=== PATIENT | female | born 1985 | race Caucasian/White ===

== ENCOUNTER → 2017-05-23 | Outpatient (CLI) | payer OTHER ==
[~2017-05-23] MED LIST: BCPILLS PO; IBUP-1050 PO; NXM/40 PO
== END | disposition home or self-care (01) ==
LOC: C.LABSPEC 15:41
PROVIDERS: ATTEND Physician Assistant
DX: L29.8 Other pruritus (principal); N94.9 Unspecified condition associated with female genital organs and menstrual cycle

== ENCOUNTER → 2017-05-23 | Outpatient (CLI) | payer OTHER | END | disposition home or self-care (01) | LOC: C.PAPS 15:35 | PROVIDERS: ATTEND Physician Assistant | DX: Z01.419 Encounter for gynecological examination (general) (routine) without abnormal findings (principal) ==

== ENCOUNTER 2023-11-10 13:06 | Observation (INO) ==
--- OUTSIDE RECORDS SUMMARY | 2023-11-10 13:10 | External Medical Summary | Summary of Care ---
Author Name Unknown Organization [facility] Address [address] [place] [address] Phone [phone] Care Team Providers Care Invertebrate Paleontologist Name Role Phone Ender Ponce MD Primary Care Provider [phone] Reason for Visit * Reason Comments Appointment Encounter Details Date Type Department Care Team (Late st Contact Info) Description 10/22/2023 6:10 PM EDT Pharmacy Pharmacy, [facility] [address] [place] [address] [facility] [address] [place] [address] Type 2 diabetes mellitus with hemoglobin A1c goal of less than 7.0% (FORMERLY [facility])* Allergies Active Allergy Reactions Criticality Noted Date Comments Environmental 11/05/2006 Sulfa Antibiotics Rash 07/02/2015 documented as of this encounter (statuses as of 10/22/2023) Medications Medication Sig Dispensed Refills Start Date End Date Status allGreenup System w/Device KitIndications:Type 2 diabetes mellitus with hemoglobin A1c goal of less than 7.0% ([facility]) Use as directed. Test blood sugar twice daily. Am and pm DX:E11.9 1 Kit 02/09/2021 Active Meloxicam 15 MG Oral TabletIndications:P eriodontitis Take by mouth 1 Tablet in the morning. for pain.. 30 Tablet 5 11/23/2021 Active Albuterol Sulfate HFA 108 (90 Base) MCG/ACT Inhalation Aerosol SolutionIndications :Mild persistent asthma without complication Inhale 2 Puffs by mouth in the morning and 2 Puffs at noon and 2 Puffs in the evening and 2 Puffs before bedtime. 18 g 3 12/04/2022 Active Fluticasone Propionate HFA 110 MCG/ACT Inhalation Aerosol (Flovent HFA)Indications:Mil d persistent asthma without complication Inhale 2 Puffs by mouth in the morning and 2 Puffs before bedtime. 12 g 3 12/04/2022 Active Multi-Vitamins Oral Tablet Take 1 Tablet by mouth in the morning. 12/20/2022 Active Mavyret 100-40 MG Oral Tablet (glecaprevir-pibren tasvir 100-40 mg per tab)Indications:Chr onic hepatitis C without hepatic coma (HCC) Take one packet (all 3 tabs) once daily with food. 84 Tablet 1 12/20/2022 Active Additional Information Patient not taking.Reported on 01/22/2023 buPROPion HCl ER (XL) 150 MG Oral Tablet Extended Release 24 Hour (Wellbutrin XL) Take 1 Tablet by mouth in the morning. 90 Tablet 3 02/21/2023 Active PARoxetine HCl 40 MG Oral Tablet (pAXil)Indications: Bipolar affective disorder in remission (HCC) Take 1.5 Tablets by mouth in the morning. 135 Tablet 1 03/15/2023 Active Ozempic (1 MG/DOSE) 4 MG/3ML Subcutaneous Solution Pen-injector (Semaglutide (1 MG/DOSE)) Inject 1 mg under the skin once a week. 3 mL 11 06/28/2023 Active metFORMIN HCl ER 500 MG Oral Tablet Extended Release 24 Hour (Glucophage XR) Take 4 Tablets by mouth in the morning. 360 Tablet 1 08/12/2023 Active Doxepin HCl 50 MG Oral Capsule (SINEquan)Indicatio ns:Primary insomnia Take 1 Capsule by mouth at bedtime. 90 Capsule 1 08/12/2023 Active OneTouch Delica Plus [id number] s:Type 2 diabetes mellitus with hemoglobin A1c goal of less than 7.0% ([facility]ERLY [facility]) USE 1 TO CHECK GLUCOSE TWICE DAILY IN THE MORNING AND IN THE EVENING 200 Each 09/25/2023 Active OneTouch Verio In Vitro Strip (Glucose Blood)Indications:T ype 2 diabetes mellitus with hemoglobin A1c goal of less than 7.0% ([facility]) USE TO TEST BLOOD SUGAR TWICE DAILY (AM&PM) 200 Strip 09/25/2023 Active Nicotine 21 MG/24HR Transdermal Patch 24 Hour (Nicoderm CQ) Place 1 Patch over 24 hours topically on the skin in the morning. On upper body/upper arm, change once a day for 6 weeks.. 42 Patch 09/25/2023 Active metroNIDAZOLE 500 MG Oral Tablet (Flagyl) Take 1 Tablet by mouth in the morning and 1 Tablet before bedtime. X 7 days until gone.. 14 Tablet 10/16/2023 Active Hospital, Clinic, or Other Facility Administered Medication Ordered Dose Route Frequency Start Date End Date Status medroxyPROGESTERone (contracep) (Depo-Provera) inj 150 mgIndications:Initiation of Depo Provera 150 mg IM [id number] 09/12/2023 Active documented as of this encounter (statuses as of 10/22/2023) Active Problems Problem Noted Date Diagnosed Date Food insecurity 02/04/2023 Overview: Per [facility] Protocol Medical marijuana use 10/22/2022 Overweight (BMI 25.0-29.9) 06/12/2022 Poor dentition 11/23/2021 Neurodermatitis 10/17/2018 Fatty liver 09/03/2018 Type 2 diabetes mellitus wit h hemoglobin A1c goal of less than 7.0% 07/11/2017 Asthma, mild persistent 11/30/2016 GIOVANY (generalized anxiety disorder) 11/30/2016 History of drug abuse 05/04/2016 Hepatitis C virus infection cured after antiviral drug therapy 05/04/2016 Overview: HCV treated; SVR confirmed 09/12/2023 Bipolar affective disorder in remission 05/04/19 17 Tobacco use disorder 05/04/2016 documented as of this encounter (statuses as of 10/22/2023) Resolved Problems Problem Noted Date Diagnosed Date Resolved Date Obesity, Class I, BMI 30.0-3 4.9 (see actual BMI) 11/23/2021 06/12/2022 Thrombocytopenia 09/03/2018 05/05/2021 Impaired fasting glucose 11/30/2016 Chronic hepatitis C without hepatic coma 11/30/2016 09/13/2023 Overview: HCV treated; SVR confirmed 09/12/2023 Family history of colon cancer 05/04/2016 11/30/2016 drug used in that is possibly teratogenic 04/11/2010 05/04/2016 Supervision of other high-risk 04/11/2010 05/04/2016 Overview: ICD-10 update of inactive term Genetic counseling 04/11/2010 7 ADVANCE DIRECTIVE INFORMATION 03/09/2010 05/04/2016 Overview: No, Advance Directive brochure offered , patient declined. documented as of this encounter (statuses as of 10/22/2023) Immunizations Name Administration Dates Next Due HEP A - Hepatitis A (Adult > 18 yrs) 06/11/2016 TDAP (age 10 and older)(Boostrix) 11/30/2014 documented as of this encounter Social History Tobacco Use Types Packs/Day Years Used Date Smoking Tobacco: Every Day Cigarettes 0.3 5 Started: 04/30/2011; Last attempted to quit: 04/30/2016 Smokeless Tobacco: Never Comments:05/09/16 Day 9 of [place] patch Alcohol Use Standard Drinks/Week Comments Yes 0 (1 standard drink = 0.6 oz pur e alcohol) occasionally PHQ-2 Answer Date Recorded PHQ-2 Score -1 02/09/2020 Hunger Vital Sign Answer Date Recorded Within the past 12 months, y ou worried that your food would run out before you got the money to buy more. Often true Within the past 12 months, t he food you bought just didn't last and you didn't have money to get more. Sometimes true 06/2023 Childcare Answer Date Recorded Do you feel overwhelmed with taking care of a child, family member or friend? Yes 08/30/2023 Does your family need help f inding childcare? (Household - for ages 0-17 years) Not on file 08/30/2023 Clothing Answer Date Recorded Have you been unable to get clothing when it was really needed? Yes 08/30/2023 Is your family able to get c lothes or diapers when needed? (Household - for ages 0-17 years) Not on file 08/30/2023 Personal Safety Answer Date Recorded Do you feel unsafe or have concerns for your saf ety? No 08/30/2023 Do you have concerns for you r family's safety? (Household - for ages 0-17 years) Not on file 08/30/2023 Utilities Answer Date Recorded Do you have trouble paying y our heating, water, or electric bill? No 08/30/2023 Is your family able to pay t he heat, water, or electric bill? (Household - for ages 0-17 years) Not on file 08/30/2023 Does your family have access to good internet? (Household - for ages 0-17 years) Not on file 08/30/2023 Employment Status Answer Date Recorded Are you unemployed or without regular income? Ye s 08/30/2023 Does the household have a re gular source of income? (Household - for ages 0-17 years) Not on file 08/30/2023 Social Connections Answer Date Recorded How often do you feel lonely or isolated from th ose around you? Often 08/30/2023 Financial Resource Strain Answer Date R ecorded Do you have any trouble payi ng for your medications, or do you think you might in the future? Yes 08/30/2023 Does your family have troubl e paying for medicine? (Household - for ages 0-17 years) Not on file 08/30/2023 Transportation Needs Answer Date Record ed READ ONLY Do you have troubl e getting a ride to medical visits or work? Often True 08/30/2023 Does your family have a hard time getting a ride to doctors visits? (Household - for ages 0-17 years) Not on file 08/30/2023 Has lack of transportation k ept you from medical appointments, meetings, work, or from getting things needed for daily living? Check all that apply. (Adult - for ages 18 years and over) Not on file 08/30/2023 Do you (or your family) have trouble finding or paying for a ride (transportation)? (Household - for ages 0-17 years) Not on file 08/30/2023 Housing Stability Answer Date Recorded Do you currently live in a s helter or have no steady place to sleep at night? Yes 08/30/2023 READ ONLY Do you think you a re at risk of becoming homeless? No 08/30/2023 Does your family worry about paying for your home or becoming homeless? (Household - for ages 0-17 years) Not on file 0 08/30/2023 Are you homeless or worried that you might be in the future? (Adult - for ages 18 years and over) Not on file Are you (or your family) emily eless or worried that you might be in the future? (Household - for ages 0-17 years) Not on file Food Insecurity Answer Date Recorded Do you need food for this week? No 08/30/2023 Are you able to get enough f ood for your family? (Household - for ages 0-17 years) Not on file 08/30/2023 Does your family need food t his week? (Household - for ages 0-17 years) Not on file 08/30/2023 Do you always have enough fo od for your family? 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 [facility] message sent --no Clinic will follow up again in 4 week(s). [Attempt # 2] Thank you, Megan Cee Water Jet Operator [facility] 10/22/2023,9:55 AM documented in this encounter Plan of Treatment Upcoming Encounters Date Type Department Care Team (Late st Contact Info) Description 11/19/2023 6:10 PM EDT Pharmacy Pharmacy, [facility] [address] [facility] [place] [address] [facility] 132 [facility] [place] [address] 12/05/2023 10:30 AM EDT Nurse Only Gynecology/Obstetrics [facility] 132 [facility] [place] [address] Gw, Nurse Obgyn Injection 132 [facility] [place] [address] 12/20/2023 10:40 AM EDT Office Visit Family Practice [facility] [address] [facility] [place] [address] Ender Ponce MD [address] [facility] [place] [address] 01/17/2024 10:30 AM EDT Office Visit Gynecology/Obstetrics, [place] [address] [facility] [place] [address] Jessica Cee MD [address] [place] [address] 02/25/2024 8:20 AM EDT Office Visit Hepatology, [facility] [address] [facility] [place] [address] Mehnaz Delgado DO 132 [facility] [place] [address] 03/11/2024 7:00 AM [facility] Pharmacy Hepatology, [place] [address] [place] [address] [place], Pharmacist Hepatology [address] [place] [address] Health Maintenance Due Date Last Done Comments DISCUSS TOBACCO CESSATION (REFER TO SMARTSET #[id number]) 1986 Pneumococcal Vaccine: Pediatrics (0 to 5 Years) and At-Risk Patients (6 to 64 Years) (1 of 2 - PCV) 1992 Diabetic Eye Exam 2004 HPV/Co-Test 2016 *SPIROMETRY ONCE FOR ASTHMA-ADULT 12/02/2016 Diabetic Foot Exam 02/08/2021 02/09/2020, 12/05/2017 COVID-19 Vaccine ( season) 2022 Cervical Cancer Screening 01/27/2024 Pap Smear 01/27/2024 01/26/2021 HbA1c 02/13/2024 08/14/2023, 03/0 04/2023, 10/27/2022, Additional history exists Albumin/Creatinine Ratio 08/13/2024 08/14/2023, 2 08/2022 B-12 08/13/2024 08/14/2023, 2 08/2022, 02/09/2020, Additional history exists GFR 08/13/2024 08/14/2023, 0704/2022, 08/21/2022, Additional history exists DTaP,Tdap,and Td Vaccines (2 - Td or Tdap) 11/30/2024 11/30/2014 Influenza Vaccine (FLU shot) Completed 01/22/2023 GARDASIL-HPV IMMUNIZATION SERIES Aged Out No longer eligible based on patient's age to complete this topic MENINGOCOCCAL (MENACTRA/MENVEO) Aged Out No longer eligible based on patient's age to complete this topic documented as of this encounter Medical Devices Not on filedocumented as of this encounter Visit Diagnoses Diagnosis Type 2 diabetes mellitus with hemoglobin A1c goal of less than 7.0% (HCC)- Primary documented in this encounter Care Teams Invertebrate Paleontologist Relationship Specialty Start Date End Date Ender Ponce MD [address] [facility] [place] [address] PCP - General Family Medicine 05/21/16 documented as of this encounter
--- OUTSIDE RECORDS SUMMARY | 2023-11-10 13:11 | External Medical Summary | Summary of Care ---
Author Name Unknown Organization [facility] Address [address] [place] [address] Phone [phone] Care Team Providers Care Religious Healer Name Role Phone Ender Ponec MD Primary Care Provider [phone] Reason for Visit * Reason Comments Dosage Adjustment Via Phone (anticoag Cl inic) Status Check Encounter Details Date Type Department Care Team (Late st Contact Info) Description 09/13/2023 7:10 AM EDT Pharmacy Hepatology, [place] [address] [place] [address] [place], Pharmacist Hepatology [address] [place] [address] Hepatitis C virus infection cured after antiviral drug therapy* Allergies Active Allergy Reactions Criticality Noted Date Comments Environmental 11/05/2006 Sulfa Antibiotics Rash 07/02/2015 documented as of this encounter (statuses as of 09/13/2023) Medications Medication Sig Dispensed Refills Start Date End Date Status [employer] Flex System w/Device KitIndications:Type 2 diabetes mellitus with hemoglobin A1c goal of less than 7.0% (HCC) Use as directed. Test blood sugar twice daily. Am and pm DX:E11.9 1 Kit 0 02/09/2021 Active Meloxicam 15 MG Oral TabletIndications:P eriodontitis Take by mouth 1 Tablet in the morning. for pain.. 30 Tablet 5 11/23/2021 Active OneTouch Delica Plus [id number] s:Type 2 diabetes mellitus with hemoglobin A1c goal of less than 7.0% (HCC) USE 1 TO CHECK GLUCOSE TWICE DAILY IN THE MORNING AND IN THE EVENING 200 Each 1 08/22/2022 Active OneTouch Verio In Vitro Strip (Glucose Blood)Indications:T ype 2 diabetes mellitus with hemoglobin A1c goal of less than 7.0% (HCC) USE TO TEST BLOOD SUGAR TWICE DAILY (AM&PM) 200 Strip 1 08/22/2022 Active Albuterol Sulfate HFA 108 (90 Base) [...] 1 Tablet by mouth in the morning. 0 12/20/2022 Active Mavyret 100-40 MG Oral Tablet [...] the morning. 90 Tablet 3 02/21/2023 Active Nicotine 21 MG/24HR Transdermal Patch 24 Hour (Nicoderm CQ) Place 1 Patch over 24 hours topically on the skin in the morning. On upper body/upper arm, change once a day for 6 weeks.. 42 Patch 0 02/21/2023 Active PARoxetine HCl 40 MG Oral [...] at bedtime. 90 Capsule 1 08/12/2023 Active Hospital, Clinic, or Other Facility Administered Medication Ordered Dose Route Frequency Start Date End Date Status medroxyPROGESTERone (contracep) (Depo-Provera) inj 150 mgIndications:Initiation of Depo Provera 150 mg IM [id number] 09/12/2023 Active documented as of this encounter (statuses as of 09/13/2023) Active Problems Problem Noted Date Diagnosed Date Food insecurity 02/04/2023 Overview: Per [facility] Protocol Medical marijuana use 10/22/2022 Overweight [...] as of this encounter (statuses as of 09/13/2023) Resolved Problems Problem Noted Date Diagnosed Date [...] as of this encounter (statuses as of 09/13/2023) Immunizations Name Administration Dates Next Due HEP [...] money to get more. Sometimes true 06/2023 Sex and Gender Information Value Date Recorded Sex Assigned at Female 01/22/2023 12:40 PM EDT Gender Identity Female 01/22/2023 12:40 PM EDT Sexual Orientation Straight 01/22/2023 12 :40 PM EDT Job Start Date Occupation Industry Not on file Not on file Not on file documented as of this encounter Progress Notes * Nelli oRa, [facility] - 09/13/2023 3:49 PM EDT MTM Hepatitis C Treatment Follow-Up Patient Name: Dyana Flores SVR follow up History of Current Illness: Dyana Flores is a 38 year old female with chronic Hepatitis C, genotype 1a, F3, last seen in the Hepatology clinic on 11/30/2022. Patient has completed Hepatitis C treatment. This is a follow-up phone call to the patient to review labs 12 weeks after 8 weeks of treatment ([id number]). Treatment Overview: Physician initiating treatment: Javier Carr MD/Mehnaz Delgado, DO Treatment Plan: Mavyret for 8 weeks. Started Treatment: 2022 Completed Therapy: 2023 Were you able to contact the patient? Yes Review of Recent Lab Results: Latest Reference Range & Units 06/12/22 09:26 *Pretreatment 05/28/23 10:29 *EOT Labs 09/12/23 12:20 *SVR Labs Protein 6.0 - 8.3 g/dL 7.7 7.6 7.8 HEPATITIS C RNA QUANTITATIVE 44,400,000 Negative Negative Albumin 3.8 - 5.0 g/dL 4.4 4.4 4.5 AST 10 - 35 U/L 44 (H) 32 48 (H) ALT 10 - 35 U/L 58 (H) 20 48 (H) Alkaline Phosphatase 35 - 130 U/L 135 (H) 103 86 Bilirubin, Total <=1.2 mg/dL 0.3 0.4 0.4 Bilirubin, Direct 0.0 - 0.3 mg/dL <0.2 <0.2 MTM Plan: SVR achieved. Congratulated Ms. Flores on her Hepatitis C cure! We discussed the risk factors for reinfection andshe understands there is no immunity to the virus. She also expressed understanding that her antibody will always be positive, and a repeat viral load is necessary if there is ever a question of reinfection. She stated that her significant other is currently HCV positive, but he doesn't have health insurance and can't afford coverage. We discussed the importance of avoiding blood to blood exposure and the need to request additional screening with a viral load if there's concern for exposure in the future. She expressed understanding and all of her questions were answered to her satisfaction. Will follow up with patient again in 6 months with a reminder call that repeat viral load is due. 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 She agreed to the first available mobility developer appointment on 02/25/2024 @8:[address] Delgado. Nelli Roa, PharmD, [facility] Clinical Pharmacist, Hepatology 09/13/2023 3:54 PM documented in this encounter Plan of Treatment Upcoming Encounters Date Type Department Care Team (Late st Contact Info) Description 10/04/2023 8:00 AM EDT Office Visit Pharmacy, [facility] [address] [facility] [place] [address] [facility] [address] [place] [address] 02/25/2024 8:20 AM EDT Office Visit Hepatology, [facility] [address] [place] [address] Mehnaz Delgado DO [address] [place] [address] 03/11/2024 7:00 AM EST Pharmacy Hepatology, [facility] [address] [place] [address] [facility], Pharmacist Hepatology [address] [place] [address] Health Maintenance Due Date Last Done Comments DISCUSS TOBACCO CESSATION (REFER TO SMARTSET #[id number]) 1986 Pneumococcal Vaccine: Pediatrics (0 to 5 [...] Additional history exists Albumin/Creatinine Ratio 08/13/2024 08/14/2023, 04/2 08/2022 B-12 08/13/2024 08/14/2023, 07/29, 02/09/2020, Additional history exists GFR 08/13/2024 08/14/2023, 07/0 04/2022, 08/21/2022, Additional history exists DTaP,Tdap,and Td Vaccines [...] as of this encounter Visit Diagnoses Diagnosis Hepatitis C virus infection cured after antiviral drug therapy- Primary documented in this encounter Care Teams Religious Healer Relationship Specialty Start Date End Date Ender Ponce MD [address] [place] [address] PCP - General Family Medicine 05/21/16 documented as of this encounter
--- OUTSIDE RECORDS SUMMARY | 2023-11-10 13:11 | External Medical Summary ---
Author Name Unknown Address Unknown Organization [id number]:[facility]ORATORY [facility] [place] - [address] [facility] [address] Laboratory Report Ordering Provider Test Date Status SWAPNA REDD 10/15/2023 10:34:03 Final Observation Date Value Abnormality Reference (Units ) Status Bacterial vaginosis [Interpretation] in Vaginal fluid Qualitative 10/15/2023 10:34:03 Positive Abnormal Negative Final Positive for Bacterial Vagin osis. Correlate results with other clinical findings. Lynnette sp DNA [Presence] in Vaginal fluid by Probe 10/15/2023 10:34:03 Positive Abnormal Negative Final Lynnette species group RNA de tected. Correlate results with other clinical findings. Lynnette glabrata RNA [Presen ce] in Vaginal fluid by ANKITA with probe detection 10/15/2023 10:34:03 Negative Negative Final No Lynnette glabrata RNA dete cted. Correlate results with other clinical findings. Trichomonas vaginalis DNA [P resence] in Vaginal fluid by Probe 10/15/2023 10:34:03 Negative Negative Final No Trichomonas vaginalis RNA detected. Performing Location LABORATORY [facility] - [address] [place] [address]
--- OUTSIDE RECORDS SUMMARY | 2023-11-10 13:11 | External Medical Summary | Summary of Care ---
Author Name Unknown Organization [facility] Address [address] [place] [address] Phone [phone] Care Team Providers Care Talent Acquisition Operations Manager Name Role Phone Ender Ponce MD Primary Care Provider [phone] Encounter Details Date Type Department Care Team (Late st Contact Info) Description 09/13/2023 Telephone Gynecology/Obstetrics [facility] [address] [place] [address] Brielle Petty, [facility] [address] [place] [address] Allergies Active Allergy Reactions Criticality Noted Date Comments Environmental 11/05/2006 Sulfa Antibiotics Rash 07/02/2015 documented as of this encounter (statuses as of 10/01/2023) Medications Medication Sig Dispensed Refills Start Date End Date Status Videostir System w/Device KitIndications:Typ e 2 diabetes mellitus with hemoglobin A1c goal of less than 7.0% ([facility]) Use as directed. Test blood sugar twice daily. Am and pm DX:E11.9 1 Kit 02/09/2021 Active Meloxicam 15 MG Oral TabletIndications: Periodontitis Take by mouth 1 Tablet in the morning. for pain.. 30 Tablet 5 11/23/2021 Active Albuterol Sulfate HFA 108 (90 Base) MCG/ACT Inhalation Aerosol SolutionIndication s:Mild persistent asthma without complication Inhale 2 Puffs by mouth in the morning and 2 Puffs at noon and 2 Puffs in the evening and 2 Puffs before bedtime. 18 g 3 12/04/2022 Active Fluticasone Propionate HFA 110 MCG/ACT Inhalation Aerosol (Flovent HFA)Indications:Mi ld persistent asthma without complication Inhale 2 Puffs by mouth in the morning and 2 Puffs before bedtime. 12 g 3 12/04/2022 Active Multi-Vitamins Oral Tablet Take 1 Tablet by mouth in the morning. 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 84 Tablet 1 12/20/2022 Active Additional Information Patient not taking.Reported on 01/22/2023 buPROPion HCl ER (XL) 150 MG Oral Tablet Extended Release 24 Hour (Wellbutrin XL) Take 1 Tablet by mouth in the morning. 90 Tablet 3 02/21/2023 Active PARoxetine HCl 40 MG Oral Tablet (pAXil)Indications :Bipolar affective disorder in remission (HCC) Take 1.5 [...] Active Doxepin HCl 50 MG Oral Capsule (SINEquan)Indicati ons:Primary insomnia Take 1 Capsule by mouth at bedtime. 90 Capsule 1 08/12/2023 Active OneTouch Delica Plus [id number] ns:Type 2 diabetes mellitus with hemoglobin A1c goal of less than 7.0% ([facility]) USE 1 TO CHECK GLUCOSE TWICE DAILY IN THE MORNING AND IN THE EVENING 200 Each 1 08/22/2022 4 Discontinue d(Refill) OneTouch Verio In Vitro Strip (Glucose Blood)Indications: Type 2 diabetes mellitus with hemoglobin A1c goal of less than 7.0% ([facility]) USE TO TEST BLOOD SUGAR TWICE DAILY (AM&PM) 200 Strip 1 08/22/2022 4 Discontinue d(Refill) Nicotine 21 MG/24HR Transdermal Patch 24 Hour (Nicoderm CQ) Place 1 Patch over 24 hours topically on the skin in the morning. On upper body/upper arm, change once a day for 6 weeks.. 42 Patch 02/21/2023 4 Discontinue d(Refill) Hospital, Clinic, or Other Facility Administered Medication Ordered Dose Route Frequency Start Date End Date Status medroxyPROGESTERone (contracep) (Depo-Provera) inj 150 mgIndications:Initiation of Depo Provera 150 mg IM [id number] 09/12/2023 Active documented as of this encounter (statuses as of 10/01/2023) Active Problems Problem Noted Date Diagnosed Date Food insecurity 02/04/2023 Overview: Per [facility] Protocol Medical marijuana use 10/22/2022 Overweight [...] as of this encounter (statuses as of 10/01/2023) Resolved Problems Problem Noted Date Diagnosed Date [...] as of this encounter (statuses as of 10/01/2023) Immunizations Name Administration Dates Next Due HEP [...] on file documented as of this encounter Miscellaneous Notes * Telephone Encounter - Nidhi Candelaria RN - 09/26/2023 7:24 AM EDT left message for patient to call office * Telephone Encounter - Brielle Petty CNM - 09/26/2023 6:39 AM EDT Patient is scheduled for 10/15/23. Does she want an IUD at that visit? Seeking clarification for theprimary purpose of the visit on 10/15/23. Thanks! Brielle Petty CNM * Telephone Encounter - Erin Eldridge OSA - 09/20/2023 4:10 PM EDT Patient is scheduled in your office in September. She was unsure of what she wanted to do when I spoke to her. Please check with her at her appt and see if she has decided what she wants to do and schedule her appropriately. If she would like to be seen back here at [facility] and you're unable to schedule, please route back to me. Thanks! * Telephone Encounter - Laisha Christensen RN - 09/13/2023 3:29 PM EDT Patient was given depo 09/12/2023 last. Please scheduled for return depo 11/27-12/11 or assist with scheduling IUD insertion. * Telephone Encounter - Brielle Petty CNM - 09/13/2023 3:24 PM EDT Could you assist patient with scheduling return visit for IUD insertion in approximately 3 months? Or schedule follow up depo provera injection? Thanks! Brielle Petty CNM documented in this encounter Plan of Treatment Upcoming Encounters Date Type Department Care Team (Late st Contact Info) Description 10/04/2023 8:00 AM EDT Office Visit Pharmacy, [address] [place] [address] [facility] [place] [address] 10/15/2023 10:00 AM EDT [facility] [place] [facility] [address] Brielle Petty, [facility] [address] [facility] [address] 02/25/2024 8:20 AM EDT [facility] Visit [facility] [place] [address] Mehnaz Delgado DO [address] [place] [address] 03/11/2024 7:00 AM [facility] Hepatology, [place] [address] [place] [address] [place], Pharmacist Hepatology [address] [place] [address] Health Maintenance Due Date Last Done Comments DISCUSS TOBACCO CESSATION (REFER TO SMARTSET #[id number]) 1986 Pneumococcal Vaccine: Pediatrics (0 to 5 [...] Additional history exists Albumin/Creatinine Ratio 08/13/2024 08/14/2023, 07/29 B-12 08/13/2024 08/14/2023, 07/29, 02/09/2020, Additional history [...] Not on filedocumented as of this encounter Care Teams Talent Acquisition Operations Manager Relationship Specialty Start Date End Date Ender Ponce MD [address] [place] [address] PCP - General Family Medicine 05/21/16 documented as of this encounter
--- OUTSIDE RECORDS SUMMARY | 2023-11-10 13:11 | External Medical Summary | Summary of Care ---
Author Name Unknown Organization [facility] Address [address] [place] [address] Phone [phone] Care Team Providers Care Sugar Trucker Name Role Phone Ender Ponce MD Primary Care Provider [phone] Encounter Details Date Type Department Care Team (Late st Contact Info) Description 09/13/2023 Telephone Gynecology/Obstetrics [facility] [address] [place] [address] Brielle Petty, [facility] [address] [place] [address] Allergies Active Allergy Reactions Criticality Noted Date Comments Environmental 11/05/2006 Sulfa Antibiotics Rash 07/02/2015 documented as of this encounter (statuses as of 10/01/2023) Medications Medication Sig Dispensed Refills Start Date End Date Status Moglue System w/Device KitIndications:Typ e 2 diabetes mellitus with hemoglobin A1c goal of less than 7.0% ([facility]) Use as directed. Test blood sugar twice [...] Capsule 1 08/12/2023 Active OneTouch Delica Plus [id number] ns:Type 2 diabetes mellitus with hemoglobin A1c goal of less than 7.0% ([facility]) USE 1 TO CHECK GLUCOSE TWICE DAILY IN THE MORNING AND IN THE EVENING 200 Each 1 08/22/2022 4 Discontinue d(Refill) OneTouch Verio In Vitro Strip (Glucose Blood)Indications: Type 2 diabetes mellitus with hemoglobin A1c goal of less than 7.0% ([facility]) USE TO TEST BLOOD SUGAR TWICE DAILY [...] mgIndications:Initiation of Depo Provera 150 mg IM [id number] 09/12/2023 Active documented as of this encounter (statuses as of 10/01/2023) Active Problems Problem Noted Date Diagnosed Date Food insecurity 02/04/2023 Overview: Per [facility] Protocol Medical marijuana use 10/22/2022 [...] like to be seen back here at [facility] and you're unable to schedule, please route [...] 10/04/2023 8:00 AM EDT Office Visit Pharmacy, [address] [place] [address] [facility] [place] [address] 10/15/2023 10:00 AM EDT Office Visit Gynecology/Obst[facility] [place] [facility] [address] Brielle Petty, [facility] [address] [facility] [address] 02/25/2024 8:20 AM EDT Office Visit [facility]atology, [facility] [place] [address] Mehnaz Delgado DO [address] [place] [address] 03/11/2024 7:00 AM [facility] Hepatology, [place] [address] [place] [address] [place], Pharmacist Hepatology [address] [place] [address] Health Maintenance Due Date Last Done Comments DISCUSS TOBACCO CESSATION (REFER TO SMARTSET #[id number]) 1985 Pneumococcal Vaccine: Pediatrics (0 to 5 [...] filedocumented as of this encounter Care Teams Sugar Trucker Relationship Specialty Start Date End Date Ender Ponce MD [address] [place] [address] PCP - General Family Medicine 05/21/16 documented as of this encounter
--- OUTSIDE RECORDS SUMMARY | 2023-11-10 13:11 | External Medical Summary | Summary of Care ---
Author Name Unknown Organization [facility] Address [address] [place] [address] Phone [phone] Care Team Providers Care Highway Administrative Engineer Name Role Phone Ender Ponce MD Primary Care Provider [phone] Reason for Visit * Reason Comments Plugger Worker Return Pelvic pain Encounter Details Date Type Department Care Team (Late st Contact Info) Description 10/15/2023 10:00 AM EDT Office Visit Gynecology/Obstetric Neri garcia [address] [place] [address] Brielle Petty CN [address] [place] [address] Routine screening for STI (sexually transmitted infection)*; Pelvic pain in female; Family history of endometriosis; Stress incontinence Allergies Active Allergy Reactions Criticality Noted Date Comments Environmental 11/05/2006 Sulfa Antibiotics Rash 07/02/2015 documented as of this encounter (statuses as of 10/15/2023) Medications Medication Sig Dispensed Refills Start Date End Date Status [email or web address] Flex System w/Device KitIndications:Type 2 diabetes mellitus with hemoglobin A1c goal of less than 7.0% ([facility]) Use as directed. Test blood sugar twice [...] Capsule 1 08/12/2023 Active OneTouch Delica Plus [id number] s:Type 2 diabetes mellitus with hemoglobin A1c goal of less than 7.0% ([facility]) USE 1 TO CHECK GLUCOSE TWICE DAILY IN THE MORNING AND IN THE EVENING 200 Each 09/25/2023 Active OneTouch Verio In Vitro Strip (Glucose Blood)Indications:T ype 2 diabetes mellitus with hemoglobin A1c goal of less than 7.0% ([facility]) USE TO TEST BLOOD SUGAR TWICE DAILY (AM&PM) 200 Strip 09/25/2023 Active Nicotine 21 MG/24HR Transdermal Patch 24 Hour (Nicoderm CQ) Place 1 Patch over 24 hours topically on the skin in the morning. On upper body/upper arm, change once a day for 6 weeks.. 42 Patch 09/25/2023 Active Fluconazole 150 MG Oral Tablet (Diflucan) Take 1 Tablet by mouth once for 1 dose. 1 Tablet 10/15/2023 10/15/2023 Active Hospital, Clinic, or Other Facility Administered Medication Ordered Dose Route Frequency Start Date End Date Status medroxyPROGESTERone (contracep) (Depo-Provera) inj 150 mgIndications:Initiation of Depo Provera 150 mg IM [id number] 09/12/2023 Active documented as of this encounter (statuses as of 10/15/2023) Active Problems Problem Noted Date Diagnosed Date Food insecurity 02/04/2023 Overview: Per [facility] Protocol Medical marijuana use 10/22/2022 Overweight [...] as of this encounter (statuses as of 10/15/2023) Resolved Problems Problem Noted Date Diagnosed Date [...] as of this encounter (statuses as of 10/15/2023) Immunizations Name Administration Dates Next Due HEP A - Hepatitis A (Adult > 18 yrs) 06/11/2016 TDAP (age 10 and older)(Boostrix) 11/30/2014 documented as of this encounter Social History Tobacco Use Types Packs/Day Years Used Date Smoking Tobacco: Every Day Cigarettes 0.3 5 Started: 04/30/2011; Last attempted to quit: 04/30/2016 Smokeless Tobacco: Never Tobacco Cessation:Ready to Q uit: Not Asked; Counseling Given: Not Answered Comments:05/09/16 Day 9 of Nicotine patch Alcohol Use Standard Drinks/Week Comments Yes [...] on file documented as of this encounter Last Filed Vital Signs Vital Sign Reading Time Taken Comments Blood Pressure 118/82 10/15/2023 10:01 AM EDT Pulse - - Temperature 37.1 C (98.8 F) 10/15/2023 10:01 AM E DT Respiratory Rate - - Oxygen Saturation - - Inhaled Oxygen Concentration - - Weight 73.6 kg (162 lb 3.2 oz) 10/15/2023 10:01 AM EDT Height - - Body Mass Index 28.73 09/12/2023 11:05 AM EDT documented in this encounter Progress Notes * Brielle Petty CNM - 10/15/2023 10:10 AM EDT Dyana Flores [id number] 10/15/2023 CC: pelvic pain HPI: The patient is a 38 year old female here for pelvic pain. She reports that she has "not felt quite right" and pelvic pain has stayed the same since since hersurgical in March 2023. Reports cramping 1 week prior to her period, especially left lower pelvis, and then a week after her period. Takes Advil about 5-6 days per month (400mg) which does provide relief. Pain worsens with activity and is relieved with rest. Both her mother and sister have endometriosis. Sometimes has pain with bowel movements; reports "poop cramps" 1-2 times weekly. Has a BM daily. She takes Metformin. Denies dysuria and low back pain. Reports leakage of urine withlaughing, coughing, or sneezing for the last 1-2 years. Denies any pain with intercourse or inserting fingers into the vagina. Denies vaginal odor. +Vaginal discharge (creamy white/yellow). Denies vaginal itching and pain. LMP 09/28/23. Period lasted 12 days. Stated 09/28/23 and ended 10/09/23. Using super tampons for the first 8 days which she changed every 4-6 hours, then on day 9-10 changed a regular tampon every 6 hours. On depo provera. When she was on depo provera previously, she had irregularperiods. Sexually active with same male partner of 15 years. Has not taken plan B since April 2023. Using condoms pretty consistently. She is on her second course of antibiotics for her teeth. Finished 10 days of Augmentin; starting 10 more days of amoxicillin today. Has had some chills, which she thinks is related to her tooth infection. Sees Dr. Villarreal in [place]. Pap: 01/26/2021 (NILM, HPV neg) TOTAL PREG....: NA FULL TERM.....: NA PREMATURE.....: NA AB,INDUCED....: NA AB,SPONTANEOUS: NA ECTOPIC.......: NA MULTIPLE : NA LIVING........: NA Date Labor Sex Delivery Anesth Del Comments GA Length Weight Type Site Past Medical History: Diagnosis Date Asthma, severity to be determined Asthma-Allergic Fatty liver 09/03/2018 Neurodermatitis 10/17/2018 Obesity, Class I, BMI 30.0-34.9 (see actual BMI) 11/23/2021 Poor dentition 11/23/2021 Smoking 05/04/2016 Thrombocytopenia ([facility]) 09/03/2018 Type 2 diabetes mellitus with hemoglobin A1c goal of less than 7.0% ([facility]) 07/11/2017 Past Surgical History: Procedure Laterality Date DELIVERY 05/30/2005 CYSTOSCOPY 11/05/2006 EGD, W/ENDOSCOPIC US 01/28/2023 gastritis/esophageal plaques suspicious for omari/biopsies confirm omari, Hep C moderate scarring/ESOPHAGOGASTRODUODENOSCOPY (EGD), FLEXIBLE, TRANSORAL, ENDOSCOPIC ULTRASOUND performed by Merna Mercer DO at ENDOSCOPY [facility] REMOVAL OF TONSILS, AGE 12+ 04/29/1999 Tonsils Removal,12+ Y/O Family Hx: Family History Problem Relation Name Age of Onset No Past Hx Mother No Past Hx Father Cancer Grandmother (Maternal) LUNG CANCER/colon CA Ovarian cancer Aunt (Maternal) still living; age of dx unknown Social History Socioeconomic History Marital status: Single Tobacco Use Smoking status: Every Day Current packs/day: 0.00 Average packs/day: 0.3 packs/day for 5.0 years (1.3 ttl pk-yrs) Types: Cigarettes Start date: 04/30/2011 Last attempt to quit: 04/30/2016 Years since quittin.4 Smokeless tobacco: Never Tobacco comments: 05/09/16 Day 9 of Nicotine patch Vaping Use Vaping status: Never Used Substance and Sexual Activity Alcohol use: Yes Comment: occasionally Drug use: Yes Types: Marijuana, Methamphetamines Comment: documented hx of IVDA/methamphetamines- sober since 2013 Sexual activity: Yes Partners: Male control/protection: Condom Social Determinants of Health Financial Resource Strain: High Risk (08/30/2023) Financial Resource Strain Do you have any trouble paying for your medications, or do you think you might in the future? (Adult - for ages 18 years and over): Yes Food Insecurity: No Food Insecurity (08/30/2023) Food Insecurity Do you need food for this week? (Adult - for ages 18 years and over): No Recent Concern: Food Insecurity - Food Insecurity Present (08/30/2023) Hunger Vital Sign Worried About Running Out of Food in the Last Year: Often true Ran Out of Food in the Last Year: Sometimes true Transportation Needs: Unmet Transportation Needs (08/30/2023) Transportation Needs Do you have trouble getting a ride to medical visits or work? (Adult - for ages 18 years and over):Often True Social Connections: Socially Isolated (08/30/2023) Social Connections How often do you feel lonely or isolated from those around you? (Adult - for ages 18 years and over): Often Housing Stability: High Risk (08/30/2023) Housing Stability Do you currently live in a fpc or have no steady place to sleep at night? (Adult - for ages 18 years and over): Yes Do you think you are at risk of becoming homeless? (Adult - for ages 18 years and over): No Medications: Current Outpatient Medications Medication Sig Dispense Refill Denator System w/Device Kit Use as directed. Test blood sugar twice daily. Am and pm DX:E11.9 1 Kit 0 Meloxicam 15 MG Oral Tablet Take by mouth 1 Tablet in the morning. for pain.. 30 Tablet 5 Albuterol Sulfate HFA 108 (90 Base) MCG/ACT Inhalation Aerosol Solution Inhale 2 Puffs by mouth in the morning and 2 Puffs at noon and 2 Puffs in the evening and 2 Puffs before bedtime. 18 g 3 Fluticasone Propionate HFA 110 MCG/ACT Inhalation Aerosol (Flovent HFA) Inhale 2 Puffs by mouth in the morning and 2 Puffs before bedtime. 12 g 3 Multi-Vitamins Oral Tablet Take 1 Tablet by mouth in the morning. Mavyret 100-40 MG Oral Tablet (glecaprevir-pibrentasvir 100-40 mg per tab) Take one packet (all 3 tabs) once daily with food. (Patient not taking: Reported on 01/22/2023) 84 Tablet 1 buPROPion HCl ER (XL) 150 MG Oral Tablet Extended Release 24 Hour (Wellbutrin XL) Take 1 Tablet by mouth in the morning. 90 Tablet 3 PARoxetine HCl 40 MG Oral Tablet (pAXil) Take 1.5 Tablets by mouth in the morning. 135 Tablet 1 Ozempic (1 MG/DOSE) 4 MG/3ML Subcutaneous Solution Pen-injector (Semaglutide (1 MG/DOSE)) Inject 1 mg under the skin once a week. 3 mL 11 metFORMIN HCl ER 500 MG Oral Tablet Extended Release 24 Hour (Glucophage XR) Take 4 Tablets by mouth in the morning. 360 Tablet 1 Doxepin HCl 50 MG Oral Capsule (SINEquan) Take 1 Capsule by mouth at bedtime. 90 Capsule 1 OneTouch Delica Plus [id number] USE 1 TO CHECK GLUCOSE TWICE DAILY IN THE MORNING AND IN THE [id number] Each 0 OneTouch Verio In Vitro Strip (Glucose Blood) USE TO TEST BLOOD SUGAR TWICE DAILY (AM&PM) 200 Strip 0 Nicotine 21 MG/24HR Transdermal Patch 24 Hour (Nicoderm CQ) Place 1 Patch over 24 hours topically on the skin in the morning. On upper body/upper arm, change once a day for 6 weeks.. 42 Patch 0 Current Facility-Administered Medications Medication Dose Route Frequency Provider Last Rate Last Admin medroxyPROGESTERone (contracep) (Depo-Provera) inj 150 mg 150 mg Intramuscular Q90 Days Brielle Petty CNM 150 mg at 09/12/23 1312 Allergies: Review of patient's allergies indicates: Allergen Reactions Environmental Sulfa Antibiotics Rash ROS: See HPI Physical Exam BP 118/82 | Temp 37.1 C (98.8 F) | Wt 73.6 kg (162 lb 3.2 oz) | LMP 09/28/2023 (Exact Date) | BMI 28.73 kg/m | BSA 1.81 m General: awake, alert, and oriented x 3, NAD Neuro: no focal motor/sensory deficits, gait normal Abdomen: active bowel sounds, RLQ and suprapubic tenderness, no signs of acute abdomen or guarding Pelvic: external genitalia and vagina anatomy within normal limits, no vulvar lesions, small amountof thick white/yellow vaginal discharge, cervix normal in appearance without lesions or purulent discharge, bimanual exam reveals firmness near the cervix and moderate tenderness throughout the pelvis, patient tolerated bimanual exam well, no concern for PID, GC/CT and vaginosis swabs collected Security Installation Sales Technician Documentation Provider requested cyber incident analyst. Name of cyber incident analyst: Ladonna Prakash LPN Assessment/Plan: (N39.3) Stress incontinence Plan: -Educated patient about Kegel exercises -Patient to notify provider if no relief in 3 months; consider urogyn referral (Z11.3) Routine screening for STI (sexually transmitted infection) (primary encounter diagnosis) Plan: VAGINOSIS PANEL, PCR, CHLAMYDIA TRACHOMATIS AND NEISSERIA GONORRHOEAE, AMPLIFIED PROBE, VAGINOSIS PANEL, PCR, CHLAMYDIA TRACHOMATIS AND NEISSERIA GONORRHOEAE, AMPLIFIED PROBE -STI screening performed as above -Urine test today -Patient desires to continue depo provera for contraception (R10.2) Pelvic pain in female Plan: CULTURE, URINE, QUANTITATIVE, VAGINOSIS PANEL, PCR, VAGINOSIS PANEL, PCR, URINE SCREEN, POINT OF CARE (ENTER/EDIT) -Urine culture and STI testing performed as listed above -Patient was offered a repeat pelvic US and politely declined. Pelvic US was unremarkable on 09/17/23. -Rx for 150mg PO Diflucan x1 since patient is on PO ABX. She takes a probiotic. (Z84.2) Family history of endometriosis Plan: -Will schedule appointment with MD to discuss possible evaluation for endometriosis given patient'sfamily history (mom and sister) and pelvic pain. Discussed with patient that the only way to diagnosis endometriosis is with surgery. Patient would like to discuss this option. 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 Pt states this has been going on for 2- 3 months. Pt statesshe has tried tylenol/ibuprofen for relief with relief. This pain is with her period, the week before period as well as the week after her period States she had an 03/2023 and feels since then things have been this way Pt denies irritation, burning, itching at this time. States she does have a whitish discharge and odor. Pt uses Depo-Provera for contraception. Missed any doses? No last dose 09/12/2023 Any concerns of ? no Pt states she is not with concerns of STDs. Pt is not agreeable to STD testing today. Just had a full panel done 09/12/2023 with annual exam Any pelvic/abdominal surgeries? Yes, 4 C/S Any bowel concerns? no Any pain, burning with urination, urgency, frequency,bleeding, foul odor? No States she is feeling pressure with urination, also having to wear panty liners all the time as sheis leaking fluid each time she coughs. PAP: 01/26/2021 neg & neg Patient's last menstrual period was 09/28/2023 (exact date). Menarche at age 13 Pt states she is on her second round of antibiotics and is asking for a medication for when she is complete with the antibiotic as she states she knows she will get a yeast infection. Ladonna Prakash LPN documented in this encounter Plan of Treatment Upcoming Encounters Date Type Department Care Team (Late st Contact Info) Description 10/22/2023 6:10 PM EDT [facility] [address] [address] [facility] [address] [address] 12/05/2023 10:30 AM EDT Nurse Only Gynecology/Obstetrics [facility] [address] [id number] Gw, Nurse Obgyn Injection [address] [address] 12/20/2023 10:40 AM EDT Office Visit Family Practice [facility] [address] [place] [address] Ender Ponce MD [address] [facility] [place] [address] 01/17/2024 10:30 AM EDT Office Visit Gynecology/Obstetrics, [place] [address] [facility] [place] [address] Jessica Cee MD [address] [place] [address] 02/25/2024 8:20 AM EDT Office Visit Hepatology, [facility] [address] [facility] [place] [address] Mehnaz Delgado DO [address] [facility] [place] [address] 03/11/2024 7:00 AM [facility] Pharm[facility] Hepatology, [facility] [address] [place] [address] [facility], Pharmacist Hepatology [address] [place] [address] Pending Results Name Type Priority Associated Diagnoses Date /Time CULTURE, URINE, QUANTITATIVE Lab Routine Pelvic pain in female 10/15/2023 10:34 AM EDT VAGINOSIS PANEL, PCR Lab Routine Routine screening for STI (sexually transmitted infection) Pelvic pain in female 10/15/2023 10:34 AM EDT CHLAMYDIA TRACHOMATIS AND NEISSERIA GONORRHOEAE, AMPLIFIED PROBE Lab Routine Routine screening for STI (sexually transmitted infection) 10/15/2023 10:34 AM EDT Scheduled Orders Name Type Priority Associated Diagnoses Orde r Schedule VAGINOSIS PANEL, PCR Lab Routine Routine screening for STI (sexually transmitted infection) Pelvic pain in female Expected: 10/15/2023 (Approximate), Expires: 10/14/2024 CHLAMYDIA TRACHOMATIS AND NEISSERIA GONORRHOEAE, AMPLIFIED PROBE Lab Routine Routine screening for STI (sexually transmitted infection) Expected: 10/16/2023 (Approximate), Expires: 10/14/2024 Health Maintenance Due Date Last Done Comments DISCUSS TOBACCO CESSATION (REFER TO SMARTSET #9610) 1986 Pneumococcal Vaccine: Pediatrics (0 to 5 [...] 08/13/2024 08/14/2023, 04/2 08/2022 B-12 08/13/2024 08/14/2023, 04/2 08/2022, 02/09/2020, Additional history exists GFR 08/13/2024 [...] Not on filedocumented as of this encounter Procedures Procedure Name Priority Date/Time Associated Diagnosis Comments URINE SCREEN, POINT OF CARE (ENTER/EDIT) Routine 10/15/2023 Pelvic pain in female documented in this encounter Results * URINE SCREEN, POINT OF CARE (ENTER/EDIT) (10/15/2023) hCG Beta, Urine Negative Negative Procedural Control Valid? Yes Lot Number [id number] Expiration Date 10/08/2024 Urine 10/15/2023 Brielle Petty CNM LAB POINT OF CARE TE ST ENTER/EDIT ORDERABLES documented in this encounter Visit Diagnoses Diagnosis Routine screening for STI (sexually transmitted infection)- Primary Screening examination for venereal disease Pelvic pain in female Unspecified symptom associated with female genital organs Family history of endometriosis Family history of other condition Stress incontinence Female stress incontinence documented in this encounter Care Teams Highway Administrative Engineer Relationship Specialty Start Date End Date Ender Ponce MD [address] [place] [address] PCP - General Family Medicine 05/21/16 documented as of this encounter
--- OUTSIDE RECORDS SUMMARY | 2023-11-10 13:11 | External Medical Summary | Summary of Care ---
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 Pelvic pain Encounter Details Date Type Department Care Team (Late st Contact Info) Description 10/15/2023 10:00 AM EDT Office Visit Gynecology/Obstetric Neri garcia [address] [place] [address] Brielle Petty CN [address] [place] [address] Routine screening for STI (sexually transmitted infection)*; Pelvic pain in female; Family history of endometriosis; Stress incontinence Allergies Active Allergy Reactions Criticality Noted Date Comments Environmental 11/05/2006 Sulfa Antibiotics Rash 07/02/2015 documented as of this encounter (statuses as of 10/15/2023) Medications Medication Sig Dispensed Refills Start Date End Date Status [employer] Flex System w/Device KitIndications:Type 2 diabetes mellitus with hemoglobin A1c goal of less than 7.0% ([facility]) Use as directed. Test blood [...] Capsule 1 08/12/2023 Active OneTouch Delica Plus [id number] s:Type 2 diabetes mellitus with hemoglobin A1c goal of less than 7.0% ([facility]) USE 1 TO CHECK GLUCOSE TWICE DAILY IN THE MORNING AND IN THE EVENING 200 Each 09/25/2023 Active OneTouch Verio In Vitro Strip (Glucose Blood)Indications:T ype 2 diabetes mellitus with hemoglobin A1c goal of less than 7.0% ([facility]) USE TO TEST BLOOD SUGAR [...] mgIndications:Initiation of Depo Provera 150 mg IM [id number] 09/12/2023 Active documented as of this encounter (statuses as of 10/15/2023) Active Problems Problem Noted Date Diagnosed Date Food insecurity 02/04/2023 Overview: Per [facility] Protocol Medical marijuana use 10/22/2022 Overweight [...] - 10/15/2023 10:10 AM EDT Dyana Flores [id number] 10/15/2023 CC: pelvic pain HPI: The patient [...] her tooth infection. Sees Dr. Villarreal in [place]. Pap: 01/26/2021 (NILM, HPV neg) TOTAL PREG....: [...] 11/23/2021 Poor dentition 11/23/2021 Smoking 05/04/2016 Thrombocytopenia ([facility]) 09/03/2018 Type 2 diabetes mellitus with hemoglobin A1c goal of less than 7.0% ([facility]) 07/11/2017 Past Surgical History: Procedure [...] Stability Do you currently live in a residential or have no steady place to sleep at night? (Adult - for ages 18 years and over): Yes Do you think you are at risk of becoming homeless? (Adult - for ages 18 years and over): No Medications: Current Outpatient Medications Medication Sig Dispense Refill [employer] System w/Device Kit Use as directed. Test [...] bedtime. 90 Capsule 1 OneTouch Delica Plus [id number] USE 1 TO CHECK GLUCOSE TWICE DAILY IN THE MORNING AND IN THE [id number] Each 0 OneTouch Verio In Vitro Strip [...] for PID, GC/CT and vaginosis swabs collected Chief Petroleum Engineer Documentation Provider requested crew caller. Name of crew caller: Ladonna Prakash LPN Assessment/Plan: (N39.3) Stress incontinence [...] AM EDT Chief Complaint Patient presents with Behavioral Health Associate Return Pelvic pain Pt is here with [...] 10/22/2023 6:10 PM EDT [facility] [address] [address] [facility] [address] [address] 12/05/2023 10:30 AM EDT Nurse Only Gynecology/Obstetrics [facility] [address] [address] Gw, Nurse Obgyn Injection [address] [address] 12/20/2023 10:40 AM EDT Office Visit Family Practice [facility] [address] [place] [address] Ender Ponce MD [address] [facility] [place] [address] 01/17/2024 10:30 AM EDT Office Visit Gynecology/Obstetrics, [place] [address] [place] [address] Jessica Cee MD [address] [place] [address] 02/25/2024 8:20 AM EDT Office Visit Hepatology, [facility] [address] [facility] [place] [address] Mehnaz Delgado DO 132 [place] [address] 03/11/2024 7:00 AM [facility] Pharmacy Hepatology, [place] [address] [place] [address] [place], Pharmacist Hepatology [address] [place] [address] Pending Results Name Type Priority Associated Diagnoses [...] transmitted infection) Expected: 10/16/2023 (Approximate), Expires: 10/14/2024 URINE SCREEN, POINT OF CARE (ENTER/EDIT) Point of Care Testing Routine Pelvic pain in female Ordered: 10/15/2023 Health Maintenance Due Date Last Done Comments DISCUSS TOBACCO CESSATION (REFER TO SMARTSET #8037) 1986 Pneumococcal Vaccine: Pediatrics (0 to 5 Years) and At-Risk Patients (6 to 64 Years) (1 of 2 - PCV) 1992 Diabetic Eye Exam 2004 HPV/Co-Test 2016 *SPIROMETRY ONCE FOR ASTHMA-ADULT 12/02/2016 Diabetic Foot Exam 02/08/2021 02/09/2020, 12/05/2017 COVID-19 Vaccine (2022- season) 2022 Cervical Cancer Screening 01/27/2024 Pap [...] as of this encounter Visit Diagnoses Diagnosis Routine screening for STI (sexually transmitted infection)- Primary Screening examination for venereal disease Pelvic pain in female Unspecified symptom associated with female genital organs Family history of endometriosis Family history of other condition Stress incontinence Female stress incontinence documented in this encounter Care Teams Canteen Operator Relationship Specialty Start Date End Date Ender Ponce MD [address] [address] PCP - General Family Medicine 05/21/16 documented as of this encounter
--- OUTSIDE RECORDS SUMMARY | 2023-11-10 13:11 | External Medical Summary | Summary of Care ---
Author Name Unknown Organization [facility] Address [address] [place] [address] Phone [phone] Care Team Providers Care Global Cmo Name Role Phone Ender Ponce MD Primary Care Provider [phone] Encounter Details Date Type Department Care Team (Late st Contact Info) Description 09/13/2023 Telephone Gynecology/Obstetrics [facility] [address] [place] [address] Brielle Petty, [facility] [address] [place] [address] Allergies Active Allergy Reactions Criticality Noted Date Comments Environmental 11/05/2006 Sulfa Antibiotics Rash 07/02/2015 documented as of this encounter (statuses as of 10/01/2023) Medications Medication Sig Dispensed Refills Start Date End Date Status Junar System w/Device KitIndications:Typ e 2 diabetes mellitus with hemoglobin A1c goal of less than 7.0% ([facility]) Use as directed. Test blood sugar [...] Capsule 1 08/12/2023 Active OneTouch Delica Plus [id number] ns:Type 2 diabetes mellitus with hemoglobin A1c goal of less than 7.0% ([facility]) USE 1 TO CHECK GLUCOSE TWICE DAILY IN THE MORNING AND IN THE EVENING 200 Each 1 08/22/2022 4 Discontinue d(Refill) OneTouch Verio In Vitro Strip (Glucose Blood)Indications: Type 2 diabetes mellitus with hemoglobin A1c goal of less than 7.0% ([facility]) USE TO TEST BLOOD SUGAR TWICE [...] mgIndications:Initiation of Depo Provera 150 mg IM [id number] 09/12/2023 Active documented as of this encounter (statuses as of 10/01/2023) Active Problems Problem Noted Date Diagnosed Date Food insecurity 02/04/2023 Overview: Per [facility] Protocol Medical marijuana use 10/22/2022 [...] like to be seen back here at [facility] and you're unable to schedule, please route [...] 10/04/2023 8:00 AM EDT Office Visit Pharmacy, [address] [place] [address] [facility] [place] [address] 10/15/2023 10:00 AM EDT Office Visit [facility]ne[facility]st[facility] [place] [facility] [address] Brielle Petty, [facility] [address] 02/25/2024 8:20 AM EDT Office Visit Hepatology, [facility] [place] [address] Mehnaz Delgado DO [address] [place] [address] 03/11/2024 7:00 AM [facility] Pharm[facility] Hepatology, [place] [address] [place] [address] [place], Pharmacist Hepatology [address] [place] [address] Health Maintenance Due Date Last Done Comments DISCUSS TOBACCO CESSATION (REFER TO SMARTSET #8812) 1985 Pneumococcal Vaccine: Pediatrics (0 to 5 [...] filedocumented as of this encounter Care Teams Global Cmo Relationship Specialty Start Date End Date Ender Ponce MD [address] [place] [address] PCP - General Family Medicine 05/21/16 documented as of this encounter
--- OUTSIDE RECORDS SUMMARY | 2023-11-10 13:11 | External Medical Summary | Summary of Care ---
Author Name Unknown Organization [facility] Address [address] [place] [address] Phone [phone] Care Team Providers Care Motor Vehicle License Clerk Name Role Phone Ender Ponce MD Primary Care Provider [phone] Encounter Details Date Type Department Care Team (Late st Contact Info) Description 09/19/2023 Telephone Gynecology/Obstetrics [facility] [address] [place] [address] Brielle Petty, [facility] [address] [place] [address] Allergies Active Allergy Reactions Criticality Noted Date Comments Environmental 11/05/2006 Sulfa Antibiotics Rash 07/02/2015 documented as of this encounter (statuses as of 09/20/2023) Medications Medication Sig Dispensed Refills Start Date End Date Status [employer] System w/Device KitIndications:Type 2 diabetes mellitus with hemoglobin A1c goal of less than 7.0% ([facility]) Use as directed. Test blood sugar twice daily. Am and pm DX:E11.9 1 Kit 02/09/2021 Active Meloxicam 15 MG Oral TabletIndications:P eriodontitis Take by mouth 1 Tablet in the morning. for pain.. 30 Tablet 5 11/23/2021 Active OneTouch Delica Plus [id number] s:Type 2 diabetes mellitus with hemoglobin A1c goal of less than 7.0% ([facility]) USE 1 TO CHECK GLUCOSE TWICE DAILY [...] day for 6 weeks.. 42 Patch 02/21/2023 Active PARoxetine HCl 40 MG Oral [...] mgIndications:Initiation of Depo Provera 150 mg IM [id number] 09/12/2023 Active documented as of this encounter (statuses as of 09/20/2023) Active Problems Problem Noted Date Diagnosed Date Food insecurity 02/04/2023 Overview: Per [facility] Protocol Medical marijuana use 10/22/2022 [...] as of this encounter (statuses as of 09/20/2023) Resolved Problems Problem Noted Date Diagnosed Date [...] as of this encounter (statuses as of 09/20/2023) Immunizations Name Administration Dates Next Due HEP [...] encounter Miscellaneous Notes * Telephone Encounter - Robyn Dietz LPN - 09/19/2023 11:50 AM EDT ----- Message from Brielle Petty sent at 09/19/2023 11:41 AM EDT ----- Please let patient know her pelvic ultrasound was normal. If she is interested in pelvic floor PT to address her pelvic pain, please send her the handout from the office. If she would like to schedule an appointment to further discuss her pelvic pain, please schedule. She was not tested for bacterial vaginosis and yeast and a UTI, so please schedule and appointment if she desires a vaginosis swabor testing for a UTI. Infection can be a source of pelvic pain. Thanks! Brielle Petty CNM documented in this encounter Plan of Treatment Upcoming Encounters Date Type Department Care Team (Late st Contact Info) Description 10/04/2023 8:00 AM EDT Office Visit Pharmacy, [facility] 132 [facility] [place] [address] [facility] 132 [facility] [place] [address] 10/15/2023 10:00 AM EDT Office Visit Gynecology/Obstetrics, [place] [address] [place] [address] Brielle Petty CNM [address] [place] [address] 12/16/2023 8:00 AM EDT Office Visit Gynecology/Obstetrics [facility] [address] [facility] [place] [address] Gloria Bowman DNP, [place] [address] [place] [address] 02/25/2024 8:20 AM EDT Office Visit Hepatology, [facility] 132 [facility] [place] [address] Mehnaz Delgado DO 132 [facility] [place] [address] 03/11/2024 7:00 AM EST Pharmacy Hepatology, [place] [address] [place] [address] [place], Pharmacist Hepatology [address] [place], [place] [id number] Health Maintenance Due Date Last Done Comments DISCUSS TOBACCO CESSATION (REFER TO SMARTSET #5547) 1985 Pneumococcal Vaccine: Pediatrics (0 to 5 [...] Additional history exists Albumin/Creatinine Ratio 08/13/2024 08/14/2023, 042 08/2022 B-12 08/13/2024 08/14/2023, 042 08/2022, 02/09/2020, Additional history exists GFR 08/13/2024 [...] filedocumented as of this encounter Care Teams Motor Vehicle License Clerk Relationship Specialty Start Date End Date Ender Ponce MD [address] [place] [address] PCP - General Family Medicine 05/21/16 documented as of this encounter
--- OUTSIDE RECORDS SUMMARY | 2023-11-10 13:11 | External Medical Summary ---
Author Name Unknown Address Unknown Organization K01[place] [place] [facility] [place] [address] Laboratory Report Ordering Provider Test Date Status SWAPNA REDD 10/15/2023 10:34:03 Final Observation Date Value Abnormality Reference (Units ) Status Chlamydia trachomatis rRNA [Presence] in Specimen by ANKITA with probe detection 10/15/2023 10:34:03 Negative Negative Final No Chlamydia trachomatis det ected by research professor of biostatistics-mediated nucleic acid amplification. Neisseria gonorrhoeae rRNA [ Presence] in Specimen by ANKITA with probe detection 10/15/2023 10:34:03 Negative Negative Final No Neisseria gonorrhoeae det ected by research professor of biostatistics-mediated nucleic acid amplification. [place]forming [place] [facility] [place] [address] [place] [address]
--- OUTSIDE RECORDS SUMMARY | 2023-11-10 13:11 | External Medical Summary ---
Author Name Unknown Address Unknown Organization K01:[facility] [place] - [address] [place] [id number] Laboratory Report Ordering Provider Test Date Status SWAPNA REDD 10/15/2023 10:34:03 Final Observation Date Value Abnormality Reference (Units) Status Bacteria identified in Specimen by Culture 10/15/2023 10:34:03 No significant growth Final Test: Culture, Urine, Quanti tative
Specimen Source: Urine, Clean Catch
Specimen Type: Urine
Specimen Date: 10/15/2023 1034
Result Date: 10/16/2023 1522
Result Status: Final result
Resulting Lab: [facility] [place]
[address]
[facility] [address]

CULTURE

No significant growth

null Performing Location [facility] [place] - [address] [facility] [address]
--- OUTSIDE RECORDS SUMMARY | 2023-11-10 13:11 | External Medical Summary | Summary of Care ---
Author Name Unknown Organization [facility] Address [address] [place] [address] Phone [phone] Care Team Providers Care River Transportation Worker Name Role Phone Ry Penny MD Primary Care Provider [phone] [phone] Reason for Visit * Reason Onset Date Comments Medication Refill 09/22/2023 Encounter Details Date Type Department Care Team (Late st Contact Info) Description 09/22/2023 [address]ill [address] [facility] [address] [place] [address] Ry Penny MD [address] [place] [address] Type 2 diabetes mellitus with hemoglobin A1c goal of less than 7.0% ([facility]) Allergies Active Allergy Reactions Criticality Noted Date Comments Environmental 11/05/2006 Sulfa Antibiotics Rash 07/02/2015 documented as of this encounter (statuses as of 09/25/2023) Medications Medication Sig Dispensed Refills Start Date End Date Status HaivisionTouch Clear Vasculario Flex System w/Device KitIndications:Typ e 2 diabetes mellitus with hemoglobin A1c goal of less than 7.0% ([facility]) Use as directed. Test blood sugar twice [...] Capsule 1 08/12/2023 Active OneTouch Delica Plus [id number] ns:Type 2 diabetes mellitus with hemoglobin A1c goal of less than 7.0% ([facility]) USE 1 TO CHECK GLUCOSE TWICE DAILY IN THE MORNING AND IN THE EVENING 200 Each 09/25/2023 Active OneTouch Verio In Vitro Strip (Glucose Blood)Indications: Type 2 diabetes mellitus with hemoglobin A1c goal of less than 7.0% ([facility]) USE TO TEST BLOOD SUGAR TWICE DAILY (AM&PM) 200 Strip 09/25/2023 Active Nicotine 21 MG/24HR Transdermal Patch 24 Hour (Nicoderm CQ) Place 1 Patch over 24 hours topically on the skin in the morning. On upper body/upper arm, change once a day for 6 weeks.. 42 Patch 09/25/2023 Active Amoxicillin-Pot Clavulanate 875-125 MG Oral Tablet (Augmentin) Take 1 Tablet by mouth in the morning and 1 Tablet before bedtime. Do all this for 10 days. 20 Tablet 09/24/2023 4 Active OneTouch Delica Plus [id number] ns:Type 2 diabetes mellitus with hemoglobin A1c goal of less than 7.0% ([facility]) USE 1 TO CHECK GLUCOSE TWICE DAILY IN THE MORNING AND IN THE EVENING 200 Each 1 08/22/2022 4 Discontinue d(Refill) OneTouch Verio In Vitro Strip (Glucose Blood)Indications: Type 2 diabetes mellitus with hemoglobin A1c goal of less than 7.0% ([facility]) USE TO TEST BLOOD SUGAR TWICE DAILY [...] mgIndications:Initiation of Depo Provera 150 mg IM [id number] 09/12/2023 Active documented as of this encounter (statuses as of 09/25/2023) Active Problems Problem Noted Date Diagnosed Date Food insecurity 02/04/2023 Overview: Per [facility] Protocol Medical marijuana use 10/22/2022 Overweight [...] 09/12/2023 Bipolar affective disorder in remission 05/04/19 Tobacco use disorder 05/04/2016 documented as of this encounter (statuses as of 09/25/2023) Resolved Problems Problem Noted Date Diagnosed Date [...] as of this encounter (statuses as of 09/25/2023) Immunizations Name Administration Dates Next Due HEP [...] encounter Miscellaneous Notes * Telephone Encounter - Ry Penny MD - 09/25/2023 1:04 PM EDTSigned Prescriptions: Disp Refills OneTouch Delica Plus [id number] 200 Ea*0 Sig: USE 1 TO CHECK GLUCOSE TWICE DAILY IN THE MORNING AND IN THE EVENING Authorizing Provider: RY PENNY OneTouch Verio In Vitro Strip (Glucose Blo*200 St*0 Sig: USE TO TEST BLOOD SUGAR TWICE DAILY (AM&PM) Authorizing Provider: RY PENNY Nicotine 21 MG/24HR Transdermal Patch 24 H*42 Pat*0 Sig: Place 1 Patch over 24 hours topically on the skin in the morning. On upper body/upper arm, change once a day for 6 weeks.. Authorizing Provider: RY PENNY * Telephone Encounter - Irma Saavedra PHARM Tech - 09/25/2023 12:58 PM EDT Pending Prescriptions: Disp Refills OneTouch Delica Plus [id number] 200 Ea*0 Sig: USE 1 TO CHECK GLUCOSE TWICE DAILY IN THE MORNING AND IN THE EVENING OneTouch Verio In Vitro Strip (Glucose Blo*200 St*0 Sig: USE TO TEST BLOOD SUGAR TWICE DAILY (AM&PM) Nicotine 21 MG/24HR Transdermal Patch 24 H*42 Pat*0 Sig: Place 1 Patch over 24 hours topically on the skin in the morning. On upper body/upper arm, change once a day for 6 weeks.. * Telephone Encounter - Irma Saavedra PHARM Tech - 09/25/2023 12:58 PM EDT Received message from [facility] regarding patient needing appointment. Call Placed, Left message on voicemail to call back and schedule appointment. Thank you, Irma Saavedra [facility] Electric Mule Operator II [facility] ([facility]) (formerly Telepharmacy) 09/25/2023,12:58 PM * Telephone Encounter - Ame Flores [facility] - 09/25/2023 11:37 AM EDTPending Prescriptions: Disp Refills OneTouch Delica Plus [id number] 200 Ea*0 Sig: USE 1 TO CHECK GLUCOSE TWICE DAILY IN THE MORNING AND IN THE EVENING OneTouch Verio In Vitro Strip (Glucose Blo*200 St*0 Sig: USE TO TEST BLOOD SUGAR TWICE DAILY (AM&PM) Nicotine 21 MG/24HR Transdermal Patch 24 H*42 Pat*0 Sig: Place 1 Patch over 24 hours topically on the skin in the morning. On upper body/upper arm, change once a day for 6 weeks.. Electronically signed by Ame Flores [facility] at 09/25/2023 11:37 AM EDT * Telephone Encounter - Ame Flores [facility] - 09/25/2023 11:36 AM EDT Please contact patient so that an appointment can be scheduled with her PRIMARY CARE provider before this refill can be authorized. After contacting patient, please forward request to Ry Penny MD. Last Visit: 06/12/2022 (in office), Visit date not found (telemedicine) Next Visit: Visit date not found Thank You, Ame Flores [facility] Clinical Pharmacist [facility] ([facility]) (formerly Telepharmacy) [phone] 09/25/2023, 11:37 AM Electronically signed by Ame Flores [facility] at 09/25/2023 11:37 AM EDT documented in this encounter Plan of Treatment Upcoming Encounters Date Type Department Care Team (Late st Contact Info) Description 10/04/2023 8:00 AM EDT Office Visit Pharmacy, [facility] 132 [facility] [place] [address] [facility] 132 [facility] [place] [address] 10/15/2023 10:00 AM EDT Office Visit Gynecology/Obstetrics, [place] [address] [place] [address] [facility] [address] [place] [address] 02/25/2024 8:20 AM EDT Office Visit Hepatology, [facility] 132 [facility] [place] [address] Mehnaz Delgado DO [address] [place] [address] 03/11/2024 7:00 AM EST Pharmacy Hepatology, [place] [address] [facility] [place] [address] [place], Pharmacist Hepatology [address] [facility] [place] [address] Health Maintenance Due Date Last Done Comments DISCUSS TOBACCO CESSATION (REFER TO SMARTSET #1654) 1985 Pneumococcal Vaccine: Pediatrics (0 to 5 [...] A1c goal of less than 7.0% ([facility]) documented in this encounter Care Teams River Transportation Worker Relationship Specialty Start Date End Date Ry Penny MD [address] [place] [address] PCP - General Family Medicine 05/21/16 documented as of this encounter
--- OUTSIDE RECORDS SUMMARY | 2023-11-10 13:11 | External Medical Summary | Summary of Care ---
Author Name Unknown Organization [facility] Address [address] [place] [address] Phone [phone] Care Team Providers Care Linoleum Layer Helper Name Role Phone Ender Ponce MD Primary Care Provider +1 [phone] Reason for Visit * Reason Comments Track Repairer Helper Return Pelvic pain Encounter Details Date Type Department Care Team (Late st Contact Info) Description 10/15/2023 10:00 AM EDT Office Visit Gynecology/Obstetric [place] [address] [place] [address] Brielle Petty CN [address] [place] [address] Routine screening for STI (sexually transmitted infection)*; Pelvic pain in female; Family history of endometriosis; Stress incontinence Allergies Active Allergy Reactions Criticality Noted Date Comments Environmental 11/05/2006 Sulfa Antibiotics Rash 07/02/2015 documented as of this encounter (statuses as of 10/15/2023) Medications Medication Sig Dispensed Refills Start Date End Date Status Sodraftio Flex System w/Device KitIndications:Type 2 diabetes mellitus with hemoglobin A1c goal of less than 7.0% ([facility]) Use as directed. Test blood [...] Capsule 1 08/12/2023 Active OneTouch Delica Plus [id number] s:Type 2 diabetes mellitus with hemoglobin A1c goal of less than 7.0% ([facility]) USE 1 TO CHECK GLUCOSE TWICE DAILY IN THE MORNING AND IN THE EVENING 200 Each 09/25/2023 Active OneTouch Verio In Vitro Strip (Glucose Blood)Indications:T ype 2 diabetes mellitus with hemoglobin A1c goal of less than 7.0% ([facility]) USE TO TEST BLOOD SUGAR [...] mgIndications:Initiation of Depo Provera 150 mg IM [id number] 09/12/2023 Active documented as of this encounter (statuses as of 10/15/2023) Active Problems Problem Noted Date Diagnosed Date Food insecurity 02/04/2023 Overview: Per [facility] Protocol Medical marijuana use 10/22/2022 Overweight [...] - 10/15/2023 10:10 AM EDT Dyana Flores [id number] 10/15/2023 CC: pelvic pain HPI: The patient [...] her tooth infection. Sees Dr. Villarreal in [place]. Pap: 01/26/2021 (NILM, HPV neg) TOTAL PREG....: [...] 11/23/2021 Poor dentition 11/23/2021 Smoking 05/04/2016 Thrombocytopenia ([facility]) 09/03/2018 Type 2 diabetes mellitus with hemoglobin A1c goal of less than 7.0% ([facility]) 07/11/2017 Past Surgical History: Procedure [...] Stability Do you currently live in a intermediate or have no steady place to sleep at night? (Adult - for ages 18 years and over): Yes Do you think you are at risk of becoming homeless? (Adult - for ages 18 years and over): No Medications: Current Outpatient Medications Medication Sig Dispense Refill Medical [employer] System w/Device Kit Use as directed. Test [...] bedtime. 90 Capsule 1 OneTouch Delica Plus [id number] USE 1 TO CHECK GLUCOSE TWICE DAILY IN THE MORNING AND IN THE [id number] Each 0 OneTouch Verio In Vitro Strip [...] for PID, GC/CT and vaginosis swabs collected Grants Manager Documentation Provider requested commander police reserves. Name of commander police reserves: Ladonna Prakash LPN Assessment/Plan: (N39.3) Stress incontinence [...] AM EDT Chief Complaint Patient presents with Track Repairer Helper Return Pelvic pain Pt is here with [...] 10/22/2023 6:10 PM EDT [facility] [address] [place] [address] [facility] [address] [place] [address] 12/05/2023 10:30 AM EDT Nurse Only Gynecology/Obstetrics [facility] [address] [place] [address] G[place], Nurse Obgyn Injection [address] [place] [address] 12/20/2023 10:40 AM EDT Office Visit Family Practice [facility] 132 [place] [address] Ender Ponce MD 132 [place] [address] 01/17/2024 10:30 AM EDT Office Visit Gynecology/Obstetrics, [place] 400 [facility] [place] [address] Jessica Cee MD [address] [place] [address] 02/25/2024 8:20 AM EDT Office Visit Hepatology, [facility] 132 [facility] [place] [address] Mehnaz Delgado DO 132 [place] [address] 03/11/2024 7:00 AM [facility] Pharmacy Hepatology, [place] [address] [place] [address] [place], Pharmacist Hepatology [address] [place] [address] Pending Results Name Type Priority Associated Diagnoses [...] Comments DISCUSS TOBACCO CESSATION (REFER TO SMARTSET #2275) 1985 Pneumococcal Vaccine: Pediatrics (0 to 5 [...] incontinence documented in this encounter Care Teams Linoleum Layer Helper Relationship Specialty Start Date End Date Ender Ponce MD [address] [place] [address] PCP - General Family Medicine 05/21/16 documented as of this encounter
--- OUTSIDE RECORDS SUMMARY | 2023-11-10 13:12 | External Medical Summary | Summary of Care ---
Author Name Unknown Organization [facility] Address [address] [place] [address] Phone [phone] Care Team Providers Care Cattle Knocker Name Role Phone Ender Ponce MD Primary Care Provider [phone] [phone] Reason for Visit * Reason Onset Date Comments Test Results 09/13/2023 Encounter Details Date Type Department Care Team (Late st Contact Info) Description 09/13/2023 Telephone Gynecology/Obstetrics [facility] [address] [facility] [place] [address] Brielle Petty CNM [address] [place] [address] Test Results Allergies Active Allergy Reactions Criticality Noted Date Comments Environmental 11/05/2006 Sulfa Antibiotics Rash 07/02/2015 documented as of this encounter (statuses as of 09/13/2023) Medications Medication Sig Dispensed Refills Start Date End Date Status Makeover SolutionsToZubkaio Flex System w/Device KitIndications:Type 2 diabetes mellitus with hemoglobin A1c goal of less than 7.0% ([facility]) Use as directed. Test blood sugar twice daily. Am and pm DX:E11.9 1 Kit 0 02/09/2021 Active Meloxicam 15 MG Oral TabletIndications:P eriodontitis Take by mouth 1 Tablet in the morning. for pain.. 30 Tablet 5 11/23/2021 Active OneTouch Delica Plus [id number] s:Type 2 diabetes mellitus with hemoglobin A1c goal of less than 7.0% ([facility]) USE 1 TO CHECK GLUCOSE TWICE DAILY IN THE MORNING AND IN THE EVENING 200 Each 1 08/22/2022 Active OneTouch Verio In Vitro Strip (Glucose Blood)Indications:T ype 2 diabetes mellitus with hemoglobin A1c goal of less than 7.0% ([facility]) USE TO TEST BLOOD [...] mgIndications:Initiation of Depo Provera 150 mg IM [id number] 09/12/2023 Active documented as of this encounter (statuses as of 09/13/2023) Active Problems Problem Noted Date Diagnosed Date Food insecurity 02/04/2023 Overview: Per [facility] Protocol Medical marijuana use 10/22/2022 Overweight (BMI 25.0-29.9) 06/12/2022 Poor dentition 11/23/2021 Neurodermatitis 10/17/2018 Fatty liver 09/03/2018 Type 2 diabetes mellitus wit h hemoglobin A1c goal of less than 7.0% 07/11/2017 Chronic hepatitis C without hepatic coma 017 Asthma, mild persistent 11/30/2016 GIOVANY (generalized anxiety disorder) 11/30/2016 History of drug abuse 05/04/2016 Bipolar affective disorder in remission 05/04/19 17 Tobacco use disorder 05/04/2016 documented as of this encounter (statuses as of 09/13/2023) Resolved Problems Problem Noted Date Diagnosed Date Resolved Date Obesity, Class I, BMI 30.0-3 4.9 (see actual BMI) 11/23/2021 06/12/2022 Thrombocytopenia 09/03/2018 05/05/2021 Impaired fasting glucose 11/30/2016 History of hepatitis C 05/04/201611/30 Family history of colon cancer 05/04/2016 11/30/2016 [...] encounter Miscellaneous Notes * Telephone Encounter - Laisha Christensen RN - 09/13/2023 2:21 PM EDT Patient called in for results as she is having trouble logging in to her my chart. Advised patient of message below. She verbalized understanding to all. * Telephone Encounter - Inge Mari LPN - 09/13/2023 11:02 AM EDT Sent myg. * Telephone Encounter - Inge Mari LPN - 09/13/2023 10:58 AM EDT ----- Message from Brielle Petty CNM sent at 09/13/2023 10:45 AM EDT ----- Please let patient know she screened negative for HIV, hepatitis B, and syphilis. Thanks! Brielle Petty CNM documented in this encounter Plan of Treatment Upcoming Encounters Date Type Department Care Team (Late st Contact Info) Description 09/24/2023 7:00 AM EDT Pharmacy Hepatology, [place] [address] [place] [address] [place], Pharmacist Hepatology [facility] [place] [address] 10/04/2023 8:00 AM EDT Office Visit Pharmacy, [facility] [address] [facility] [place] [address] [facility] [address] [facility] [place] [address] Health Maintenance Due Date Last Done Comments DISCUSS TOBACCO CESSATION (REFER TO SMARTSET #3251) 1986 Pneumococcal Vaccine: Pediatrics (0 to 5 [...] filedocumented as of this encounter Care Teams Cattle Knocker Relationship Specialty Start Date End Date Ender Ponce MD [address] [place] [address] PCP - General Family Medicine 05/21/16 documented as of this encounter
--- OUTSIDE RECORDS SUMMARY | 2023-11-10 13:12 | External Medical Summary ---
Author Name Unknown Address Unknown Organization [id number]:[facility] - [address] [place] [address] Laboratory Report Ordering Provider Test Date Status SWAPNA REDD 09/12/2023 12:20:54 Final Observation Date Value Abnormality Reference (Units ) Status Hep B surface Ag 09/12/2023 12:20:54 Negative Neg ative Final Performing Location [facility] - [address] [place] [address]
--- OUTSIDE RECORDS SUMMARY | 2023-11-10 13:12 | External Medical Summary | Summary of Care ---
Author Name Unknown Organization [facility] Address [address] [place] [address] Phone [phone] Care Team Providers Care Jumpbasting Facing Baster Name Role Phone Ender Ponce MD Primary Care Provider [phone] [phone] Reason for Visit * Reason Comments Dosage Adjustment Via Phone (anticoag Cl inic) Left Message Encounter Details Date Type Department Care Team (Late st Contact Info) Description 08/30/2023 7:00 AM EDT Pharmacy Hepatology, [place] [address] [place], [place] [id number] [place], Pharmacist Hepatology [address] [place] [address] Chronic hepatitis C without hepatic coma (HCC)* Allergies Active Allergy Reactions Criticality Noted Date Comments Environmental 11/05/2006 Sulfa Antibiotics Rash 07/02/2015 documented as of this encounter (statuses as of 08/30/2023) Medications Medication Sig Dispensed Refills Start Date End Date Status [employer] Eye [employer] Flex System w/Device KitIndications:Type 2 diabetes mellitus with hemoglobin A1c goal of less than 7.0% (HCC) Use as directed. Test blood sugar twice daily. Am and pm DX:E11.9 1 Kit 0 02/09/2021 Active Meloxicam 15 MG Oral TabletIndications:P eriodontitis Take by mouth 1 Tablet in the morning. for pain.. 30 Tablet 5 11/23/2021 Active OneTouch Delica Plus [id number] s:Type 2 diabetes mellitus with hemoglobin A1c goal of less than 7.0% (HCC) USE 1 TO CHECK GLUCOSE TWICE DAILY IN THE MORNING AND IN THE EVENING 200 Each 1 08/22/2022 Active OneTouch Verio In Vitro Strip (Glucose Blood)Indications:T ype 2 diabetes mellitus with hemoglobin A1c goal of less than 7.0% ([facility]) USE TO TEST BLOOD SUGAR TWICE [...] Additional Information Patient not taking.Reported on 01/22/2023 Fluconazole 200 MG Oral Tablet (Diflucan) Take 400 mg (2 tablets) on day 1 and then 200 mg (1 tablet) days 2-21. 22 Tablet 0 02/04/2023 Active buPROPion HCl ER (XL) 150 MG Oral [...] the morning. 135 Tablet 1 03/15/2023 Active Amoxicillin-Pot Clavulanate 875-125 MG Oral TabletIndications:D ental abscess Take 1 Tablet by mouth in the morning and 1 Tablet before bedtime. 20 Tablet 0 06/21/2023 Active Ozempic (1 MG/DOSE) 4 MG/3ML Subcutaneous [...] at bedtime. 90 Capsule 1 08/12/2023 Active documented as of this encounter (statuses as of 08/30/2023) Active Problems Problem Noted Date Diagnosed Date Food insecurity 02/04/2023 Overview: Per [facility] Protocol Medical marijuana use 10/22/2022 Overweight [...] as of this encounter (statuses as of 08/30/2023) Resolved Problems Problem Noted Date Diagnosed Date [...] as of this encounter (statuses as of 08/30/2023) Immunizations Name Administration Dates Next Due HEP [...] you got the money to buy more. Sometimes true Within the past 12 months, t he food you bought just didn't last and you didn't have money to get more. Often true Sex and Gender Information Value Date Recorded Sex Assigned at Female 01/22/2023 12:40 PM EDT Gender Identity Female 01/22/2023 12:40 PM EDT Sexual Orientation Straight 01/22/2023 12 :40 PM EDT Job Start Date Occupation Industry Not on file Not on file Not on file documented as of this encounter Progress Notes * Nelli Roa, [facility] - 08/30/2023 9:52 AM EDT MTM Hepatitis C Treatment Follow-Up Patient Name: Dyana Flores Lab reminder phone call Treatment Overview: Hepatology Provider: Javier Carr MD/Mehnaz Delgado, Treatment Plan: Mavyret for 8 weeks. Started Treatment: 04/05/2023 Finished Treatment: 06/09/2023 This is a phone call to remind the patient they are due for SVR blood work. Labs Due: 09/02/2023 Is the patient aware of the lab date:No. I called the mobile phone, but no answer; I left a messagereminding the patient to have blood work drawn at her local [facility] lab at her earliest convenience. I left my callback number for any questions or to schedule a lab appointment. [facility] Plan: Will follow up once results are available to review. Nelli Roa PharmD, [facility] Clinical Pharmacist, Hepatology 08/30/2023 2:24 PM documented in this encounter Plan of Treatment Upcoming Encounters Date Type Department Care Team (Late st Contact Info) Description 2023 7:00 AM EDT Pharmacy Hepatology, [place] [address] [place] [address] [place], Pharmacist Hepatology [address] [place] [address] 09/12/2023 11:00 AM EDT Office Visit Gynecology/Obstetrics [facility] [address] [facility] [place] [address] [address] [address] 10/04/2023 8:00 AM EDT [facility] [address] [facility] [address] [place] [address] Health Maintenance Due Date Last Done Comments DISCUSS TOBACCO CESSATION (REFER TO SMARTSET #0144) 1986 Pneumococcal Vaccine: Pediatrics (0 to 5 Years) and At-Risk Patients (6 to 64 Years) (1 of 2 - PCV) 1992 Diabetic Eye Exam 2004 HPV/Co-Test 2016 *SPIROMETRY ONCE FOR ASTHMA-ADULT 12/02/2016 Diabetic Foot Exam 02/08/2021 02/09/2020, 12/05/2017 COVID-19 Vaccine (1 - 2023- season) 2022 Cervical Cancer Screening 01/27/2024 Pap Smear 01/27/2024 01/26/2021 HbA1c 02/13/2024 08/14/2023, 03/0 04/2023, 10/27/2022, Additional history exists Albumin/Creatinine Ratio 08/13/2024 08/14/2023, 07/29 B-12 08/13/2024 08/14/2023, 07/29, 02/09/2020, Additional history exists GFR 08/13/2024 08/14/2023, 070 04/2022, 08/21/2022, Additional history exists DTaP,Tdap,and Td [...] as of this encounter Visit Diagnoses Diagnosis Chronic hepatitis C without hepatic coma (HCC)- Primary Chronic hepatitis C without mention of hepatic coma documented in this encounter Care Teams Jumpbasting Facing Baster Relationship Specialty Start Date End Date Ender Ponce MD [address] [place] [address] PCP - General Family Medicine 05/21/16 documented as of this encounter
--- OUTSIDE RECORDS SUMMARY | 2023-11-10 13:12 | External Medical Summary ---
Author Name Unknown Address Unknown Organization K01:[facility]ATORY [facility] [place] - [address] [place] [address] Laboratory Report Ordering Provider Test Date Status SWAPNA REDD 09/12/2023 13:14:00 Final Observation Date Value Abnormality Reference (Units ) Status Trichomonas vaginalis rRNA [Presence] in Specimen by ANKITA with probe detection 09/12/2023 13:14:00 Negative Negative Final No Trichomonas vaginalis det ected by air tube releaser mediated nucleic acid amplification. Performing Location LABORATORY [facility] [place] - [address] [place] [address]
--- OUTSIDE RECORDS SUMMARY | 2023-11-10 13:12 | External Medical Summary ---
Author Name Unknown Address Unknown Organization K0G:[facility] [place] [facility] - [address] [place] [address] Laboratory Report Ordering Provider Test Date Status CARLY BARON 08/14/2023 10:58:35 Final Observation Date Value Abnormality Reference (Units ) Status BUN 08/14/2023 10:58:35 12 6-20 (mg/dL) Final Creatinine 08/14/2023 10:58:35 0.7 0.5-1.0 (mg/dL) Final Glomerular filtration rate/1.73 sq M.predicted [Volume Rate/Area] in Serum, Plasma or Blood by Creatinine-based formula (CKD-EPI) 08/14/2023 10:58:35 >90 >=60 (mL/min) Final eGFR is calculated based on the CKD-EPI 2020 equation Sodium 08/14/2023 10:58:35 137 135-146 (m mol/L) Final Potassium 08/14/2023 10:58:35 4.8 3.5-5.1 (m mol/L) Final Cl 08/14/2023 10:58:35 100 98-107 (mm ol/L) Final CO2 08/14/2023 10:58:35 26 22-32 (mmo l/L) Final Anion gap 08/14/2023 10:58:35 11 7-15 (mmol /L) Final Glucose 08/14/2023 10:58:35 137 Above high normal 70 -120 (mg/dL) Final Albumin 08/14/2023 10:58:35 4.6 3.8-5.0 (g /dL) Final AST (Aspartate aminotransferase) 08/14/2023 10:58:35 29 10-35 (U/L) Fin al Alk Phos 08/14/2023 10:58:35 98 35-130 (U/ L) Final Bilirubin, Total 08/14/2023 10:58:35 0.5 <=1 .2 (mg/dL) Final Calcium 08/14/2023 10:58:35 9.3 8.4-10.2 ( mg/dL) Final Protein 08/14/2023 10:58:35 8.2 6.0-8.3 (g /dL) Final ALT (Alanine aminotransferase) 08/14/2023 10:58:35 23 10-35 (U/L) Adrian deshpande Performing Location LABORATORY [place] [facility] - [address] [facility] [address]
--- OUTSIDE RECORDS SUMMARY | 2023-11-10 13:12 | External Medical Summary | Summary of Care ---
Author Name Unknown Organization [facility] Address [address] [place] [address] Phone [phone] Care Team Providers Care Wrong Address Clerk Name Role Phone Ender Ponce MD Primary Care Provider [phone] Reason for Visit * Reason Comments Outpatient Testing Encounter Details Date Type Department Care Team (Late st Contact Info) Description 08/14/2023 10:30 AM EDT Laboratory Laboratory, [facility] [address] [place] [address] [facility] [address] [place] [address] Type 2 diabetes mellitus with hemoglobin A1c goal of less than 7.0% ([facility]) Allergies Active Allergy Reactions Criticality Noted Date Comments Environmental 11/05/2006 Sulfa Antibiotics Rash 07/02/2015 documented as of this encounter (statuses as of 08/14/2023) Medications Medication Sig Dispensed Refills Start Date End Date Status AlphionTouch Verio Flex System w/Device KitIndications:Type 2 diabetes mellitus with hemoglobin A1c goal of less than 7.0% ([facility]) Use as directed. Test blood sugar twice daily. Am and pm DX:E11.9 1 Kit 0 02/09/2021 Active Meloxicam 15 MG Oral TabletIndications:P eriodontitis Take by mouth 1 Tablet in the morning. for pain.. 30 Tablet 5 11/23/2021 Active OneTouch Delica Plus [id number] s:Type 2 diabetes mellitus with hemoglobin A1c goal of less than 7.0% (HCC) USE 1 TO CHECK GLUCOSE TWICE DAILY IN THE MORNING AND IN THE EVENING 200 Each 1 08/22/2022 Active Lane[employer]mauricio [place] In Vitro Strip (Glucose Blood)Indications:T ype 2 [...] as of this encounter (statuses as of 08/14/2023) Active Problems Problem Noted Date Diagnosed Date Food insecurity 02/04/2023 Overview: Per [facility] Protocol Medical marijuana use 10/22/2022 Overweight [...] as of this encounter (statuses as of 08/14/2023) Resolved Problems Problem Noted Date Diagnosed Date [...] as of this encounter (statuses as of 08/14/2023) Immunizations Name Administration Dates Next Due HEP [...] on file documented as of this encounter Plan of Treatment Upcoming Encounters Date Type Department Care Team (Late st Contact Info) Description 08/30/2023 7:00 AM EDT Pharmacy Hepatology, [place] [address] [place] [address] [place], Pharmacist Hepatology [facility] [place]note 2[facility] [place] [address] 2023 7:00 AM EDT Pharmacy Hepatology, [place] [address] [facility] [place] [address] [place], Pharmacist Hepatology [address] [place] [address] 10/04/2023 8:00 AM EDT Office Visit Pharmacy, [facility] [address] [place] [address] [facility] [address] [place] [address] Pending Results Name Type Priority Associated Diagnoses Date /Time CBC WITH WBC DIFFERENTIAL Lab Routine Type 2 diabetes mellitus with hemoglobin A1c goal of less than 7.0% (HCC) 08/14/2023 10:58 AM EDT COMPREHENSIVE METABOLIC PANEL Lab Routine Type 2 diabetes mellitus with hemoglobin A1c goal of less than 7.0% ([facility]) 08/14/2023 10:58 AM EDT HEMOGLOBIN A1C Lab Routine Type 2 diabetes mellitus with hemoglobin A1c goal of less than 7.0% ([facility]) 08/14/2023 10:58 AM EDT LIPID PANEL WITH DIRECT LDL IF TG IS HIGH Lab Routine Type 2 diabetes mellitus with hemoglobin A1c goal of less than 7.0% (HCC) 08/14/2023 10:58 AM EDT TSH WITH FREE T4 IF INDICATED Lab Routine Type 2 diabetes mellitus with hemoglobin A1c goal of less than 7.0% ([facility]) 08/14/2023 10:58 AM EDT VITAMIN B12 Lab Routine Type 2 diabetes mellitus with hemoglobin A1c goal of less than 7.0% ([facility]) 08/14/2023 10:58 AM EDT CBC Lab Routine Type 2 diabetes mellitus with hemoglobin A1c goal of less than 7.0% ([facility]) 08/14/2023 10:58 AM EDT DIFFERENTIAL, AUTOMATED Lab Routine Type 2 diabetes mellitus with hemoglobin A1c goal of less than 7.0% (HCC) 08/14/2023 10:58 AM EDT ALBUMIN / CREATININE RATIO, URINE Lab Routine Type 2 diabetes mellitus with hemoglobin A1c goal of less than 7.0% ([facility]) 08/14/2023 11:03 AM EDT Health Maintenance Due Date Last Done Comments DISCUSS TOBACCO CESSATION (REFER TO SMARTSET #2041) 1986 Pneumococcal Vaccine: Pediatrics (0 to 5 Years) and At-Risk Patients (6 to 64 Years) (1 of 2 - PCV) 1992 Diabetic Eye Exam 2004 HPV/Co-Test 2016 *SPIROMETRY ONCE FOR ASTHMA-ADULT 12/02/2016 Diabetic Foot Exam 02/08/2021 02/09/2020, 12/05/2017 COVID-19 Vaccine ( - season) 2022 Albumin/Creatinine Ratio 08/22/2023 08/21/2022 B-12 08/22/2023 08/21/2022, 01/27, 09/03/2018, Additional history exists GFR 10/28/2023 10/27/2022, 07/29, 06/12/2022, Additional history exists HbA1c 12/29/2023 06/28/2023, 07/0 04/2022, 08/21/2022, Additional history exists Cervical Cancer Screening 01/27/2024 Pap Smear 01/27/2024 01/26/2021 DTaP,Tdap,and Td Vaccines (2 - Td or [...] (HCC) documented in this encounter Care Teams Wrong Address Clerk Relationship Specialty Start Date End Date Ender Ponce MD [address] [place] [address] PCP - General Family Medicine 05/21/16 documented as of this encounter
--- OUTSIDE RECORDS SUMMARY | 2023-11-10 13:12 | External Medical Summary | Summary of Care ---
Author Name Unknown Organization [facility] Address [address] [place] [address] Phone [phone] Care Team Providers Care Call Center Assistant Name Role Phone Ender Ponce MD Primary Care Provider [phone] [phone] Reason for Visit * Reason Comments Dosage Adjustment Via Phone (anticoag Cl inic) Encounter Details Date Type Department Care Team (Late st Contact Info) Description 2023 7:00 AM EDT Pharmacy Hepatology, [place] [address] [place], [place] [id number] [place], Pharmacist Hepatology [address] [place] [address] Chronic hepatitis C without hepatic coma (HCC)* Allergies Active Allergy Reactions Criticality Noted Date Comments Environmental 11/05/2006 Sulfa Antibiotics Rash 07/02/2015 documented as of this encounter (statuses as of 2023) Medications Medication Sig Dispensed Refills Start Date End Date Status MaxxAthlete Flex System w/Device KitIndications:Type 2 diabetes mellitus with hemoglobin A1c goal of less than 7.0% (HCC) Use as directed. Test blood sugar twice daily. Am and pm DX:E11.9 1 Kit 0 02/09/2021 Active Meloxicam 15 MG Oral TabletIndications:P eriodontitis Take by mouth 1 Tablet in the morning. for pain.. 30 Tablet 5 11/23/2021 Active OneTouch Delica Plus [id number] s:Type 2 diabetes mellitus with hemoglobin A1c goal of less than 7.0% (HCC) USE 1 TO CHECK GLUCOSE TWICE DAILY IN THE MORNING AND IN THE EVENING 200 Each 1 08/22/2022 Active OneTouch Verio In Vitro Strip (Glucose Blood)Indications:T ype 2 diabetes mellitus with hemoglobin A1c goal of less than 7.0% ([facility] USE TO TEST BLOOD [...] as of this encounter (statuses as of 2023) Active Problems Problem Noted Date Diagnosed Date Food insecurity 02/04/2023 Overview: Per [facility] Protocol Medical marijuana use 10/22/2022 Overweight [...] as of this encounter (statuses as of 2023) Resolved Problems Problem Noted Date Diagnosed Date [...] as of this encounter (statuses as of 2023) Immunizations Name Administration Dates Next Due HEP [...] this encounter Progress Notes * Nelli Roa, [facility] - 09/06/2023 5:07 PM EDT MTM Hepatitis C Treatment Follow-Up Patient Name: Dyana Flores Lab reminder phone call #2 Treatment Overview: Hepatology Provider: Javier Carr MD/Mehnaz [...] have blood work drawn at her local [facility] lab at her earliest convenience. I left my callback number for any questions or to schedule a lab appointment. [facility] Plan: Unable to contact the patient via phone; MyG message sent. Will follow up once results are available to review. Nelli Roa PharmD, [facility] Clinical Pharmacist, Hepatology 2023 2:12 PM documented in this encounter Plan of Treatment Upcoming Encounters Date Type Department Care Team (Late st Contact Info) Description 09/12/2023 11:00 AM EDT Office Visit Gynecology/Obstetrics [facility] [address] [place] [address] Brielle Petty [address] [place] [address] 09/24/2023 7:00 AM EDT Pharmacy Hepatology, [place] [address] [place] [address] [place], Pharmacist Hepatology [address] [place] [address] 10/04/2023 8:00 AM EDT Office Visit Pharmacy, [facility] [address] [place] [address] [facility] [address] [place] [address] Health Maintenance Due Date Last Done Comments DISCUSS TOBACCO CESSATION (REFER TO SMARTSET #2369) 1986 Pneumococcal Vaccine: Pediatrics (0 to 5 Years) and At-Risk Patients (6 to 64 Years) (1 of 2 - PCV) 1992 Diabetic Eye Exam 2004 HPV/Co-Test 2016 *SPIROMETRY ONCE FOR ASTHMA-ADULT 12/02/2016 Diabetic Foot Exam 02/08/2021 02/09/2020, 12/05/2017 COVID-19 Vaccine (24 season) 2022 Cervical Cancer Screening 01/27/2024 Pap [...] coma documented in this encounter Care Teams Call Center Assistant Relationship Specialty Start Date End Date Ender Ponce MD [address] [place] [address] PCP - General Family Medicine 05/21/16 documented as of this encounter
--- OUTSIDE RECORDS SUMMARY | 2023-11-10 13:12 | External Medical Summary ---
Author Name Unknown Address Unknown Organization [id number]:[place]ORY [facility] [place] [address] [facility] [address] Laboratory Report Ordering Provider Test Date Status MEAGAN ARGUETA 09/12/2023 12:20:54 Final Observation Date Value Abnormality Reference (Units) Status Hep C RNA viral load 09/12/2023 12:20:54 Negative. No HCV RNA detected. Negative. No HCV RNA detected. Final Genetic variant clinical significance [Interpretation] in Blood or Tissue by Molecular genetics method 09/12/2023 12:20:54 The HCV assay is an in vitro nucleic acid amplification test for both the detection and quantitation of hepatitis C virus (HCV) RNA, in human EDTA plasma, of HCV antibody positive or HCV-infected individuals. Specimens containing HCV genotypes 1 to 6 are validated for detection and quantitation in the assay. This assay is intended for use as an aid in the diagnosis of HCV infection in the following populations: individuals who are HCV antibody-positive and with evidence of liver disease, individuals suspected to be actively infected with HCV antibody evidence, and individuals at risk for HCV infection with antibodies to HCV. Detection of HCV RNA indicates that the virus is replicating and therefore is evidence of active infection. This assay is intended for use as an aid in the management of HCV-infected patients undergoing anti-viral therapy. The assay can be used to quantify HCV RNA in serum of patients with chronic HCV infection (HCV antibody-positive), monitor disease progression in chronic HCV infection and response to antiviral therapy and determine cure and detection of relapse after completion of antiviral therapy. The results must be interpreted within the context of all relevant clinical and laboratory findings. This assay has not been approved for use as a screening test for the presence of HCV in blood or blood products. Final Genetic variant clinical significance [Interpretation] in Blood or Tissue by Molecular genetics method 09/12/2023 12:20:54 Final Additional comments [RFC] 09/12/2023 12:20:54 The HCV assay is an in vitro nucleic acid amplification test using an automated system for specimen processing, amplification and detection. Detection of antibodies to HCV (anti-HCV) indicates prior exposure to hepatitis C but does not distinguish between cleared or active infection (i.e where the virus is still replicating). Detection of HCV RNA with the detection of anti-HCV identifies an active hepatitis C infection. The results of HCV RNA testing together with other biochemical and clinical information, may be used to confirm an active HCV infection, measure the level of virus in the blood and assist in HCV prevention counseling, medical care and treatment decision making. The test can quantitate HCV RNA over the reportable range of 15-100,000,000 IU/mL (1.18 log to 8.00 log IU/mL). Final Additional comments [RFC] 09/12/2023 12:20:54 Final Additional comments [RFC] 09/12/2023 12:20:54 The assay was verified and performance characteristics determined by the [facility] Diagn[facility] Laboratory at [facility]. This test is used for clinical purposes. Final FDA package insert References section 09/12/2023 12:20:54 1. Josue P, Lizzie C, Paulette S: How to Use Virological Tools for the Optimal Management of Chronic Hepatitis C. Liver Int 2011;31 Suppl 1:3-12. Final FDA package insert References section 09/12/2023 12:20:54 2. Centers for Disease Control and Prevention. Testing for HCV Infection: an Update of Guidance for Clinicians and Laboratorians. MMWR Morb Mortal Wkly Rep 2013;62(18):362-365. Final FDA package insert References section 09/12/2023 12:20:54 3. [place] Association for the Study of Liver Diseases and Infectious Diseases Society of [place]: HCV Guidance: Recommendations for Testing, Managing, and Treating Hepatitis C. Accessed November 09, 2016. Available at www.hcvguidelines.org /wqus-wabhlm-qccn Final FDA package insert References section 09/12/2023 12:20:54 Final Performing Location [facility] [place] [facility] [address] [facility] [address]
--- OUTSIDE RECORDS SUMMARY | 2023-11-10 13:12 | External Medical Summary ---
Author Name Unknown Address Unknown Organization K01:LABORATORY [facility] [place] - [address] [place] [address] Laboratory Report Ordering Provider Test Date Status SWAPNA REDD 09/12/2023 12:20:54 Final Observation Date Value Abnormality Reference (Units ) Status Treponema pallidum Ab [Presence] in Serum by Immunoassay 09/12/2023 12:20:54 Nonreactive Nonreactive Final No serologic evidence of syp hilis. No additional testing clinicially indicated at this time. Consider repeat testing in 2-4 weeks if acute or primary syphilis is suspected. Performing Location LABORATORY [facility] [place] - [address] [place] [address]
--- OUTSIDE RECORDS SUMMARY | 2023-11-10 13:12 | External Medical Summary | Summary of Care ---
Author Name Unknown Organization [facility] Address [address] [place] [address] Phone [phone] Care Team Providers Care Watermelon Inspector Name Role Phone Ender Ponce MD Primary Care Provider [phone] Reason for Visit * Reason Onset Date Comments Test Results 09/13/2023 Encounter Details Date Type Department Care Team (Late st Contact Info) Description 09/13/2023 Telephone Gynecology/Obstetrics [facility] [address] [facility] [place] [address] Brielle Petty CNM [address] [place] [address] Test Results Allergies Active Allergy Reactions Criticality Noted Date Comments Environmental 11/05/2006 Sulfa Antibiotics Rash 07/02/2015 documented as of this encounter (statuses as of 09/13/2023) Medications Medication Sig Dispensed Refills Start Date End Date Status VEEDIMSToPayDivvyio Flex System w/Device KitIndications:Type 2 diabetes mellitus with hemoglobin A1c goal of less than 7.0% ([facility]) Use as directed. Test blood sugar twice daily. Am and pm DX:E11.9 1 Kit 0 02/09/2021 Active Meloxicam 15 MG Oral TabletIndications:P eriodontitis Take by mouth 1 Tablet in the morning. for pain.. 30 Tablet 5 11/23/2021 Active OneTouch Delica Plus [id number] s:Type 2 diabetes mellitus with hemoglobin A1c goal of less than 7.0% ([facility]) USE 1 TO CHECK GLUCOSE TWICE DAILY IN THE MORNING AND IN THE EVENING 200 Each 1 08/22/2022 Active OneTouch Verio In Vitro Strip (Glucose Blood)Indications:T ype 2 diabetes mellitus with hemoglobin A1c goal of less than 7.0% ([facility]) USE TO TEST BLOOD SUGAR TWICE DAILY [...] mgIndications:Initiation of Depo Provera 150 mg IM [id number] 09/12/2023 Active documented as of this encounter (statuses as of 09/13/2023) Active Problems Problem Noted Date Diagnosed Date Food insecurity 02/04/2023 Overview: Per [facility] Protocol Medical marijuana use 10/22/2022 [...] encounter Miscellaneous Notes * Telephone Encounter - Inge Mari LPN [...] Description 09/24/2023 7:00 AM EDT Pharmacy Hepatology, [place] [address] [place] [address] [place], Pharmacist Hepatology [address] [place] [address] 10/04/2023 8:00 AM EDT Office Visit Pharmacy, [facility] [address] [facility] [place] [address] [address] [address] [facility] [place] [address] Health Maintenance Due Date Last Done Comments DISCUSS TOBACCO CESSATION (REFER TO SMARTSET #[id number]) 1986 Pneumococcal Vaccine: Pediatrics (0 to 5 [...] filedocumented as of this encounter Care Teams Watermelon Inspector Relationship Specialty Start Date End Date Ender Ponce MD [address] [place] [address] PCP - General Family Medicine 05/21/16 documented as of this encounter
--- OUTSIDE RECORDS SUMMARY | 2023-11-10 13:12 | External Medical Summary | Summary of Care ---
Author Name Unknown Organization [facility] Address [address] [place] [address] Phone [phone] Care Team Providers Care Door And Arrival Attendant Name Role Phone Ender Ponce MD Primary Care Provider [phone] Reason for Visit * Reason Comments Outpatient Testing Encounter Details Date Type Department Care Team (Late st Contact Info) Description 08/14/2023 10:30 AM EDT Laboratory Laboratory, [facility] [address] [place] [address] [facility] [address] [place] [address] Type 2 diabetes mellitus with hemoglobin A1c goal of less than 7.0% ([facility]) Allergies Active Allergy Reactions Criticality Noted Date Comments Environmental 11/05/2006 Sulfa Antibiotics Rash 07/02/2015 documented as of this encounter (statuses as of 08/14/2023) Medications Medication Sig Dispensed Refills Start Date End Date Status ALICE AppTouch Verio Flex System w/Device KitIndications:Type 2 diabetes mellitus with hemoglobin A1c goal of less than 7.0% ([facility]) Use as directed. Test blood sugar twice daily. Am and pm DX:E11.9 1 Kit 0 02/09/2021 Active Meloxicam 15 MG Oral TabletIndications:P eriodontitis Take by mouth 1 Tablet in the morning. for pain.. 30 Tablet 5 11/23/2021 Active OneTouch Delica Plus [id number] s:Type 2 diabetes mellitus with hemoglobin A1c [...] Diagnosed Date Food insecurity 02/04/2023 Overview: Per [facility] Protocol Medical marijuana use 10/22/2022 Overweight [...] Description 08/30/2023 7:00 AM EDT Pharmacy Hepatology, [place] [address] [place] [address] [place], Pharmacist Hepatology [facility] [place] [address] 2023 7:00 AM EDT Pharmacy Hepatology, [place] [address] [facility] [place] [address] [place], Pharmacist Hepatology [address] [place] [address] 10/04/2023 8:00 AM EDT Office Visit Pharmacy, [facility] [address] [place] [address] [facility] [address] [place] [address] Pending Results Name Type Priority Associated Diagnoses Date /Time CBC WITH WBC DIFFERENTIAL Lab Routine Type 2 diabetes mellitus with hemoglobin A1c goal of less than 7.0% (HCC) 08/14/2023 10:58 AM EDT COMPREHENSIVE METABOLIC PANEL Lab Routine Type 2 diabetes mellitus with hemoglobin A1c goal of less than 7.0% ([facility]) 08/14/2023 10:58 AM EDT HEMOGLOBIN A1C Lab Routine Type 2 diabetes mellitus with hemoglobin A1c goal of less than 7.0% ([facility]) 08/14/2023 10:58 AM EDT LIPID PANEL WITH DIRECT LDL IF TG IS HIGH Lab Routine Type 2 diabetes mellitus with hemoglobin A1c goal of less than 7.0% (HCC) 08/14/2023 10:58 AM EDT TSH WITH FREE T4 IF INDICATED Lab Routine Type 2 diabetes mellitus with hemoglobin A1c goal of less than 7.0% ([facility]) 08/14/2023 10:58 AM EDT VITAMIN B12 Lab Routine Type 2 diabetes mellitus with hemoglobin A1c goal of less than 7.0% ([facility]) 08/14/2023 10:58 AM EDT CBC Lab Routine Type 2 diabetes mellitus with hemoglobin A1c goal of less than 7.0% ([facility]) 08/14/2023 10:58 AM EDT DIFFERENTIAL, AUTOMATED Lab Routine Type 2 diabetes mellitus with hemoglobin A1c goal of less than 7.0% (HCC) 08/14/2023 10:58 AM EDT ALBUMIN / CREATININE RATIO, URINE Lab Routine Type 2 diabetes mellitus with hemoglobin A1c goal of less than 7.0% ([facility]) 08/14/2023 11:03 AM EDT Health Maintenance Due Date Last Done Comments DISCUSS TOBACCO CESSATION (REFER TO SMARTSET #[id number]) 1985 Pneumococcal Vaccine: Pediatrics (0 to 5 [...] (HCC) documented in this encounter Care Teams Door And Arrival Attendant Relationship Specialty Start Date End Date Ender Ponce MD [address] [place] [address] PCP - General Family Medicine 05/21/16 documented as of this encounter
--- OUTSIDE RECORDS SUMMARY | 2023-11-10 13:12 | External Medical Summary ---
Author Name Unknown Address Unknown Organization K01:LABORATORY [facility] [place] - [address] [place] [address] Laboratory Report Ordering Provider Test Date Status CARLY BARON 08/14/2023 10:58:35 Final Observation Date Value Abnormality Reference (Units ) Status TSH 08/14/2023 10:58:35 1.84 0.27-4.20 (uIU/mL) Final Performing Location LABORATORY C - [address] [place] [address]
--- OUTSIDE RECORDS SUMMARY | 2023-11-10 13:12 | External Medical Summary ---
Author Name Unknown Address Unknown Organization K01:LABORATORY [facility] [place] - [address] [place] [address] Laboratory Report Ordering Provider Test Date Status SWAPNA REDD 09/12/2023 13:14:00 Final Observation Date Value Abnormality Reference (Units ) Status Chlamydia trachomatis rRNA [Presence] in Specimen by ANKITA with probe detection 09/12/2023 13:14:00 Negative Negative Final No Chlamydia trachomatis det ected by refinery operator-mediated nucleic acid amplification. Neisseria gonorrhoeae rRNA [ Presence] in Specimen by ANKITA with probe detection 09/12/2023 13:14:00 Negative Negative Final No Neisseria gonorrhoeae det ected by refinery operator-mediated nucleic acid amplification. Performing Location LABORATORY [facility] [place] - [address] [place] [address]
--- OUTSIDE RECORDS SUMMARY | 2023-11-10 13:12 | External Medical Summary ---
Author Name Unknown Address Unknown Organization K0G:LABORATORY [place] [facility] - [address] [place] [address] Laboratory Report Ordering Provider Test Date Status MEAGAN ARGUETA 09/12/2023 12:20:54 Final Observation Date Value Abnormality Reference (Units ) Status Albumin 09/12/2023 12:20:54 4.5 3.8-5.0 (g/dL) Final AST (Aspartate aminotransferase) 09/12/2023 12:20:54 48 Above high normal 10-35 (U/L) Final Result may be falsely elevat ed due to hemolysis. Alk Phos 09/12/2023 12:20:54 86 35-130 (U/ L) Final ALT (Alanine aminotransferase) 09/12/2023 12:20:54 48 Above high normal 10-35 (U/L) Final Bilirubin, Total 09/12/2023 12:20:54 0.4 <=1 .2 (mg/dL) Final Bilirubin, Direct 09/12/2023 12:20:54 <0.2 0. 0-0.3 (mg/dL) Final Result may be falsely decrea sed due to hemolysis. Protein 09/12/2023 12:20:54 7.8 6.0-8.3 (g /dL) Final Performing Location LABORATORY [place] [facility] [address] - [address] [place] [address]
--- OUTSIDE RECORDS SUMMARY | 2023-11-10 13:12 | External Medical Summary | Summary of Care ---
Author Name Unknown Organization [facility] Address [address] [place] [address] Phone [phone] Care Team Providers Care Golf Course Equipment Operator Name Role Phone Ender Ponce MD Primary Care Provider [phone] [phone] Reason for Visit * Reason Comments Outpatient Testing Encounter Details Date Type Department Care Team (Late st Contact Info) Description 09/12/2023 12:20 PM EDT Laboratory Laboratory, [facility] [address] [place] [address] [facility] [address] [place] [address] Chronic hepatitis C without hepatic coma (HCC); Pharmacologic therapy; Routine screening for STI (sexually transmitted infection) Allergies Active Allergy Reactions Criticality Noted Date Comments Environmental 11/05/2006 Sulfa Antibiotics Rash 07/02/2015 documented as of this encounter (statuses as of 09/12/2023) Medications Medication Sig Dispensed Refills Start Date End Date Status CriticalArc Ptyio Flex System w/Device KitIndications:Type 2 diabetes mellitus with hemoglobin A1c goal of less than 7.0% ([facility]) Use as directed. Test blood sugar twice daily. Am and pm DX:E11.9 1 Kit 0 02/09/2021 Active Meloxicam 15 MG Oral TabletIndications:P eriodontitis Take by mouth 1 Tablet in the morning. for pain.. 30 Tablet 5 11/23/2021 Active OneTouch Delica Plus [id number] s:Type 2 diabetes mellitus with hemoglobin A1c [...] as of this encounter (statuses as of 09/12/2023) Active Problems Problem Noted Date Diagnosed Date Food insecurity 02/04/2023 Overview: Per [facility] Protocol Medical marijuana use 10/22/2022 Overweight [...] as of this encounter (statuses as of 09/12/2023) Resolved Problems Problem Noted Date Diagnosed Date [...] as of this encounter (statuses as of 09/12/2023) Immunizations Name Administration Dates Next Due HEP [...] Description 09/24/2023 7:00 AM EDT Pharmacy [facility], [place] [address] [facility] [place] [address] [place], Pharmacist Hepatology [address] [place] [address] 10/04/2023 8:00 AM EDT [facility] [address] [place] [address] [address] [facility] [address] [place] [address] Pending Results Name Type Priority Associated Diagnoses Date /Time HEPATITIS C RNA QUANTITATIVE Lab Routine Chronic hepatitis C without hepatic coma (HCC) Pharmacologic therapy 09/12/2023 12:20 PM EDT HEPATIC FUNCTION PANEL Lab Routine Chronic hepatitis C without hepatic coma (HCC) Pharmacologic therapy 09/12/2023 12:20 PM EDT HIV ANTIGEN & ANTIBODY SCREEN W/ CONFIRMATION Lab Routine Routine screening for STI (sexually transmitted infection) 09/12/2023 12:20 PM EDT HEPATITIS B SURFACE ANTIGEN Lab Routine Routine screening for STI (sexually transmitted infection) 09/12/2023 12:20 PM EDT SYPHILIS ANTIBODY SCREEN WITH REFLEX TO RPR Lab Routine Routine screening for STI (sexually transmitted infection) 09/12/2023 12:20 PM EDT SYPHILIS ANTIBODY SCREEN Lab Routine Routine screening for STI (sexually transmitted infection) 09/12/2023 12:20 PM EDT Health Maintenance Due Date Last Done Comments DISCUSS TOBACCO CESSATION (REFER TO SMARTSET #4612) 1985 Pneumococcal Vaccine: Pediatrics (0 to 5 [...] Diagnosis Chronic hepatitis C without hepatic coma (HCC) Chronic hepatitis C without mention of hepatic coma Pharmacologic therapy Encounter for long-term (current) use of other medications Routine screening for STI (sexually transmitted infection) Screening examination for venereal disease documented in this encounter Care Teams Golf Course Equipment Operator Relationship Specialty Start Date End Date Ender Ponce MD [address] [facility] [place] [address] PCP - General Family Medicine 05/21/16 documented as of this encounter
--- OUTSIDE RECORDS SUMMARY | 2023-11-10 13:12 | External Medical Summary | Summary of Care ---
Author Name Unknown Organization [facility] Address [address] [place] [address] Phone [phone] Care Team Providers Care Edi Programmer Name Role Phone Ender Ponce MD Primary Care Provider [phone] Reason for Visit * Reason Comments PAP Encounter Details Date Type Department Care Team (Late st Contact Info) Description 09/12/2023 11:00 AM EDT Office Visit Gynecology/[facility] [address] [facility] [place] [address] Brielle Petty CNM [address] [place] [address] Encounter for annual routine gynecological examination*; Routine screening for STI (sexually transmitted infection); Initiation of Depo Provera Allergies Active Allergy Reactions Criticality Noted Date Comments Environmental 11/05/2006 Sulfa Antibiotics Rash 07/02/2015 documented as of this encounter (statuses as of 09/13/2023) Medications Medication Sig Dispensed Refills Start Date End Date Status OneTouch Verio Flex System w/Device KitIndications:Typ e 2 diabetes mellitus with hemoglobin A1c goal of less than 7.0% ([facility]) Use as directed. Test blood sugar twice daily. Am and pm DX:E11.9 1 Kit 0 02/09/2021 Active Meloxicam 15 MG Oral TabletIndications: Periodontitis Take by mouth 1 Tablet in the morning. for pain.. 30 Tablet 5 11/23/2021 Active OneTouch Delica Plus [id number] ns:Type 2 diabetes mellitus with hemoglobin A1c [...] at bedtime. 90 Capsule 1 08/12/2023 Active Fluconazole 200 MG Oral Tablet (Diflucan) Take 400 mg (2 tablets) on day 1 and then 200 mg (1 tablet) days 2-21. 22 Tablet 0 02/04/2023 4 Discontinue d(Medicatio n List Clean Up) Amoxicillin-Pot Clavulanate 875-125 MG Oral TabletIndications: Dental abscess Take 1 Tablet by mouth in the morning and 1 Tablet before bedtime. 20 Tablet 0 06/21/2023 4 Discontinue d(Medicatio n List Clean Up) Hospital, Clinic, or Other Facility Administered Medication Ordered Dose Route Frequency Start Date End Date Status medroxyPROGESTERone (contracep) (Depo-Provera) inj 150 mgIndications:Initiation of Depo Provera 150 mg IM [id number] 09/12/2023 Active documented as of this encounter (statuses as of 09/13/2023) Active Problems Problem Noted Date Diagnosed Date Food insecurity 02/04/2023 Overview: Per [facility] Protocol Medical marijuana use 10/22/2022 [...] Sign Reading Time Taken Comments Blood Pressure 102/76 09/12/2023 11:05 AM EDT Pulse - - Temperature - - Respiratory Rate - - Oxygen Saturation - - Inhaled Oxygen Concentration - - Weight 72.6 kg (160 lb) 09/12/2023 11:05 AM EDT Height 160 cm (5' 3") 09/12/2023 11:05 AM EDT Body Mass Index 28.34 09/12/2023 11:05 AM EDT documented in this encounter Progress Notes * Brielle Petty CNM - 09/12/2023 11:16 AM EDT Dyana Flores 09/12/2023 CC: Annual Exam HPI: The patient is a 38 year old female here for her annual exam. Wants to discuss control. Has used control patch and depo provera and pills in the past. Denies history of blood clots, HTN, and migraines. She does have chronic hepatitis C. Had a surgical March 2023. Took Plan B sometime between now and March 2023 (approximately April 2023, exact date is uncertain). Her periods are occurring regularly every 3 weeks, lasting 5-7 days, with moderate flow. Changes a pad or tampon every 4 hours. Prior to her , periods were lasting 4-7 days. Sexually active with male partner only (same partner for 15 years) Last intercourse was 3-4 weeks ago LMP 08/29/2023 control method: condoms She denies any cramps, intermenstrual bleeding, postcoital bleeding, pelvic pain or dyspareunia, vaginal itching, urinary complaints or changes in GI habits. +Vaginal discharge, white, odorless. Reports she does not have a strong sense of smell. She has had no new sexual partners. Performs SBE. She has a remote hx of abnormal pap smears. Last pap: 01/26/2021 (NILM, HPV neg) Denies family history of breast, ovarian, and colon cancer and blood clots in any first degree relatives. Uses medical marijuana (has medical card). ETOH once monthly. Not currently working outside the home as she is taking care of family members who are ill. Lives with her mom, aunt, and kids. Feels safe at home. Walks almost daily for exercise. Takes Paxil. Reports depression, anxiety, and manic/depression. Feels that Paxil is effective. Does not go to counseling. She is close with her family and friends. No SI and HI. TOTAL PREG....: NA FULL TERM.....: NA PREMATURE.....: NA AB,INDUCED....: NA AB,SPONTANEOUS: NA ECTOPIC.......: NA MULTIPLE : NA LIVING........: NA Date Labor Sex Delivery Anesth Del Comments GA Length Weight Type Site Past Medical History: Diagnosis Date Asthma, severity to be determined Asthma-Allergic Fatty liver 09/03/2018 Neurodermatitis 10/17/2018 Obesity, Class I, BMI 30.0-34.9 (see actual BMI) 11/23/2021 Poor dentition 11/23/2021 Smoking 05/04/2016 Thrombocytopenia (HCC) 09/03/2018 Type 2 diabetes mellitus with hemoglobin A1c goal of less than 7.0% ([facility]) 07/11/2017 Past Surgical History: Procedure Laterality Date DELIVERY 05/30/2005 CYSTOSCOPY 11/05/2006 EGD, W/ENDOSCOPIC US 01/28/2023 gastritis/esophageal plaques suspicious for omari/biopsies confirm omari, Hep C moderate scarring/ESOPHAGOGASTRODUODENOSCOPY (EGD), FLEXIBLE, TRANSORAL, ENDOSCOPIC ULTRASOUND performed by Merna Mercer DO at ENDOSCOPY [facility] REMOVAL OF TONSILS, AGE 12+ 04/29/1999 Tonsils Removal,12+ Y/O Family Hx: Family History Problem Relation Age of Onset No Past Hx Mother [...] Last attempt to quit: 04/30/2016 Years since quittin.3 Smokeless tobacco: Never Tobacco comments: 05/09/16 Day 9 of Nicotine patch Vaping Use Vaping Use: Never used Substance and Sexual Activity Alcohol use: Yes Comment: occasionally Drug use: Yes Types: Marijuana, Methamphetamines Comment: documented hx of IVDA/methamphetamines- sober since 2012 Sexual activity: Yes Partners: Male control/protection: Condom Social Determinants of Health Food Insecurity: Food Insecurity Present (08/30/2023) Hunger Vital Sign Worried About Running Out of Food in the Last Year: Often true Ran Out of Food in the Last Year: Sometimes true Medications: Current Outpatient Medications Medication Sig Dispense Refill Try [employer] Worldio Flex System w/Device Kit Use as directed. Test blood sugar twice daily. Am and pm DX:E11.9 1 Kit 0 Meloxicam 15 MG Oral Tablet Take by mouth 1 Tablet in the morning. for pain.. 30 Tablet 5 OneTouch Delica Plus [id number] USE 1 TO CHECK GLUCOSE TWICE DAILY IN THE MORNING AND IN THE [id number] Each 1 OneTouch Verio In Vitro Strip (Glucose Blood) USE TO TEST BLOOD SUGAR TWICE DAILY (AM&PM) 200 Strip 1 Fluticasone Propionate HFA 110 MCG/ACT Inhalation Aerosol (Flovent HFA) Inhale 2 Puffs by mouth in the morning and 2 Puffs before bedtime. 12 g 3 Multi-Vitamins Oral Tablet Take 1 Tablet by mouth in the morning. Nicotine 21 MG/24HR Transdermal Patch 24 Hour (Nicoderm CQ) Place 1 Patch over 24 hours topically on the skin in the morning. On upper body/upper arm, change once a day for 6 weeks.. 42 Patch 0 PARoxetine HCl 40 MG Oral Tablet (pAXil) [...] by mouth at bedtime. 90 Capsule 1 Albuterol Sulfate HFA 108 (90 Base) MCG/ACT Inhalation Aerosol Solution Inhale 2 Puffs by mouth in the morning and 2 Puffs at noon and 2 Puffs in the evening and 2 Puffs before bedtime. 18 g 3 Mavyret 100-40 MG Oral Tablet (glecaprevir-pibrentasvir 100-40 mg per tab) Take one packet (all 3 tabs) once daily with food. (Patient not taking: Reported on 01/22/2023) 84 Tablet 1 buPROPion HCl ER (XL) 150 MG Oral Tablet Extended Release 24 Hour (Wellbutrin XL) Take 1 Tablet by mouth in the morning. 90 Tablet 3 Current Facility-Administered Medications Medication Dose Route Frequency Provider Last Rate Last Admin medroxyPROGESTERone (contracep) (Depo-Provera) inj 150 mg 150 mg Intramuscular Q90 Days Brielle Petty, ALTHEAM 150 mg at 09/12/23 1312 Allergies: Review of patient's allergies indicates: Allergen Reactions Environmental Sulfa Antibiotics Rash ROS: Constitutional: No fatigue, no fever/chills, no significant weight change Endocrine: No heat/cold intolerance Breasts: No new breast lumps or masses, no pain or discomfort, no nipple discharge Cardiovascular: No chest pain, no shortness of breath Gastrointestinal: no abdominal pain, no change in bowel habits, no n/v/d/c Urinary: no pelvic pain/discomfort, no dysuria, no urgency or frequency, no hesitation, no burning or pain, no hematuria Genital: + irregular menstruation, no vaginal discharge, pruritus or odor, no lesions or irritation Psych: +anxiety, +depression Physical Exam BP 102/76 | Ht 1.6 m (5' 3") | Wt 72.6 kg (160 lb) | LMP 08/29/2023 | BMI 28.34 kg/m | BSA 1.8 m General: awake, alert, and oriented x 3, NAD Neck: supple without adenopathy, thyroid normal size, non-tender, without nodularity Cardiac: regular rate and rhythm, no murmur Lungs: inspiratory wheezing right upper and right lower lobe; left side clear to auscultation Abdomen: soft, non-tender, normal bowel sounds, no masses or organomegaly, no inguinal nodes Neuro: no focal motor/sensory deficits, gait normal Breasts: no nipple retraction or dimpling, no nipple discharge or bleeding, no axillary or supraclavicular adenopathy, normal to palpation without dominant masses Pelvic: external genitalia and vagina anatomy within normal limits, no vulvar lesions, no significant vaginal discharge, cervix normal in appearance without lesions or purulent discharge, uterus is normal size, shape, and consistency, adnexa normal bilaterally, no abnormal pelvic masses Drug Regulatory Affairs Specialist Documentation Provider requested mechanic helper. Name of mechanic helper: Inge Jorgensen LPN Assessment/Plan: (Z11.3) Routine screening for STI (sexually transmitted infection) Plan: HIV ANTIGEN & ANTIBODY SCREEN W/ CONFIRMATION, HEPATITIS B SURFACE ANTIGEN, CHLAMYDIA TRACHOMATIS AND NEISSERIA GONORRHOEAE, AMPLIFIED PROBE, SYPHILIS ANTIBODY SCREEN WITH REFLEX TO RPR, TRICHOMONAS VAGINALIS, AMPLIFIED PROBE, CHLAMYDIA TRACHOMATIS AND NEISSERIA GONORRHOEAE, AMPLIFIED PROBE, TRICHOMONAS VAGINALIS, AMPLIFIED PROBE -STI testing performed as listed above (Z30.013) Initiation of Depo Provera Plan: URINE SCREEN, POINT OF CARE (ENTER/EDIT), medroxyPROGESTERone (contracep) (Depo-Provera) inj 150 mg -counseled patient about contraceptive options -patient desires depo provera today but desires to return for IUD insertion -discussed side effects of depo provera including weight gain, mood changes, decreased bone density, and irregular bleeding -patient was advised to do regular weight bearing exercise and take a calcium supplement -first injection of depo provera given today -urine test negative (Z01.419) Encounter for annual routine gynecological examination (primary encounter diagnosis) Plan: -Pap due 2025 -Discussed that irregular periods are likely due to recent surgical and Plan B (emergency contraception). Depo provera will likely lighten periods. Patient to call if heavy periods are not improving. -Encouraged regular breast self-awareness. -Depo provera for contraception Follow Up: RTO in 1 year for routine HYDRAULIC AND PLUMBING INSTALLER exam, PRN with concern Call the office with any problems, questions, or concerns Brielle Petty CNM documented in this encounter Nursing Notes * Inge Mari LPN - 09/12/2023 1:12 PM EDT Patient here for depo injection. Patient doing well no complaints. Injection given IM as ordered. Patient tolerated well. Patient to follow up as directed. Patient instructed to call if any complications. Patient verbalized understanding of instructions given and her follow up appt for 3 months Injection site: Right Gluteus Medication Source: Dispensed stock medication * Inge Mari LPN - 09/12/2023 11:14 AM EDT Discuss control, thinking about depo. documented in this encounter Miscellaneous Notes * Result Encounter Note - Brielle Petty CNM - 09/13/2023 1:42 PM EDT Please let patient know she screened negative for gonorrhea, chlamydia, and trichomonas. Thanks! Brielle Petty CNM * Result Encounter Note - Brielle Petty CNM - 09/12/2023 2:25 PM EDT Reviewed with patient during today's appointment. documented in this encounter Plan of Treatment Upcoming Encounters Date Type Department Care Team (Late st Contact Info) Description 09/24/2023 7:00 AM EDT Pharmacy Hepatology, [address] [address] [place] Pharmacist Hepatology [address] [facility] [place] [address] 10/04/2023 8:00 AM EDT Office Visit Pharmacy, [facility] [address] [place] [address] [facility] [address] [facility] [place] [address] Health Maintenance Due Date Last Done Comments DISCUSS TOBACCO CESSATION (REFER TO SMARTSET #[id number]) 1985 Pneumococcal Vaccine: Pediatrics (0 to 5 [...] Procedure Name Priority Date/Time Associated Diagnosis Comments CHLAMYDIA TRACHOMATIS AND NEISSERIA GONORRHOEAE, AMPLIFIED PROBE Routine 09/12/2023 1:14 PM EDT Routine screening for STI (sexually transmitted infection) TRICHOMONAS VAGINALIS, AMPLIFIED PROBE Routine 09/12/2023 1:14 PM EDT Routine screening for STI (sexually transmitted infection) URINE SCREEN, POINT OF CARE (ENTER/EDIT) Routine 09/12/2023 Initiation of Depo Provera documented in this encounter Results * TRICHOMONAS VAGINALIS, AMPLIFIED PROBE (09/12/2023 1:14 PM EDT) Trichomonas Vaginalis Result Negative Negative 09/13/2023 12:45 PM EDT [facility] [place]No Trichomonas vagin hector detected by auricular therapist mediated nucleic acid amplification. Swab Specimen from wound / Unknown 09/12/2023 1:14 PM EDT 09/12/2023 1:14 PM EDT Brielle Petty [facility] LAB MICRO - GENERAL ORDERABLES Performing Organization Address City/[facility]/ZIP Co de Phone Number LABORATORY [place] [address] [place] [address] * CHLAMYDIA TRACHOMATIS AND NEISSERIA GONORRHOEAE, AMPLIFIED PROBE (09/12/2023 1:14 PM EDT) Chlamydia Trachomatis Result Negative Negative 09/13/2023 1:00 PM EDT [facility] [place]:No Chlamydia trachom atis detected by auricular therapist-mediated nucleic acid amplification. Neisseria Gonorrhoeae Result Negative Negative 09/13/2023 1:00 PM EDT [facility] [place]:No Neisseria gonorrh oeae detected by auricular therapist-mediated nucleic acid amplification. Swab Specimen from wound / Unknown 09/12/2023 1:14 PM EDT 09/12/2023 1:14 PM EDT Brielle [place] LAB MICRO - GENERAL ORDERABLES [facility] [place] [address] [place] [address] * HEPATITIS B SURFACE ANTIGEN (09/12/2023 12:20 PM EDT) Hepatitis B Surface Antigen Negative Negative 09/12/2023 9:06 PM EDT [facility] [place] Venous blood specimen / Unknown Venipuncture / Unknown 09/12/2023 12:20 PM EDT 09/12/2023 12:20 PM EDT Brielle Ptety CNM LAB BLOOD ORDERABLES Performing Organization Address City/[facility] Co de Phone Number LAB[facility]ATORY [facility] [place] [address] [place] [address] * HIV ANTIGEN & ANTIBODY SCREEN W/ CONFIRMATION (09/12/2023 12:20 PM EDT) [facility] HIV Antigen & Antibody Negative Negative 09/12/2023 9:06 PM EDT [facility] [place]:Negative HIV-1/2 ant igen and antibody screening tset results usually indicate the absence of HIV-1 and HIV-2 infection. However, such negative results do not rule-out acute HIV infection. If acute HIV-1 infection is highly suspected, it is recommended that a specimen be submitted for detection of HIV-1 RNA. Blood Venous blood specimen / Unknown Venipuncture / Unknown 09/12/2023 12:20 PM EDT 09/12/2023 12:20 PM EDT Brielle Petty CNM LAB BLOOD ORDERABLES [facility] [place] [address] [place] [address] * URINE SCREEN, POINT OF CARE (ENTER/EDIT) (09/12/2023) Pathologist [facility] hCG Beta, Urine Negative Negative Procedural Control Valid? Yes Lot Number [id number] Expiration Date Urine 09/12/2023 Brielle E Petty CNM LAB POINT OF CARE TE ST ENTER/EDIT ORDERABLES documented in this encounter Visit Diagnoses Diagnosis Encounter for annual routine gynecological examination- Primary Routine screening for STI (sexually transmitted infection) Screening examination for venereal disease Initiation of Depo Provera General counseling for initiation of other contraceptive measures documented in this encounter Administered Medications Active Administered Medications - up to 3 most recent administrations Medication Order MAR Action Action Date Dose Rate Site medroxyPROGESTERone (contracep) (Depo-Provera) inj 150 mg 150 mg, Intramuscular, [id number], First dose on [place] 09/12/23 at 1345, Until Discontinued Given 09/12/2023 1:12 PM EDT 150 mg Dorsogluteal Right documented in this encounter Care Teams Edi Programmer Relationship Specialty Start Date End Date Ender Ponce MD [address] [place] [address] PCP - General Family Medicine 05/21/16 documented as of this encounter
--- OUTSIDE RECORDS SUMMARY | 2023-11-10 13:12 | External Medical Summary ---
Author Name Unknown Address Unknown Organization [id number]:[place] [facility] [place] [address] [place] [address] Ave[address] [facility] [address] Laboratory Report Ordering Provider Test Date Status SWAPNA REDD 09/12/2023 12:20:54 Final Observation Date Value Abnormality Reference (Units ) Status HIV 1+2 Ab+HIV1 p24 Ag [Presence] in Serum or Plasma by Immunoassay 09/12/2023 12:20:54 Negative Negative Final Negative HIV-1/2 antigen and antibody screening tset results usually indicate the absence of HIV-1 and HIV-2 infection. However, such negative results do not rule-out acute HIV infection. If acute HIV-1 infection is highly suspected, it is recommended that a specimen be submitted for detection of HIV-1 RNA. Performing Location [place] [facility] [place] [facility] [place] [address] [facility] [address] [facility] [address]
--- OUTSIDE RECORDS SUMMARY | 2023-11-10 13:12 | External Medical Summary ---
Author Name Unknown Address Unknown Organization [id number]:LABORATORY [place] [facility] - [address] [place] [address] Laboratory Report Ordering Provider Test Date Status CARLY BARON 08/14/2023 10:58:35 Final Observation Date Value Abnormality Reference (Units ) Status SYNC LEUKOCYTES IN BLOOD BY AUTOMATED COUNT 08/14/2023 10:58:35 8.62 4.00-10.80 (K/uL) Final Segs 08/14/2023 10:58:35 62.9 40.0-75.0 (%) Final Lymphs % 08/14/2023 10:58:35 31.9 18.0-42.0 (%) Final Monos 08/14/2023 10:58:35 4.4 1.0-11.0 (%) Final Eosinophils 08/14/2023 10:58:35 0.7 0.0-6.0 (%) Final Basos 08/14/2023 10:58:35 0.1 0.0-2.0 (%) Final Absolute Segs 08/14/2023 10:58:35 5.42 1.80-7.70 (K/uL) Final Lymphs, absolute 08/14/2023 10:58:35 2.75 1.00-4.80 (K/ul) Final Monos, Abs 08/14/2023 10:58:35 0.38 0.00-1.10 (K/uL) Final Eos, Abs 08/14/2023 10:58:35 0.06 0.00-0.70 (K/uL) Final Basos, Abs 08/14/2023 10:58:35 0.01 0.00-0.20 (K/uL) Final Performing Location LABORATORY [place] [facility] - [address] [place] [address]
--- OUTSIDE RECORDS SUMMARY | 2023-11-10 13:12 | External Medical Summary ---
Author Name Unknown Address Unknown Organization [id number]:[facility] [place] [address] [place] [address] Laboratory Report Ordering Provider Test Date Status CARLY BARON 08/14/2023 11:03:42 Final Normal: <30 mg/g creatinine< br/>High: 30-300 mg/g creatinine
Very High: >300 mg/g creatinine
Nephrotic: >2200 mg/g creatinine Observation Date Value Abnormality Reference (Units ) Status Albumin, Urine 08/14/2023 11:03:42 <1.20 (mg/dL) Final Creatinine, Urine 08/14/2023 11:03:42 117 (mg/dL) Final Albumin/Creatinine [Mass Ratio] in Urine 08/14/2023 11:03:42 <10 <30 (mg/g Creat) Final Performing Location LAB[facility]ORY [facility] [place] [address] [place] [address]
--- OUTSIDE RECORDS SUMMARY | 2023-11-10 13:12 | External Medical Summary | Summary of Care ---
Author Name Unknown Organization [facility] Address [address] [place] [address] Phone [phone] Care Team Providers Care Aircraft Engine Mechanic Supervisor Name Role Phone Ender Ponce MD Primary Care Provider [phone] Reason for Visit * Reason Comments Dosage Adjustment Via Phone (anticoag Cl inic) Status Check Encounter Details Date Type Department Care Team (Late st Contact Info) Description 09/13/2023 7:10 AM EDT Pharmacy Hepatology, [place] [address] [place] [address] [place], Pharmacist Hepatology [address] [place] [address] Hepatitis C virus infection cured after antiviral drug therapy* Allergies Active Allergy Reactions Criticality Noted Date Comments Environmental 11/05/2006 Sulfa Antibiotics Rash 07/02/2015 documented as of this encounter (statuses as of 09/13/2023) Medications Medication Sig Dispensed Refills Start Date End Date Status [employer] Flex System w/Device KitIndications:Type 2 diabetes mellitus with hemoglobin A1c goal of less than 7.0% (HCC) Use as directed. Test blood sugar twice daily. Am and pm DX:E11.9 1 Kit 0 02/09/2021 Active Meloxicam 15 MG Oral TabletIndications:P eriodontitis Take by mouth 1 Tablet in the morning. for pain.. 30 Tablet 5 11/23/2021 Active OneTouch Delica Plus [id number] s:Type 2 diabetes mellitus with hemoglobin A1c [...] mgIndications:Initiation of Depo Provera 150 mg IM [id number] 09/12/2023 Active documented as of this encounter (statuses as of 09/13/2023) Active Problems Problem Noted Date Diagnosed Date Food insecurity 02/04/2023 Overview: Per [facility] Protocol Medical marijuana use 10/22/2022 Overweight [...] this encounter Progress Notes * Nelli Roa, [facility] - 09/13/2023 3:49 PM EDT [...] Overview: Physician initiating treatment: Javier Carr MD/Mehnaz Delgado DO Treatment Plan: Mavyret for 8 weeks. Started Treatment: 2022 Completed Therapy: 2023 Latest Reference Range & Units 06/12/22 09:26 [...] Direct 0.0 - 0.3 mg/dL <0.2 <0.2 Were you able to contact the patient? No, left message for patient. This is the first attempt to contact the patient. I called the mobile phone, but no answer; I left a message to return the call. [facility] Plan: Will follow-up with the patient again in 2 weeks, unless a return call is received sooner. Due to elevated liver enzymes, will schedule the patient a return appointment for further evaluation. Elise BootheD, [facility] Clinical Pharmacist, Hepatology 09/13/2023 3:54 PM documented in this encounter Plan of Treatment Upcoming Encounters Date Type Department Care Team (Late st Contact Info) Description 10/04/2023 8:00 AM EDT [facility] [address] [place] [address] [facility] [address] [place] [address] 02/25/2024 8:20 AM EDT Office Visit Hepatology, [facility] [address] [place] [address] Mehnaz Delgado DO [address] [place] [address] 03/11/2024 7:00 AM EST Pharmacy Hepatology, [place] [address] [place] [address] [place], Pharmacist Hepatology [address] [place] [address] Health Maintenance Due Date Last Done Comments DISCUSS TOBACCO CESSATION (REFER TO SMARTSET #[id number]) 1985 Pneumococcal Vaccine: Pediatrics (0 to 5 [...] Primary documented in this encounter Care Teams Aircraft Engine Mechanic Supervisor Relationship Specialty Start Date End Date Ender Ponce MD [address] [place] [address] PCP - General Family Medicine 05/21/16 documented as of this encounter
--- OUTSIDE RECORDS SUMMARY | 2023-11-10 13:13 | External Medical Summary ---
Author Name Unknown Address Unknown Organization K01:LABORATORY [facility] [place] - [address] [place] [address] Laboratory Report Ordering Provider Test Date Status MARILEE RAMIREZ 06/28/2023 08:30:42 Final Observation Date Value Abnormality Reference (Units ) Status HbA1C 06/28/2023 08:30:42 5.0 4.0-5.6 (% ) Final The use of HbA1c to monitor glycemic status is based on normal hemoglobin and HbA composition. This test should not be used in patients with abnormal hemoglobin that affects the half life of the red blood cell or the in vivo glycation rates. Glucose, estimated average 06/28/2023 08:30:42 97 <126 (mg/dL) Final Performing Location [facility] [facility] [address] [facility] [address]
--- OUTSIDE RECORDS SUMMARY | 2023-11-10 13:13 | External Medical Summary | Summary of Care ---
Author Name Unknown Organization [facility] Address [address] [place] [address] Phone [phone] Care Team Providers Care Cushion Sewer Name Role Phone Ender Ponce MD Primary Care Provider [phone] [phone] Reason for Visit * Reason Onset Date Comments Medication Problem 06/18/2023 Encounter Details Date Type Department Care Team (Late st Contact Info) Description 06/18/2023 Telephone Pharmacy Call Center [address] [facility] [place] [address] [facility] [address] [facility] [place] [id number] Medication Problem Allergies Active Allergy Reactions Criticality Noted Date Comments Environmental 11/05/2006 Sulfa Antibiotics Rash 07/02/2015 documented as of this encounter (statuses as of 06/18/2023) Medications Medication Sig Dispensed Refills Start Date End Date Status [email or web address] Agility Flex System w/Device KitIndications:Type 2 diabetes mellitus with hemoglobin A1c goal of less than 7.0% ([facility]) Use as directed. Test blood sugar twice daily. Am and pm DX:E11.9 1 Kit 0 02/09/2021 Active Meloxicam 15 MG Oral TabletIndications:P eriodontitis Take by mouth 1 Tablet in the morning. for pain.. 30 Tablet 5 11/23/2021 Active OneTouch Delica Plus [id number] s:Type 2 diabetes mellitus with hemoglobin A1c goal of less than 7.0% ([facility]) USE 1 TO CHECK GLUCOSE TWICE DAILY IN THE MORNING AND IN THE EVENING 200 Each 1 08/22/2022 Active Олег Weaver In Vitro Strip (Glucose Blood)Indications:T ype 2 [...] Additional Information Patient not taking.Reported on 01/22/2023 metFORMIN HCl ER 500 MG Oral Tablet Extended Release 24 Hour (Glucophage XR) Take 4 Tablets by mouth in the morning. 360 Tablet 1 01/23/2023 Active Fluconazole 200 MG Oral Tablet (Diflucan) [...] 6 weeks.. 42 Patch 0 02/21/2023 Active Doxepin HCl 50 MG Oral Capsule (SINEquan)Indicatio ns:Primary insomnia Take 1 Capsule by mouth at bedtime. 90 Capsule 1 03/01/2023 Active PARoxetine HCl 40 MG Oral Tablet (pAXil)Indications: Bipolar affective disorder in remission (HCC) Take 1.5 Tablets by mouth in the morning. 135 Tablet 1 03/15/2023 Active Dulaglutide 1.5 MG/0.5ML Subcutaneous Solution Pen-injector (Trulicity)Indicati ons:Type 2 diabetes mellitus with hemoglobin A1c goal of less than 7.0% (HCC) Inject 1.5 mg under the skin once a week. 4 mL 5 03/15/2023 Active documented as of this encounter (statuses as of 06/18/2023) Active Problems Problem Noted Date Diagnosed Date Food insecurity 02/04/2023 Overview: Per [facility] Protocol Medical marijuana use 10/22/2022 Overweight [...] as of this encounter (statuses as of 06/18/2023) Resolved Problems Problem Noted Date Diagnosed Date [...] as of this encounter (statuses as of 06/18/2023) Immunizations Name Administration Dates Next Due HEP [...] encounter Miscellaneous Notes * Telephone Encounter - Juanita Funez RPh - 06/18/2023 4:14 PM EST Unable to leave a message. Will send a myG message. Juanita Funez, Pharm D, BCACP Clinical Pharmacist 06/18/2023, 4:15 PM * Telephone Encounter - Jimena Clifford, visual stylist - 06/18/2023 2:56 PM EST Caller's name: Dyana Cesilia call back number(OFFICE NUMBER FOR ): [phone] Reason for call: Medication question: Pt unable to get her Trulicity and would like to know if there's another medication she can take that her insurance will cover. [facility] Thank you, Jimena Clifford Rn Circulating I [facility] ([facility]PS) (Formerly Telepharmacy) 06/18/2023,2:57 PM documented in this encounter Plan of Treatment Upcoming Encounters Date Type Department Care Team (Late st Contact Info) Description 06/28/2023 8:00 AM EST Office Visit Pharmacy, [facility] [address] [facility] 132 [facility] [place] [address] 08/07/2023 11:30 AM EDT Office Visit Gynecology/Obstetrics [address] [place] [address] Brielle Petty, [address] [address] 08/30/2023 7:00 AM EDT Pharmacy Hepatology, [place] [address] [place] [address] [place], Pharmacist Hepatology [address] [place] [address] 2023 7:00 AM EDT Pharmacy Hepatology, [place] [address] [place] [address] [place], Pharmacist Hepatology [address] [place] [address] Health Maintenance Due Date Last Done Comments DISCUSS TOBACCO CESSATION (REFER TO SMARTSET #9795) 1986 Pneumococcal Vaccine: Pediatrics (0 to 5 Years) and At-Risk Patients (6 to 64 Years) (1 of 2 - PCV) 1992 Diabetic Eye Exam 2004 HPV/Co-Test 2016 *SPIROMETRY ONCE FOR ASTHMA-ADULT 12/02/2016 Depression Screening 02/08/2021 02/09/2020 Diabetic Foot Exam 02/08/2021 02/09/2020, 12/05/2017 COVID-19 Vaccine ( season) 2022 HbA1c 04/29/2023 10/27/2022, 07/29, 06/12/2022, Additional history exists Albumin/Creatinine Ratio 08/22/2023 08/21/2022 B-12 08/22/2023 08/21/2022, 01/27, 09/03/2018, Additional history exists GFR 10/28/2023 10/27/2022, 07/29, 06/12/2022, Additional history exists Cervical Cancer Screening 01/27/2024 [...] filedocumented as of this encounter Care Teams Cushion Sewer Relationship Specialty Start Date End Date Ender Ponce MD [address] [facility] [place] [address] PCP - General Family Medicine 05/21/16 documented as of this encounter
--- OUTSIDE RECORDS SUMMARY | 2023-11-10 13:13 | External Medical Summary ---
Author Name Unknown Address Unknown Organization K01:LABORATORY [facility] [place] - [address] [place] [address] Laboratory Report Ordering Provider Test Date Status CARLY BARON 08/14/2023 10:58:35 Final Observation Date Value Abnormality Reference (Units ) Status Vitamin B12 08/14/2023 10:58:35 [phone] (pg/mL) Final Performing Location LABORATORY [facility] - [address] [place] [address]
--- OUTSIDE RECORDS SUMMARY | 2023-11-10 13:13 | External Medical Summary | Summary of Care ---
Author Name Unknown Organization [facility] Address [address] [place] [address] Phone [phone] Care Team Providers Care Network Security Officer Name Role Phone Ender Ponce MD Primary Care Provider [phone] [phone] Reason for Visit * Reason Comments Dosage Adjustment Via Phone (anticoag Cl inic) Encounter Details Date Type Department Care Team (Late st Contact Info) Description 05/31/2023 7:[address] [facility] Pharmacy Hepatology, [place] [address] [place], [place] [phone] [place], Pharmacist Hepatology [address], [place] [phone] Chronic hepatitis C without hepatic coma (HCC)* Allergies Active Allergy Reactions Criticality Noted Date Comments Environmental 11/05/2006 Sulfa Antibiotics Rash 07/02/2015 documented as of this encounter (statuses as of 06/03/2023) Medications Medication Sig Dispensed Refills Start Date End Date Status VivaSmart System w/Device KitIndications:Type 2 diabetes mellitus with hemoglobin A1c goal of less than 7.0% (HCC) Use as directed. Test blood sugar twice daily. Am and pm DX:E11.9 1 Kit 0 02/09/2021 Active Meloxicam 15 MG Oral TabletIndications:P eriodontitis Take by mouth 1 Tablet in the morning. for pain.. 30 Tablet 5 11/23/2021 Active OneTouch Delica Plus [id number] s:Type 2 diabetes mellitus with hemoglobin A1c goal of less than 7.0% (HCC) USE 1 TO CHECK GLUCOSE TWICE DAILY IN THE MORNING AND IN THE EVENING 200 Each 1 08/22/2022 Active OneTouch Verio In Vitro Strip (Glucose Blood)Indications:T ype 2 diabetes mellitus with hemoglobin A1c goal of less than 7.0% ([facility]) USE TO TEST BLOOD SUGAR [...] as of this encounter (statuses as of 06/03/2023) Active Problems Problem Noted Date Diagnosed Date Food insecurity 02/04/2023 Overview: Per [facility] Protocol Medical marijuana use 10/22/2022 Overweight [...] as of this encounter (statuses as of 06/03/2023) Resolved Problems Problem Noted Date Diagnosed Date [...] as of this encounter (statuses as of 06/03/2023) Immunizations Name Administration Dates Next Due HEP A - Hepatitis A (Adult > 18 yrs) 06/11/2016 TDAP (age 10 and older)(Boostrix) 11/30/2014 documented as of this encounter Social History Tobacco Use Types Packs/Day Years Used Date Smoking Tobacco: Every Day Cigarettes 0.3 5 Last attempted to quit: 04/30/2016 Smokeless Tobacco: [...] this encounter Progress Notes * Nelli Roa, [facility] - 05/28/2023 1:08 PM EST MTM Hepatitis C Treatment Follow-Up Patient Name: Dyana Flores EOT follow up History of Current Illness: Dyana Flores is a 37 year old female with chronic Hepatitis C, genotype 1a, F3, last seen in the Hepatology clinic on 11/30/2022. Patient has completed Hepatitis C treatment. This is a follow-up phone call to the patient to review labs after 8 weeks of treatment. Treatment Overview: Physician initiating treatment: Javier Carr MD/Mehnaz Delgado, DO Treatment Plan: Mavyret for 8 weeks. Started Treatment: 2022 Completed Therapy: unknown, expected to have finished 2023 Latest Reference Range & Units 06/12/22 09:26 *Pretreatment 05/28/23 10:29 *EOT Labs Protein 6.0 - 8.3 g/dL 7.7 7.6 HEPATITIS C RNA QUANTITATIVE 44,400,000 Negative Albumin 3.8 - 5.0 g/dL 4.4 4.4 AST 10 - 35 U/L 44 (H) 32 ALT 10 - 35 U/L 58 (H) 20 Alkaline Phosphatase 35 - 130 U/L 135 (H) 103 Bilirubin, Total <=1.2 mg/dL 0.3 0.4 Bilirubin, Direct 0.0 - 0.3 mg/dL <0.2 Were you able to contact the patient? No, left message for patient. This is the first attempt to contact the patient. I called the mobile phone, but no answer and voicemail is full. MyG message sent (see encounter dated 05/16/2023). MT Plan: Unable to contact the patient via phone; MyG message sent. Will follow-up with the patient again next week, unless a return call is received sooner. Nelli Roa, Annabel, [facility] Clinical Pharmacist, Hepatology 06/03/2023 5:37 PM documented in this encounter Plan of Treatment Upcoming Encounters Date Type Department Care Team (Late st Contact Info) Description 06/10/2023 7:00 AM EST Pharmacy Hepatology, [place] [address] [place] [address] [place], Pharmacist Hepatology [address] [place] [address] 06/13/2023 2:00 PM EST [facility] [address] [place] [address] [facility] [place] [address] 08/07/2023 11:30 AM EDT Office Visit Gynecology/Obstetrics [place] [facility] [address] [place] [address] Brielle Petty, [facility] [address] [facility] [place] [address] 08/30/2023 6:00 PM EDT Pharmacy Hepatology, [place] [address] [place] [place] [address] [place], Pharmacist Hepatology [facility] [place] [address] 2023 7:00 AM EDT Pharmacy Hepatology, [place] [address] [place] [address] [place], Pharmacist Hepatology [address], [place] [phone] Health Maintenance Due Date Last Done Comments DISCUSS TOBACCO CESSATION (REFER TO SMARTSET #1196) 1986 COVID-19 Vaccine (#1) 03/12/1987 Pneumococcal Vaccine: Pediatrics (0 to 5 Years) and At-Risk Patients (6 to 64 Years) (1 - PCV) 1992 Diabetic Eye Exam 2004 HPV/Co-Test 2016 *SPIROMETRY ONCE FOR ASTHMA-ADULT 12/02/2016 Depression Screening 02/08/2021 02/09/2020 Diabetic Foot Exam 02/08/2021 02/09/2020, 12/05/2017 HbA1c 04/29/2023 10/27/2022, 07/29, 06/12/2022, Additional history [...] coma documented in this encounter Care Teams Network Security Officer Relationship Specialty Start Date End Date Ender Ponce MD [address] [place] [address] PCP - General Family Medicine 05/21/16 documented as of this encounter
--- OUTSIDE RECORDS SUMMARY | 2023-11-10 13:13 | External Medical Summary | Summary of Care ---
Author Name Unknown Organization [facility] Address [address] [place] [address] Phone [phone] Care Team Providers Care Director Search Marketing Strategies Name Role Phone Ender Ponce MD Primary Care Provider [phone] Reason for Visit * Reason Comments Outpatient Testing Encounter Details Date Type Department Care Team (Late st Contact Info) Description 06/28/2023 9:10 AM EST Laboratory Laboratory, [facility] [address] [place] [address] [facility] [address] [place] [address] Type 2 diabetes mellitus with hemoglobin A1c goal of less than 7.0% ([facility]) Allergies Active Allergy Reactions Criticality Noted Date Comments Environmental 11/05/2006 Sulfa Antibiotics Rash 07/02/2015 documented as of this encounter (statuses as of 06/28/2023) Medications Medication Sig Dispensed Refills Start Date End Date Status aWhereTouch Verio Flex System w/Device KitIndications:Type 2 diabetes mellitus with hemoglobin A1c goal of less than 7.0% ([facility]) Use as directed. Test blood sugar twice daily. Am and pm DX:E11.9 1 Kit 0 02/09/2021 Active Meloxicam 15 MG Oral TabletIndications:P eriodontitis Take by mouth 1 Tablet in the morning. for pain.. 30 Tablet 5 11/23/2021 Active OneTouch Delica Plus [id number] s:Type 2 diabetes mellitus with hemoglobin A1c [...] a week. 3 mL 11 06/28/2023 Active documented as of this encounter (statuses as of 06/28/2023) Active Problems Problem Noted Date Diagnosed Date Food insecurity 02/04/2023 Overview: Per [facility] Protocol Medical marijuana use 10/22/2022 Overweight [...] as of this encounter (statuses as of 06/28/2023) Resolved Problems Problem Noted Date Diagnosed Date [...] as of this encounter (statuses as of 06/28/2023) Immunizations Name Administration Dates Next Due HEP [...] Care Team (Late st Contact Info) Description 08/07/2023 11:30 AM EDT Office Visit Gynecology/Obstetrics [facility] 132 [facility] [place] [address] Brielle Petty, [facility] [address] [place] [address] 08/30/2023 7:00 AM EDT Pharmacy Hepatology, [address] [place] [address] [place], Pharmacist Hepatology [address] [place] [address] 2023 7:00 AM EDT Pharmacy Hepatology, [place] [address] [facility] [place] [address] [place], Pharmacist Hepatology [address] [place] [address] 10/04/2023 8:00 AM EDT Office Visit Pharmacy, [facility] 132 [facility] [place] [address] [facility] 132 [facility] [place] [address] Pending Results Name Type Priority Associated Diagnoses Date /Time HEMOGLOBIN A1C Lab Routine Type 2 diabetes mellitus with hemoglobin A1c goal of less than 7.0% (HCC) 06/28/2023 8:30 AM EST Health Maintenance Due Date Last Done Comments DISCUSS TOBACCO CESSATION (REFER TO SMARTSET #2506) 1986 Pneumococcal Vaccine: Pediatrics (0 to 5 [...] (HCC) documented in this encounter Care Teams Director Search Marketing Strategies Relationship Specialty Start Date End Date Ender Ponce MD [address] [place] [address] PCP - General Family Medicine 05/21/16 documented as of this encounter
--- OUTSIDE RECORDS SUMMARY | 2023-11-10 13:13 | External Medical Summary | Summary of Care ---
Author Name Unknown Organization [facility] Address [address] [place] [address] Phone [phone] Care Team Providers Care Garment Parts Cutter Hand Name Role Phone Ry Penny MD Primary Care Provider [phone] Reason for Visit * Reason Onset Date Comments Medication Refill 08/09/2023 Encounter Details Date Type Department Care Team (Late st Contact Info) Description 08/09/2023 Refill Family Practice [facility] [address] [place] [address] Ry Penny MD [address] [place] [address] Primary insomnia; Type 2 diabetes mellitus with hemoglobin A1c goal of less than 7.0% ([facility]) Allergies Active Allergy Reactions Criticality Noted Date Comments Environmental 11/05/2006 Sulfa Antibiotics Rash 07/02/2015 documented as of this encounter (statuses as of 08/12/2023) Medications Medication Sig Dispensed Refills Start Date End Date Status OneTouch Verio Flex System w/Device KitIndications:Typ e 2 diabetes mellitus with hemoglobin A1c goal of less than 7.0% ([facility]) Use as directed. Test blood sugar twice daily. Am and pm DX:E11.9 1 Kit 0 02/09/2021 Active Meloxicam 15 MG Oral TabletIndications: Periodontitis Take by mouth 1 Tablet in the morning. for pain.. 30 Tablet 5 11/23/2021 Active OneTouch Delica Plus [id number] ns:Type 2 diabetes mellitus with hemoglobin A1c [...] 03/15/2023 Active Amoxicillin-Pot Clavulanate 875-125 MG Oral TabletIndications: Dental [...] at bedtime. 90 Capsule 1 08/12/2023 Active metFORMIN HCl ER 500 MG Oral Tablet Extended Release 24 Hour (Glucophage XR) Take 4 Tablets by mouth in the morning. 360 Tablet 1 01/23/2023 4 Discontinue d(Refill) Doxepin HCl 50 MG Oral Capsule (SINEquan)Indicati ons:Primary insomnia Take 1 Capsule by mouth at bedtime. 90 Capsule 1 03/01/2023 4 Discontinue d(Refill) documented as of this encounter (statuses as of 08/12/2023) Active Problems Problem Noted Date Diagnosed Date Food insecurity 02/04/2023 Overview: Per [facility] Protocol Medical marijuana use 10/22/2022 Overweight [...] as of this encounter (statuses as of 08/12/2023) Resolved Problems Problem Noted Date Diagnosed Date [...] as of this encounter (statuses as of 08/12/2023) Immunizations Name Administration Dates Next Due HEP [...] Telephone Encounter - Ry Penny MD - 08/12/2023 4:31 PM EDTSigned Prescriptions: Disp Refills metFORMIN HCl ER 500 MG Oral Tablet Extend*360 Ta*1 Sig: Take 4 Tablets by mouth in the morning. Authorizing Provider: RY PENNY Doxepin HCl 50 MG Oral Capsule (SINEquan) 90 Cap*1 Sig: Take 1 Capsule by mouth at bedtime. Authorizing Provider: RY PENNY ---- * Telephone Encounter - Irma Saavedra lead furnace operator - 08/12/2023 4:23 PM EDTPending Prescriptions: Disp Refills metFORMIN HCl ER 500 MG Oral Tablet Extend*360 Ta*1 Sig: Take 4 Tablets by mouth in the morning. Doxepin HCl 50 MG Oral Capsule (SINEquan) 90 Cap*1 Sig: Take 1 Capsule by mouth at bedtime. * Telephone Encounter - Irma Saavedra lead furnace operator - 08/12/2023 4:23 PM EDT Received message from [facility] regarding patient needing appointment and labs. Call Placed, Left messageon voicemail advising of required labs and to call back for an appointment. Thank you, Irma Saavedra, [facility] Delivery Sales Worker II [facility] Services ([facility]) (formerly Telepharmacy) 08/12/2023,4:23 PM * Telephone Encounter - Grey Dominique, [facility] - 08/10/2023 11:17 PM EDT Pending Prescriptions: Disp Refills metFORMIN HCl ER 500 MG Oral Tablet Extend*360 Ta*1 Sig: Take 4 Tablets by mouth in the morning. Doxepin HCl 50 MG Oral Capsule (SINEquan) 90 Cap*1 Sig: Take 1 Capsule by mouth at bedtime. * Telephone Encounter - Grey Dominique RPh - 08/10/2023 11:16 PM EDT Unable to authorize medication refills for pended medication(s) at this time. Part of the protocol criteria used for refill authorization was not satisfied. Per refill protocol patient should have routine on file within past year. Reviewed AMP report, CareGaps/Health Maintenance, medications list, and for any routine labs typically ordered for this patient. Lab orders placed. Please contact patient to schedule office visit with PRIMARY CARE and advise of labs ordered for blood draw AND URINE specimen (patient will have to be able to void to provide sample).. Recommend patient to fast if able for labs. Patient may still have water and regular medications. Advise to obtain labs before refills will be approved. Last Visit: 06/12/2022 (in office), Visit date not found (telemedicine) Next Visit: Visit date not found After contacting patient, please forward request to Ry Penny MD. Thanks, Elise MckeonD Clinical Pharmacist [facility] Services ([facility]PS) (formerly Telepharmacy) [phone] 08/10/2023,11:17 PM documented in this encounter Plan of Treatment Upcoming Encounters Date Type Department Care Team (Late st Contact Info) Description 08/30/2023 7:00 AM EDT Pharmacy Hepatology, [place] [address] [place] [facility] [place] [address] [place], Pharmacist Hepatology [address] [place] [facility] [address] 2023 7:00 AM EDT Pharmacy Hepatology, [place] [address] [facility] [place] [address] [place], Pharmacist Hepatology [address] [facility] [address] 10/04/2023 8:00 AM EDT Office Visit Pharmacy, [facility] 132 [facility] [place] [address] [facility] 132 [facility] [place] [address] Scheduled Orders Name Type Priority Associated Diagnoses Orde r Schedule ALBUMIN / CREATININE RATIO, URINE Lab Routine Type 2 diabetes mellitus with hemoglobin A1c goal of less than 7.0% (HCC) Expected: 08/10/2023, Expires: 08/09/2024 CBC WITH WBC DIFFERENTIAL Lab Routine Type 2 diabetes mellitus with hemoglobin A1c goal of less than 7.0% (HCC) Expected: 08/10/2023 (Approximate), Expires: 08/09/2024 COMPREHENSIVE METABOLIC PANEL Lab Routine Type 2 diabetes mellitus with hemoglobin A1c goal of less than 7.0% (HCC) Expected: 08/10/2023 (Approximate), Expires: 08/09/2024 HEMOGLOBIN A1C Lab Routine Type 2 diabetes mellitus with hemoglobin A1c goal of less than 7.0% (HCC) Expected: 08/10/2023, Expires: 08/09/2024 LIPID PANEL WITH DIRECT LDL IF TG IS HIGH Lab Routine Type 2 diabetes mellitus with hemoglobin A1c goal of less than 7.0% (HCC) Expected: 08/10/2023 (Approximate), Expires: 08/09/2024 TSH WITH FREE T4 IF INDICATED Lab Routine Type 2 diabetes mellitus with hemoglobin A1c goal of less than 7.0% (HCC) Expected: 08/10/2023, Expires: 08/09/2024 VITAMIN B12 Lab Routine Type 2 diabetes mellitus with hemoglobin A1c goal of less than 7.0% (HCC) Expected: 08/10/2023, Expires: 08/09/2024 Health Maintenance Due Date Last Done Comments DISCUSS TOBACCO CESSATION (REFER TO SMARTSET #2687) 1986 Pneumococcal Vaccine: Pediatrics (0 to 5 Years) and At-Risk Patients (6 to 64 Years) (1 of 2 - PCV) 1992 Diabetic Eye Exam 2004 HPV/Co-Test 2016 *SPIROMETRY ONCE FOR ASTHMA-ADULT 12/02/2016 Diabetic Foot Exam 02/08/2021 02/09/2020, 12/05/2017 COVID-19 Vaccine (2022- season) 2022 Albumin/Creatinine Ratio 08/22/2023 08/21/2022 B-12 [...] as of this encounter Visit Diagnoses Diagnosis Primary insomnia Persistent disorder of initiating or maintaining sleep Type 2 diabetes mellitus with hemoglobin A1c goal of less than 7.0% (HCC) documented in this encounter Care Teams Garment Parts Cutter Hand Relationship Specialty Start Date End Date Ry Penny MD [address] [place] [address] PCP - General Family Medicine 05/21/16 documented as of this encounter
--- OUTSIDE RECORDS SUMMARY | 2023-11-10 13:13 | External Medical Summary ---
Author Name Unknown Address Unknown Organization [id number]:LABORATORY [facility] [place] - [address] [place] [address] Laboratory Report Ordering Provider Test Date Status CARLY BARON 08/14/2023 10:58:35 Final Observation Date Value Abnormality Reference (Units ) Status HbA1C 08/14/2023 10:58:35 5.1 4.0-5.6 (% ) Final The use of HbA1c to monitor glycemic status is based on normal hemoglobin and HbA composition. This test should not be used in patients with abnormal hemoglobin that affects the half life of the red blood cell or the in vivo glycation rates. Glucose, estimated average 08/14/2023 10:58:35 100 <126 (mg/dL) Final Performing Location LABORATORY [facility] - [address] [place] [address]
--- OUTSIDE RECORDS SUMMARY | 2023-11-10 13:13 | External Medical Summary ---
Author Name Unknown Address Unknown Organization [id number]:LABORATORY [facility] [place] [address] - [address] [place] [address] Laboratory Report Ordering Provider Test Date Status CARLY BARON 08/14/2023 10:58:35 Final Observation Date Value Abnormality Reference (Units ) Status WBC, Total 08/14/2023 10:58:35 8.62 4.00-10.8 0 (K/uL) Final RBC 08/14/2023 10:58:35 4.93 3.85-5.15 (M/uL) Final Hemoglobin 08/14/2023 10:58:35 15.5 Above high normal 1 2.0-15.3 (g/dL) Final HCT 08/14/2023 10:58:35 47.4 Above high normal 36 .0-45.2 (%) Final MCV 08/14/2023 10:58:35 96.1 81.5-97.5 (fL) Final MCH 08/14/2023 10:58:35 31.4 27.0-34.0 (pg) Final MCHC 08/14/2023 10:58:35 32.7 32.0-36.0 (g/dL) Final RDW 08/14/2023 10:58:35 13.8 11.5-15.5 (%) Final Platelets 08/14/2023 10:58:35 141 140-400 (K /uL) Final MPV 08/14/2023 10:58:35 10.7 6.6-11.1 ( fL) Final Performing Location LABORATORY [facility] [place] [address] - [address] [place] [address]
--- OUTSIDE RECORDS SUMMARY | 2023-11-10 13:13 | External Medical Summary | Summary of Care ---
Author Name Unknown Organization [facility] Address [address] [place] [address] Phone [phone] Care Team Providers Care Digital Account Executive Name Role Phone Ender Ponce MD Primary Care Provider [phone] Reason for Visit * Reason Comments Dosage Adjustment In Person (Anticoag Cl inic) Diabetes Follow-Up Encounter Details Date Type Department Care Team (Late st Contact Info) Description 06/28/2023 8:00 AM EST Office Visit Pharmacy, [facility] [address] [place] [address] [facility] [address] [place] [address] Type 2 diabetes mellitus with hemoglobin A1c goal of less than 7.0% ([facility])* Allergies Active Allergy Reactions Criticality Noted Date Comments Environmental 11/05/2006 Sulfa Antibiotics Rash 07/02/2015 documented as of this encounter (statuses as of 06/28/2023) Medications Medication Sig Dispensed Refills Start Date End Date Status [place] ArcadeToLuxoftio Flex System w/Device KitIndications:Ty pe 2 diabetes mellitus with hemoglobin A1c goal of less than 7.0% ([facility]) Use as directed. Test blood sugar twice daily. Am and pm DX:E11.9 1 Kit 0 02/09/2021 Active Meloxicam 15 MG Oral TabletIndications :Periodontitis Take by mouth 1 Tablet in the morning. for pain.. 30 Tablet 5 11/23/2021 Active OneTouch Delica Plus [id number] ons:Type 2 diabetes mellitus with hemoglobin A1c goal of less than 7.0% (HCC) USE 1 TO CHECK GLUCOSE TWICE DAILY IN THE MORNING AND IN THE EVENING 200 Each 1 08/22/2022 Active OneJacksonuch Verwhitney In Vitro Strip (Glucose Blood)Indications :Type 2 diabetes mellitus with hemoglobin A1c goal of less than 7.0% (HCC) USE TO TEST BLOOD SUGAR TWICE DAILY (AM&PM) 200 Strip 1 08/22/2022 Active Albuterol Sulfate HFA 108 (90 Base) MCG/ACT Inhalation Aerosol SolutionIndicatio ns:Mild persistent asthma without complication Inhale 2 Puffs by mouth in the morning and 2 Puffs at noon and 2 Puffs in the evening and 2 Puffs before bedtime. 18 g 3 12/04/2022 Active Fluticasone Propionate HFA 110 MCG/ACT Inhalation Aerosol (Flovent HFA)Indications:M ild persistent asthma without complication Inhale 2 Puffs by mouth in the morning and 2 Puffs before bedtime. 12 g 3 12/04/2022 Active Multi-Vitamins Oral Tablet Take 1 Tablet by mouth in the morning. 0 12/20/2022 Active Mavyret 100-40 MG Oral Tablet (glecaprevir-pibr entasvir 100-40 mg per tab)Indications:C hronic hepatitis C without hepatic coma (HCC) Take [...] Active Doxepin HCl 50 MG Oral Capsule (SINEquan)Indicat ions:Primary insomnia Take 1 Capsule by mouth at bedtime. 90 Capsule 1 03/01/2023 Active PARoxetine HCl 40 MG Oral Tablet (pAXil)Indication s:Bipolar affective disorder in remission (HCC) Take 1.5 Tablets by mouth in the morning. 135 Tablet 1 03/15/2023 Active Amoxicillin-Pot Clavulanate 875-125 MG Oral TabletIndications :Dental abscess Take 1 Tablet by mouth in the morning and 1 Tablet before bedtime. 20 Tablet 0 06/21/2023 Active Ozempic (1 MG/DOSE) 4 MG/3ML Subcutaneous Solution Pen-injector (Semaglutide (1 MG/DOSE)) Inject 1 mg under the skin once a week. 3 mL 11 06/28/2023 Active Ozempic (0.25 or 0.5 MG/DOSE) 2 MG/3ML Solution Pen-injector (Semaglutide(0.25 or 0.5MG/DOS)) Inject 0.5 mg under the skin once a week. 3 mL 11 06/19/2023 06/28/19 24 Discontinued documented as of this encounter (statuses as of 06/28/2023) Active Problems Problem Noted Date Diagnosed Date Food insecurity 02/04/2023 Overview: Per [facility] Protocol Medical marijuana use 10/22/2022 Overweight [...] as of this encounter Progress Notes * Juanita Funez, [facility] - 06/28/2023 8:08 AM EST Medication Therapy Disease Management Clinic - Diabetes Management Progress Note Dyana Flores, identified by name and date of , is a 37 year old female being seen for diabetes management/education. Patient presents for return diabetic visit. DIABETES: Current diabetic medications: DECREASE: Metformin ER 500 mg daily Ozempic 0.5 mg weekly Medication Injection Site: Abdomen Lifestyle: Diet: unchanged Glucose Review/SMBG: Readings per patient memory/recall: Patient is currently testing 0-1 times a day Hypoglycemia: Does your blood sugar go below 70 mg/dL? No Hyperglycemia symptoms present: none Recent Labs Units 10/27/22 0923 08/21/22 0922 06/12/22 09 HEMOGLOBIN A1C - [facility] % 5.8* 7.6* 11.3* Recent Labs Units 10/27/22 0908/21/22 0906/12/22 09 ESTIMATED GLOMERULAR FILTRATION RATE - [facility] mL/min >90 >90 >90 CREATININE - [facility] mg/dL 0.6 0.6 0.5 HYPERTENSION: Patient on ACEi/ARB: no, not indicated BP Readings from Last 3 Encounters: 01/28/23 100/69 12/18/22 136/89 11/30/22 140/82 Blood pressure at goal: yes HYPERLIPIDEMIA: Patient is taking moderate or high intensity statin: No Current regimen: Not indicated Goal statin intensity: moderate The ASCVD Risk score (Aubrey ESPANA, et al., 2019) failed to calculate for the following reasons: The 2019 ASCVD risk score is only valid for ages 40 to 79 Recent Labs Units 08/21/22 09 LDL CHOLESTEROL (CALCULATED) - [facility] mg/dL 111 HEALTH MAINTENANCE REVIEW: Health Maintenance Due Topic Date Due DISCUSS TOBACCO CESSATION (REFER TO SMARTSET #3292) Never done Pneumococcal Vaccine: Pediatrics (0 to 5 Years) and At-Risk Patients (6 to 64 Years) (1 of 2 - PCV)Never done Diabetic Eye Exam Never done *SPIROMETRY ONCE FOR ASTHMA-ADULT Never done Diabetic Foot Exam 02/08/2021 Depression Screening 02/08/2021 COVID-19 Vaccine (2022- season) Never done HbA1c 04/29/2023 Albumin/Creatinine Ratio 08/22/2023 ASSESSMENT & PLAN: ICD-10-CM 1. Type 2 diabetes mellitus with hemoglobin A1c goal of less than 7.0% (HCC) E11.9 BG Readings - Blood sugars uncontrolled. Notes has a hard time getting BG values under 200 Medications - Reviewed current regimen, patient is adherent to regimen. Will increase ozempic to 1 mg weekly. Diet, Exercise, Lifestyle - No significant lifestyle changes since last visit. Discussed with patient Patient is agreeable to SMBG 1-2 time(s) daily. Patient aware to contact clinic if any hypoglycemia before next visit. MEDICATION CHANGES: yes, see below; preferred pharmacy[facility] Medications: Metformin ER 500 mg daily INCREASE: Ozempic 1 mg weekly HEALTH MAINTENANCE INTERVENTIONS: Labs: Ordered & Scheduled: HgA1c Immunizations: Up to Date Foot Exam: Up to Date Eye Exam: Up to Date Annual Wellness Visit: Up to Date FOLLOW UP: Return to clinic in 12 weeks 10/04/2023 Juanita Funez RPh Clinical Pharmacist - [employer] Medication Therapy Management Clinic 06/28/2023, 8:08 AM documented in this encounter Plan of Treatment Upcoming Encounters Date Type Department Care Team (Late st Contact Info) Description 06/28/2023 9:10 AM EST Laboratory Laboratory, [facility] [address] [facility] [place] [id number] [facility] [address] [facility] [place] [address] Type 2 diabetes mellitus with hemoglobin A1c goal of less than 7.0% (HCC) 08/07/2023 11:30 AM EDT Office Visit Gynecology/Obstetri [facility] [address] [facility] [place] [address] Brielel Petty CNM [address] [place], [place] [address] [id number] 08/30/2023 7:00 AM EDT Pharmacy Hepatology, [place] [address] [place] [address] Elizabeth, Pharmacist Hepatology [address] [place] [address] 2023 7:00 AM EDT Pharmacy Hepatology, [place] [address] [facility] [place] [address] Elizabeth, Pharmacist Hepatology [address] [facility] [place] [address] 10/04/2023 8:00 AM EDT Office Visit Pharmacy, [facility] [address] [facility] [place] [address] [facility] [address] [facility] [place] [address] Pending Results Name Type Priority Associated Diagnoses Date /Time HEMOGLOBIN A1C Lab Routine Type 2 diabetes mellitus with hemoglobin A1c goal of less than 7.0% (HCC) 06/28/2023 8:30 AM EST Scheduled Orders Name Type Priority Associated Diagnoses Orde r Schedule HEMOGLOBIN A1C Lab Routine Type 2 diabetes mellitus with hemoglobin A1c goal of less than 7.0% (HCC) Expected: 06/28/2023 (Approximate), Expires: 06/27/2024 Health Maintenance Due Date Last Done Comments DISCUSS TOBACCO CESSATION (REFER TO SMARTSET #6175) 1986 Pneumococcal Vaccine: Pediatrics (0 to 5 [...] goal of less than 7.0% (HCC)- Primary Type 2 diabetes mellitus with hemoglobin A1c goal of less than 7.0% (HCC) documented in this encounter Care Teams Digital Account Executive Relationship Specialty Start Date End Date Ender Ponce MD [address] [place] [address] PCP - General Family Medicine 05/21/16 documented as of this encounter
--- OUTSIDE RECORDS SUMMARY | 2023-11-10 13:13 | External Medical Summary ---
Author Name Unknown Address Unknown Organization K01:[facility] [place] [address] [facility] [address] Laboratory Report Ordering Provider Test Date Status MEAGAN ARGUETA 05/28/2023 10:29:22 Final Observation Date Value Abnormality Reference (Units) Status Hep C RNA viral load 05/28/2023 10:29:22 Negative. No HCV RNA detected. Negative. No HCV RNA detected. Final Genetic variant clinical significance [Interpretation] in Blood or Tissue by Molecular genetics method 05/28/2023 10:29:22 The HCV assay is an in vitro [...] Blood or Tissue by Molecular genetics method 05/28/2023 10:29:22 Final Additional comments [RFC] 05/28/2023 10:29:22 The HCV assay is an in vitro [...] 8.00 log IU/mL). Final Additional comments [RFC] 05/28/2023 10:29:22 Final Additional comments [RFC] 05/28/2023 10:29:22 The assay was verified and performance characteristics determined by the Molecular Diagnostics Laboratory at [facility]. This test is used for clinical purposes. Final FDA package insert References section 05/28/2023 10:29:22 1. Josue P, Lizzie C, Paulette S: How to Use Virological Tools for the Optimal Management of Chronic Hepatitis C. Liver Int 2011;31 Suppl 1:3-12. Final FDA package insert References section 05/28/2023 10:29:22 2. Centers for Disease Control and Prevention. Testing for HCV Infection: an Update of Guidance for Clinicians and Laboratorians. MMWR Morb Mortal Wkly Rep 2013;62(18):362-365. Final FDA package insert References section 05/28/2023 10:29:22 3. [place] Association for the Study of Liver Diseases and Infectious Diseases Society of [place]: HCV Guidance: Recommendations for Testing, Managing, and Treating Hepatitis C. Accessed November 09, 2016. Available at www.hcvguidelines.org /lkac-twbyez-qflw Final FDA package insert References section 05/28/2023 10:29:22 Final Performing Location [facility] [address] [facility] [address]
--- OUTSIDE RECORDS SUMMARY | 2023-11-10 13:13 | External Medical Summary | Summary of Care ---
Author Name Unknown Organization [facility] Address [address] [place] [address] Phone [phone] Care Team Providers Care Senior Examiner Name Role Phone Ender Ponce MD Primary Care Provider [phone] Encounter Details Date Type Department Care Team (Late st Contact Info) Description 08/13/2023 Orders Only PATIENT PORTAL DO NOT DELETE THIS DEPT USED BY [place] [id number] Allergies Active Allergy Reactions Criticality Noted Date Comments Environmental 11/05/2006 Sulfa Antibiotics Rash 07/02/2015 documented as of this encounter (statuses as of 08/13/2023) Medications Medication Sig Dispensed Refills Start Date End Date Status DoubloonTouch Aria Analyticsio Flex System w/Device KitIndications:Type 2 diabetes mellitus with hemoglobin A1c goal of less than 7.0% ([facility]) Use as directed. Test blood sugar twice daily. Am and pm DX:E11.9 1 Kit 0 02/09/2021 Active Meloxicam 15 MG Oral TabletIndications:P eriodontitis Take by mouth 1 Tablet in the morning. for pain.. 30 Tablet 5 11/23/2021 Active OneTouch Delica Plus [id number] s:Type 2 diabetes mellitus with hemoglobin A1c goal of less than 7.0% ([facility]) USE 1 TO CHECK GLUCOSE TWICE DAILY IN THE MORNING AND IN THE EVENING 200 Each 1 08/22/2022 Active OneTouch Verio In Vitro Strip (Glucose Blood)Indications:T ype 2 diabetes mellitus with hemoglobin A1c goal of less than 7.0% ([facility]) USE TO TEST BLOOD SUGAR [...] as of this encounter (statuses as of 08/13/2023) Active Problems Problem Noted Date Diagnosed Date Food insecurity 02/04/2023 Overview: Per [facility] Protocol Medical marijuana use 10/22/2022 Overweight [...] as of this encounter (statuses as of 08/13/2023) Resolved Problems Problem Noted Date Diagnosed Date [...] as of this encounter (statuses as of 08/13/2023) Immunizations Name Administration Dates Next Due HEP [...] Description 08/30/2023 7:00 AM EDT Pharmacy Hepatology, [place] [address] [place] [address] [place] Pharmacist Hepatology [address] [facility] [place] [address] 2023 7:00 AM EDT Pharmacy Hepatology, [place] [address] [place] [address] [place] Pharmacist Hepatology [address] [place] [facility] [place] [address] 10/04/2023 8:00 AM EDT Office Visit Pharmacy, [address] [place] [address] [facility] [address] [place] [address] Health Maintenance Due Date Last Done Comments DISCUSS TOBACCO CESSATION (REFER TO SMARTSET #2513) 1986 Pneumococcal Vaccine: Pediatrics (0 to 5 Years) and At-Risk Patients (6 to 64 Years) (1 of 2 - PCV) 1992 Diabetic Eye Exam 2004 HPV/Co-Test 2016 *SPIROMETRY ONCE FOR ASTHMA-ADULT 12/02/2016 Diabetic Foot Exam 02/08/2021 02/09/2020, 12/05/2017 COVID-19 Vaccine ( season) 2022 Albumin/Creatinine Ratio 08/22/2023 08/21/2022 B-12 [...] filedocumented as of this encounter Care Teams Senior Examiner Relationship Specialty Start Date End Date Ender Ponce MD [address] [place] [address] PCP - General Family Medicine 05/21/16 documented as of this encounter
--- OUTSIDE RECORDS SUMMARY | 2023-11-10 13:13 | External Medical Summary | Summary of Care ---
Author Name Unknown Organization [facility] Address [address] [place] [address] Phone [phone] Care Team Providers Care Subscription Crew Leader Name Role Phone Ender Ponce MD Primary Care Provider [phone] [phone] Reason for Visit * Reason Comments Dosage Adjustment Via Phone (anticoag Cl inic) Left Message Encounter Details Date Type Department Care Team (Late st Contact Info) Description 06/10/2023 7:00 AM [facility] Pharmacy Hepatology, [place] [address], [place] [phone] [place], Pharmacist Hepatology [address] [place] [address] Chronic hepatitis C without hepatic coma (HCC)* Allergies Active Allergy Reactions Criticality Noted Date Comments Environmental 11/05/2006 Sulfa Antibiotics Rash 07/02/2015 documented as of this encounter (statuses as of 06/10/2023) Medications Medication Sig Dispensed Refills Start Date End Date Status EqualEyesio Flex System w/Device KitIndications:Type 2 diabetes mellitus with hemoglobin A1c goal of less than 7.0% (HCC) Use as directed. Test blood sugar twice daily. Am and pm DX:E11.9 1 Kit 0 02/09/2021 Active Meloxicam 15 MG Oral TabletIndications:P eriodontitis Take by mouth 1 Tablet in the morning. for pain.. 30 Tablet 5 11/23/2021 Active OneTouch Delica Plus [id number] s:Type 2 diabetes mellitus with hemoglobin A1c goal of less than 7.0% (HCC) USE 1 TO CHECK GLUCOSE TWICE DAILY IN THE MORNING AND IN THE EVENING 200 Each 1 08/22/2022 Active OneTouch Verio In Vitro Strip (Glucose Blood)Indications:T ype 2 diabetes mellitus with hemoglobin A1c goal of less than 7.0% ([facility]) USE TO TEST BLOOD [...] as of this encounter (statuses as of 06/10/2023) Active Problems Problem Noted Date Diagnosed Date Food insecurity 02/04/2023 Overview: Per [facility] Protocol Medical marijuana use 10/22/2022 [...] as of this encounter (statuses as of 06/10/2023) Resolved Problems Problem Noted Date Diagnosed Date [...] as of this encounter (statuses as of 06/10/2023) Immunizations Name Administration Dates Next Due HEP [...] this encounter Progress Notes * Nelli Roa, [facility] - 06/10/2023 1:[address] [facility] Hepatitis C Treatment Follow-Up Patient Name: Dyana Flores EOT follow up #2 History of Current Illness: Dyana Flores is [...] left message for patient. This is the second attempt to contact the patient. I called the mobile phone, but no answer and voicemail is full. The patient readthe 3PointData[employer] message, but failed to respond. I also called her alternate contact, Rupali, but no answer; I left a message for the patient to return the call. [facility] Plan: Unable to contact the patient via phone & MyG message sent. Will follow-up with the patient again next month, unless a return call is received sooner. Nelli Roa, PharmD, [facility] Clinical Pharmacist, Hepatology 06/10/2023 1:23 PM documented in this encounter Plan of Treatment Upcoming Encounters Date Type Department Care Team (Late st Contact Info) Description 06/13/2023 2:00 PM EST [facility] [address] [facility] [place] [address] [facility] [address] [place] [address] 07/08/2023 7:00 AM EDT Pharmacy Hepatology, [place] [address] [place] [facility] [place] [address] [place], Pharmacist Hepatology [facility] [place] [facility] [place] [address] 08/07/2023 11:30 AM EDT Office Visit Gynecology/Obstetrics [facility] [address] [facility] [place] [address] Brielle Petty, [facility] [address] [facility] [place] [address] 08/30/2023 6:00 PM EDT Pharmacy Hepatology, [place] [address] [place] [address] [place], Pharmacist Hepatology [address] [place] [address] 2023 7:00 AM EDT Pharmacy Hepatology, [place] [address], [place] [phone] [place], Pharmacist Hepatology [address] [place] [address] Health Maintenance Due Date Last Done Comments DISCUSS TOBACCO CESSATION (REFER TO SMARTSET #2056) 1986 COVID-19 Vaccine (#1) 03/12/1987 Pneumococcal Vaccine: [...] coma documented in this encounter Care Teams Subscription Crew Leader Relationship Specialty Start Date End Date Ender Ponce MD [address] [facility] [place] [address] PCP - General Family Medicine 05/21/16 documented as of this encounter
--- OUTSIDE RECORDS SUMMARY | 2023-11-10 13:13 | External Medical Summary | Summary of Care ---
Author Name Unknown Organization [facility] Address [address] [place] [address] Phone [phone] Care Team Providers Care Marketing Services Specialist Name Role Phone Ender Ponce MD Primary Care Provider +1 [phone] Reason for Visit * Reason Comments Dosage Adjustment Via Phone (anticoag Cl inic) Encounter Details Date Type Department Care Team (Late st Contact Info) Description 05/16/2023 7:00 AM [facility] Pharmacy Hepatology, [place] [address] [place], [place] [address] [place], Pharmacist Hepatology [address], [place] [id number] Chronic hepatitis C without hepatic coma (HCC)* Allergies Active Allergy Reactions Criticality Noted Date Comments Environmental 11/05/2006 Sulfa Antibiotics Rash 07/02/2015 documented as of this encounter (statuses as of 05/16/2023) Medications Medication Sig Dispensed Refills Start Date End Date Status Cognitum System w/Device KitIndications:Type 2 diabetes mellitus with hemoglobin A1c goal of less than 7.0% (HCC) Use as directed. Test blood sugar twice daily. Am and pm DX:E11.9 1 Kit 0 02/09/2021 Active Meloxicam 15 MG Oral TabletIndications:P eriodontitis Take by mouth 1 Tablet in the morning. for pain.. 30 Tablet 5 11/23/2021 Active OneTouch Delica Plus [id number] s:Type 2 diabetes mellitus with hemoglobin A1c goal of less than 7.0% (HCC) USE 1 TO CHECK GLUCOSE TWICE DAILY IN THE MORNING AND IN THE EVENING 200 Each 1 08/22/2022 Active OneTouch Verio In Vitro Strip (Glucose Blood)Indications:T ype 2 diabetes mellitus with hemoglobin A1c goal of less than 7.0% ([facility]) USE TO TEST BLOOD SUGAR TWICE DAILY [...] as of this encounter (statuses as of 05/16/2023) Active Problems Problem Noted Date Diagnosed Date Food insecurity 02/04/2023 Overview: Per [facility] Protocol Medical marijuana use 10/22/2022 Overweight [...] as of this encounter (statuses as of 05/16/2023) Resolved Problems Problem Noted Date Diagnosed Date [...] as of this encounter (statuses as of 05/16/2023) Immunizations Name Administration Dates Next Due HEP [...] Progress Notes * Nelli Roa, [facility] - 05/16/2023 8:34 AM EST [facility] Hepatitis C Treatment Follow-Up Patient Name: Dyana Flores Lab reminder phone call #3 Treatment Overview: Hepatology Provider: Javier Carr MD/Mehnaz Delgado, Treatment Plan: Mavyret for 8 weeks. Started Treatment: 04/05/2023 Finished Treatment: n/a This is a phone call to remind the patient they are due for 4 week blood work. The patient read the [employer] message, but failed to respond. Labs Due: Is the patient aware of the lab date:No. I called the mobile phone, but no answer and voicemail is full. Per chart review, the patient was expected to have received her refill on 05/03/2023. [facility] Plan: Unable to contact the patient via phone; MyG message sent. Will follow up once results are available to review. Nelli Roa PharmD, [facility] Clinical Pharmacist, Hepatology 05/16/2023 1:50 PM documented in this encounter Plan of Treatment Upcoming Encounters Date Type Department Care Team (Late st Contact Info) Description 05/31/2023 6:00 PM EST Pharmacy Hepatology, [place] [address] [place] [facility] [address] [place], Pharmacist Hepatology [address] [place] [address], [place] [address] 06/10/2023 7:00 AM EST Pharmacy Hepatology, [place] [address] [facility] [address] [place], Pharmacist Hepatology [address] [place] [address], [place] [address] 06/12/2023 6:10 PM EST Pharmacy [address] [address] 08/30/2023 6:00 PM EDT Pharmacy Hepatology, [place] [address] [facility] [address] [place], Pharmacist Hepatology 100 [place] [address] 2023 7:00 AM EDT Pharmacy Hepatology, [place] [address] [facility] [place], [place] [address] [place], Pharmacist Hepatology 100 [place] [address] Health Maintenance Due Date Last Done Comments DISCUSS TOBACCO CESSATION (REFER TO SMARTSET #9021) 1986 COVID-19 Vaccine (#1) 03/12/1987 Pneumococcal Vaccine: [...] coma documented in this encounter Care Teams Marketing Services Specialist Relationship Specialty Start Date End Date Ender Ponce MD [address] [place] [address] PCP - General Family Medicine 05/21/16 documented as of this encounter
--- OUTSIDE RECORDS SUMMARY | 2023-11-10 13:13 | External Medical Summary ---
Author Name Unknown Address Unknown Organization K0G:[facility] [address] [place] [address] Laboratory Report Ordering Provider Test Date Status MEAGAN ARGUETA 05/28/2023 10:29:22 Final Observation Date Value Abnormality Reference (Units ) Status Albumin 05/28/2023 10:29:22 4.4 3.8-5.0 (g/dL) Final AST (Aspartate aminotransferase) 05/28/2023 10:29:22 32 10-35 (U/L) Final Result may be falsely elevat ed due to hemolysis. Alk Phos 05/28/2023 10:29:22 103 35-130 (U/ L) Final ALT (Alanine aminotransferase) 05/28/2023 10:29:22 20 10-35 (U/L) Final Bilirubin, Total 05/28/2023 10:29:22 0.4 <=1 .2 (mg/dL) Final Bilirubin, Direct 05/28/2023 10:29:22 <0.2 0. 0-0.3 (mg/dL) Final Protein 05/28/2023 10:29:22 7.6 6.0-8.3 (g /dL) Final Performing Location [facility] [place] [address]
--- OUTSIDE RECORDS SUMMARY | 2023-11-10 13:13 | External Medical Summary | Summary of Care ---
Author Name Unknown Organization [facility] Address [address] [place] [address] Phone [phone] Care Team Providers Care Grill Attendant Name Role Phone Ender Ponce MD Primary Care Provider +1 [phone] Reason for Visit * Reason Comments Dosage Adjustment Via Phone (anticoag Cl inic) Left Message Status Check Encounter Details Date Type Department Care Team (Late st Contact Info) Description 06/10/2023 7:00 AM [facility] Pharmacy Hepatology, [place] [address] [place], [place] [id number] [place], Pharmacist Hepatology [address] [place] [address] Chronic hepatitis C without hepatic coma (HCC)* Allergies Active Allergy Reactions Criticality Noted Date Comments Environmental 11/05/2006 Sulfa Antibiotics Rash 07/02/2015 documented as of this encounter (statuses as of 06/12/2023) Medications Medication Sig Dispensed Refills Start Date End Date Status Twillionio Flex System w/Device KitIndications:Type 2 diabetes mellitus with hemoglobin A1c goal of less than 7.0% (HCC) Use as directed. Test blood sugar twice daily. Am and pm DX:E11.9 1 Kit 0 02/09/2021 Active Meloxicam 15 MG Oral TabletIndications:P eriodontitis Take by mouth 1 Tablet in the morning. for pain.. 30 Tablet 5 11/23/2021 Active OneTouch Delica Plus [id number] s:Type 2 diabetes mellitus with hemoglobin A1c goal of less than 7.0% (HCC) USE 1 TO CHECK GLUCOSE TWICE DAILY IN THE MORNING AND IN THE EVENING 200 Each 1 08/22/2022 Active OneTouch Verio In Vitro Strip (Glucose Blood)Indications:T ype 2 diabetes mellitus with hemoglobin A1c goal of less than 7.0% ([facility]) USE TO TEST BLOOD SUGAR TWICE DAILY [...] as of this encounter (statuses as of 06/12/2023) Active Problems Problem Noted Date Diagnosed Date Food insecurity 02/04/2023 Overview: Per [facility] Protocol Medical marijuana use 10/22/2022 Overweight [...] as of this encounter (statuses as of 06/12/2023) Resolved Problems Problem Noted Date Diagnosed Date [...] as of this encounter (statuses as of 06/12/2023) Immunizations Name Administration Dates Next Due HEP [...] of this encounter Progress Notes * Nelli Rhodes, [facility] - 06/10/2023 1:22 PM EST [facility] Hepatitis C Treatment Follow-Up Patient Name: [...] and voicemail is full. The patient readthe [facility] message, but failed to respond. I also called her alternate contact, Rupali, but no answer; I left a message for the patient to return the call. MTM Plan: Unable to contact the patient via phone & MyG message sent. Will follow-up with the patient again next month, unless a return call is received sooner. Nelli Rhodes, PharmD, [facility] Clinical Pharmacist, Hepatology 06/10/2023 1:23 PM ADDENDUM: Treatment Overview: Physician initiating treatment: Javier Carr MD/Mehnaz Delgado, DO Treatment Plan: Mavyret for 8 weeks. Started Treatment: 2022 Completed Therapy: 2023 Were you able to contact the patient? Yes. I spoke with the patient on the mobile phone. Compliance Review: Any trouble taking your medication? No Patient reported they missed 3 doses. She confirmed she continued taking the medication daily extending treatment, until all doses were consumed Side Effect Review: Are you experiencing any side effects? Yes, nausea. She is uncertain if this is related to the medication or possibly due to an that was performed on 04/25/2023. Of note, the patient confirmed this was not a spontaneous nor was it caused by the antiviral therapy. Is patient on Ribavirin? No Review of Recent Lab Results: See results above. MTM Plan: Yes - End of therapy response achieved. SVR labs due 09/11/2023. Will follow up with patient. The patient is aware that we will bump back SVR to account for her treatment completion date. I suggested, if not already done, to switch to a new toothbrush and razor blade to prevent re-exposure. Nelli Rhodes PharmD, [facility] Clinical Pharmacist, Hepatology 06/12/2023 3:05 PM documented in this encounter Miscellaneous Notes * Addendum Note - Nelli Rhodes [facility] - 06/12/2023 3:08 PM ESTAddended by: NELLI RHODES on: 06/12/2023 03:08 PM Modules accepted: Orders documented in this encounter Plan of Treatment Upcoming Encounters Date Type Department Care Team (Late st Contact Info) Description 08/07/2023 11:30 AM EDT Office Visit Gynecology/Obstetrics [facility] [address] [place] [address] Brielle Petty, [facility] [address] [place] [address] 08/30/2023 7:00 AM EDT Pharmacy Hepatology, [place] [address] [place] [address] [place], Pharmacist Hepatology [address] [place] [address] 2023 7:00 AM EDT Pharmacy Hepatology, [place] [address] [place] [address] [place], Pharmacist Hepatology [address] [place], [place] [phone] Health Maintenance Due Date Last Done Comments DISCUSS TOBACCO CESSATION (REFER TO SMARTSET #0351) 1986 COVID-19 Vaccine (#1) 03/12/1987 Pneumococcal Vaccine: [...] coma documented in this encounter Care Teams Grill Attendant Relationship Specialty Start Date End Date Ender Ponce MD [address] [place] [address] PCP - General Family Medicine 05/21/16 documented as of this encounter
--- OUTSIDE RECORDS SUMMARY | 2023-11-10 13:13 | External Medical Summary | Summary of Care ---
Author Name Unknown Organization [facility] Address [address] [place] [address] Phone [phone] Care Team Providers Care Canvas Goods Fabricator Name Role Phone Ender Ponce MD Primary Care Provider [phone] [phone] Encounter Details Date Type Department Care Team (Late st Contact Info) Description 06/19/2023 Orders Only Pharmacy, [facility] [address] [facility] [place] [id number] [facility] [id number] Allergies Active Allergy Reactions Criticality Noted Date Comments Environmental 11/05/2006 Sulfa Antibiotics Rash 07/02/2015 documented as of this encounter (statuses as of 06/19/2023) Medications Medication Sig Dispensed Refills Start Date End Date Status OneTouch Verio Flex System w/Device KitIndications:Typ e 2 diabetes mellitus with hemoglobin A1c goal of less than 7.0% ([facility]) Use as directed. Test blood sugar twice daily. Am and pm DX:E11.9 1 Kit 0 02/09/2021 Active Meloxicam 15 MG Oral TabletIndications: Periodontitis Take by mouth 1 Tablet in the morning. for pain.. 30 Tablet 5 11/23/2021 Active OneTouch Delica Plus [id number] ns:Type 2 diabetes mellitus with hemoglobin A1c goal of less than 7.0% ([facility]) USE 1 TO CHECK GLUCOSE TWICE DAILY IN THE MORNING AND IN THE EVENING 200 Each 1 08/22/2022 Active Charity Enginewhitney In Vitro Strip (Glucose Blood)Indications: Type 2 [...] morning. 135 Tablet 1 03/15/2023 Active Ozempic (0.25 or 0.5 MG/DOSE) 2 MG/3ML Solution Pen-injector (Semaglutide(0.25 or 0.5MG/DOS)) Inject 0.5 mg under the skin once a week. 3 mL 11 06/19/2023 Active Dulaglutide 1.5 MG/0.5ML Subcutaneous Solution Pen-injector (Trulicity)Indicat ions:Type 2 diabetes mellitus with hemoglobin A1c goal of less than 7.0% (HCC) Inject 1.5 mg under the skin once a week. 4 mL 5 03/15/2023 Discontinue d(Patient preference/ discontinua tion) documented as of this encounter (statuses as of 06/19/2023) Active Problems Problem Noted Date Diagnosed Date Food insecurity 02/04/2023 Overview: Per [facility] Protocol Medical marijuana use 10/22/2022 Overweight (BMI 25.0-29.9) 06/12/2022 Poor dentition 11/23/2021 Neurodermatitis 10/17/2018 Fatty liver 09/03/2018 Type 2 diabetes mellitus wit h hemoglobin A1c goal of less than 7.0% 07/11/2017 Chronic hepatitis C without hepatic coma 017 Asthma, mild persistent 11/30/2016 GIOVAYN (generalized anxiety disorder) 11/30/2016 History of drug abuse 05/04/2016 Bipolar affective disorder in remission 05/04/19 17 Tobacco use disorder 05/04/2016 documented as of this encounter (statuses as of 06/19/2023) Resolved Problems Problem Noted Date Diagnosed Date [...] as of this encounter (statuses as of 06/19/2023) Immunizations Name Administration Dates Next Due HEP [...] 06/28/2023 8:00 AM EST [facility] [address] [place] [address] [facility] [address] [place] [place] [address] 08/07/2023 11:30 AM EDT Office Visit Gynecology/Obstetrics [facility] [address] [facility] [place] [address] Brielle Petty, [facility] [address] [facility] [place] [address] 08/30/2023 7:00 AM EDT Pharmacy Hepatology, [place] [address] [place] [address] [place], Pharmacist Hepatology [address] [place] [address] 2023 7:00 AM EDT Pharmacy Hepatology, [place] [address] [place], [place] [id number] [place], Pharmacist Hepatology [address] [place] [address] Health Maintenance Due Date Last Done Comments DISCUSS TOBACCO CESSATION (REFER TO SMARTSET #6720) 1986 Pneumococcal Vaccine: Pediatrics (0 to 5 [...] filedocumented as of this encounter Care Teams Canvas Goods Fabricator Relationship Specialty Start Date End Date Ender Ponce MD [address] [place] [address] PCP - General Family Medicine 05/21/16 documented as of this encounter
--- OUTSIDE RECORDS SUMMARY | 2023-11-10 13:13 | External Medical Summary | Summary of Care ---
Author Name Unknown Organization [facility] Address [address] [place] [address] Phone [phone] Care Team Providers Care Television News Reporter Name Role Phone Ender Ponce MD Primary Care Provider [phone] [phone] Reason for Visit * Reason Comments Appointment Encounter Details Date Type Department Care Team (Late st Contact Info) Description 05/15/2023 6:10 PM [facility] Pharmacy Pharmacy, [facility] [address] [facility] 132 [facility] [address] Type 2 diabetes mellitus with hemoglobin A1c goal of less than 7.0% ([facility])* Allergies Active Allergy Reactions Criticality Noted Date Comments Environmental 11/05/2006 Sulfa Antibiotics Rash 07/02/2015 documented as of this encounter (statuses as of 05/15/2023) Medications Medication Sig Dispensed Refills Start Date End Date Status Tripwareio Flex System w/Device KitIndications:Type 2 diabetes mellitus with hemoglobin A1c goal of less than 7.0% ([facility]) Use as directed. Test blood sugar twice daily. Am and pm DX:E11.9 1 Kit 0 02/09/2021 Active Meloxicam 15 MG Oral TabletIndications:P eriodontitis Take by mouth 1 Tablet in the morning. for pain.. 30 Tablet 5 11/23/2021 Active OneTouch Delica Plus [id number] s:Type 2 diabetes mellitus with hemoglobin A1c goal of less than 7.0% ([facility]) USE 1 TO CHECK GLUCOSE TWICE DAILY IN THE MORNING AND IN THE EVENING 200 Each 1 08/22/2022 Active OneTouch Verio In Vitro Strip (Glucose Blood)Indications:T ype 2 diabetes mellitus with hemoglobin A1c goal of less than 7.0% ([facility]) USE TO TEST BLOOD SUGAR [...] as of this encounter (statuses as of 05/15/2023) Active Problems Problem Noted Date Diagnosed Date Food insecurity 02/04/2023 Overview: Per [facility] Protocol Medical marijuana use 10/22/2022 [...] as of this encounter (statuses as of 05/15/2023) Resolved Problems Problem Noted Date Diagnosed Date [...] as of this encounter (statuses as of 05/15/2023) Immunizations Name Administration Dates Next Due HEP [...] as of this encounter Progress Notes * Tammy Mariano PHARM Tech - 05/15/2023 8:36 AM EST Patient Phone Numbers Sent myG message to pt, to schedule MTDM appointment for DM management. [facility] message sent -- yes Clinic will follow up again in 4 week(s). [Attempt # 3] Thank you, Tammy Mariano Exhibits Manager [facility]ized [facility] Services ([facility]PS) (Formerly Telepharmacy) 05/15/2023, 8:37 AM documented in this encounter Plan of Treatment Upcoming Encounters Date Type Department Care Team (Late st Contact Info) Description 05/16/2023 7:00 AM EST Pharmacy Hepatology, [place] [address] [place] [facility] [place] [address] [place], Pharmacist Hepatology 100 [place] [address] 05/31/2023 6:00 PM EST Pharmacy Hepatology, [place] [address] [place] [facility] [address] [place], Pharmacist Hepatology [address] [place] [address] 06/10/2023 7:00 AM EST Pharmacy Hepatology, [place] [address] [place] [facility] [place] [address] [place], Pharmacist Hepatology 100 [place] [address] 06/12/2023 6:10 PM EST Pharmacy [address] [address] [facility] [address] [place] [address] 08/30/2023 6:00 PM EDT Pharmacy Hepatology, [place] [address] [place] [address] [place], Pharmacist Hepatology 100 [place] [address] 2023 7:00 AM EDT Pharmacy Hepatology, [place] [address] [place] [address] [place], Pharmacist Hepatology [address] [place] [address] Health Maintenance Due Date Last Done Comments DISCUSS TOBACCO CESSATION (REFER TO SMARTSET #8888) 1986 COVID-19 Vaccine (#1) 03/12/1987 Pneumococcal Vaccine: [...] Primary documented in this encounter Care Teams Television News Reporter Relationship Specialty Start Date End Date Ender Ponce MD [address] [place] [address] PCP - General Family Medicine 05/21/16 documented as of this encounter
--- OUTSIDE RECORDS SUMMARY | 2023-11-10 13:13 | External Medical Summary | Summary of Care ---
Author Name Unknown Organization [facility] Address [address] [place] [address] Phone [phone] Care Team Providers Care Optometric Technician Name Role Phone Ender Ponce MD Primary Care Provider +1 [phone] Reason for Visit * Reason Comments Outpatient Testing Encounter Details Date Type Department Care Team (Late st Contact Info) Description 05/28/2023 11:20 AM EST Laboratory Laboratory, [facility] [address] [place] [address] [facility] [address] [place] [address] Chronic hepatitis C without hepatic coma (HCC); Pharmacologic therapy Allergies Active Allergy Reactions Criticality Noted Date Comments Environmental 11/05/2006 Sulfa Antibiotics Rash 07/02/2015 documented as of this encounter (statuses as of 05/28/2023) Medications Medication Sig Dispensed Refills Start Date End Date Status KnownToAnyLeafio Flex System w/Device KitIndications:Type 2 diabetes mellitus with hemoglobin A1c goal of less than 7.0% ([facility]) Use as directed. Test blood sugar twice daily. Am and pm DX:E11.9 1 Kit 0 02/09/2021 Active Meloxicam 15 MG Oral TabletIndications:P eriodontitis Take by mouth 1 Tablet in the morning. for pain.. 30 Tablet 5 11/23/2021 Active OneTouch Delica Plus [id number] s:Type 2 diabetes mellitus with hemoglobin A1c goal of less than 7.0% ([facility]) USE 1 TO CHECK GLUCOSE [...] as of this encounter (statuses as of 05/28/2023) Active Problems Problem Noted Date Diagnosed Date Food insecurity 02/04/2023 Overview: Per [facility] Protocol Medical marijuana use 10/22/2022 Overweight [...] as of this encounter (statuses as of 05/28/2023) Resolved Problems Problem Noted Date Diagnosed Date [...] as of this encounter (statuses as of 05/28/2023) Immunizations Name Administration Dates Next Due HEP [...] Description 05/31/2023 6:00 PM EST Pharmacy Hepatology, [place] [address] [place] [address] [place], Pharmacist Hepatology [facility] [place] [address] 06/10/2023 7:00 AM EST Pharmacy Hepatology, [place] [address] [place] [address] [place] Pharmacist Hepatology [facility] [place] [address] 06/13/2023 2:00 PM EST Office Visit Pharmacy, [facility] [address] [address] [facility] 132 [facility] [place] [address] 08/07/2023 11:30 AM EDT Office Visit Gynecology/Obstetrics [facility] [address] [place] [address] Brielle Petty, [address] [address] 08/30/2023 6:00 PM EDT Pharmacy Hepatology, [place] [address] [place] [address] [place], Pharmacist Hepatology [address] [place] [address] 2023 7:00 AM EDT Pharmacy Hepatology, [place] [address] [place], [place] [phone] [place], Pharmacist Hepatology [address] [place] [address] Pending Results Name Type Priority Associated Diagnoses Date /Time HEPATITIS C RNA QUANTITATIVE Lab Routine Chronic hepatitis C without hepatic coma (HCC) Pharmacologic therapy 05/28/2023 10:29 AM EST HEPATIC FUNCTION PANEL Lab Routine Chronic hepatitis C without hepatic coma (HCC) Pharmacologic therapy 05/28/2023 10:29 AM EST Health Maintenance Due Date Last Done Comments DISCUSS TOBACCO CESSATION (REFER TO SMARTSET #6838) 1985 COVID-19 Vaccine (#1) 03/12/1987 Pneumococcal Vaccine: [...] for long-term (current) use of other medications documented in this encounter Care Teams Optometric Technician Relationship Specialty Start Date End Date Ender Ponce MD [address] [address] PCP - General Family Medicine 05/21/16 documented as of this encounter
--- OUTSIDE RECORDS SUMMARY | 2023-11-10 13:13 | External Medical Summary ---
Author Name Unknown Address Unknown Organization K01:LABORATORY [facility] - [address] [facility] [place] [address] Laboratory Report Ordering Provider Test Date Status CARLY BARON 08/14/2023 10:58:35 Final Observation Date Value Abnormality Reference (Units ) Status Triglyceride 08/14/2023 10:58:35 116 <=174 ( mg/dL) Final Triglyceride Reference Range s (mg/dL):
<150 Acceptable
150-174 Borderline high
175-499 High
>=500 Very high Cholesterol 08/14/2023 10:58:35 197 <200 (mg /dL) Final Total Cholesterol Reference Ranges (mg/dL):
<200 Desirable
200-239 Borderline high
>=240 High HDL 08/14/2023 10:58:35 62 >49 (mg/dL ) Final HDL Cholesterol Reference Ra nges (mg/dL):
>=60 High (Desirable)
<50 Low (Undesirable) For Females
<40 Low (Undesirable) For Males NON-HDL CHOLESTEROL 08/14/2023 10:58:35 135 <=159 (mg/dL) Final Non-HDL Cholesterol Referenc e Range (mg/dL):
<100 Target level for high risk ASCVD patient
<130 Optimal for general population
130-159 Near optimal for general population
160-189 Borderline High
190-219 High
>=220 Very High LDL, (calculated) 08/14/2023 10:58:35 112 <= 129 (mg/dL) Final LDL Cholesterol Reference Ra nges (mg/dL):
<70 Target level for high risk ASCVD patient
<100 Optimal for general population
100-129 Near optimal for general population
130-159 Borderline high
160-189 High
>=190 Very high Performing Location LABORATORY [facility] - [address] [facility] [id number]
--- NOTE | 2023-11-10 13:34 | Emergency Department Note ---
Impression & Plan Nausea, vomiting and diarrhea, Elevated lactic acid level, Low bicarbonate, Acute hyperglycemia ED Provider Note NAME: ASHLEY STRATTON AGE: 38 SEX: F : 1985 ARRIVES VIA: Walk-In INFORMANT: Patient ED PROVIDER(S): Sami Clay DO CHIEF COMPLAINT: Nausea, vomiting and diarrhea HPI: Patient is a 38-year-old female with a past medical history of bipolar disorder, asthma, smoker, hepatitis C, marijuana use who presents to the ER for nausea, vomiting, and diarrhea which started earlier today. She notes has been unable to keep anything down. She is a type II diabetic and takes metformin and Ozempic. She denies any headache or change in vision. No chest pain or shortness of breath. No dysuria, urgency, or frequency. She has crampy abdominal pain which resolves after vomiting. No other exacerbating or remitting factors. ADDITIONAL HISTORY OBTAINED: Per HPI Chronic Medical/Social Conditions Affecting Care: Per HPI PAST MEDICAL HISTORY:See Below PAST SURGICAL HISTORY:See Below FAMILY HISTORY:See Below SOCIAL HISTORY:See Below HOME MEDICATIONS:See Below ALLERGIES:See Below VITALS:See Below PHYSICAL EXAMINATION: GENERAL: Sitting up in bed, alert, well appearing, well nourished, no distress, non-toxic EYE EXAM: normal conjunctiva. OROPHARYNX: no exudate, no erythema, lips, buccal mucosa, and tongue normal and mucous membranes are moist NECK: supple, no nuchal rigidity, no adenopathy, non-tender LUNGS: Clear to auscultation. Normal chest wall mechanics HEART: no murmurs, S1 normal and S2 normal ABDOMEN: abdomen soft, non-tender, normo-active bowel sounds, no masses, no rebound or guarding. BACK: Back is symmetrical on inspection and there is no deformity, no midline tenderness, no CVA tenderness. SKIN: no rashes and no bruising UPPER EXTREMITIES: upper extremities are grossly normal. LOWER EXTREMITIES: No pitting edema. NEURO EXAM: Normal sensorium, cranial nerves II-XII grossly intact, normal speech, no gross weakness of arms, no gross weakness of legs. MEDICAL DECISION MAKING: Patient is a 38-year-old female who presents ER for above-stated complaint. IV was established blood work was obtained. Labs show no significant leukocytosis or anemia. VBG with a pH of 7.6 and a CO2 of 16. BMP with hypokalemia at 3.2. This was repleted with IV potassium. Patient was gapped with a bicarb of 17 on the BMP. Glucose at 230. Lactate was significantly elevated at 4.3. Mag was low at 1.3. UA was contaminated but covered with 2 g of Rocephin. She was given 2 L of norosol. Updated bedside. CT abdomen pelvis showed no acute pathology. She was given IV Zofran, Reglan and Phenergan. Still had fairly persistent nausea and consequently discussed case with the hospitalist for further evaluation management treatment. Consults/Care Managements Discussions: Per [facility] Triage Nursing notes reviewed. Limited review of prior medical records performed Vital Signs: reviewed and remarkable for HTN and tachy Differential diagnosis: Differential diagnoses includes but is not limited to gastritis, peptic ulcer disease, GERD, gallbladder disease, pancreatitis, small bowel obstruction, appendicitis, diverticulitis, hernia, urinary tract infection, torsion, /ectopic (if female), perforation, trauma, infectious. ER treatment provided: See below Diagnostics interpreted by me include EKG and cardiac monitoring as listed below: -Cardiac Monitoring: An order was placed for continuous cardiac monitoring. The monitor shows a rate of 101 with sinus rhythm. -ECG: Sinus rhythm rate of 105 Normal axis No PVCs Nonspecific ST wave changes QTc 679 -Laboratory studies:Interpreted by me as stated above in MDM and shown below. Imaging studies: Xrays: As interpreted by me: Portable AP upright 1 view of the chest shows no focal infiltrate CTs show: CT abdomen pelvis as described above Procedures:none Critical Care: None Past Med/Surg History Problem List (Updated 11/10/23 @ 18:18 by Sami Clay DO) Acute hyperglycemia (Acute) Low bicarbonate (Acute) Elevated lactic acid level (Acute) History of intravenous drug abuse Tobacco use Bipolar disorder Anxiety Mild persistent asthma Hepatitis C Abnormal urinalysis Diabetes mellitus, type II Hyperglycemia Hypomagnesemia Hypokalemia Nausea, vomiting and diarrhea (Acute) Asthma (Acute) Bipolar I disorder, single manic episode (Acute) Common migraine without aura (Acute) Other, mixed, or unspecified nondependent drug abuse, continuous (Acute) Esophageal reflux (Acute) Marijuana use (Acute) Abscess of right groin (Acute) Bright red blood per rectum (Acute) Dental abscess (Acute) Otitis media (Acute) Pain, dental (Acute) Pain, dental (Acute) Pain, dental (Acute) Medical History (Updated 11/10/23 @ 18:18 by Sami Clay DO) Carpal tunnel syndrome Diabetes Kidney stones Surgical History (Updated 11/10/23 @ 17:11 by Deidra Chua PA-C) Hx of tonsillectomy History of delivery Family History Grandmother (Maternal) Colorectal cancer Ovarian cancer Social History Smoking Status: Current every day smoker Tobacco Type: Cigarettes Preferred Language: Italian Feels Safe at Home: Yes Allergies Allergies Allergy/AdvReac Type Severity Reaction Status Date / Time Sulfa (Sulfonamide AdvReac Intermediate GI SYMPTOMS Verified 11/10/23 17:06 Antibiotics) Home Meds Home Medications Medication Instructions Recorded Confirmed albuterol sulfate 90 mcg/actuation 2 puff inhalation QID 11/10/23 11/10/23 aerosol inhaler doxepin 50 mg capsule 50 mg PO HS 11/10/23 11/10/23 fluticasone propionate 110 2 puff inhalation BID 11/10/23 11/10/23 mcg/actuation HFA aerosol inhaler medroxyprogesterone 150 mg/mL 150 mg IM DIRECTED 11/10/23 11/10/23 intramuscular suspension metformin 500 mg tablet,extended 1,000 mg PO QAM 11/10/23 11/10/23 release 24 hr paroxetine HCl 40 mg tablet 60 mg PO QAM 11/10/23 11/10/23 semaglutide 1 mg/dose (4 mg/3 mL) 1 mg subcut .QSAT 11/10/23 11/10/23 subcutaneous pen injector (Ozempic) Results & Data (ED) Vital Signs Vital Signs - 24 hr 11/10/23 13:07 11/10/23 13:42 11/10/23 13:42 Temperature Temperature Source Pulse Rate 106 H 81 Pulse Rate [Apical] 81 Respiratory Rate 22 22 22 Respiratory Effort / Characteristics Non-Labored Spontaneous Respiratory Depth Normal Respiratory Pattern Regular Blood Pressure 154/89 H Blood Pressure [Left Arm] 153/108 H Blood Pressure Mean 110 Blood Pressure Mean [Left Arm] 123 Pulse Oximetry 97 100 100 Oxygen Delivery Method Room Air Room Air Room Air Sepsis Recent Fever Within 48 Hours No Sepsis New/Unexplained Change in Mental Status N/A Sepsis Action Taken by Nursing No Action Required 11/10/23 14:31 11/10/23 14:56 11/10/23 16:06 Temperature 36.7 C Temperature Source Oral Pulse Rate 103 H Pulse Rate [Apical] 96 H Respiratory Rate 24 Respiratory Effort / Characteristics Respiratory Depth Respiratory Pattern Blood Pressure Blood Pressure [Left Arm] 170/100 H Blood Pressure Mean Blood Pressure Mean [Left Arm] 123 Pulse Oximetry 100 Oxygen Delivery Method Room Air Sepsis Recent Fever Within 48 Hours Sepsis New/Unexplained Change in Mental Status Sepsis Action Taken by Nursing 11/10/23 17:58 Temperature Temperature Source Pulse Rate Pulse Rate [Apical] 106 H Respiratory Rate 20 Respiratory Effort / Characteristics Respiratory Depth Respiratory Pattern Blood Pressure Blood Pressure [Left Arm] 109/73 Blood Pressure Mean Blood Pressure Mean [Left Arm] 85 Pulse Oximetry 97 Oxygen Delivery Method Room Air Sepsis Recent Fever Within 48 Hours Sepsis New/Unexplained Change in Mental Status Sepsis Action Taken by Nursing Laboratory Data 11/10/23 13:40 11/10/23 16:49 Lab Results 11/10/23 11/10/23 11/10/23 Range/Units 13:11 13:40 13:47 WBC 9.79 (4.8-10.8) K/ul RBC 4.94 (4.20-5.40) M/uL Hgb 15.8 (12.0-16.0) g/dl POC Hgb 17.3 H (12.0-16.0) g/dl Hct 45.8 (37.0-47.0) % POC Hct 51 H (37-47) % MCV 92.7 (80.0-100.0) fL MCH 32.0 (25.0-34.0) pg MCHC 34.5 (32.0-36.0) g/dL RDW Std Deviation 42.5 (36.4-46.3) fL RDW Coeff of Carla 12.4 (11.5-14.5) % Plt Count 160 (130-400) K/uL MPV 10.9 (9.4-12.4) fL Immature Gran % (Auto) 0.7 % Neut % (Auto) 80.9 % Lymph % (Auto) 12.2 % Casey % (Auto) 6.0 % Eos % (Auto) 0.0 % Baso % (Auto) 0.2 % Neut # (Auto) 7.92 H (1.40-6.50) K/uL Lymph # (Auto) 1.19 L (1.20-3.40) K/uL Casey # (Auto) 0.59 (0.11-0.59) K/uL Eos # (Auto) 0.00 (0.00-0.50) K/uL Baso # (Auto) 0.02 (0.00-0.20) K/uL Immature Gran # (Auto) 0.07 (0.01-0.20) K/uL VBG pH (7.36-7.41) VBG pCO2 (38-50) mmHg VBG pO2 mmHg VBG HCO3 mmol/L VBG O2 Saturation % VBG Base Excess mEq/L POC Sodium 141 (135-144) mmol/L Sodium 139 (136-145) mmol/L POC Potassium 3.2 L (3.3-5.0) mmol/L Potassium 3.3 L (3.5-5.1) mmol/L POC Chloride 107 (101-112) mmol/L Chloride 104 (98-107) mmol/L Carbon Dioxide 16 L (21-32) mmol/L POC Total CO2 15 L (24-31) mmol/L Anion Gap 19 H (3-11) POC Anion Gap 23.0 (16-25) mmol/L POC BUN 9 (7-18) mg/dl BUN 11 (6-23) mg/dl Creatinine 0.84 (0.6-1.2) mg/dl POC Creatinine 0.6 (0.6-1.3) mg/dl Est Cr Clr Drug Dosing 88.4 ml/min Est GFR ( Amer) 102.9 ml/min Est GFR (Non-Af Amer) 88.8 ml/min BUN/Creatinine Ratio 13.1 (10-20) Glucose 221 H (70-99(Fasting)) mg/dl POC Glucose 241 H (70-99) mg/dl POC Glucose (other) 232 H (70-99) mg/dl Lactate (0.4-2.0) mmol/L Calcium 9.6 (8.6-10.3) mg/dl POC Ioniz Calcium Jazmyn 1.04 L (1.12-1.32) mmol/l Magnesium 1.3 L (1.7-2.4) mg/dl Total Bilirubin 0.7 (0.2-1.0) mg/dl AST 21 (13-39) U/L ALT 26 (7-52) U/L Alkaline Phosphatase 82 (34-104) U/L Total Protein 8.4 H (6.0-8.3) gm/dl Albumin 4.8 (3.4-5.0) gm/dl Globulin 3.6 (2.5-4.0) gm/dl Albumin/Globulin Ratio 1.3 (0.9-2) Lipase 20 (11-82) U/L HCG, Qual Negative (Negative) Urine Color Urine Appearance (Clear) Urine pH (4.5-7.5) Ur Specific Gormania (1.000-1.030) Urine Protein (Negative) Urine Glucose (UA) (Negative) Urine Ketones (Negative) Urine Blood (Negative) Urine Nitrite (Negative) Urine Bilirubin (Negative) Urine Urobilinogen (Negative) Ur Leukocyte Esterase (Negative) Urine WBC (Auto) (0-5) /hpf Urine RBC (Auto) (0-2) /hpf U Hyaline Cast (Auto) (0-2) /lpf U Epithel Cells (Auto) (0-2) /hpf Urine Bacteria (Auto) (None Seen) 11/10/23 11/10/23 11/10/23 Range/Units 14:03 14:40 16:15 WBC (4.8-10.8) K/ul RBC (4.20-5.40) M/uL Hgb (12.0-16.0) g/dl POC Hgb (12.0-16.0) g/dl Hct (37.0-47.0) % POC Hct (37-47) % MCV (80.0-100.0) fL MCH (25.0-34.0) pg MCHC (32.0-36.0) g/dL RDW Std Deviation (36.4-46.3) fL RDW Coeff of Carla (11.5-14.5) % Plt Count (130-400) K/uL MPV (9.4-12.4) fL Immature Gran % (Auto) % Neut % (Auto) % Lymph % (Auto) % Casey % (Auto) % Eos % (Auto) % Baso % (Auto) % Neut # (Auto) (1.40-6.50) K/uL Lymph # (Auto) (1.20-3.40) K/uL Casey # (Auto) (0.11-0.59) K/uL Eos # (Auto) (0.00-0.50) K/uL Baso # (Auto) (0.00-0.20) K/uL Immature Gran # (Auto) (0.01-0.20) K/uL VBG pH 7.59 H (7.36-7.41) VBG pCO2 17 L (38-50) mmHg VBG pO2 38 mmHg VBG HCO3 16 mmol/L VBG O2 Saturation 74.9 % VBG Base Excess -2.7 mEq/L POC Sodium (135-144) mmol/L Sodium (136-145) mmol/L POC Potassium (3.3-5.0) mmol/L Potassium (3.5-5.1) mmol/L POC Chloride (101-112) mmol/L Chloride (98-107) mmol/L Carbon Dioxide (21-32) mmol/L POC Total CO2 (24-31) mmol/L Anion Gap (3-11) POC Anion Gap (16-25) mmol/L POC BUN (7-18) mg/dl BUN (6-23) mg/dl Creatinine (0.6-1.2) mg/dl POC Creatinine (0.6-1.3) mg/dl Est Cr Clr Drug Dosing ml/min Est GFR ( Amer) ml/min Est GFR (Non-Af Amer) ml/min BUN/Creatinine Ratio (10-20) Glucose (70-99(Fasting)) mg/dl POC Glucose 190 H (70-99) mg/dl POC Glucose (other) (70-99) mg/dl Lactate (0.4-2.0) mmol/L Calcium (8.6-10.3) mg/dl POC Ioniz Calcium Jazmyn (1.12-1.32) mmol/l Magnesium (1.7-2.4) mg/dl Total Bilirubin (0.2-1.0) mg/dl AST (13-39) U/L ALT (7-52) U/L Alkaline Phosphatase (34-104) U/L Total Protein (6.0-8.3) gm/dl Albumin (3.4-5.0) gm/dl Globulin (2.5-4.0) gm/dl Albumin/Globulin Ratio (0.9-2) Lipase (11-82) U/L HCG, Qual (Negative) Urine Color Garvin Urine Appearance Cloudy A (Clear) Urine pH 7.0 (4.5-7.5) Ur Specific Gormania 1.025 (1.000-1.030) Urine Protein 1+ H (Negative) Urine Glucose (UA) 2+ H (Negative) Urine Ketones 4+ H (Negative) Urine Blood 3+ H (Negative) Urine Nitrite Negative (Negative) Urine Bilirubin Negative (Negative) Urine Urobilinogen Negative (Negative) Ur Leukocyte Esterase 1+ H (Negative) Urine WBC (Auto) 6-10 H (0-5) /hpf Urine RBC (Auto) >20 H (0-2) /hpf U Hyaline Cast (Auto) 0-2 (0-2) /lpf U Epithel Cells (Auto) 11-20 H (0-2) /hpf Urine Bacteria (Auto) None Seen (None Seen) 11/10/23 11/10/23 Range/Units 16:49 17:05 WBC (4.8-10.8) K/ul RBC (4.20-5.40) M/uL Hgb (12.0-16.0) g/dl POC Hgb (12.0-16.0) g/dl Hct (37.0-47.0) % POC Hct (37-47) % MCV (80.0-100.0) fL MCH (25.0-34.0) pg MCHC (32.0-36.0) g/dL RDW Std Deviation (36.4-46.3) fL RDW Coeff of Carla (11.5-14.5) % Plt Count (130-400) K/uL MPV (9.4-12.4) fL Immature Gran % (Auto) % Neut % (Auto) % Lymph % (Auto) % Casey % (Auto) % Eos % (Auto) % Baso % (Auto) % Neut # (Auto) (1.40-6.50) K/uL Lymph # (Auto) (1.20-3.40) K/uL Casey # (Auto) (0.11-0.59) K/uL Eos # (Auto) (0.00-0.50) K/uL Baso # (Auto) (0.00-0.20) K/uL Immature Gran # (Auto) (0.01-0.20) K/uL VBG pH 7.43 H (7.36-7.41) VBG pCO2 33 L (38-50) mmHg VBG pO2 24 mmHg VBG HCO3 22 mmol/L VBG O2 Saturation < 60.0 % VBG Base Excess -1.7 mEq/L POC Sodium (135-144) mmol/L Sodium 138 (136-145) mmol/L POC Potassium (3.3-5.0) mmol/L Potassium 3.2 L (3.5-5.1) mmol/L POC Chloride (101-112) mmol/L Chloride 103 (98-107) mmol/L Carbon Dioxide 20 L (21-32) mmol/L POC Total CO2 (24-31) mmol/L Anion Gap 15 H (3-11) POC Anion Gap (16-25) mmol/L POC BUN (7-18) mg/dl BUN 9 (6-23) mg/dl Creatinine 0.75 (0.6-1.2) mg/dl POC Creatinine (0.6-1.3) mg/dl Est Cr Clr Drug Dosing 99.0 ml/min Est GFR ( Amer) 118.0 ml/min Est GFR (Non-Af Amer) 101.8 ml/min BUN/Creatinine Ratio 12.0 (10-20) Glucose 193 H (70-99(Fasting)) mg/dl POC Glucose (70-99) mg/dl POC Glucose (other) (70-99) mg/dl Lactate 4.3 H* (0.4-2.0) mmol/L Calcium 8.2 L (8.6-10.3) mg/dl POC Ioniz Calcium Jazmyn (1.12-1.32) mmol/l Magnesium (1.7-2.4) mg/dl Total Bilirubin (0.2-1.0) mg/dl AST (13-39) U/L ALT (7-52) U/L Alkaline Phosphatase (34-104) U/L Total Protein (6.0-8.3) gm/dl Albumin (3.4-5.0) gm/dl Globulin (2.5-4.0) gm/dl Albumin/Globulin Ratio (0.9-2) Lipase (11-82) U/L HCG, Qual (Negative) Urine Color Urine Appearance (Clear) Urine pH (4.5-7.5) Ur Specific Gormania (1.000-1.030) Urine Protein (Negative) Urine Glucose (UA) (Negative) Urine Ketones (Negative) Urine Blood (Negative) Urine Nitrite (Negative) Urine Bilirubin (Negative) Urine Urobilinogen (Negative) Ur Leukocyte Esterase (Negative) Urine WBC (Auto) (0-5) /hpf Urine RBC (Auto) (0-2) /hpf U Hyaline Cast (Auto) (0-2) /lpf U Epithel Cells (Auto) (0-2) /hpf Urine Bacteria (Auto) (None Seen) Administered Medications Discontinued Medications Parenteral Electrolytes (Plasma-Lyte A Ph 7.4) 2,000 mls @ 999 mls/hr IV .Q2H1M ONE Stop: 11/10/23 15:31 Last Infusion: 11/10/23 15:50 Dose: Infused Documented By: Admin: 11/10/23 13:53 Dose: 999 mls/hr Documented By: EM Promethazine HCl (Phenergan) 25 mg in 51 mls @ 204 mls/hr IV NOW STA Stop: 11/10/23 15:19 Last Infusion: 11/10/23 15:26 Dose: Infused Documented By: Admin: 11/10/23 15:09 Dose: 204 mls/hr Documented By: EM Potassium Chloride (K Corbin / Wtr) 10 meq in 100 mls @ 100 mls/hr IV Q1H ROSA Stop: 11/10/23 17:59 Last Admin: 11/10/23 18:00 Dose: 100 mls/hr Documented By: Infusion: 11/10/23 18:00 Dose: Infused Documented By: Admin: 11/10/23 16:58 Dose: 100 mls/hr Documented By: EM Ceftriaxone Sodium (Rocephin) 2,000 mg in 50 mls @ 100 mls/hr IV NOW STA Stop: 11/10/23 16:37 Last Infusion: 11/10/23 16:55 Dose: Infused Documented By: Admin: 11/10/23 16:20 Dose: 100 mls/hr Documented By: EM Ioversol (Optiray 320 100ml) 91 ml IV ONCE ONE Stop: 11/10/23 14:49 Last Admin: 11/10/23 14:48 Dose: 91 ml Documented By: TED Metoclopramide HCl (Metoclopramide Hcl Inj 5 Mg/Ml 2 Ml Vial) 10 mg IV NOW STA Stop: 11/10/23 16:01 Last Admin: 11/10/23 16:20 Dose: 10 mg Documented By: EM Ondansetron HCl (Ondansetron Inj 2 Mg/Ml 2 Ml Vial) 4 mg IV NOW STA Stop: 11/10/23 13:32 Last Admin: 11/10/23 13:53 Dose: 4 mg Documented By: EM Imaging Data Radiologist's Impression: Abdomen/Pelvis CT 11/10/23 13:[address] WITH IV CONTRAST CT DOSE: 805.88 mGy.cm HISTORY: abd pain n/v TECHNIQUE: Multiaxial CT images of the abdomen and pelvis were performed following the use of intravenous contrast. A dose lowering technique was utilized adhering to the principles of ALARA. COMPARISON STUDY: Abdomen and pelvis CT 03/22/2021. FINDINGS: The lung bases are clear. No pneumoperitoneum. No pneumatosis. No acute fractures. The liver, gallbladder, pancreas, spleen, and adrenal glands are unremarkable. The kidneys enhance normally. No hydronephrosis. The main portal vein is patent. Normal caliber abdominal aorta. No retroperitoneal or pelvic lymphadenopathy. No pelvic free fluid. Mild bladder wall thickening. This could be due to underdistention. The uterus and bilateral adnexa are within normal limits including a 2.2 cm left ovarian cyst. No evidence for bowel obstruction. The colon is decompressed resulting in suboptimal evaluation. There is question of mild circumferential thickening throughout the colon. The appendix is mostly obscured. There are few small foci of gas suspected within the appendix. No inflammatory changes at the cecal base to suggest acute appendicitis at this time. IMPRESSION: 1. Mild circumferential thickening versus underdistention throughout the colon. A low-grade colitis would be the diagnosis of exclusion. 2. No evidence for a bowel obstruction. 3. Bladder wall thickening likely due to underdistention. Recommend correlation with urinalysis to exclude a cystitis. ACT 112: Negative or not required by law. Electronically signed by: Rayshawn Medina M.D. 11/10/2023 3:06 PM Chest X-Ray 11/10/23 13:31 XR chest 1V portable HISTORY: Weakness. COMPARISON: Chest 11/24/2021. FINDINGS: The lungs are clear. Cardiac silhouette is normal in size. No pleural effusions. No pneumothorax. IMPRESSION: No acute process. ACT 112: Negative or not required by law. Electronically signed by: Rayshawn Medina M.D. 11/10/2023 2:46 PM Discharge Plan Visit Data Chief Complaint: Illness Stated Complaint: VOMIT, DIARRHEA, SHAKING, SOB, DIABETIC ED Provider: Sami Clay Discharge Problem: Nausea, vomiting and diarrhea, Elevated lactic acid level, Low bicarbonate, Acute hyperglycemia Forms Stand Alone Forms: My [employer] Prescriptions Prescriptions: No Action doxepin 50 mg capsule 50 mg PO HS albuterol sulfate 90 mcg/actuation HFA aerosol inhaler 2 puff INHALATION QID paroxetine HCl 40 mg tablet 60 mg PO QAM metformin 500 mg tablet extended release 24 hr 1,000 mg PO QAM medroxyprogesterone [Depo-Provera Contraceptive] 150 mg/mL Suspension 150 mg IM DIRECTED fluticasone propionate [Flovent HFA] 110 mcg/actuation Hfa Aerosol Inhaler 2 puff INHALATION BID Ozempic 1 mg/dose (4 mg/3 mL) pen injector 1 mg SUBCUT .QSAT Referrals Referrals: Ender Ponce MD [Primary Care Provider] -
[2023-11-10] MEDS: ONDANSETRON INJ 2 MG/ML 2 ML VIAL IV STA (13:53)
[2023-11-10] MEDS: PLASMA-LYTE A 2,000 ML IV ONE (13:53)
[2023-11-10 13:59] LABS: Basophils # (auto) 0.02 K/uL (0.00-0.20); Basophils % (auto) 0.2 %; Hematocrit (blood only) 45.8 % (37.0-47.0); Hemoglobin 15.8 g/dl (12.0-16.0); Immature Granulocytes # (auto) 0.07 K/uL (0.01-0.20); Immature Granulocytes % (auto) 0.7 %; Lymphocytes # (auto) 1.19 K/uL (1.20-3.40); Lymphocytes % (auto) 12.2 %; Mean Corpuscular Hgb Conc 34.5 g/dL (32.0-36.0); Mean Corpuscular Volume 92.7 fL (80.0-100.0); Mean Platelet Volume 10.9 fL (9.4-12.4); Monocytes # (auto) 0.59 K/uL (0.11-0.59); Neutrophils # (auto) 7.92 K/uL (1.40-6.50); Neutrophils % (auto) 80.9 %; Platelet Count 160 K/uL (130-400); RDW Coefficient of Variation 12.4 % (11.5-14.5); RDW Standard Deviation 42.5 fL (36.4-46.3); Red Blood Count 4.94 M/uL (4.20-5.40); White Blood Count 9.79 K/ul (4.8-10.8)
[2023-11-10 14:02] LABS: iSTAT Creatinine 0.6 mg/dl (0.6-1.3); iSTAT Hemoglobin 17.3 g/dl (12.0-16.0); iSTAT Ionized Calcium 1.04 mmol/l (1.12-1.32); iSTAT Potassium 3.2 mmol/L (3.3-5.0)
[2023-11-10 14:11] LABS: Pregnancy Test, Serum Negative (Negative)
[2023-11-10 14:12] LABS: Albumin Globulin Ratio 1.3 (0.9-2); Albumin Level 4.8 gm/dl (3.4-5.0); BUN Creatinine Ratio 13.1 (10-20); Bilirubin,Total 0.7 mg/dl (0.2-1.0); Calcium 9.6 mg/dl (8.6-10.3); Creatinine Clr Calc Pharmacy 88.4 ml/min; Est GFR (African American) 102.9 ml/min; Est GFR (Non-African American) 88.8 ml/min; Globulin 3.6 gm/dl (2.5-4.0); Potassium 3.3 mmol/L (3.5-5.1); Total Protein 8.4 gm/dl (6.0-8.3)
[2023-11-10 14:15] LABS: Base Excess VBG -2.7 mEq/L; HCO3 VBG 16 mmol/L; Oxygen Saturation VBG 74.9 %; PCO2 VBG 17 mmHg (38-50); PO2 VBG 38 mmHg; pH VBG 7.59 (7.36-7.41)
--- NOTE | 2023-11-10 14:47 | XRay Report ---
XR chest 1V portable HISTORY: Weakness. COMPARISON: Chest 11/24/2021. FINDINGS: The lungs are clear. Cardiac silhouette is normal in size. No pleural effusions. No pneumot horax. IMPRESSION: No acute process. ACT 112: Negative or not required by law. Electronically signed by: Rayshawn Medina M.D. 11/10/2023 2:46 PM
[2023-11-10] MEDS: OPTIRAY 320 100ml IV ONE (14:48)
--- NOTE | 2023-11-10 15:08 | CT Scan Report ---
ABDOMEN AND PELVIS CT WITH IV CONTRAST CT DOSE: 805.88 mGy.cm HISTORY: abd pain n/v TECHNIQUE: Multiaxial CT images of the abdomen and pelvis were performed following the use of intrave nous contrast. A dose lowering technique was utilized adhering to the principles of ALARA. COMPARISON STUDY: Abdomen and pelvis CT 03/22/2021. FINDINGS: The lung bases are clear. No pneumoperitoneum. No pneumatosis. No acute fractures. The live r, gallbladder, pancreas, spleen, and adrenal glands are unremarkable. The kidneys enhance normally. No hydronephrosis. The main portal vein is patent. Normal caliber abdominal aorta. No retroperitoneal or pelvic lymphadenopathy. No pelvic free fluid. Mild bladder wall thickening. This could be due to underdistention. The uterus and bilateral adnexa are within normal limits including a 2.2 cm left ova chirag cyst. No evidence for bowel obstruction. The colon is decompressed resulting in suboptimal evalu ation. There is question of mild circumferential thickening throughout the colon. The appendix is mos tly obscured. There are few small foci of gas suspected within the appendix. No inflammatory changes at the cecal base to suggest acute appendicitis at this time. IMPRESSION: 1. Mild circumferential thickening versus underdistention throughout the colon. A low-grade colitis w ould be the diagnosis of exclusion. 2. No evidence for a bowel obstruction. 3. Bladder wall thickening likely due to underdistention. Recommend correlation with urinalysis to ex clude a cystitis. ACT 112: Negative or not required by law. Electronically signed by: Rayshawn Medina M.D. 11/10/2023 3:06 PM
[2023-11-10] MEDS: PROMETHAZINE 25 MG/51 ML BAG IV STA (15:09)
[2023-11-10 15:31] LABS: Appearance Urine Cloudy (Clear); Bacteria Urine Automated None Seen (None Seen); Bilirubin Urine Negative (Negative); Blood Urine 3+ (Negative); Cast Urine Automated 0-2 /lpf (0-2); Color Urine Orange; Glucose Urine UA 2+ (Negative); Ketones Urine 4+ (Negative); Leukocyte Esterase Urine 1+ (Negative); Nitrite Urine Negative (Negative); Protein Urine 1+ (Negative); RBC Urine Automated >20 /hpf (0-2); Specific Gravity Urine 1.025 (1.000-1.030); Urobilinogen Urine Negative (Negative)
[2023-11-10 16:15] LABS: Magnesium 1.3 mg/dl (1.7-2.4)
--- NOTE | 2023-11-10 16:19 | History & Physical Report ---
Date of Service November 10, 2023 Assessment & Plan (1) Nausea, vomiting and diarrhea: Plan: Patient is a 38-year-old female with PMH DM II, mild persistent asthma, anxiety, bipolar disorder, history of prior IV drug abuse, chronic hep C completed treatment, marijuana use, tobacco use presented to ER with complaint of nausea, vomiting, diarrhea started this morning. In ER afebrile, P: 106, R: 22, BP: 154/89, 100% on RA. No leukocytosis. Lactate: 4.3, A, VBG: pH: 7.59, pCO2: 17, Gluc: 221. Negative HCG CT abd/pelvis: Mild circumferential thickening versus underdistention throughout the colon. A low-grade colitis would be the diagnosis of exclusion. No evidence for a bowel obstruction. Bladder wall thickening likely due to underdistention. UA likely contamination Urine culture pending Blood cultures pending In ER given 2L plasma-lyte, Rocephin, Zofran, Phenergan, Reglan Now patient reporting feeling better and is without nausea. No vomiting for past hour. Denies any abdominal pain ?Colitis. DDx: gastroenteritis viral vs bacterial, C-diff, GI side effects from metformin, Ozempic may also be playing role. Marijuana use side effects also in DDx Obtain stool culture and c-diff Will schedule Phenergan for now. Will avoid Reglan secondary to other home med interactions Sips and Ice chips currently and monitor. Plan to progress to clears if continued improvement and no further N/V Start Zosyn. If C-diff positive will discontinue Repeat lactate, BMP and VBG tonight IVF CBC, BMP in am (2) Hypokalemia: Plan: K: 3.3 Likely from GI losses with vomiting and diarrhea In ER ordered 2 K riders Replace and monitor (3) Hypomagnesemia: Plan: Magnesium: 1.3 Replace and monitor (4) Hyperglycemia: (5) Diabetes mellitus, type II: Plan: Random Glucose: 221 A1c: 5.1 on 08/14/23 Hold home metformin, Ozempic Novolog sliding scale per protocol A1c in AM (6) Abnormal urinalysis: Plan: UA: +ketones, 3+blood, 6-10 WBC, no nitrite or bacteria Denies urinary symptoms. Is currently menstrating In ER given Rocephin ?possible UTI but likely contamination Urine culture pending (7) Hepatitis C: Plan: Complete treatment 05/2023 Followed with [facility] (8) Mild persistent asthma: Plan: Denies cough, SOB, CP. No signs exacerbation Xopenex prn SOB Continue home inhalers (9) Anxiety: (10) Bipolar disorder: Plan: Continue home medications (11) Marijuana use: Plan: Smokes every 2-3 days. Last used yesterday (12) Tobacco use: Plan: 04/30 ppd Encouraged smoking cessation Nicotine patch (13) History of intravenous drug abuse: Plan: Prior IV methamphetamine use Reports not used in over 10 years DVT Prophylaxis SCDs Admit med tele Full Code as per discussion with pt Follows with Dr Ponce for routine care Pt was seen and care coordinated with Dr Delarosa See addendum I spent a total of 76 minutes reviewing notes, outpatient records, labs, medication, coordinating, documenting and providing care for this patient excluding time spent in the performance of separately billed services. Plan Attending Addendum: Case reviewed with the advanced practitioner. I have personally performed a history and physical examination on the patient. I have reviewed the advanced practitioner's documentation on the date of service referenced in note, and I agree with, and take responsibility for the plan of ca re. please refer to her notes for full details patient seen and examined, records reviewed by myself as well on exam, patient seen resting in bed, comfortable, smiling feels better compared to earlier no other newsymptoms VS noted and reviewed oriented x 3 , not in distress, speaks in sentences with no effort nor accessory muscle use normal rate, regular rhythm, no murmurs clear breath sounds bilaterally non distended, soft, nontender no bipedal edema, erythema, warmth no neuro deficits all labs, imaging noted and reviewed ASSESSMENT AND PLAN> INTRACTABLE NAUSEA/VOMITING, DIARRHEA COLITIS improving check stool cultures, C diff IV Zosyn Phenergan q6h replace electrolytes other diagnoses and plan of care as per advanced practitioner's notes Eric Delarosa MD History of Present Illness Chief Complaint: N/V/D Primary Care Provider: Ender Ponce MD Patient is a 38-year-old female with PMH DM II, mild persistent asthma, anxiety, bipolar disorder, history of prior IV drug abuse, chronic hep C completed treatment, marijuana use, tobacco use presented to ER with complaint of nausea, vomiting, diarrhea started this morning. History obtained from patient and outpatient chart review. Patient reports has been on Ozempic for the several months for diabetes. She reports she previously was on Trulicity however was having trouble obtaining with insurance/pharmacy issues. Since being on Ozempic patient reports after her weekly dose the following day will have nausea and sometimes have episode of vomiting. Denies any recent dosage change. She reports is on metformin and since being on metformin has had intermittent loose stools. This morning woke up 4 AM with nausea, vomiting, watery diarrhea. She reports over 10 episodes of vomiting and numerous episodes of diarrhea. Denies any abdominal pain, fever. She reports had chills today. Denies ill contacts, recent travel, eating undercooked foods, or well water. Was on Augmentin 1 month ago for dental infection. Patient reports dental infection cleared but she has chronic poor dentition with multiple broken teeth. LMP 11/06/2023. Reports still has menses. Denies dysuria, urinary frequency or urgency. Unclear if has hematuria as currently menstruating. Denies diaphoresis, hematemesis, melena, hematochezia, KOHLI, dizziness, syncope, CP, SOB, palpitations, cough, sore throat, rhinorrhea, paresthesias, extremity weakness, extremity edema, rashes. Allergies Allergy/AdvReac Type Severity Reaction Status Date / Time Sulfa (Sulfonamide AdvReac Intermediate GI SYMPTOMS Verified 11/10/23 17:06 Antibiotics) Home Medications Medication Instructions Recorded Confirmed Type albuterol sulfate 90 mcg/actuation 2 puff inhalation QID 11/10/23 11/10/23 History aerosol inhaler doxepin 50 mg capsule 50 mg PO HS 11/10/23 11/10/23 History fluticasone propionate 110 2 puff inhalation BID 11/10/23 11/10/23 History mcg/actuation HFA aerosol inhaler medroxyprogesterone 150 mg/mL 150 mg IM DIRECTED 11/10/23 11/10/23 History intramuscular suspension metformin 500 mg tablet,extended 1,000 mg PO QAM 11/10/23 11/10/23 History release 24 hr paroxetine HCl 40 mg tablet 60 mg PO QAM 11/10/23 11/10/23 History semaglutide 1 mg/dose (4 mg/3 mL) 1 mg subcut .QSAT 11/10/23 11/10/23 History subcutaneous pen injector (Ozempic) Past Med/Surg History Problem List (Updated 11/10/23 @ 18:18 by Sami Clay DO) Acute hyperglycemia (Acute) Low bicarbonate (Acute) Elevated lactic acid level (Acute) History of intravenous drug abuse Tobacco use Bipolar disorder Anxiety Mild persistent asthma Hepatitis C Abnormal urinalysis Diabetes mellitus, type II Hyperglycemia Hypomagnesemia Hypokalemia Nausea, vomiting and diarrhea (Acute) Asthma (Acute) Bipolar I disorder, single manic episode (Acute) Common migraine without aura (Acute) Other, mixed, or unspecified nondependent drug abuse, continuous (Acute) Esophageal reflux (Acute) Marijuana use (Acute) Abscess of right groin (Acute) Bright red blood per rectum (Acute) Dental abscess (Acute) Otitis media (Acute) Pain, dental (Acute) Pain, dental (Acute) Pain, dental (Acute) Medical History (Updated 11/10/23 @ 18:18 by aSmi Clay DO) Carpal tunnel syndrome Diabetes Kidney stones Surgical History (Updated 11/10/23 @ 17:11 by Deidra Chua PA-C) Hx of tonsillectomy History of delivery Family History Grandmother (Maternal) Colorectal cancer Ovarian cancer Social History (Updated 11/10/23 @ 18:21 by Deidra Chua PA-C) Smoking Status: Current every day smoker Tobacco Type: Cigarettes Hx Alcohol Use: Yes (1-2 drinks 2 times a month) Hx Substance Use: Yes Non-Prescribed Medications: Marijuana Preferred Language: Citizen Of [place] Feels Safe at Home: Yes Review of Systems Review of Systems: All systems reviewed & are unremarkable except as noted in HPI & below Physical Exam Physical Exam: General: no distress, WDWN Head: normocephalic, atraumatic Eyes: conjunctiva non-injected, anicteric ENT: normal inspection external ears, nose, mucous membranes mildly dry, +poor dentition with multiple caries and dental fractures Neck: supple, trachea midline Lungs: no respiratory distress, +scattered wheezing throughout, No rhonchi/rales CV: regular rhythm, +tachycardia rate 103, no murmur, no pretibial edema Abd: normal BS, soft, non-tender to palpation Ext: no cyanosis, no calf tenderness Neuro: A&O x 3, no focal deficits noted, normal affect Skin: warm, dry, +multiple healed prior excoriations and discolored areas to bilateral upper and lower extremities Results & Data Results & Data Vital Signs (Past 12 Hours) Vital Signs Temp Pulse Pulse Resp BP BP Pulse Ox 11/10/23 16:06 36.7 C 11/10/23 14:56 96 H 24 170/100 H 100 11/10/23 14:31 103 H 11/10/23 13:42 81 22 100 11/10/23 13:42 81 22 153/108 H 100 11/10/23 13:07 106 H 22 154/89 H 97 O2 Del Method 11/10/23 16:06 11/10/23 14:56 Room Air 11/10/23 14:31 11/10/23 13:42 Room Air 11/10/23 13:42 Room Air 11/10/23 13:07 Room Air Laboratory Results Short CBC 11/10/23 Range/Units 13:40 WBC 9.79 (4.8-10.8) K/ul Hgb 15.8 (12.0-16.0) g/dl Hct 45.8 (37.0-47.0) % Plt Count 160 (130-400) K/uL BMP 11/10/23 13:40 Sodium 139 Potassium 3.3 L Chloride 104 Carbon Dioxide 16 L BUN 11 Creatinine 0.84 Glucose 221 H Calcium 9.6 Liver Function 11/10/23 Range/Units 13:40 Total Bilirubin 0.7 (0.2-1.0) mg/dl AST 21 (13-39) U/L ALT 26 (7-52) U/L Alkaline Phosphatase 82 (34-104) U/L Albumin 4.8 (3.4-5.0) gm/dl Urine 11/10/23 Range/Units 14:40 Urine Color [place] Urine Appearance Cloudy A (Clear) Urine pH 7.0 (4.5-7.5) Ur Specific [place] 1.025 (1.000-1.030) Urine Protein 1+ H (Negative) Urine Glucose (UA) 2+ H (Negative) Diagnostic Findings Abdomen/Pelvis CT 11/10/23 13:[address] WITH IV CONTRAST CT DOSE: 805.88 mGy.cm HISTORY: abd pain n/v TECHNIQUE: Multiaxial CT images of the abdomen and pelvis were performed following the use of intravenous contrast. A dose lowering technique was utilized adhering to the principles of ALARA. COMPARISON STUDY: Abdomen and pelvis CT 03/22/2021. FINDINGS: The lung bases are clear. No pneumoperitoneum. No pneumatosis. No acute fractures. The liver, gallbladder, pancreas, spleen, and adrenal glands are unremarkable. The kidneys enhance normally. No hydronephrosis. The main portal vein is patent. Normal caliber abdominal aorta. No retroperitoneal or pelvic lymphadenopathy. No pelvic free fluid. Mild bladder wall thickening. This could be due to underdistention. The uterus and bilateral adnexa are within normal limits including a 2.2 cm left ovarian cyst. No evidence for bowel obstruction. The colon is decompressed resulting in suboptimal evaluation. There is question of mild circumferential thickening throughout the colon. The appendix is mostly obscured. There are few small foci of gas suspected within the appendix. No inflammatory changes at the cecal base to suggest acute appendicitis at this time. IMPRESSION: 1. Mild circumferential thickening versus underdistention throughout the colon. A low-grade colitis would be the diagnosis of exclusion. 2. No evidence for a bowel obstruction. 3. Bladder wall thickening likely due to underdistention. Recommend correlation with urinalysis to exclude a cystitis. ACT 112: Negative or not required by law. Electronically signed by: Rayshawn Medina M.D. 11/10/2023 3:06 PM Chest X-Ray 11/10/23 13:31 XR chest 1V portable HISTORY: Weakness. COMPARISON: Chest 11/24/2021. FINDINGS: The lungs are clear. Cardiac silhouette is normal in size. No pleural effusions. No pneumothorax. IMPRESSION: No acute process. ACT 112: Negative or not required by law. Electronically signed by: Rayshawn Medina M.D. 11/10/2023 2:46 PM ECG Additional Comments: rate 73, sinus rhythm
[2023-11-10] MEDS: cefTRIAXone SODIUM 2,000 MG/50 ML BAG IV STA (16:20)
[2023-11-10] MEDS: METOCLOPRAMIDE HCL INJ 5 MG/ML 2 ML VIAL IV STA (16:20)
[2023-11-10] MEDS: POTASSIUM CHLORIDE / WTR 10 MEQ/100 ML PLCT IV SCH (16:58)
[2023-11-10 17:13] LABS: Base Excess VBG -1.7 mEq/L; HCO3 VBG 22 mmol/L; Oxygen Saturation VBG < 60.0 %; PCO2 VBG 33 mmHg (38-50); PO2 VBG 24 mmHg; pH VBG 7.43 (7.36-7.41)
[2023-11-10 17:35] LABS: Calcium 8.2 mg/dl (8.6-10.3); Est GFR (Non-African American) 101.8 ml/min; Potassium 3.2 mmol/L (3.5-5.1)
[2023-11-10] MEDS: MAGNESIUM SULFATE / D5W 1 GM/100 ML BAG IV STA (19:03)
[2023-11-10] MEDS: NSS + 20MEQ KCL 20 MEQ/1,000 ML BAG IV SCH (20:03)
[2023-11-10] MEDS ORDERED: CARBOHYDRATES FOR HYPOGLYCEMIA PO PRN (22:13)
[2023-11-10] MEDS ORDERED: GLUCAGON FOR INJ 1 MG VIAL SQ PRN (22:13)
[2023-11-10] MEDS ORDERED: DEXTROSE 50% 50 ML SYRINGE IV PRN (22:13)
[2023-11-10] MEDS ORDERED: GLUCOSE 40% GEL 15 GM TUBE PO PRN (22:13)
[2023-11-10] MEDS ORDERED: ACETAMINOPHEN 325 MG TAB PO PRN (22:13)
[2023-11-10] MEDS ORDERED: GLUCOSE 10 TAB/TUBE PO PRN (22:13)
[2023-11-10] MEDS ORDERED: ONDANSETRON INJ 2 MG/ML 2 ML VIAL IV PRN (22:13)
[2023-11-10] MEDS: PIPERACILLIN/TAZOBACTAM 4.5 GM in DEXTROSE 5% MINI-B 100 ML IV ONE (23:25)
[2023-11-10] MEDS: FLUTICASONE FUROATE 200MCG 14 PUFFS/INHALER INH SCH (23:26)
[2023-11-10] MEDS: NICOTINE 14 MG/24 HR PATCH TD SCH (23:26)
[2023-11-10] MEDS: DOXEPIN HCL 50 MG CAPSULE PO SCH (23:26)
[2023-11-11] MEDS: PROMETHAZINE HCL 12.5 MG in SODIUM CHLORIDE 0.9% 50 ML IV SCH (00:02)
[2023-11-11] MEDS: INSULIN ASPART PER UNIT CHARGE SC SCH ×2 (00:16→13:15)
[2023-11-11] MEDS: MAGNESIUM SULFATE / D5W 1 GM/100 ML BAG IV ONE (00:20)
[2023-11-11] MEDS ORDERED: Nursing to Pharmacy Communication SCH ×2 (00:45→08:00)
[2023-11-11] MEDS: PIPERACILLIN/TAZOBACTAM 4.5 GM in DEXTROSE 5% MINI-B 100 ML IV SCH (04:25)
[2023-11-11 05:07] LABS: BUN Creatinine Ratio 11.4 (10-20); Calcium 7.9 mg/dl (8.6-10.3); Est GFR (African American) 128.3 ml/min; Est GFR (Non-African American) 110.7 ml/min; Magnesium 2.4 mg/dl (1.7-2.4); Potassium 3.1 mmol/L (3.5-5.1)
[2023-11-11 05:09] LABS: Hematocrit (blood only) 40.7 % (37.0-47.0); Hemoglobin 13.9 g/dl (12.0-16.0); Mean Corpuscular Hemoglobin 32.3 pg (25.0-34.0); Mean Corpuscular Hgb Conc 34.2 g/dL (32.0-36.0); Mean Corpuscular Volume 94.7 fL (80.0-100.0); Mean Platelet Volume 10.9 fL (9.4-12.4); Platelet Count 124 K/uL (130-400); RDW Coefficient of Variation 12.9 % (11.5-14.5); RDW Standard Deviation 44.7 fL (36.4-46.3)
[2023-11-11 07:27] LABS: Estimated Average Glucose 105 mg/dl; Hemoglobin A1C 5.3 % (4.5-5.6)
[2023-11-11] MEDS: POTASSIUM CHLORIDE CRTAB 20 MEQ TABCR PO ONE (09:02)
[2023-11-11] MEDS: NSS + 20MEQ KCL 20 MEQ/1,000 ML BAG IV ONE (09:02)
[2023-11-11] MEDS: PARoxetine HCL 20 MG TAB PO SCH (09:03)
--- NOTE | 2023-11-11 12:36 | Electrocardiogram Report ---
Test Reason : Blood Pressure : / mmHG Vent. Rate : 073 BPM Atrial Rate : 073 BPM P-R Int : 146 ms QRS Dur : 090 ms QT Int : 394 ms P-R-T Axes : 063 056 014 degrees QTc Int : 434 ms Sinus rhythm with marked sinus arrhythmia Nonspecific T wave abnormality Abnormal ECG When compared with ECG of 24-NOV-2021 19:20, No significant change was found Confirmed by Enoch Jacobo ([id number]) on 11/11/2023 12:36:30 PM Referred By: REFERRED SELF Confirmed By:Enoch Jacobo
--- NOTE | 2023-11-11 16:09 | Hospitalist Progress Note ---
Date of Service November 11, 2023 Assessment & Plan (1) Nausea, vomiting and diarrhea: Plan: Patient is a 38-year-old female with PMH DM II, mild persistent asthma, anxiety, bipolar disorder, history of prior IV drug abuse, chronic hep C completed treatment, marijuana use, tobacco use presented to ER with complaint of nausea, vomiting, diarrhea started this morning. In ER afebrile, P: 106, R: 22, BP: 154/89, 100% on RA. No leukocytosis. Lactate: 4.3, A, VBG: pH: 7.59, pCO2: 17, Gluc: 221. Negative HCG Nausea, vomiting, diarrhea Colitis DD: Related to Ozempic R/O infectious etiology --CT ABD: Mild circumferential thickening versus underdistention throughout the colon. A low-grade colitis would be the diagnosis of exclusion. No evidence for a bowel obstruction. Bladder wall thickening likely due to underdistention. Recommend correlation with urinalysis to exclude a cystitis. -- Stool studies pending --Blood cultures pending --Advance diet as tolerated -- Empirically on IV Zosyn --Will recommend to get colonoscopy as outpatient Abnormal urinalysis ? Likely contaminated sample Urine culture pending Empirically on Zosyn (2) Hypokalemia: Plan: Likely from GI losses Monitor and replace electrolytes as needed (3) Hypomagnesemia: Plan: Likely from GI losses Monitor and replace electrolytes as needed (4) Hyperglycemia: (5) Diabetes mellitus, type II: Plan: Patient states that her blood glucose levels run in 200s at home A1c: 5.3--likely falsely low Hold home metformin, Ozempic Novolog sliding scale per protocol Monitor BGs (6) Abnormal urinalysis: Plan: As above (7) Hepatitis C: Plan: Complete treatment 05/2023 Followed with [facility] (8) Mild persistent asthma: Plan: No signs of acute exacerbation Xopenex prn SOB Continue home inhalers (9) Anxiety: (10) Bipolar disorder: Plan: Continue home medications (11) Marijuana use: Plan: Smokes every 2-3 days. Counseled to quit (12) Tobacco use: Plan: 1/2 ppd Encouraged smoking cessation Nicotine patch (13) History of intravenous drug abuse: Plan: Prior IV methamphetamine use Reports not used in over 10 years DVT Prophylaxis SCDs for now Encouraged to ambulate Plan Attending Addendum: Case reviewed with the advanced practitioner. I have personally performed a history and physical examination on the patient. I have reviewed the advanced practitioner's documentation on the date of service referenced in note, and I agree with, and take responsibility for the plan of care. please refer to her notes for full details patient seen and examined, records reviewed by myself as well on exam, patient seen resting in bed, comfortable, smiling feels better compared to earlier no other newsymptoms VS noted and reviewed oriented x 3 , not in distress, speaks in sentences with no effort nor accessory muscle use normal rate, regular rhythm, no murmurs clear breath sounds bilaterally non distended, soft, nontender no bipedal edema, erythema, warmth no neuro deficits all labs, imaging noted and reviewed ASSESSMENT AND PLAN> INTRACTABLE NAUSEA/VOMITING, DIARRHEA COLITIS improving check stool cultures, C diff IV Zosyn Phenergan q6h replace electrolytes other diagnoses and plan of care as per advanced practitioner's notes Eric Delarosa MD Admission and Anticipated Discharge Date Admission Date: November 10, 2023 Subjective Patient is seen and examined at bedside Nausea, vomiting, diarrhea improved Tolerating current diet Denies any chest pain, dyspnea, abdominal pain No other complaints Review of Systems Review of Systems: All systems reviewed & are unremarkable except as noted in Subjective Physical Exam Physical Exam: Physical Exam: Vitals signs as noted above General Appearance:Moderately built and nourished, no apparent distress Head: normocephalic, Atraumatic Eyes: normal inspection, EOMI Neck: supple, Trachea midline Respiratory/Chest: Normal breath sounds, CTA, No accessory muscle use Cardiovascular: S1, S2, No murmur Abdomen/GI:Soft, Non tender, Bowel sounds present Extremities/Musculoskeletal:normal inspection, no edema Neurologic/Psych:AAOX3, grossly no focal neurological deficits Skin: normal color, warm Results & Data Results & Data Vital Signs (Past 12 Hours) Vital Signs Temp Pulse Pulse Resp BP Pulse Ox O2 Del Method 11/11/23 15:46 37.1 C 79 16 128/86 97 Room Air 11/11/23 13:42 82 11/11/23 11:14 36.9 C 85 16 129/84 99 Room Air 11/11/23 07:41 36.9 C 101 H 16 133/82 97 Room Air 11/11/23 07:24 93 H 11/11/23 07:20 Room Air Laboratory Results Short CBC 11/11/23 Range/Units 04:26 WBC 9.80 (4.8-10.8) K/ul Hgb 13.9 (12.0-16.0) g/dl Hct 40.7 (37.0-47.0) % Plt Count 124 L (130-400) K/uL BMP 11/10/23 11/11/23 16:49 04:26 Sodium 138 138 Potassium 3.2 L 3.1 L Chloride 103 107 Carbon Dioxide 20 L 24 BUN 9 8 Creatinine 0.75 0.70 Glucose 193 H 130 H Calcium 8.2 L 7.9 L
[2023-11-12 06:14] LABS: Hematocrit (blood only) 40.4 % (37.0-47.0); Hemoglobin 13.3 g/dl (12.0-16.0); Mean Corpuscular Hgb Conc 32.9 g/dL (32.0-36.0); Mean Corpuscular Volume 97.1 fL (80.0-100.0); Mean Platelet Volume 10.5 fL (9.4-12.4); Platelet Count 120 K/uL (130-400); RDW Coefficient of Variation 12.7 % (11.5-14.5); RDW Standard Deviation 45.2 fL (36.4-46.3); Red Blood Count 4.16 M/uL (4.20-5.40); White Blood Count 6.83 K/ul (4.8-10.8)
[2023-11-12] MEDS: LEVALBUTEROL 1.25 MG/3 ML NEB NEB PRN (06:27)
[2023-11-12 06:28] LABS: BUN Creatinine Ratio 11.8 (10-20); Calcium 8.3 mg/dl (8.6-10.3); Est GFR (African American) 129.5 ml/min; Est GFR (Non-African American) 111.7 ml/min; Magnesium 2.1 mg/dl (1.7-2.4); Potassium 3.7 mmol/L (3.5-5.1)
--- NOTE | 2023-11-12 13:29 | Hospitalist Progress Note ---
Date of Service November 12, 2023 Assessment & Plan (1) Nausea, vomiting and diarrhea: Plan: Patient is a 38-year-old female with PMH DM II, mild persistent asthma, anxiety, bipolar disorder, history of prior IV drug abuse, chronic hep C completed treatment, marijuana use, tobacco use presented to ER with complaint of nausea, vomiting, diarrhea started this morning. In ER afebrile, P: 106, R: 22, BP: 154/89, 100% on RA. No leukocytosis. Lactate: 4.3, A, VBG: pH: 7.59, pCO2: 17, Gluc: 221. Negative HCG Nausea, vomiting, diarrhea Colitis DD: Related to Ozempic R/O infectious etiology --CT ABD: Mild circumferential thickening versus underdistention throughout the colon. A low-grade colitis would be the diagnosis of exclusion. No evidence for a bowel obstruction. Bladder wall thickening likely due to underdistention. Recommend correlation with urinalysis to exclude a cystitis. -- Stool studies pending ( no recurrence of diarrhea while hospitalized) --Blood cultures negative to date --Advance diet as tolerated -- Empirically on IV Zosyn>> transition to oral antibiotics on discharge -- recommend to get colonoscopy as outpatient Plan to discharge home today Abnormal urinalysis ? Likely contaminated sample Urine culture pending Empirically on Zosyn (2) Hypokalemia: Plan: Likely from GI losses Monitor and replace electrolytes as needed (3) Hypomagnesemia: Plan: Likely from GI losses Monitor and replace electrolytes as needed (4) Hyperglycemia: (5) Diabetes mellitus, type II: Plan: Patient states that her blood glucose levels run in 200s at home A1c: 5.3--likely falsely low Hold home metformin, Ozempic Novolog sliding scale per protocol Monitor BGs (6) Abnormal urinalysis: Plan: As above (7) Hepatitis C: Plan: Complete treatment 05/2023 Followed [facility] (8) Mild persistent asthma: Plan: No signs of acute exacerbation Xopenex prn SOB Continue home inhalers (9) Anxiety: (10) Bipolar disorder: Plan: Continue home medications (11) Marijuana use: Plan: Smokes every 2-3 days. Counseled to quit (12) Tobacco use: Plan: 1/2 ppd Encouraged smoking cessation Nicotine patch (13) History of intravenous drug abuse: Plan: Prior IV methamphetamine use Reports not used in over 10 years DVT Prophylaxis SCDs for now Encouraged to ambulate Disposition Home Plan Attending Addendum: Case reviewed with the advanced practitioner. I have personally performed a history and physical examination on the patient. I have reviewed the advanced practitioner's documentation on the date of service referenced in note, and I agree with, and take responsibility for the plan of care. please refer to her notes for full details patient seen and examined, records reviewed by myself as well on exam, patient seen resting in bed, comfortable, smiling feels better compared to earlier no other newsymptoms VS noted and reviewed oriented x 3 , not in distress, speaks in sentences with no effort nor accessory muscle use normal rate, regular rhythm, no murmurs clear breath sounds bilaterally non distended, soft, nontender no bipedal edema, erythema, warmth no neuro deficits all labs, imaging noted and reviewed ASSESSMENT AND PLAN> INTRACTABLE NAUSEA/VOMITING, DIARRHEA COLITIS improving check stool cultures, C diff IV Zosyn Phenergan q6h replace electrolytes other diagnoses and plan of care as per advanced practitioner's notes Eric Delarosa MD Admission and Anticipated Discharge Date Admission Date: November 10, 2023 Subjective Patient is seen and examined at bedside Still has intermittent nausea and feels tired Diarrhea resolved Denies any other complaints Prefers to be discharged home today Denies any chest pain, dyspnea, abdominal pain Review of Systems Review of Systems: All systems reviewed & are unremarkable except as noted in Subjective Physical Exam Physical Exam: Physical Exam: Vitals signs as noted above General Appearance:Moderately built and nourished, no apparent distress Head: normocephalic, Atraumatic Eyes: normal inspection, EOMI Neck: supple, Trachea midline Respiratory/Chest: Normal breath sounds, CTA, No accessory muscle use Cardiovascular: S1, S2, No murmur Abdomen/GI:Soft, Non tender, Bowel sounds present Extremities/Musculoskeletal:normal inspection, no edema Neurologic/Psych:AAOX3, grossly no focal neurological deficits Skin: normal color, warm Results & Data Results & Data Vital Signs (Past 12 Hours) Vital Signs Temp Pulse Pulse Resp BP Pulse Ox O2 Del Method 11/12/23 11:17 37.0 C 85 18 128/82 99 Room Air 11/12/23 07:48 36.8 C 93 H 18 127/84 96 Room Air 11/12/23 07:20 Room Air 11/12/23 07:16 70 11/12/23 06:31 80 18 100 Room Air 11/12/23 02:51 36.9 C 76 16 125/80 98 Room Air Laboratory Results Short CBC 11/12/23 Range/Units 05:17 WBC 6.83 (4.8-10.8) K/ul Hgb 13.3 (12.0-16.0) g/dl Hct 40.4 (37.0-47.0) % Plt Count 120 L (130-400) K/uL BMP 11/12/23 05:17 Sodium 137 Potassium 3.7 Chloride 107 Carbon Dioxide 24 BUN 8 Creatinine 0.68 Glucose 138 H Calcium 8.3 L
--- NOTE | 2023-11-12 13:41 | Discharge Summary ---
Date of Service November 12, 2023 Admission HPI Per Admitting Provider Patient is a 38-year-old female with PMH DM II, mild persistent asthma, anxiety, bipolar disorder, history of prior IV drug abuse, chronic hep C completed treatment, marijuana use, tobacco use presented to ER with complaint of nausea, vomiting, diarrhea started this morning. History obtained from patient and outpatient chart review. Patient reports has been on Ozempic for the several months for diabetes. She reports she previously was on Trulicity however was having trouble obtaining with insurance/pharmacy issues. Since being on Ozempic patient reports after her weekly dose the following day will have nausea and sometimes have episode of vomiting. Denies any recent dosage change. She reports is on metformin and since being on metformin has had intermittent loose stools. This morning woke up 4 AM with nausea, vomiting, watery diarrhea. She reports over 10 episodes of vomiting and numerous episodes of diarrhea. Denies any abdominal pain, fever. She reports had chills today. Denies ill contacts, recent travel, eating undercooked foods, or well water. Was on Augmentin 1 month ago for dental infection. Patient reports dental infection cleared but she has chronic poor dentition with multiple broken teeth. LMP 11/06/2023. Reports still has menses. Denies dysuria, urinary frequency or urgency. Unclear if has hematuria as currently menstruating. Denies diaphoresis, hematemesis, melena, hematochezia, KOHLI, dizziness, syncope, CP, SOB, palpitations, cough, sore throat, rhinorrhea, paresthesias, extremity weakness, extremity edema, rashes. Admission Exam Per Admitting Provider General: no distress, WDWN Head: normocephalic, atraumatic Eyes: conjunctiva non-injected, anicteric ENT: normal inspection external ears, nose, mucous membranes mildly dry, +poor dentition with multiple caries and dental fractures Neck: supple, trachea midline Lungs: no respiratory distress, +scattered wheezing throughout, No rhonchi/rales CV: regular rhythm, +tachycardia rate 103, no murmur, no pretibial edema Abd: normal BS, soft, non-tender to palpation Ext: no cyanosis, no calf tenderness Neuro: A&O x 3, no focal deficits noted, normal affect Skin: warm, dry, +multiple healed prior excoriations and discolored areas to bilateral upper and lower extremities Principal Diagnosis Colitis Abnormal urinalysis Hypokalemia Hypomagnesemia Discharge Data Allergies Allergy/AdvReac Type Severity Reaction Status Date / Time Sulfa (Sulfonamide AdvReac Intermediate GI SYMPTOMS Verified 11/10/23 17:06 Antibiotics) Consultations 11/10/23 16:17 ED Decision to Admit Stat Procedures Performed Laboratory Results WBC 6.83 K/ul (4.8-10.8) 11/12/23 05:17 RBC 4.16 M/uL (4.20-5.40) L 11/12/23 05:17 Hgb 13.3 g/dl (12.0-16.0) 11/12/23 05:17 POC Hgb 17.3 g/dl (12.0-16.0) H 11/10/23 13:47 Hct 40.4 % (37.0-47.0) 11/12/23 05:17 POC Hct 51 % (37-47) H 11/10/23 13:47 MCV 97.1 fL (80.0-100.0) 11/12/23 05:17 MCH 32.0 pg (25.0-34.0) 11/12/23 05:17 MCHC 32.9 g/dL (32.0-36.0) 11/12/23 05:17 RDW Std Deviation 45.2 fL (36.4-46.3) 11/12/23 05:17 RDW Coeff of Carla 12.7 % (11.5-14.5) 11/12/23 05:17 Plt Count 120 K/uL (130-400) L 11/12/23 05:17 MPV 10.5 fL (9.4-12.4) 11/12/23 05:17 Immature Gran % (Auto) 0.7 % 11/10/23 13:40 Neut % (Auto) 80.9 % 11/10/23 13:40 Lymph % (Auto) 12.2 % 11/10/23 13:40 [place] % (Auto) 6.0 % 11/10/23 13:40 Eos % (Auto) 0.0 % 11/10/23 13:40 Baso % (Auto) 0.2 % 11/10/23 13:40 Neut # (Auto) 7.92 K/uL (1.40-6.50) H 11/10/23 13:40 Lymph # (Auto) 1.19 K/uL (1.20-3.40) L 11/10/23 13:40 [place] # (Auto) 0.59 K/uL (0.11-0.59) 11/10/23 13:40 Eos # (Auto) 0.00 K/uL (0.00-0.50) 11/10/23 13:40 Baso # (Auto) 0.02 K/uL (0.00-0.20) 11/10/23 13:40 Immature Gran # (Auto) 0.07 K/uL (0.01-0.20) 11/10/23 13:40 VBG pH 7.43 (7.36-7.41) H 11/10/23 17:05 VBG pCO2 33 mmHg (38-50) L 11/10/23 17:05 VBG pO2 24 mmHg 11/10/23 17:05 VBG HCO3 22 mmol/L 11/10/23 17:05 VBG O2 Saturation < 60.0 % 11/10/23 17:05 VBG Base Excess -1.7 mEq/L 11/10/23 17:05 POC Sodium 141 mmol/L (135-144) 11/10/23 13:47 Sodium 137 mmol/L (136-145) 11/12/23 05:17 POC Potassium 3.2 mmol/L (3.3-5.0) L 11/10/23 13:47 Potassium 3.7 mmol/L (3.5-5.1) 11/12/23 05:17 POC Chloride 107 mmol/L (101-112) 11/10/23 13:47 Chloride 107 mmol/L (98-107) 11/12/23 05:17 Carbon Dioxide 24 mmol/L (21-32) 11/12/23 05:17 POC Total CO2 15 mmol/L (24-31) L 11/10/23 13:47 Anion Gap 6 (3-11) 11/12/23 05:17 POC Anion Gap 23.0 mmol/L (16-25) 11/10/23 13:47 POC BUN 9 mg/dl (7-18) 11/10/23 13:47 BUN 8 mg/dl (6-23) 11/12/23 05:17 Creatinine 0.68 mg/dl (0.6-1.2) 11/12/23 05:17 POC Creatinine 0.6 mg/dl (0.6-1.3) 11/10/23 13:47 Est Cr Clr Drug Dosing 109.0 ml/min 11/12/23 05:17 Est GFR ( Amer) 129.5 ml/min 11/12/23 05:17 Est GFR (Non-Af Amer) 111.7 ml/min 11/12/23 05:17 BUN/Creatinine Ratio 11.8 (10-20) 11/12/23 05:17 Glucose 138 mg/dl (70-99(Fasting)) H 11/12/23 05:17 POC Glucose 144 mg/dl (70-99) H 11/12/23 12:06 POC Glucose (other) 232 mg/dl (70-99) H 11/10/23 13:47 Estimat Average Glucose 105 mg/dl 11/11/23 04:26 Hemoglobin A1c 5.3 % (4.5-5.6) 11/11/23 04:26 Lactate 0.9 mmol/L (0.4-2.0) 11/11/23 04:26 Calcium 8.3 mg/dl (8.6-10.3) L 11/12/23 05:17 POC Ioniz Calcium Jazmyn 1.04 mmol/l (1.12-1.32) L 11/10/23 13:47 Magnesium 2.1 mg/dl (1.7-2.4) 11/12/23 05:17 Total Bilirubin 0.7 mg/dl (0.2-1.0) 11/10/23 13:40 AST 21 U/L (13-39) 11/10/23 13:40 ALT 26 U/L (7-52) 11/10/23 13:40 Alkaline Phosphatase 82 U/L (34-104) 11/10/23 13:40 Total Protein 8.4 gm/dl (6.0-8.3) H 11/10/23 13:40 Albumin 4.8 gm/dl (3.4-5.0) 11/10/23 13:40 Globulin 3.6 gm/dl (2.5-4.0) 11/10/23 13:40 Albumin/Globulin Ratio 1.3 (0.9-2) 11/10/23 13:40 Lipase 20 U/L (11-82) 11/10/23 13:40 HCG, Qual Negative (Negative) 11/10/23 13:40 Urine Color [place] 11/10/23 14:40 Urine Appearance Cloudy (Clear) A 11/10/23 14:40 Urine pH 7.0 (4.5-7.5) 11/10/23 14:40 Ur Specific [place] 1.025 (1.000-1.030) 11/10/23 14:40 Urine Protein 1+ (Negative) H 11/10/23 14:40 Urine Glucose (UA) 2+ (Negative) H 11/10/23 14:40 Urine Ketones 4+ (Negative) H 11/10/23 14:40 Urine Blood 3+ (Negative) H 11/10/23 14:40 Urine Nitrite Negative (Negative) 11/10/23 14:40 Urine Bilirubin Negative (Negative) 11/10/23 14:40 Urine Urobilinogen Negative (Negative) 11/10/23 14:40 Ur Leukocyte Esterase 1+ (Negative) H 11/10/23 14:40 Urine WBC (Auto) 6-10 /hpf (0-5) H 11/10/23 14:40 Urine RBC (Auto) >20 /hpf (0-2) H 11/10/23 14:40 U Hyaline Cast (Auto) 0-2 /lpf (0-2) 11/10/23 14:40 U Epithel Cells (Auto) 11-20 /hpf (0-2) H 11/10/23 14:40 Urine Bacteria (Auto) None Seen (None Seen) 11/10/23 14:40 Impressions Abdomen/Pelvis CT 11/10/23 13:[address] WITH IV CONTRAST CT DOSE: 805.88 mGy.cm HISTORY: abd pain n/v TECHNIQUE: Multiaxial CT images of the abdomen and pelvis were performed following the use of intravenous contrast. A dose lowering technique was utilized adhering to the principles of ALARA. COMPARISON STUDY: Abdomen and pelvis CT 03/22/2021. FINDINGS: The lung bases are clear. No pneumoperitoneum. No pneumatosis. No acute fractures. The liver, gallbladder, pancreas, spleen, and adrenal glands are unremarkable. The kidneys enhance normally. No hydronephrosis. The main portal vein is patent. Normal caliber abdominal aorta. No retroperitoneal or pelvic lymphadenopathy. No pelvic free fluid. Mild bladder wall thickening. This could be due to underdistention. The uterus and bilateral adnexa are within normal limits including a 2.2 cm left ovarian cyst. No evidence for bowel obstruction. The colon is decompressed resulting in suboptimal evaluation. There is question of mild circumferential thickening throughout the colon. The appendix is mostly obscured. There are few small foci of gas suspected within the appendix. No inflammatory changes at the cecal base to suggest acute appendicitis at this time. IMPRESSION: 1. Mild circumferential thickening versus underdistention throughout the colon. A low-grade colitis would be the diagnosis of exclusion. 2. No evidence for a bowel obstruction. 3. Bladder wall thickening likely due to underdistention. Recommend correlation with urinalysis to exclude a cystitis. ACT 112: Negative or not required by law. Electronically signed by: Rayshawn Medina M.D. 11/10/2023 3:06 PM Chest X-Ray 11/10/23 13:31 XR chest 1V portable HISTORY: Weakness. COMPARISON: Chest 11/24/2021. FINDINGS: The lungs are clear. Cardiac silhouette is normal in size. No pleural effusions. No pneumothorax. IMPRESSION: No acute process. ACT 112: Negative or not required by law. Electronically signed by: Rayshawn Medina M.D. 11/10/2023 2:46 PM Ordered Studies 11/10/23 13:31 CT Abd and Pelvis [CT abd pelvis IV con only] Stat Hospital Course (1) Nausea, vomiting and diarrhea: Patient is a 38-year-old female with PMH DM II, mild persistent asthma, anxiety, bipolar disorder, history of prior IV drug abuse, chronic hep C completed clarisa atment, marijuana use, tobacco use presented to ER with complaint of nausea, vomiting, diarrhea started this morning. In ER afebrile, P: 106, R: 22, BP: 154/89, 100% on RA. No leukocytosis. Lactate: 4.3, A, VBG: pH: 7.59, pCO2: 17, Gluc: 221. Negative HCG Nausea, vomiting, diarrhea Colitis DD: Related to Ozempic R/O infectious etiology --CT ABD: Mild circumferential thickening versus underdistention throughout the colon. A low-grade colitis would be the diagnosis of exclusion. No evidence for a bowel obstruction. Bladder wall thickening likely due to underdistention. Recommend correlation with urinalysis to exclude a cystitis. -- Stool studies pending ( no recurrence of diarrhea while hospitalized) --Blood cultures negative to date --Advance diet as tolerated -- Empirically on IV Zosyn>> transition to oral antibiotics on discharge -- recommend to get colonoscopy as outpatient Plan to discharge home today Abnormal urinalysis ? Likely contaminated sample Urine culture pending Empirically on Zosyn (2) Hypokalemia: Likely from GI losses Monitor and replace electrolytes as needed (3) Hypomagnesemia: Likely from GI losses Monitor and replace electrolytes as needed (4) Hyperglycemia: (5) Diabetes mellitus, type II: Patient states that her blood glucose levels run in 200s at home A1c: 5.3--likely falsely low Hold home metformin, Ozempic Novolog sliding scale per protocol Monitor BGs (6) Abnormal urinalysis: As above (7) Hepatitis C: Complete treatment 05/2023 Followed with [facility] (8) Mild persistent asthma: No signs of acute exacerbation Xopenex prn SOB Continue home inhalers (9) Anxiety: (10) Bipolar disorder: Continue home medications (11) Marijuana use: Smokes every 2-3 days. Counseled to quit (12) Tobacco use: 04/30 ppd Encouraged smoking cessation Nicotine patch (13) History of intravenous drug abuse: Prior IV methamphetamine use Reports not used in over 10 years DVT Prophylaxis SCDs for now Encouraged to ambulate Disposition Home Plan Attending Addendum: Case reviewed with the advanced practitioner. I have personally performed a history and physical examination on the patient. I have reviewed the advanced practitioner's documentation on the date of service referenced in note, and I agree with, and take responsibility for the plan of care. please refer to her notes for full details patient seen and examined, records reviewed by myself as well on exam, patient seen resting in bed, comfortable, smiling feels better compared to earlier no other newsymptoms VS noted and reviewed oriented x 3 , not in distress, speaks in sentences with no effort nor accessory muscle use normal rate, regular rhythm, no murmurs clear breath sounds bilaterally non distended, soft, nontender no bipedal edema, erythema, warmth no neuro deficits all labs, imaging noted and reviewed ASSESSMENT AND PLAN> INTRACTABLE NAUSEA/VOMITING, DIARRHEA COLITIS improving check stool cultures, C diff IV Zosyn Phenergan q6h replace electrolytes other diagnoses and plan of care as per advanced practitioner's notes Eric Delarosa MD Total Time Total Time Spent Total Time Spent (In Minutes): 54 minutes Discharge Plan Discharge Items Patient Disposition: Home - Self-Care Reason For Visit: N/V Discharge Diagnosis: Colitis Abnormal urinalysis Hypokalemia Hypomagnesemia Activity: Per Instructions section Exercise/Sports: Gradually increase as tolerated Non-emergency contact: Primary Care Provider Call non-emergency contact if: you have any medication questions, your symptoms worsen, your pain is concerning for you and you have a fever Follow-up/Referrals: Ender Ponce MD [Primary Care Provider] - (Date & Time 11/18/2023 11:00 AM Provider Ender Ponce MD Department [facility] ) Diet: Carb Consistent or DM2 and Heart Healthy Addtl Attending Provider Instructions: Follow-up with your primary care physician Dr. Ponce as scheduled Consider following with your registered radiologic technologist for possible colonoscopy as outpatient --Your blood, Urine cultures are pending at the time of discharge. Follow-up with your physician for results. --Complete the antibiotic Augmentin course as prescribed. Seek immediate medical attention if your symptoms reoccur or worsen Please take all medications as instructed on discharge list below. Please call if you have any questions or problems. You can reach a [facility] hospitalist on duty at [facility] 24 hours a day by calling [phone] Pending Studies at Discharge: Yes Stand-Alone Forms: My [facility], Smoking Cessation Medications and DC Order Prescriptions: New amoxicillin-pot clavulanate [Augmentin] 500-125 mg tablet 1 tab PO BID Qty: 10 0RF ondansetron HCl 4 mg tablet 4 mg PO BID PRN (Reason: nausea and vomiting) 4 Days Qty: 10 0RF Continued doxepin 50 mg capsule 50 mg PO HS albuterol sulfate 90 mcg/actuation HFA aerosol inhaler 2 puff INHALATION QID paroxetine HCl 40 mg tablet 60 mg PO QAM metformin 500 mg tablet extended release 24 hr 1,000 mg PO QAM medroxyprogesterone [Depo-Provera Contraceptive] 150 mg/mL Suspension 150 mg IM DIRECTED fluticasone propionate [Flovent HFA] 110 mcg/actuation Hfa Aerosol Inhaler 2 puff INHALATION BID Ozempic 1 mg/dose (4 mg/3 mL) pen injector 1 mg SUBCUT .QSAT Discharge Orders: Discharge Order (Routine); Ordered 11/12/23 Ordered By: Cheko Hazel Admission Data Admit Date/Time: 11/10/23 16:25 Attending Provider: Cheko Hazel Admit Provider: Eric Delarosa Primary Care Provider: Ender Ponce Other Providers: Eric Delarosa
== END 2023-11-12 15:52 | disposition home or self-care (01) ==
LOC: ED 13:06 → INTOOBSV 16:25 → 2N 16:25 → SUATTDRO 16:25 → 2N 21:56

== ENCOUNTER 2024-01-30 06:56 | Inpatient (IN) ==
--- NOTE | 2024-01-30 07:20 | Emergency Department Note ---
History of Present Illness General Chief complaint: Vomiting Stated complaint: VOMITING,FLANK PAIN Time Seen by Provider: 01/30/24 07:04 History of Present Illness Maximum Pain Intensity: 8 This is a 38-year-old female that presents to the emergency department via private vehicle with complaints of "vomiting, back pain". The patient notes 3 days ago she began with vomiting. She cannot keep any food or water down. She notes every time she tries eat or drink she begins to vomit. Mild nonproductive cough. No chest pain or shortness of breath. Mild headache. Mild sore throat that began after vomiting. No preceding sore throat. No recent exposures to strep pharyngitis. The patient does note bilateral back pain, noting history of kidney stones. The patient did take 3 Advil as well as 2 Zofran tablets yesterday with minimal relief of her symptoms. Patient believes that she is very dehydrated at this time. Patient does note history of type 2 diabetes. History of hep C, she notes currently cleared. Current pain 12/06 no diarrhea. No fever. Home Medications Medication Instructions Recorded Confirmed Type albuterol sulfate 90 mcg/actuation 2 puff inhalation QID 11/10/23 01/30/24 History aerosol inhaler doxepin 50 mg capsule 50 mg PO HS 11/10/23 01/30/24 History fluticasone propionate 110 0 puff inhalation BID 11/10/23 01/30/24 History mcg/actuation HFA aerosol inhaler medroxyprogesterone 150 mg/mL 0 mg IM DIRECTED 11/10/23 01/30/24 History intramuscular suspension paroxetine HCl 40 mg tablet 60 mg PO QAM 11/10/23 01/30/24 History Allergies Allergy/AdvReac Type Severity Reaction Status Date / Time Sulfa (Sulfonamide AdvReac Intermediate GI SYMPTOMS Verified 01/30/24 09:12 Antibiotics) Past Med/Surg History Problem List (Updated 01/30/24 @ 14:40 by Liam Menezes PA-C) Pyelonephritis (Acute) DKA (diabetic ketoacidosis) (Acute) Acute hyperglycemia (Acute) Low bicarbonate (Acute) Elevated lactic acid level (Acute) History of intravenous drug abuse Tobacco use Bipolar disorder Anxiety Mild persistent asthma Hepatitis C Abnormal urinalysis Diabetes mellitus, type II Hyperglycemia Hypomagnesemia Hypokalemia Nausea, vomiting and diarrhea (Acute) Asthma (Acute) Bipolar I disorder, single manic episode (Acute) Common migraine without aura (Acute) Other, mixed, or unspecified nondependent drug abuse, continuous (Acute) Esophageal reflux (Acute) Marijuana use (Acute) Abscess of right groin (Acute) Bright red blood per rectum (Acute) Dental abscess (Acute) Otitis media (Acute) Pain, dental (Acute) Pain, dental (Acute) Pain, dental (Acute) Medical History Carpal tunnel syndrome Diabetes Kidney stones Surgical History Hx of tonsillectomy History of delivery Family History Grandmother (Maternal) Colorectal cancer Ovarian cancer Social History Smoking Status: Current every day smoker Tobacco Type: Cigarettes Do You Dip or Chew Tobacco: No; Hx Alcohol Use: Yes Alcohol type: beer, wine and hard liquor Hx Substance Use: No Preferred Language: Filipino Communication Ability: Effective Equipment Maintenance Supervisor Required: No Beliefs That Will Affect Care: None Current Living Situation: Family Current Living Situation Comment: lives with mother, aunt, Feels Safe at Home: Yes Assistive Devices: None Review of Systems A total of 10 systems reviewed and were otherwise negative Physical Exam Vital Signs Vital Signs - 24 hr 01/30/24 06:59 01/30/24 07:30 01/30/24 07:45 Temperature 36.8 C Temperature Source Temporal Artery Scan Pulse Rate 139 H 133 H 129 H Pulse Rate from SpO2 Sensor Pulse Rhythm Regular Pulse Strength Normal Respiratory Rate 18 13 31 H Respiratory Effort / Characteristics Non-Labored Spontaneous Respiratory Depth Normal Respiratory Pattern Regular Blood Pressure 159/108 H Blood Pressure Mean 125 Blood Pressure Position Sitting Pulse Oximetry 99 Oxygen Delivery Method Room Air Sepsis Recent Fever Within 48 Hours No Sepsis New/Unexplained Change in Mental Status N/A Sepsis Action Taken by Nursing No Action Required 01/30/24 07:47 01/30/24 07:57 01/30/24 08:00 Temperature Temperature Source Pulse Rate 129 H Pulse Rate from SpO2 Sensor 130 H Pulse Rhythm Pulse Strength Respiratory Rate 21 Respiratory Effort / Characteristics Respiratory Depth Respiratory Pattern Blood Pressure 149/108 H 156/104 H Blood Pressure Mean 125 135 Blood Pressure Position Pulse Oximetry 98 Oxygen Delivery Method Room Air Sepsis Recent Fever Within 48 Hours Sepsis New/Unexplained Change in Mental Status Sepsis Action Taken by Nursing 01/30/24 08:15 01/30/24 08:26 01/30/24 08:27 Temperature Temperature Source Pulse Rate 132 H 128 H Pulse Rate from SpO2 Sensor 128 H Pulse Rhythm Pulse Strength Respiratory Rate 24 Respiratory Effort / Characteristics Respiratory Depth Respiratory Pattern Blood Pressure 154/110 H Blood Pressure Mean 135 Blood Pressure Position Pulse Oximetry 100 Oxygen Delivery Method Room Air Sepsis Recent Fever Within 48 Hours Sepsis New/Unexplained Change in Mental Status Sepsis Action Taken by Nursing 01/30/24 08:45 01/30/24 08:55 01/30/24 08:57 Temperature 36.4 C Temperature Source Oral Pulse Rate 136 H Pulse Rate from SpO2 Sensor Pulse Rhythm Pulse Strength Respiratory Rate 22 Respiratory Effort / Characteristics Respiratory Depth Respiratory Pattern Blood Pressure 142/105 H Blood Pressure Mean 112 Blood Pressure Position Pulse Oximetry Oxygen Delivery Method Sepsis Recent Fever Within 48 Hours Sepsis New/Unexplained Change in Mental Status Sepsis Action Taken by Nursing 01/30/24 09:00 01/30/24 09:00 01/30/24 09:24 Temperature Temperature Source Pulse Rate 136 H 134 H Pulse Rate from SpO2 Sensor 134 H Pulse Rhythm Pulse Strength Respiratory Rate 22 Respiratory Effort / Characteristics Respiratory Depth Respiratory Pattern Blood Pressure 163/106 H Blood Pressure Mean 139 Blood Pressure Position Pulse Oximetry 100 Oxygen Delivery Method Room Air Sepsis Recent Fever Within 48 Hours Sepsis New/Unexplained Change in Mental Status Sepsis Action Taken by Nursing 01/30/24 09:30 01/30/24 09:30 01/30/24 09:42 Temperature Temperature Source Pulse Rate 135 H 136 H Pulse Rate from SpO2 Sensor 135 H 137 H Pulse Rhythm Pulse Strength Respiratory Rate 23 25 H Respiratory Effort / Characteristics Respiratory Depth Respiratory Pattern Blood Pressure 142/97 H Blood Pressure Mean 128 Blood Pressure Position Pulse Oximetry 100 98 Oxygen Delivery Method Room Air Room Air Sepsis Recent Fever Within 48 Hours Sepsis New/Unexplained Change in Mental Status Sepsis Action Taken by Nursing 01/30/24 09:45 01/30/24 09:51 01/30/24 10:00 Temperature Temperature Source Pulse Rate 135 H 145 H Pulse Rate from SpO2 Sensor 135 H 146 H Pulse Rhythm Pulse Strength Respiratory Rate 17 Respiratory Effort / Characteristics Respiratory Depth Respiratory Pattern Blood Pressure 140/89 Blood Pressure Mean 102 Blood Pressure Position Pulse Oximetry 98 98 Oxygen Delivery Method Room Air Room Air Sepsis Recent Fever Within 48 Hours Sepsis New/Unexplained Change in Mental Status Sepsis Action Taken by Nursing 01/30/24 10:00 01/30/24 10:00 Temperature Temperature Source Pulse Rate Pulse Rate from SpO2 Sensor Pulse Rhythm Pulse Strength Respiratory Rate Respiratory Effort / Characteristics Respiratory Depth Respiratory Pattern Blood Pressure 148/94 H 148/94 H Blood Pressure Mean 117 117 Blood Pressure Position Pulse Oximetry Oxygen Delivery Method Sepsis Recent Fever Within 48 Hours Sepsis New/Unexplained Change in Mental Status Sepsis Action Taken by Nursing VITAL SIGNS - Vital signs and nursing notes were reviewed. Tachycardic, hypertensive, otherwise stable and afebrile. GENERAL -38-year-old female appearing her stated age who is in no acute distress. Communicates well with provider and answers questions appropriately. SKIN - Without rashes. HEAD - NC/AT. EYES - PERRL with EOMI bilaterally. Sclera anicteric. EARS - No deformities of external structures noted on gross examination bilaterally. External auditory canals without discharge or otorrhea. Tympanic membranes pearly godoy without retraction or bulging. No fluid or purulent material visualized behind the TM. Handle of malleus, umbo, cone of light, pars tensa/flaccid all easily visualized. NOSE - Midline and without cyanosis. No epistaxis or purulent drainage noted. Septum midline without deviation or septal hematoma noted. MOUTH/OROPHARYNX - Without perioral cyanosis. Buccal mucosa pink and moist and without leukoplakia. Tongue midline with equal elevation of palate bilaterally. No tonsillar hypertrophy, erythema, or exudates noted. Fair dentition noted. NECK - Neck with FROM. Supple to palpation. No lymphadenopathy noted. No nuchal rigidity. LUNGS - Chest wall symmetric without accessory muscle use, intercostals retractions, or central cyanosis. Normal vesicular breath sounds CTA B/L. No wheezes, rales, or rhonchi appreciated. CARDIAC -tachycardic, no irregular rhythm ABDOMEN - Abdominal contour normal without pulsations or visible masses. BS normoactive all four quadrants. No tenderness, palpable masses, hepatosplenomegaly, or ascites noted. EXTREMITIES - No clubbing or peripheral cyanosis. +5/5 strength noted in UE/LE bilaterally. NEUROLOGIC - Cranial nerves II through XII grossly intact. PSYCH -alert, oriented and pleasant on exam Course Administered Medications Insulin Human Regular 250 (units/ Sodium Chloride) 250 mls @ 7.4 mls/hr IV .Q24H ROSA; Protocol Stop: 02/29/24 08:29 Last Titration: 01/30/24 12:43 Dose: 7.4 units/hr, 7.4 mls/hr Documented By: ADELSO Co-signed By: ERLIN Titration: 01/30/24 11:38 Dose: 9.2 units/hr, 9.2 mls/hr Documented By: ADELSO Co-signed By: CLARY Titration: 01/30/24 10:29 Dose: 7.7 units/hr, 7.7 mls/hr Documented By: ADELSO Co-signed By: PRETTY Admin: 01/30/24 09:18 Dose: 7.7 units/hr, 7.7 mls/hr Documented By: JOSE DAVID Co-signed By: ADELSO Cefepime HCl (Maxipime 2000mg) 2,000 mg in 20 mls @ 5 mls/min IV Q12H [facility]; Protocol Stop: 02/09/24 10:59 Last Admin: 01/30/24 11:33 Dose: 5 mls/min Documented By: ADELSO Potassium Chloride 40 meq/ (Sodium Chloride) 1,020 mls @ 125 mls/hr IV .Q8H10M ROSA Stop: 02/29/24 12:29 Last Admin: 01/30/24 14:41 Dose: 125 mls/hr Documented By: JENN Insulin Aspart (Insulin Aspart Per Unit Charge) 0 units SC ACHS ROSA Stop: 02/29/24 11:29 Last Admin: 01/30/24 12:54 Dose: Not Given Documented By: JENN Metoclopramide HCl (Metoclopramide Hcl Inj 5 Mg/Ml 2 Ml Vial) 5 mg IV Q6H PRN PRN Reason: nausea Stop: 02/29/24 10:44 Last Admin: 01/30/24 11:42 Dose: 5 mg Documented By: ADELSO Morphine Sulfate (Morphine Sulfate 2 Mg/Ml Carp) 2 mg IV Q3H PRN PRN Reason: severe pain Stop: 02/13/24 10:44 Last Admin: 01/30/24 11:42 Dose: 2 mg Documented By: ADELSO Discontinued Medications Fentanyl Citrate (Fentanyl Citrate Pf 100 Mcg/2 Ml Vial) 50 mcg IV NOW STA Stop: 01/30/24 07:35 Last Admin: 01/30/24 07:41 Dose: 50 mcg Documented By: ADELSO Fentanyl Citrate (Fentanyl Citrate Pf 100 Mcg/2 Ml Vial) 25 mcg IV NOW STA Stop: 01/30/24 08:26 Last Admin: 01/30/24 08:46 Dose: 25 mcg Documented By: ADELSO Sodium Chloride (Nss) 1,000 mls @ 999 mls/hr IV .Q1H1M ROSA Stop: 01/30/24 08:15 Last Infusion: 01/30/24 09:24 Dose: Infused Documented By: Admin: 01/30/24 07:46 Dose: 999 mls/hr Documented By: ADELSO Piperacillin Sod/Tazobactam Sod (Zosyn) 4.5 gm in 100 mls @ 200 mls/hr IV NOW ONE Stop: 01/30/24 08:26 Last Infusion: 01/30/24 09:24 Dose: Infused Documented By: Admin: 01/30/24 08:12 Dose: 200 mls/hr Documented By: ADELSO Sodium Chloride (Nss) 1,000 mls @ 999 mls/hr IV .Q1H1M ROSA Stop: 01/30/24 09:00 Last Infusion: 01/30/24 12:38 Dose: Infused Documented By: Admin: 01/30/24 08:12 Dose: 999 mls/hr Documented By: ADELSO Sodium Bicarbonate 75 meq/ (Sodium Chloride) 1,075 mls @ 100 mls/hr IV .[id number] ROSA; Protocol Stop: 02/29/24 10:14 Last Admin: 01/30/24 11:08 Dose: 100 mls/hr Documented By: ADELSO Insulin Human Regular (Novolin-R Bolus From Bag) 8 units IV ONE ONE Stop: 01/30/24 08:46 Last Admin: 01/30/24 09:18 Dose: 8 units Documented By: JOSE DAVID Co-signed By: ADELSO Ioversol (Optiray 320 100ml) 94 ml IV ONCE ONE Stop: 01/30/24 08:30 Last Admin: 01/30/24 08:29 Dose: 94 ml Documented By: RON Metoclopramide HCl (Metoclopramide Hcl Inj 5 Mg/Ml 2 Ml Vial) 5 mg IV ONE ONE Stop: 01/30/24 08:26 Last Admin: 01/30/24 08:46 Dose: 5 mg Documented By: ADELSO Miscellaneous (Stat Iv Infusion Titration Per Protocol) 1 each N/A NOW STA Stop: 01/30/24 08:28 Last Admin: 01/30/24 09:18 Dose: 1 each Documented By: JOSE DAVID Ondansetron HCl (Ondansetron Inj 2 Mg/Ml 2 Ml Vial) 4 mg IV NOW STA Stop: 01/30/24 07:17 Last Admin: 01/30/24 07:41 Dose: 4 mg Documented By: ADELSO Critical Care Time Critical Care Time: Yes Total Critical Care Time: 42 I have personally spent greater about 42 minutes of critical care time in the direct management of this patient. This includes bedside care, interpretation of diagnostic studies, and testing, discussion with consultants, patient, and family members, and other required patient management activities. This 42 minutes is in excess of all separately billable procedures. Medical Decision Making Laboratory Data 01/30/24 07:23 01/30/24 14:01 Lab Results 01/30/24 01/30/24 01/30/24 Range/Units 07:23 09:13 10:08 WBC 20.05 H (4.8-10.8) K/ul RBC 4.52 (4.20-5.40) M/uL Hgb 14.3 (12.0-16.0) g/dl Hct 44.6 (37.0-47.0) % MCV 98.7 (80.0-100.0) fL MCH 31.6 (25.0-34.0) pg MCHC 32.1 (32.0-36.0) g/dL RDW Std Deviation 44.9 (36.4-46.3) fL RDW Coeff of Carla 12.3 (11.5-14.5) % Plt Count 143 (130-400) K/uL MPV 11.7 (9.4-12.4) fL Immature Gran % (Auto) 2.2 % Neut % (Auto) 85.9 % Lymph % (Auto) 2.6 % [place] % (Auto) 9.0 % Eos % (Auto) 0.0 % Baso % (Auto) 0.3 % Neut # (Auto) 17.19 H (1.40-6.50) K/uL Lymph # (Auto) 0.53 L (1.20-3.40) K/uL [place] # (Auto) 1.80 H (0.11-0.59) K/uL Eos # (Auto) 0.01 (0.00-0.50) K/uL Baso # (Auto) 0.07 (0.00-0.20) K/uL Immature Gran # (Auto) 0.45 H (0.01-0.20) K/uL ABG pH < 7.00 L* (7.35-7.45) ABG pCO2 16 L (35-46) mmHg ABG pO2 180 H (80-95) mmHg ABG HCO3 TNP ABG O2 Saturation 100.0 H (90-95) % ABG Base Excess TNP [place] Test Pos (Pos) VBG pH < 7.00 L (7.36-7.41) VBG pCO2 26 L (38-50) mmHg VBG pO2 50 mmHg VBG HCO3 TNP VBG O2 Saturation 78.5 % VBG Base Excess TNP Oxygen Given ROOM AIR Sodium 127 L (136-145) mmol/L Potassium 4.9 (3.5-5.1) mmol/L Chloride 92 L (98-107) mmol/L Carbon Dioxide 8 L* (21-32) mmol/L Anion Gap 27 H (3-11) BUN 26 H (6-23) mg/dl Creatinine 1.47 H (0.6-1.2) mg/dl Est Cr Clr Drug Dosing 51.5 ml/min eGFR 46.87 BUN/Creatinine Ratio 17.7 (10-20) Glucose 631 H* (70-99(Fasting)) mg/dl Estimat Average Glucose 169 mg/dl Hemoglobin A1c 7.5 H (4.5-5.6) % Lactate 3.3 H* 2.2 H* (0.4-2.0) mmol/L Calcium 10.5 H (8.6-10.3) mg/dl Magnesium 2.4 (1.7-2.4) mg/dl Total Bilirubin 0.6 (0.2-1.0) mg/dl AST 23 (13-39) U/L ALT 36 (7-52) U/L Alkaline Phosphatase 208 H (34-104) U/L Total Protein 9.8 H (6.0-8.3) gm/dl Albumin 4.7 (3.4-5.0) gm/dl Globulin 5.1 H (2.5-4.0) gm/dl Albumin/Globulin Ratio 0.9 (0.9-2) Lipase 49 (11-82) U/L Procalcitonin 2.74 H (0-0.5) ng/ml HCG, Qual Negative (Negative) Urine Color Yellow Urine Appearance Cloudy A (Clear) Urine pH 5.0 (4.5-7.5) Ur Specific [place] 1.024 (1.000-1.030) Urine Protein 3+ H (Negative) Urine Glucose (UA) 3+ H (Negative) Urine Ketones 4+ H (Negative) Urine Blood 3+ H (Negative) Urine Nitrite Negative (Negative) Urine Bilirubin Negative (Negative) Urine Urobilinogen Negative (Negative) Ur Leukocyte Esterase Negative (Negative) Urine WBC (Auto) 6-10 H (0-5) /hpf Urine RBC (Auto) 11-20 H (0-2) /hpf U Hyaline Cast (Auto) 3-5 H (0-2) /lpf U Epithel Cells (Auto) 11-20 H (0-2) /hpf Urine Bacteria (Auto) None Seen (None Seen) Imaging Data Radiologist's Impression: Abdomen/Pelvis CT 01/30/24 07:16 CT SCAN OF THE ABDOMEN AND PELVIS WITH IV CONTRAST CLINICAL HISTORY: Vomiting. Low back pain. COMPARISON STUDY: Abdominal CT dated 11/10/2023. TECHNIQUE: Following the IV administration of 94 cc of Optiray 320, CT scan of the abdomen and pelvis is performed from the lung bases to the proximal femora. Images are reviewed in the axial, sagittal, and coronal planes. IV contrast was administered without complication. A dose lowering technique was utilized adhering to the principles of ALARA. CT DOSE: 874.31 mGy.cm FINDINGS: Lung bases: The heart is normal in size and without pericardial effusion. The lung bases are clear. Liver: The contrast-enhanced liver is enlarged, measuring 20.5 cm in length. Attenuation is diffusely diminished indicating steatosis. Fatty sparing is seen adjacent to the gallbladder fossa. There is no intrahepatic biliary ductal dilatation. The hepatic veins and portal veins are patent. Gallbladder: Adenomyomatosis is noted in the fundal region. The gallbladder is otherwise normal as visualized. Spleen: Normal in size and attenuation. Pancreas: Unremarkable. Adrenal glands: Unremarkable. Kidneys: The contrast enhanced kidneys abnormality enlarged and edematous. There is no hydronephrosis. Urothelial thickening and enhancement seen within the renal pelvis bilaterally as well as both ureters. Both kidneys enhance heterogeneously with a striated nephrogram and there is mild bilateral perinephric stranding. Abdominal vasculature: The abdominal aorta is normal in course and caliber. Bowel: There is mild to moderate colonic fecal retention. No bowel obstruction is seen. The appendix is well-visualized and normal. Peritoneum: There is no intraperitoneal free air or abdominal ascites. There is a fat-containing umbilical hernia. Lymphadenopathy: None. Pelvic viscera: The the bladder wall is thickened with mild mucosal hyperemia. The uterus and adnexa are normal as visualized. A tampon is in place. Skeletal structures: No lytic or blastic lesions are seen. IMPRESSION: 1. There is evidence of cystitis with bilateral ascending urinary tract infection/pyelonephritis. Correlate with clinical findings and urinalysis. 2. The liver is enlarged and steatotic. 3. Additional findings as above. ACT 112: Negative or not required by law. Electronically signed by: Angel Montano M.D. 01/30/2024 9:33 AM Chest X-Ray 01/30/24 07:16 XR chest 1V portable HISTORY: 38 years-old Female vomiting, back pain, cough acute chest and abdominal pain COMPARISON: 11/10/2023 TECHNIQUE: AP view of the chest FINDINGS: Cardiomediastinal and hilar silhouettes are within normal limits. No pneumothorax, pleural effusion or airspace consolidation. Bones appear grossly intact. IMPRESSION: No acute process. ACT 112: Negative or not required by law. The above report was generated using voice recognition software. It may contain grammatical, syntax or spelling errors. Electronically signed by: Hilario Hernandez M.D. 01/30/2024 8:39 AM MDM Narrative Patient was seen and evaluated as above in room B02. Review was performed of triage nursing notes and vital signs. I did review pertinent previous visits and patient history. After obtaining a thorough history and physical examination the above work up was performed. Patient presents to us today for evaluation of vomiting as well as bilateral flank/back pain. The patient notes this has been ongoing for the past 3 days. She is tachycardic on arrival. EKG was performed revealing sinus tachycardia at a rate of 135. QTc 435. QRS 96. During history and physical examination nursing staff present at bedside to obtain IV access. Unfortunately patient difficult stick, therefore blood work was obtained and IV access was established shortly thereafter. Patient is quite dehydrated. She is tachycardic. 2 L IV fluids ordered. IV antibiotics empirically ordered. IV analgesia and IV antiemetics also ordered. Laboratory studies do show hyponatremia 127. Corrected sodium 135/140 range per calculation. There is WBC elevation at 20,000. No anemia. There is VBG pH less than 7. Hyponatremia 127. Carbon oxide 8. Anion gap 27. Creatinine 1.47. Glucose 631. Initial lactate 3.3 then down trended to 2.2 after fluids. Procalcitonin 2.74. hCG negative. Urinalysis likely contaminated sample however CT scan abdomen pelvis does suggest possible ascending infection and in the setting of the back pain we will proceed with antibiotics as already ordered. Chest x-ray was also ordered and per my interpretation was negative for acute process. Formal radiology report is as above. The patient certainly does require hospitalization at this time. We will proceed with admission at this time. [facility] AM [facility]/30[facility]24. Please refer to further documentation regarding her stay. Insulin drip also ordered. I suspect pyelonephritis, DKA. Please refer to further documentation regarding her stay. In the evaluation and treatment of this patient the following differential diagnoses entertained: UTI, pyelonephritis, electrolyte disturbance, sepsis, DKA, among others Attending Attestation: I Win Foreman MD I have reviewed the advanced practitioner's documentation and agree with the plan of care. I accept the responsibility for the associated risk of managing the patient. I performed a substantive portion of the visit including involvement in all aspects of medical decision making. Impression & Plan DKA (diabetic ketoacidosis), Elevated lactic acid level, Acute hyperglycemia, Pyelonephritis Discharge Plan Visit Data Chief Complaint: Vomiting Stated Complaint: VOMITING,FLANK PAIN ED Provider: Win Foreman ED Midlevel Provider: Liam Menezes Discharge Problem: DKA (diabetic ketoacidosis), Elevated lactic acid level, Acute hyperglycemia, Pyelonephritis Patient Disposition: Admitted As Inpatient Condition: Good Discharge Instructions Interventions: ED Discharge Assessment Last Done: 01/30/24 13:21
[2024-01-30] MEDS: fentaNYL citrate PF 100 MCG/2 ML VIAL IV STA ×2 (07:41→08:46)
[2024-01-30] MEDS: ONDANSETRON INJ 2 MG/ML 2 ML VIAL IV STA (07:41)
[2024-01-30] MEDS: SODIUM CHLORIDE 0.9% 1,000 ML IV SCH ×2 (07:46→08:12)
[2024-01-30 07:49] LABS: Appearance Urine Cloudy (Clear); Bacteria Urine Automated None Seen (None Seen); Bilirubin Urine Negative (Negative); Blood Urine 3+ (Negative); Color Urine Yellow; Glucose Urine UA 3+ (Negative); Ketones Urine 4+ (Negative); Leukocyte Esterase Urine Negative (Negative); Nitrite Urine Negative (Negative); Protein Urine 3+ (Negative); Specific Gravity Urine 1.024 (1.000-1.030); Urobilinogen Urine Negative (Negative)
[2024-01-30 07:51] LABS: Basophils # (auto) 0.07 K/uL (0.00-0.20); Basophils % (auto) 0.3 %; Eosinophils # (auto) 0.01 K/uL (0.00-0.50); Hematocrit (blood only) 44.6 % (37.0-47.0); Hemoglobin 14.3 g/dl (12.0-16.0); Immature Granulocytes # (auto) 0.45 K/uL (0.01-0.20); Immature Granulocytes % (auto) 2.2 %; Lymphocytes # (auto) 0.53 K/uL (1.20-3.40); Lymphocytes % (auto) 2.6 %; Mean Corpuscular Hemoglobin 31.6 pg (25.0-34.0); Mean Corpuscular Hgb Conc 32.1 g/dL (32.0-36.0); Mean Corpuscular Volume 98.7 fL (80.0-100.0); Mean Platelet Volume 11.7 fL (9.4-12.4); Neutrophils # (auto) 17.19 K/uL (1.40-6.50); Neutrophils % (auto) 85.9 %; Platelet Count 143 K/uL (130-400); RDW Coefficient of Variation 12.3 % (11.5-14.5); RDW Standard Deviation 44.9 fL (36.4-46.3); Red Blood Count 4.52 M/uL (4.20-5.40); White Blood Count 20.05 K/ul (4.8-10.8)
[2024-01-30] MEDS: PIPERACILLIN/TAZOBACTAM 4.5 GM/100 ML BAG IV ONE (08:12)
[2024-01-30 08:15] LABS: Pregnancy Test, Serum Negative (Negative)
[2024-01-30 08:17] LABS: Albumin Globulin Ratio 0.9 (0.9-2); Albumin Level 4.7 gm/dl (3.4-5.0); BUN Creatinine Ratio 17.7 (10-20); Bilirubin,Total 0.6 mg/dl (0.2-1.0); Calcium 10.5 mg/dl (8.6-10.3); Creatinine Clr Calc Pharmacy 51.5 ml/min; Globulin 5.1 gm/dl (2.5-4.0); Magnesium 2.4 mg/dl (1.7-2.4); Potassium 4.9 mmol/L (3.5-5.1); Total Protein 9.8 gm/dl (6.0-8.3)
[2024-01-30] MEDS ORDERED: GLUCOSE 40% GEL 15 GM TUBE PO PRN (08:27)
[2024-01-30] MEDS ORDERED: DEXTROSE 50% 50 ML SYRINGE IV PRN (08:27)
[2024-01-30] MEDS ORDERED: CARBOHYDRATES FOR HYPOGLYCEMIA PO PRN (08:27)
[2024-01-30] MEDS ORDERED: GLUCAGON FOR INJ 1 MG VIAL SQ PRN (08:27)
[2024-01-30] MEDS ORDERED: GLUCOSE 10 TAB/TUBE PO PRN (08:27)
[2024-01-30] MEDS: OPTIRAY 320 100ml IV ONE (08:29)
--- NOTE | 2024-01-30 08:40 | XRay Report ---
XR chest 1V portable HISTORY: 38 years-old Female vomiting, back pain, cough acute chest and abdominal pain COMPARISON: 11/10/2023 TECHNIQUE: AP view of the chest FINDINGS: Cardiomediastinal and hilar silhouettes are within normal limits. No pneumothorax, pleural effusion o r airspace consolidation. Bones appear grossly intact. IMPRESSION: No acute process. ACT 112: Negative or not required by law. The above report was generated using voice recognition software. It may contain grammatical, syntax o r spelling errors. Electronically signed by: Hilario Hernandez M.D. 01/30/2024 8:39 AM
[2024-01-30] MEDS: METOCLOPRAMIDE HCL INJ 5 MG/ML 2 ML VIAL IV ONE (08:46)
[2024-01-30] MEDS: INSULIN REGULAR 250 UNITS in SODIUM CHLORIDE 0.9% 247.5 ML IV SCH (09:18)
[2024-01-30] MEDS: NovoLIN-R BOLUS FROM BAG IV ONE (09:18)
[2024-01-30] MEDS: STAT IV Infusion **Titration per Protocol STA (09:18)
--- NOTE | 2024-01-30 09:35 | CT Scan Report ---
CT SCAN OF THE ABDOMEN AND PELVIS WITH IV CONTRAST CLINICAL HISTORY: Vomiting. Low back pain. COMPARISON STUDY: Abdominal CT dated 11/10/2023. TECHNIQUE: Following the IV administration of 94 cc of Optiray 320, CT scan of the abdomen and pelvi s is performed from the lung bases to the proximal femora. Images are reviewed in the axial, sagittal , and coronal planes. IV contrast was administered without complication. A dose lowering technique wa s utilized adhering to the principles of ALARA. CT DOSE: 874.31 mGy.cm FINDINGS: Lung bases: The heart is normal in size and without pericardial effusion. The lung bases are clear. Liver: The contrast-enhanced liver is enlarged, measuring 20.5 cm in length. Attenuation is diffusely diminished indicating steatosis. Fatty sparing is seen adjacent to the gallbladder fossa. There is n o intrahepatic biliary ductal dilatation. The hepatic veins and portal veins are patent. Gallbladder: Adenomyomatosis is noted in the fundal region. The gallbladder is otherwise normal as vi sualized. Spleen: Normal in size and attenuation. Pancreas: Unremarkable. Adrenal glands: Unremarkable. Kidneys: The contrast enhanced kidneys abnormality enlarged and edematous. There is no hydronephrosis . Urothelial thickening and enhancement seen within the renal pelvis bilaterally as well as both uret ers. Both kidneys enhance heterogeneously with a striated nephrogram and there is mild bilateral colette nephric stranding. Abdominal vasculature: The abdominal aorta is normal in course and caliber. Bowel: There is mild to moderate colonic fecal retention. No bowel obstruction is seen. The appendix is well-visualized and normal. Peritoneum: There is no intraperitoneal free air or abdominal ascites. There is a fat-containing umbi lical hernia. Lymphadenopathy: None. Pelvic viscera: The the bladder wall is thickened with mild mucosal hyperemia. The uterus and adnexa are normal as visualized. A tampon is in place. Skeletal structures: No lytic or blastic lesions are seen. IMPRESSION: 1. There is evidence of cystitis with bilateral ascending urinary tract infection/pyelonephritis. Cor relate with clinical findings and urinalysis. 2. The liver is enlarged and steatotic. 3. Additional findings as above. ACT 112: Negative or not required by law. Electronically signed by: Angel Montano M.D. 01/30/2024 9:33 AM
[2024-01-30 09:42] LABS: Oxygen Saturation VBG 78.5 %; PCO2 VBG 26 mmHg (38-50); PO2 VBG 50 mmHg; pH VBG < 7.00 (7.36-7.41)
[2024-01-30] MEDS ORDERED: STAT IV/IM STA (10:14)
[2024-01-30 10:20] LABS: PCO2 ABG 16 mmHg (35-46); PO2 ABG 180 mmHg (80-95)
[2024-01-30 10:21] LABS: Estimated Average Glucose 169 mg/dl; Hemoglobin A1C 7.5 % (4.5-5.6)
[2024-01-30 10:23] LABS: Allen Test Pos (Pos)
--- NOTE | 2024-01-30 10:38 | Critical Care Consultation ---
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 Critical care indication:DKA Plan: Neurologic no acute needs at this time Cardiac BP; 140s/90-100s asymptomatic HTN without prior HTN hx Tachycardia EKG pending Respiratory No prior history of respiratory disease Maintaining adequate oxygen saturation on room air, CXR no acute processes no acute resp needs Gastrointestinal Diet: NPO Renal/electrolytes PALOMO no baseline kidney disease, Cr on admission 1.47 Metabolic acidosis VBG; pH <7, pCO2 26 lactate 3.3 ->2.2 today Na 127 on admission, s/p 2 L NS, currently on sodium bicarb 75ml/hr labs q4h Genitourinary Pyelonephritis, bilateral abd CT notes; cystitis with bilateral ascending urinary tract infection/pyelonephritis, liver is enlarged and steatotic UA; +protein, +blood (although pt is menstruating currently), +WBCs WBC count on admission 20, procal 2.7 continue cefepime, given 1 dose of zosyn Endocrine BSG 631 on admission, AG 27 HA1c 7.5% insulin per DKA protocol 0.1 units/kg/hr Hematologic Hgb stable at this time Infectious disease Afebrile since admission see pyelonephritis and antibiotics above blood cx; pending Lines/access; PIVs intact Prophylaxis DVT ppx: heparin Thank you the opportunity to participate in this patient's care. Please see attending documentation for further recommendations. Supervising Physician Co-Signing Physician Notes Dr. Vaughn was resident physician during care of patient. I separately evaluated patient for curtis portions of the history and the exam. I was present during the critical portion of medical decision making, and I discussed the case with the resident. I generally agree with the findings and plan. DKA secondary to probable infectious etiology/urinary tract infection with con commitment untreated diabetes. Reports of discontinuing Ozempic and metformin use, her A1c is 7.5 anticipate she needs to be started on an insulin regimen if she is unable to tolerate oral medications. I have personally spent 60 minutes of critical care time in the direct management of this patient. This is a life/limb threatening event. This includes time spent evaluating patient, direct bedside care, chart review, placing orders, interpretation of diagnostic studies, discussion with consultants, patient, and/or family members regarding treatment decisions, as well as other required patient management activities. This time is exclusive of all separately billable procedures, and teaching time and separate from and in addition to any other critical care service time. History of Present Illness Reason for Consultation: DKA Requesting Physician: GRECIA Chapman Attending Physician: Dr. 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 Pt states that what brought her in was 3 days of nausea, vomiting, fatigue, chills, and low back with abdominal pain. She states she had a hx of kidney s tones but that this pain felt very different. She states her vomit was nonbloody, no fevers, no diarrhea but also has not had a BM in several days. She states she was hospitalized here in October for nausea/vomiting/diarrhea but denies glucose issues at that time. No hx of DKA. Does also note that over the last year she was found to have hep C and started treatment earlier this year, was on mavyret for 3 months early this year. Sees her [facility] floor installer at the end of this month for follow up of this. Denies any drug use in the last 12 years. Does smoke 11 cigarettes a day, use to smoke 1 ppd since age 24. Drinks alcohol 1-2 drinks 1-2 times a month. She was previously on metformin and ozempic for her diabetes but states they both made her so sick with diarrhea and nausea that she stopped both about 5 months ago and has not been on any diabetes medications since. Allergies Allergy/AdvReac Type Severity Reaction Status Date / Time Sulfa (Sulfonamide AdvReac Intermediate GI SYMPTOMS Verified 01/30/24 09:12 Antibiotics) Home Medications Medication Instructions Recorded Confirmed Type albuterol sulfate 90 mcg/actuation 2 puff inhalation QID 11/10/23 01/30/24 History aerosol inhaler doxepin 50 mg capsule 50 mg PO HS 11/10/23 01/30/24 History fluticasone propionate 110 0 puff inhalation BID 11/10/23 01/30/24 History mcg/actuation HFA aerosol inhaler medroxyprogesterone 150 mg/mL 0 mg IM DIRECTED 11/10/23 01/30/24 History intramuscular suspension paroxetine HCl 40 mg tablet 60 mg PO QAM 11/10/23 01/30/24 History Patient History Medical History Carpal tunnel syndrome Diabetes Kidney stones Surgical History Hx of tonsillectomy History of delivery Family History Grandmother (Maternal) Colorectal cancer Ovarian cancer Social History Smoking Status: Current every day smoker Tobacco Type: Cigarettes Do You Dip or Chew Tobacco: No; Hx Alcohol Use: Yes Alcohol type: beer, wine and hard liquor Hx Substance Use: No Preferred Language: Kazakh Communication Ability: Effective Coil Tester Required: No Beliefs That Will Affect Care: None Current Living Situation: Family Current Living Situation Comment: lives with mother, aunt, Feels Safe at Home: Yes Assistive Devices: None Review of Systems Review of Systems: All systems reviewed & are unremarkable except as noted in HPI & below Physical Exam Physical Exam: General: Alert and oriented, no acute distress but upset HEENT: Normocephalic, atraumatic, Resp: Lungs clear to auscultation bilaterally, no increased work of breathing Cardio: Tachycardiac, regular rate, no murmurs, no edema GI: Soft but tender in lower quadrants, bowel sounds quite faint Skin: Warm, dry, no rashes on visible skin but old scars noted on legs Results & Data Results & Data Vital Signs (Past 12 Hours) Vital Signs Temp Pulse Resp BP Pulse Ox O2 Del Method 01/30/24 10:00 148/94 H 01/30/24 10:00 145 H 17 98 Room Air 01/30/24 09:51 135 H 98 Room Air 01/30/24 09:45 140/89 01/30/24 09:42 136 H 25 H 98 Room Air 01/30/24 09:30 142/97 H 01/30/24 09:30 135 H 23 100 Room Air 01/30/24 09:24 134 H 100 Room Air 01/30/24 09:00 136 H 22 01/30/24 09:00 163/106 H 01/30/24 08:57 136 H 22 01/30/24 08:55 36.4 C 01/30/24 08:45 142/105 H 01/30/24 08:27 128 H 24 100 Room Air 01/30/24 08:26 132 H 01/30/24 08:15 154/110 H 01/30/24 08:00 156/104 H 01/30/24 07:57 129 H 21 98 Room Air 01/30/24 07:47 149/108 H 01/30/24 07:45 129 H 31 H 01/30/24 07:30 133 H 13 01/30/24 06:59 36.8 C 139 H 18 159/108 H 99 Room Air Resident Activity Tracking Resident Involvement: Resident Care Provided Care Provided: Adult Hospital Medicine
--- NOTE | 2024-01-30 10:55 | History & Physical Report ---
Date of Service January 30, 2024 Assessment & Plan (1) Acute hyperglycemia: (2) Anxiety: (3) Bipolar disorder: (4) Hepatitis C: (5) Diabetes mellitus, type II: (6) Asthma: (7) Tobacco use: Plan Assessment and plan: DKA: Hx DM: Recently taken off of Ozempic/metformin on 11/09 with A1c of 5.4 Presents today with blood sugar of 631, bicarb 8, anion gap 27 Given 2 L NSS and started on insulin drip in ED, sugar improved to 473 Lactic acidosis improved from 3.3-2.2, repeat A1c today 7.5 Bicarb drip initiated, every 4 hours BMPs/VBG's, admit to the ICU Presentation suspicious for type 1 diabetes, diabetic education consulted Complicated UTI: AKIlikely prerenal: Bilateral pyelonephritis: UA +, await urine culture/blood cultures, continue IV cefepime Morphine/Reglan for nausea/vomiting/pain Creatinine elevated at 1.47, likely prerenal from dehydration Should improve with fluid resuscitation Hx asthma: Not in acute exacerbation, on albuterol as needed at home Hx heroin abuse Hx hepatitis C Sober x 11 years, reports following with GI outpatient for hep C, recently taking Mavyretcured Current tobacco use: Smoking cessation discussed, patient smokes about 10 cigarettes daily Hx depression: Continue Paxil/doxepin A total of 60 minutes was spent reviewing laboratory data/diagnostic testing/discussion with specialist/facilitating care Full code DVT prophylaxis: Heparin subcu History of Present Illness Chief Complaint: Nausea/vomiting Primary Care Provider: Ender Ponce MD The patient is a 38-year-old female with a past medical history of DM2, depression, heroin abusesober for 11 years, hep Crecently treated with Mavyret and cleared, asthma who presents to the ED on 01/30/2024 with complaints of n ausea/vomiting/lower back pain x 3 days. Patient was recently taken off of all of her diabetic medications on 11/11/2023 after her A1c was 5.3. Follows with her primary doctor outpatient for this. Reported her highest A1c was 10 in the past. She was originally taking metformin twice a day 1000 mg and Ozempic weekly and this lowered her A1c pretty rapidly. The patient reports she has still been controlling her diet. She denies any diarrhea. Denies any chest pain/shortness of breath. Denies any recent travel. She is a current smoker she smokes marijuana and smokes about 10 cigarettes a day. Reports socially drinking. On arrival to the ED, labs are remarkable for WBC 20, sodium 127, corrected 133, chloride 92, bicarb 8, anion gap 27, BUN 26, creatinine 1.47, glucose 631now improved to 473, lactate 3.3, now improved to 2.2, hemoglobin A1c 7.5, alk phos 208, procalcitonin 2.74 UA + protein/glucose/ketones/blood/WBC A/P CT showed cystitis with bilateral ascending UTI/pyelonephritis Chest x-ray was negative EKG shows sinus tachycardia with a heart rate in the 130s, some ST depression noted in V4/V5, likely associated with multiple electrolyte abnormalities on presentation On exam, the patient is resting comfortably, still reports some intermittent back pain. Denies chest pain or shortness of breath The patient was given 2 L of normal saline and started on insulin drip in the ED. She was also given a dose of IV Zosyn. She will be admitted to the ICU for further monitoring/management of DKA Allergies Allergy/AdvReac Type Severity Reaction Status Date / Time Sulfa (Sulfonamide AdvReac Intermediate GI SYMPTOMS Verified 01/30/24 09:12 Antibiotics) Home Medications Medication Instructions Recorded Confirmed Type albuterol sulfate 90 mcg/actuation 2 puff inhalation QID 11/10/23 01/30/24 History aerosol inhaler doxepin 50 mg capsule 50 mg PO HS 11/10/23 01/30/24 History fluticasone propionate 110 0 puff inhalation BID 11/10/23 01/30/24 History mcg/actuation HFA aerosol inhaler medroxyprogesterone 150 mg/mL 0 mg IM DIRECTED 11/10/23 01/30/24 History intramuscular suspension paroxetine HCl 40 mg tablet 60 mg PO QAM 11/10/23 01/30/24 History Past Med/Surg History Problem List (Updated 01/30/24 @ 14:40 by Liam Menezes PA-C) Pyelonephritis (Acute) DKA (diabetic ketoacidosis) (Acute) Acute hyperglycemia (Acute) Low bicarbonate (Acute) Elevated lactic acid level (Acute) History of intravenous drug abuse Tobacco use Bipolar disorder Anxiety Mild persistent asthma Hepatitis C Abnormal urinalysis Diabetes mellitus, type II Hyperglycemia Hypomagnesemia Hypokalemia Nausea, vomiting and diarrhea (Acute) Asthma (Acute) Bipolar I disorder, single manic episode (Acute) Common migraine without aura (Acute) Other, mixed, or unspecified nondependent drug abuse, continuous (Acute) Esophageal reflux (Acute) Marijuana use (Acute) Abscess of right groin (Acute) Bright red blood per rectum (Acute) Dental abscess (Acute) Otitis media (Acute) Pain, dental (Acute) Pain, dental (Acute) Pain, dental (Acute) Medical History Carpal tunnel syndrome Diabetes Kidney stones Surgical History Hx of tonsillectomy History of delivery Family History Grandmother (Maternal) Colorectal cancer Ovarian cancer Social History Smoking Status: Current every day smoker Tobacco Type: Cigarettes Do You Dip or Chew Tobacco: No; Hx Alcohol Use: Yes Alcohol type: beer, wine and hard liquor Hx Substance Use: No Preferred Language: Gibraltarian Communication Ability: Effective Headlight Adjuster Required: No Beliefs That Will Affect Care: None Current Living Situation: Family Current Living Situation Comment: lives with mother, aunt, Feels Safe at Home: Yes Assistive Devices: None Review of Systems Review of Systems: All systems reviewed & are unremarkable except as noted in HPI & below All negative aside from stated in HPI Physical Exam Constitutional: WD/WN, vitals as above well developed and + ill appearing; no acute distress Eyes: PERRL, conjunctivae normal, anicteric sclerae ENMT: external ear and nose normal, oropharynx normal Neck: trachea midline, no thyromegaly Respiratory: normal respiratory effort, lungs clear to auscultation Cardiovascular: RRR, no murmur, no edema Gastrointestinal (Abdomen): normal bowel sounds, soft, nontender, no hepatosplenomegaly (No abdominal pain with palpation on exam, + CVA tenderness) Percussion/Palpation: + abdomen tender Musculoskeletal: no cyanosis or clubbing, extremities motor strength 5/5 Skin: no rashes, warm and dry Neurologic: patellar DTR's 2+ bilat, sensation intact Psychiatric: A+Ox3, euthymic affect Orientation: alert, oriented x 3 and oriented to person Lymphatic: no cervical or axillary lymphadenopathy Results & Data Results & Data Vital Signs (Past 12 Hours) Vital Signs Temp Pulse Resp BP Pulse Ox O2 Del Method 01/30/24 10:00 148/94 H 01/30/24 10:00 145 H 17 98 Room Air 01/30/24 09:51 135 H 98 Room Air 01/30/24 09:45 140/89 01/30/24 09:42 136 H 25 H 98 Room Air 01/30/24 09:30 142/97 H 01/30/24 09:30 135 H 23 100 Room Air 01/30/24 09:24 134 H 100 Room Air 01/30/24 09:00 136 H 22 01/30/24 09:00 163/106 H 01/30/24 08:57 136 H 22 01/30/24 08:55 36.4 C 01/30/24 08:45 142/105 H 01/30/24 08:27 128 H 24 100 Room Air 01/30/24 08:26 132 H 01/30/24 08:15 154/110 H 01/30/24 08:00 156/104 H 01/30/24 07:57 129 H 21 98 Room Air 01/30/24 07:47 149/108 H 01/30/24 07:45 129 H 31 H 01/30/24 07:30 133 H 13 01/30/24 06:59 36.8 C 139 H 18 159/108 H 99 Room Air Laboratory Results Laboratory Results WBC 20.05 K/ul (4.8-10.8) H 01/30/24 07:23 RBC 4.52 M/uL (4.20-5.40) 01/30/24 07:23 Hgb 14.3 g/dl (12.0-16.0) 01/30/24 07:23 Hct 44.6 % (37.0-47.0) 01/30/24 07:23 MCV 98.7 fL (80.0-100.0) 01/30/24 07:23 MCH 31.6 pg (25.0-34.0) 01/30/24 07:23 MCHC 32.1 g/dL (32.0-36.0) 01/30/24 07:23 RDW Std Deviation 44.9 fL (36.4-46.3) 01/30/24 07: RDW Coeff of Carla 12.3 % (11.5-14.5) 01/30/24 07:23 Plt Count 143 K/uL (130-400) 01/30/24 07:23 MPV 11.7 fL (9.4-12.4) 01/30/24 07:23 Immature Gran % (Auto) 2.2 % 01/30/24 07:23 Neut % (Auto) 85.9 % 01/30/24 07:23 Lymph % (Auto) 2.6 % 01/30/24 07:23 Armstrong % (Auto) 9.0 % 01/30/24 07:23 Eos % (Auto) 0.0 % 01/30/24 07:23 Baso % (Auto) 0.3 % 01/30/24 07:23 Neut # (Auto) 17.19 K/uL (1.40-6.50) H 01/30/24 07:23 Lymph # (Auto) 0.53 K/uL (1.20-3.40) L 01/30/24 07:23 Armstrong # (Auto) 1.80 K/uL (0.11-0.59) H 01/30/24 07:23 Eos # (Auto) 0.01 K/uL (0.00-0.50) 01/30/24 07:23 Baso # (Auto) 0.07 K/uL (0.00-0.20) 01/30/24 07:23 Immature Gran # (Auto) 0.45 K/uL (0.01-0.20) H 01/30/24 07:23 ABG pCO2 16 mmHg (35-46) L 01/30/24 10:08 ABG pO2 180 mmHg (80-95) H 01/30/24 10:08 ABG HCO3 TNP 01/30/24 10:08 ABG O2 Saturation 100.0 % (90-95) H 01/30/24 10:08 ABG Base Excess TNP 01/30/24 10:08 Alverto Test Pos (Pos) 01/30/24 10:08 VBG pH < 7.00 (7.36-7.41) L 01/30/24 09:13 VBG pCO2 26 mmHg (38-50) L 01/30/24 09:13 VBG pO2 50 mmHg 01/30/24 09:13 VBG HCO3 TNP 01/30/24 09:13 VBG O2 Saturation 78.5 % 01/30/24 09:13 VBG Base Excess TNP 01/30/24 09:13 Oxygen Given ROOM AIR 01/30/24 10:08 Sodium 127 mmol/L (136-145) L 01/30/24 07:23 Potassium 4.9 mmol/L (3.5-5.1) 01/30/24 07:23 Chloride 92 mmol/L (98-107) L 01/30/24 07:23 Carbon Dioxide 8 mmol/L (21-32) L* 01/30/24 07:23 Anion Gap 27 (3-11) H 01/30/24 07:23 BUN 26 mg/dl (6-23) H 01/30/24 07:23 Creatinine 1.47 mg/dl (0.6-1.2) H 01/30/24 07:23 Est Cr Clr Drug Dosing 51.5 ml/min 01/30/24 07:23 eGFR 46.87 01/30/24 07:23 BUN/Creatinine Ratio 17.7 (10-20) 01/30/24 07:23 Glucose 631 mg/dl (70-99(Fasting)) H* 01/30/24 07:23 POC Glucose 473 mg/dl (70-99) H* 01/30/24 10:25 Estimat Average Glucose 169 mg/dl 01/30/24 09:13 Hemoglobin A1c 7.5 % (4.5-5.6) H 01/30/24 09:13 Lactate 2.2 mmol/L (0.4-2.0) H* 01/30/24 09:13 Calcium 10.5 mg/dl (8.6-10.3) H 01/30/24 07:23 Magnesium 2.4 mg/dl (1.7-2.4) 01/30/24 07:23 Total Bilirubin 0.6 mg/dl (0.2-1.0) 01/30/24 07:23 AST 23 U/L (13-39) 01/30/24 07:23 ALT 36 U/L (7-52) 01/30/24 07:23 Alkaline Phosphatase 208 U/L (34-104) H 01/30/24 07:23 Total Protein 9.8 gm/dl (6.0-8.3) H 01/30/24 07:23 Albumin 4.7 gm/dl (3.4-5.0) 01/30/24 07:23 Globulin 5.1 gm/dl (2.5-4.0) H 01/30/24 07:23 Albumin/Globulin Ratio 0.9 (0.9-2) 01/30/24 07:23 Lipase 49 U/L (11-82) 01/30/24 07:23 Procalcitonin 2.74 ng/ml (0-0.5) H 01/30/24 07:23 HCG, Qual Negative (Negative) 01/30/24 07:23 Urine Color Yellow 01/30/24 07:23 Urine Appearance Cloudy (Clear) A 01/30/24 07:23 Urine pH 5.0 (4.5-7.5) 01/30/24 07:23 Ur Specific [place] 1.024 (1.000-1.030) 01/30/24 07:23 Urine Protein 3+ (Negative) H 01/30/24 07:23 Urine Glucose (UA) 3+ (Negative) H 01/30/24 07:23 Urine Ketones 4+ (Negative) H 01/30/24 07:23 Urine Blood 3+ (Negative) H 01/30/24 07:23 Urine Nitrite Negative (Negative) 01/30/24 07:23 Urine Bilirubin Negative (Negative) 01/30/24 07:23 Urine Urobilinogen Negative (Negative) 01/30/24 07:23 Ur Leukocyte Esterase Negative (Negative) 01/30/24 07:23 Urine WBC (Auto) 6-10 /hpf (0-5) H 01/30/24 07:23 Urine RBC (Auto) 11-20 /hpf (0-2) H 01/30/24 07:23 U Hyaline Cast (Auto) 3-5 /lpf (0-2) H 01/30/24 07:23 U Epithel Cells (Auto) 11-20 /hpf (0-2) H 01/30/24 07:23 Urine Bacteria (Auto) None Seen (None Seen) 01/30/24 07:23 Impressions Abdomen/Pelvis CT 01/30/24 07:16 CT SCAN OF THE ABDOMEN AND PELVIS WITH IV CONTRAST CLINICAL HISTORY: Vomiting. Low back pain. COMPARISON STUDY: Abdominal CT dated 11/10/2023. TECHNIQUE: Following the IV administration of 94 cc of Optiray 320, CT scan of the abdomen and pelvis is performed from the lung bases to the proximal femora. Images are reviewed in the axial, sagittal, and coronal planes. IV contrast was administered without complication. A dose lowering technique was utilized adhering to the principles of ALARA. CT DOSE: 874.31 mGy.cm FINDINGS: Lung bases: The heart is normal in size and without pericardial effusion. The lung bases are clear. Liver: The contrast-enhanced liver is enlarged, measuring 20.5 cm in length. Attenuation is diffusely diminished indicating steatosis. Fatty sparing is seen adjacent to the gallbladder fossa. There is no intrahepatic biliary ductal dilatation. The hepatic veins and portal veins are patent. Gallbladder: Adenomyomatosis is noted in the fundal region. The gallbladder is otherwise normal as visualized. Spleen: Normal in size and attenuation. Pancreas: Unremarkable. Adrenal glands: Unremarkable. Kidneys: The contrast enhanced kidneys abnormality enlarged and edematous. There is no hydronephrosis. Urothelial thickening and enhancement seen within the renal pelvis bilaterally as well as both ureters. Both kidneys enhance heterogeneously with a striated nephrogram and there is mild bilateral perinephric stranding. Abdominal vasculature: The abdominal aorta is normal in course and caliber. Bowel: There is mild to moderate colonic fecal retention. No bowel obstruction is seen. The appendix is well-visualized and normal. Peritoneum: There is no intraperitoneal free air or abdominal ascites. There is a fat-containing umbilical hernia. Lymphadenopathy: None. Pelvic viscera: The the bladder wall is thickened with mild mucosal hyperemia. The uterus and adnexa are normal as visualized. A tampon is in place. Skeletal structures: No lytic or blastic lesions are seen. IMPRESSION: 1. There is evidence of cystitis with bilateral ascending urinary tract infection/pyelonephritis. Correlate with clinical findings and urinalysis. 2. The liver is enlarged and steatotic. 3. Additional findings as above. ACT 112: Negative or not required by law. Electronically signed by: Angel Montano M.D. 01/30/2024 9:33 AM Chest X-Ray 01/30/24 07:16 XR chest 1V portable HISTORY: 38 years-old Female vomiting, back pain, cough acute chest and abdominal pain COMPARISON: 11/10/2023 TECHNIQUE: AP view of the chest FINDINGS: Cardiomediastinal and hilar silhouettes are within normal limits. No pneumothorax, pleural effusion or airspace consolidation. Bones appear grossly intact. IMPRESSION: No acute process. ACT 112: Negative or not required by law. The above report was generated using voice recognition software. It may contain grammatical, syntax or spelling errors. Electronically signed by: Hilario Hernandez M.D. 01/30/2024 8:39 AM Code Status & VTE Plan VTE Prophylaxis Plan VTE Prophylaxis will be ordered: Yes Supervising Physician Co-Signing Physician Notes Attending Addendum: Case reviewed with the advanced practitioner. I have personally performed a history and physical examination on the patient. I have reviewed the advanced practitioner's documentation on the date of service referenced in note, and I agree with, and take responsibility for the plan of care. please refer to her notes for full details patient seen and examined, records reviewed by myself as well on exam, patient seen resting in bed, comfortable feels weak, has some back pain, no problems voiding no other symptoms VS noted and reviewed oriented x 3, not in distress, speaks in sentences with no effort nor accessory muscle use tachycardic, regular rhythm, no murmurs clear breath sounds bilaterally non distended, soft, nontender (+) mild BL CVA tenderness no bipedal edema, erythema, warmth no neuro deficits all labs, imaging noted and reviewed ASSESSMENT AND PLAN> DKA likely from underlying sepsis, pyelonephritis, r/o bacteremia recent discontinuation of Ozempic + Metformin HCO3 8 ph < 7 Insulin drip HCO3 drip ff up cultures IV Cefepime IV fluids clinical staff educator consult other diagnoses and plan of care as per advanced practitioner's notes Eric Delarosa MD
[2024-01-30] MEDS: SODIUM BICARBONATE 8.4% 75 MEQ in SODIUM CHLORIDE 0.45 % 1,000 ML IV SCH (11:08)
--- OUTSIDE RECORDS SUMMARY | 2024-01-30 11:26 | External Medical Summary | Summary of Care ---
Author Name Unknown Organization [facility] Address [address] [place] [address] Phone [phone] Care Team Providers Care Manufacturing Team Leader Name Role Phone Ender Ponce MD Primary Care Provider [phone] Reason for Visit * Reason Comments Depo-Provera Injection Encounter Details Date Type Department Care Team (Late st Contact Info) Description 12/06/2023 3:00 PM EDT Nurse Only Gynecology/Obstetrics [facility] [address] [facility] [place] [address] Gw, Nurse Obgyn Injection [address] [facility] [place] [address] Depo-Provera Injection Allergies Active Allergy Reactions Criticality Noted Date Comments Environmental 11/05/2006 Sulfa Antibiotics Rash 07/02/2015 documented as of this encounter (statuses as of 12/06/2023) Medications Medication Sig Dispensed Refills Start Date End Date Status Free Flow Power System w/Device KitIndications:Type 2 diabetes mellitus with hemoglobin A1c goal of less than 7.0% ([facility]) Use as directed. Test blood sugar [...] Capsule 1 08/12/2023 Active OneTouch Delica Plus [id number] s:Type 2 diabetes mellitus with hemoglobin A1c goal of less than 7.0% ([facility]) USE 1 TO CHECK GLUCOSE TWICE DAILY IN THE MORNING AND IN THE EVENING 200 Each 09/25/2023 Active OneTouch Verio In Vitro Strip (Glucose Blood)Indications:T ype 2 diabetes mellitus with hemoglobin A1c goal of less than 7.0% ([facility]) USE TO TEST BLOOD SUGAR TWICE DAILY (AM&PM) 200 Strip 09/25/2023 Active Nicotine 21 MG/24HR Transdermal Patch 24 Hour (Nicoderm CQ) Place 1 Patch over 24 hours topically on the skin in the morning. On upper body/upper arm, change once a day for 6 weeks.. 42 Patch 09/25/2023 Active Ondansetron HCl 4 MG Oral Tablet (Zofran) Take 1 Tablet by mouth 2 times a day as needed for Nausea. 11/12/2023 Active Hospital, Clinic, or Other Facility Administered Medication Ordered Dose Route Frequency Start Date End Date Status medroxyPROGESTERone (contracep) (Depo-Provera) inj 150 mgIndications:Initiation of Depo Provera 150 mg IM [id number] 09/12/2023 Active documented as of this encounter (statuses as of 12/06/2023) Active Problems Problem Noted Date Diagnosed Date Medical marijuana use 10/22/2022 Overweight (BMI 25.0-29.9) [...] as of this encounter (statuses as of 12/06/2023) Resolved Problems Problem Noted Date Diagnosed Date Resolved Date Food insecurity 02/04/2023 11/17/2023 Overview: Per [facility] Protocol Obesity, Class I, BMI 30.0-3 4.9 (see [...] as of this encounter (statuses as of 12/06/2023) Immunizations Name Administration Dates Next Due HEP [...] as of this encounter Progress Notes * Corinne Hurd MED ASSIST - 12/06/2023 3:14 PM EDT Patient here for DEPO injection. Patient doing well no complaints. Injection given IM as ordered. Patient tolerated well. Patient to follow up as directed. Patient instructed to call if any complications. Patient verbalized understanding of instructions given and her follow up appt for 12 weeks. Injection site: Right Gluteus Medication Source: Dispensed stock medication documented in this encounter Plan of Treatment Upcoming Encounters Date Type Department Care Team (Late st Contact Info) Description 12/18/2023 6:10 PM EDT [facility] [address] [place] [address] [place] [facility] [address] [place] [address] 12/20/2023 10:40 AM EDT Office Visit Family Practice [facility] [address] [facility] [place] [address] Ender Ponce MD [address] [facility] [place] [address] 01/17/2024 10:30 AM EDT Office Visit Gynecology/Obstetrics, [place] [address] [place] [address] Jessica Cee MD [address] [place] [address] 02/25/2024 8:20 AM EDT Office Visit Hepatology, [facility] [address] [facility] [place] [address] Mehnaz Delgado DO [address] [facility] [place] [address] 03/11/2024 7:00 AM EST Pharmacy Hepatology, [place] [address] [place], [place] [id number] [place], Pharmacist Hepatology [address] [place], [place] [id number] Health Maintenance Due Date Last Done Comments DISCUSS TOBACCO CESSATION (REFER TO SMARTSET #0233) 1986 Pneumococcal Vaccine: Pediatrics (0 to 5 Years) and At-Risk Patients (6 to 64 Years) (1 of 2 - PCV) 1992 Diabetic Eye Exam 2004 HPV/Co-Test 2016 *SPIROMETRY ONCE FOR ASTHMA-ADULT 12/02/2016 Diabetic Foot Exam 02/08/2021 02/09/2020, 12/05/2017 COVID-19 Vaccine ( - 2022- season) 2022 Influenza Vaccine (FLU shot) (#1) 2023 01/22/2023 Cervical Cancer Screening 01/27/2024 Pap Smear 01/27/2024 01/26/2021 HbA1c 02/13/2024 08/14/2023, 03/0 04/2023, 10/27/2022, Additional history exists Albumin/Creatinine Ratio 08/13/2024 08/14/2023, 07/29 B-12 08/13/2024 08/14/2023, 07/29, 02/09/2020, Additional history exists GFR 08/13/2024 08/14/2023, 04/2022, 08/21/2022, Additional history exists DTaP,Tdap,and Td Vaccines (2 - Td or Tdap) 11/30/2024 11/30/2014 HPV (Gardasil) Vaccine Aged Out No lo nger eligible based on patient's age to complete this topic MENINGOCOCCAL (MENACTRA/MENVEO) Aged Out No longer eligible based on patient's age to complete this topic documented as of this encounter Medical Devices Not on filedocumented as of this encounter Visit Diagnoses Diagnosis Surveillance for Depo-Provera contraception- Primary Surveillance of other previously prescribed contraceptive method documented in this encounter Administered Medications Active Administered Medications - up to 3 most recent administrations Medication Order MAR Action Action Date Dose Rate Site medroxyPROGESTERone (contracep) (Depo-Provera) inj 150 mg 150 mg, Intramuscular, [id number], First dose on [place] 09/12/23 at 1345, Until Discontinued Given 12/06/2023 3:13 PM EDT 150 mg Ventrogluteal Right Given 09/12/2023 1:12 PM EDT 150 mg Do rsogluteal Right documented in this encounter Care Teams Manufacturing Team Leader Relationship Specialty Start Date End Date Ender Ponce MD [address] [place] [address] PCP - General Family Medicine 05/21/16 documented as of this encounter
--- OUTSIDE RECORDS SUMMARY | 2024-01-30 11:26 | External Medical Summary | Summary of Care ---
Author Name Unknown Organization [facility] Address [address] [place] [address] Phone [phone] Care Team Providers Care Automatic Steel Tie Adjuster Name Role Phone Ender Ponce MD Primary Care Provider [phone] [phone] Reason for Visit * Reason Comments Appointment Encounter Details Date Type Department Care Team (Late st Contact Info) Description 12/18/2023 6:10 PM EDT Pharmacy Pharmacy, [facility] [address] [place] [address] [facility] [address] [place] [address] Type 2 diabetes mellitus with hemoglobin A1c goal of less than 7.0% ([facility])* Allergies Active Allergy Reactions Criticality Noted Date Comments Environmental 11/05/2006 Sulfa Antibiotics Rash 07/02/2015 documented as of this encounter (statuses as of 12/18/2023) Medications Medication Sig Dispensed Refills Start Date End Date Status BEW Global System w/Device KitIndications:Type 2 diabetes mellitus with hemoglobin A1c goal of less than 7.0% ([facility]) Use as directed. Test blood sugar twice [...] Capsule 1 08/12/2023 Active OneTouch Delica Plus [id number] s:Type 2 diabetes mellitus with hemoglobin A1c goal of less than 7.0% ([facility]) USE 1 TO CHECK GLUCOSE TWICE DAILY IN THE MORNING AND IN THE EVENING 200 Each 09/25/2023 Active OneTouch Verio In Vitro Strip (Glucose Blood)Indications:T ype 2 diabetes mellitus with hemoglobin A1c goal of less than 7.0% ([facility]) USE TO TEST BLOOD SUGAR TWICE DAILY [...] mgIndications:Initiation of Depo Provera 150 mg IM [id number] 09/12/2023 Active documented as of this encounter (statuses as of 12/18/2023) Active Problems Problem Noted Date Diagnosed Date [...] as of this encounter (statuses as of 12/18/2023) Resolved Problems Problem Noted Date Diagnosed Date [...] as of this encounter (statuses as of 12/18/2023) Immunizations Name Administration Dates Next Due HEP [...] this encounter Progress Notes * Megan Cee wood barrel reconditioner - 12/18/2023 10:16 AM EDT Dyana has not contacted the clinic to schedule/reschedule an appointment for diabetes managementper referral from PCP despite multiple attempts to do so by our team. Patient is discharged from [facility] services at this time. Thank you, Megan Cee [facility] Computer Aided Drafter II [facility] ([facility]) 12/18/2023,10:16 AM documented in this encounter Plan of Treatment Upcoming Encounters Date Type Department Care Team (Late st Contact Info) Description 01/17/2024 10:30 AM EDT Office Visit Gynecology/Obstetrics, [place] [address] [address] Jessica Cee MD [address] [address] 02/17/2024 10:20 AM EDT Office Visit Family Practice [facility] [address] [facility] [place] [address] Ender Ponce MD [address] [place] [address] 02/25/2024 8:20 AM EDT Office Visit Hepatology, [facility] [address] [place] [address] Mehnaz Delgado DO [address] [place] [address] 03/11/2024 7:00 AM EST Pharmacy Hepatology, [place] [address] [place] [address] [place], Pharmacist Hepatology [address] [place] [address] Health Maintenance Due Date Last Done Comments DISCUSS TOBACCO CESSATION (REFER TO SMARTSET #3293) 1986 Pneumococcal Vaccine: Pediatrics (0 to 5 Years) and At-Risk Patients (6 to 64 Years) (1 of 2 - PCV) 1992 Diabetic Eye Exam 2004 HPV/Co-Test 2016 *SPIROMETRY ONCE FOR ASTHMA-ADULT 12/02/2016 Diabetic Foot Exam 02/08/2021 02/09/2020, 12/05/2017 COVID-19 Vaccine (2022- season) 2022 Influenza Vaccine (FLU shot) (#1) [...] Primary documented in this encounter Care Teams Automatic Steel Tie Adjuster Relationship Specialty Start Date End Date Ender Ponce MD [address] [place] [address] PCP - General Family Medicine 05/21/16 documented as of this encounter
--- OUTSIDE RECORDS SUMMARY | 2024-01-30 11:27 | External Medical Summary | Summary of Care ---
Author Name Unknown Organization [facility] Address [address] [place] [address] Phone [phone] Care Team Providers Care Cloth Sander Name Role Phone Ender Ponce MD Primary Care Provider [phone] [phone] Reason for Visit * Reason Onset Date Comments Hospital Follow-Up 11/13/2023 [facility] 11/11 Encounter Details Date Type Department Care Team (Late st Contact Info) Description 11/13/2023 Telephone Family Practice [facility] [address] [facility] [place] [address] Ender Ponce MD [address] [place] [address] Hospital Follow-Up ([facility] 11/11) Allergies Active Allergy Reactions Criticality Noted Date Comments Environmental 11/05/2006 Sulfa Antibiotics Rash 07/02/2015 documented as of this encounter (statuses as of 11/13/2023) Medications Medication Sig Dispensed Refills Start Date End Date Status Altenera TechnologyToQ2ebankingio Flex System w/Device KitIndications:Ty pe 2 diabetes mellitus with hemoglobin A1c goal of less than 7.0% ([facility]) Use as directed. Test blood sugar twice daily. Am and pm DX:E11.9 1 Kit 02/09/2021 Active Meloxicam 15 MG Oral TabletIndications [...] Capsule 1 08/12/2023 Active OneTouch Delica Plus [id number] ons:Type 2 diabetes mellitus with hemoglobin A1c goal of less than 7.0% ([facility]) USE 1 TO CHECK GLUCOSE TWICE DAILY IN THE MORNING AND IN THE EVENING 200 Each 09/25/2023 Active OneTouch Verio In Vitro Strip (Glucose Blood)Indications :Type 2 [...] weeks.. 42 Patch 09/25/2023 Active Amoxicillin-Pot Clavulanate 500-125 MG Oral Tablet (Augmentin) Take 1 Tablet by mouth in the morning and 1 Tablet in the evening. 11/12/2023 11/17/19 24 Active Ondansetron HCl 4 MG Oral Tablet (Zofran) Take 1 Tablet by mouth 2 times a day as needed for Nausea. 11/12/2023 Active Amoxicillin-Pot Clavulanate 875-125 MG Oral Tablet (Augmentin) Take 1 Tablet by mouth in the morning and 1 Tablet before bedtime. Do all this for 10 days. 20 Tablet 09/24/2023 11/13/19 24 Discontinued metroNIDAZOLE 500 MG Oral Tablet (Flagyl) Take 1 Tablet by mouth in the morning and 1 Tablet before bedtime. X 7 days until gone.. 14 Tablet 10/16/2023 11/13/19 24 Discontinued Hospital, Clinic, or Other Facility Administered Medication Ordered Dose Route Frequency Start Date End Date Status medroxyPROGESTERone (contracep) (Depo-Provera) inj 150 mgIndications:Initiation of Depo Provera 150 mg IM [id number] 09/12/2023 Active documented as of this encounter (statuses as of 11/13/2023) Active Problems Problem Noted Date Diagnosed Date Food insecurity 02/04/2023 Overview: Per [facility] Protocol Medical marijuana use 10/22/2022 Overweight [...] as of this encounter (statuses as of 11/13/2023) Resolved Problems Problem Noted Date Diagnosed Date [...] as of this encounter (statuses as of 11/13/2023) Immunizations Name Administration Dates Next Due HEP [...] encounter Miscellaneous Notes * Telephone Encounter - Ita Ma RN - 11/13/2023 10:58 AM EDT Transitions of Care Note Reason for Referral:Recent Admission Phone visit for follow up: CHRISTOPHER Admitted to: [facility], Date: 11/09 Discharged to: home, Date: 11/11 Diagnosis driving hospitalization: Colitis Source/Contact: Patient SUBJECTIVE Consent: Verbal consent for review of hospital discharge: Yes REVIEW OF SYSTEMS Patient/Other Reports: Current patient/caregiver problems or concerns: none at this time CV: Denies problems Pulmonary: Denies problems Chills/Sweats/Fever:Denies chills/sweats Denies fever Appetite:pt had some nausea this morning. Took zofran which has helped. She has since eaten with noissues Current diet: as tolerated Bowel: pt is no longer having diarrhea. Just starting to move her bowels again after eating for thefirst time in 24 hours last night Bladder: denies problems Wound (If applicable): N/A Pain:Denies Sleep:Denies problems FUNCTIONAL STATUS: ADL'S: Needs Assistance With:N/A as pt is independent IADL'S: Needs Assistance With:N/A as pt is independent Cognitive and Mental Health: denies problems, alert and oriented x 3, and able to communicate, understand instructions, process information. MEDICATION RECONCILIATION Medications: Discharge med list reviewed with patient or caregiver New medication(s) filled since hospitalization- Augmentin, zofran Reports all medications taken as prescribed. Denies side effects OBJECTIVE ASSESSMENT Medication Risk Assessment: No risks identified Did patient fail outpatient treatment? No Discharge instructions available for review? Yes PLAN Symptom Monitoring Interventions:Member/caregiver education - signs and symptoms to contact PrimaryCare (DO NOT DELETE-Three curtis symptoms patient is to report to PCP) 1. N/V/D 2. Fever 3. syncope Oil Well Service Operator HelperFund Raiser of Care interventions/Action Plan: Medication reconciliation and 5 - 7 day follow-up with PCP in place - Date: 11/17 Educated on role of CHRISTOPHER completed with patient/caregiver. Educated patient/caregiver on patient right to have input on CHRISTOPHER plan of care. Verification of Home Health/DME if indicated: NO Identified Care Gaps: Yes Care Gaps closed this call: Appointment made or confirmed, Medication adherence, and Transition of Care follow-up communication Re-evaluation of Plan of Care and progress towards goals achievement: Patient education this visit: Verbal, as above Plan to follow-up as previously scheduled, instructed to call Primary Care Provider with change in symptoms or as needed before next follow-up, discharge needs met, verbalizes understanding and agrees with plan. Ita Ma RN documented in this encounter Plan of Treatment Upcoming Encounters Date Type Department Care Team (Late st Contact Info) Description 11/18/2023 11:00 AM EDT Office Visit [facility] [address] [place] [address] Ender Ponce MD [address] [place] [address] 11/19/2023 6:10 PM EDT Pharmacy Pharmacy, [facility] [address] [facility] [place] [address] [facility] [address] [place] [address] 12/05/2023 10:30 AM EDT Nurse Only Gynecology/Obstetrics [facility] [address] [place] [address] Gw, Nurse Obgyn Injection [address] [place] [address] 12/20/2023 10:40 AM EDT Office Visit [facility] [address] [place] [address] Ender Ponce MD [address] [place] [address] 01/17/2024 10:30 AM EDT Office Visit Gynecology/Obstetrics, [place] [address] [place] [address] Jessica Cee MD [address] [place] [address] 02/25/2024 8:20 AM EDT Office Visit Hepatology, [facility] [address] [facility] [place] [address] Mehnaz Delgado DO [address] [place] [address] 03/11/2024 7:00 AM EST [facility]acy [facility] [place] [address] [facility] [address] [place], Pharmacist Hepatology [address] [facility], [place] [address] 06/24/2024 8:00 AM EST Office Visit [facility] [place] [facility] [id number] Brielle Petty [facility] [address] [facility] [place] [address] Health Maintenance Due Date Last Done Comments DISCUSS TOBACCO CESSATION (REFER TO SMARTSET #3821) 1986 Pneumococcal Vaccine: Pediatrics (0 to 5 [...] filedocumented as of this encounter Care Teams Cloth Sander Relationship Specialty Start Date End Date Ender Ponce MD [address] [facility] [place] [address] PCP - General Family Medicine 05/21/16 documented as of this encounter
--- OUTSIDE RECORDS SUMMARY | 2024-01-30 11:27 | External Medical Summary | Summary of Care ---
Author Name Unknown Organization [facility] Address [address] [place] [address] Phone [phone] Care Team Providers Care Building Engineer Name Role Phone Ry Penny MD Primary Care Provider [phone] Reason for Visit * Reason Onset Date Comments No Show 11/22/2023 [facility] No Show Auto mation Encounter Details Date Type Department Care Team (Late st Contact Info) Description 11/22/2023 Telephone Family Practice [facility] [address] [place] [address] Ry Penny MD [address] [place] [address] No Show ([place] No Show Automation) Allergies Active Allergy Reactions Criticality Noted Date Comments Environmental 11/05/2006 Sulfa Antibiotics Rash 07/02/2015 documented as of this encounter (statuses as of 11/22/2023) Medications Medication Sig Dispensed Refills Start Date End Date Status Segetisio Flex System w/Device KitIndications:Type 2 diabetes mellitus [...] Capsule 1 08/12/2023 Active OneTouch Delica Plus [id number] s:Type 2 diabetes mellitus with hemoglobin A1c [...] mgIndications:Initiation of Depo Provera 150 mg IM [id number] 09/12/2023 Active documented as of this encounter (statuses as of 11/22/2023) Active Problems Problem Noted Date Diagnosed Date [...] as of this encounter (statuses as of 11/22/2023) Resolved Problems Problem Noted Date Diagnosed Date [...] as of this encounter (statuses as of 11/22/2023) Immunizations Name Administration Dates Next Due HEP [...] encounter Miscellaneous Notes * Telephone Encounter - [facility], No Show - 11/22/2023 12:38 PM EDT Dear Dyana Flores, Looks like you missed an appointment with RY PENNY on 11/18/2023 at 11:00 AM. If you haven't already rescheduled, you have a couple of options: Reschedule in [email or web address]/scheduling Call us at [phone] Can't make a future appointment? Cancel and let someone else have your spot! It's easy to do via [employer] or by calling us. Thanks [facility]. We hope to see you back in our office soon. Sincerely, RY PENNY documented in this encounter Plan of Treatment Upcoming Encounters Date Type Department Care Team (Late st Contact Info) Description 12/05/2023 10:30 AM EDT Nurse Only Gynecology/Obstetrics [facility] [address] [facility] [place] [address] Gw, Nurse Obgyn Injection [address] [facility] [place] [address] 12/18/2023 6:10 PM EDT Pharmacy Pharmacy, [facility] [address] [facility] [place] [address] [email or web address] 132 [facility] [place] [address] 12/20/2023 10:40 AM EDT Office Visit Family Practice [facility] [address] [facility] [place] [address] Ry Penny MD [address] [facility] [place] [address] 01/17/2024 10:30 AM EDT Office Visit Gynecology/Obstetrics, [place] [address] [place] [address] Jessica Cee MD [address] [place] [address] 02/25/2024 8:20 AM EDT Office Visit Hepatology, [facility] [address] [facility] [place] [address] Mehnaz Delgado DO 132 [facility] [place] [address] 03/11/2024 7:00 AM EST Pharmacy Hepatology, [place] [address] [place] [address] [place], Pharmacist Hepatology [address] [place] [address] 06/24/2024 8:00 AM EST Office Visit Gynecology/Obstetrics, [place] [address] [place] [address] Brielle Petty, [facility] [address] [place] [id number] Health Maintenance Due Date Last Done Comments DISCUSS TOBACCO CESSATION (REFER TO SMARTSET #4842) 1986 Pneumococcal Vaccine: Pediatrics (0 to 5 [...] filedocumented as of this encounter Care Teams Building Engineer Relationship Specialty Start Date End Date Ry Penny MD [address] [place] [address] PCP - General Family Medicine 05/21/16 documented as of this encounter
--- OUTSIDE RECORDS SUMMARY | 2024-01-30 11:27 | External Medical Summary | Summary of Care ---
Author Name Unknown Organization [facility] Address [address] [place] [address] Phone [phone] Care Team Providers Care Solution Design Engineer Name Role Phone Ender Ponce MD Primary Care Provider [phone] [phone] Reason for Visit * Reason Comments Appointment Encounter Details Date Type Department Care Team (Late st Contact Info) Description 11/19/2023 6:10 PM EDT Pharmacy Pharmacy, [facility] [address] [place] [address] [facility] [address] [place] [address] Type 2 diabetes mellitus with hemoglobin A1c goal of less than 7.0% ([facility])* Allergies Active Allergy Reactions Criticality Noted Date Comments Environmental 11/05/2006 Sulfa Antibiotics Rash 07/02/2015 documented as of this encounter (statuses as of 11/19/2023) Medications Medication Sig Dispensed Refills Start Date End Date Status LastRoom System w/Device KitIndications:Type 2 diabetes mellitus with hemoglobin A1c goal of less than 7.0% ([facility]) Use as directed. Test [...] Capsule 1 08/12/2023 Active OneTouch Delica Plus [id number] s:Type 2 diabetes mellitus with hemoglobin A1c goal of less than 7.0% ([facility]) USE 1 TO CHECK GLUCOSE TWICE DAILY IN THE MORNING AND IN THE EVENING 200 Each 09/25/2023 Active OneTouch Verio In Vitro Strip (Glucose Blood)Indications:T ype 2 diabetes mellitus with hemoglobin A1c goal of less than 7.0% ([facility]) USE TO TEST BLOOD [...] mgIndications:Initiation of Depo Provera 150 mg IM [id number] 09/12/2023 Active documented as of this encounter (statuses as of 11/19/2023) Active Problems Problem Noted Date Diagnosed Date [...] as of this encounter (statuses as of 11/19/2023) Resolved Problems Problem Noted Date Diagnosed Date [...] as of this encounter (statuses as of 11/19/2023) Immunizations Name Administration Dates Next Due HEP [...] as of this encounter Progress Notes * Ruth Muñiz PHARM Tech - 11/19/2023 10:15 AM EDT Patient Phone Numbers Left message on patients answering machine to schedule [facility] appointment for diabetes management. [facility] message sent --no Clinic will follow up again in 4 week(s). [Attempt # 3] Thank you, Ruth Muñiz Principal Architect [facility] ([facility]) [phone] 11/19/2023,10:17 AM documented in this encounter Plan of Treatment Upcoming Encounters Date Type Department Care Team (Late st Contact Info) Description 12/05/2023 10:30 AM EDT Nurse Only Gynecology/Obstetrics [facility] [address] [place] [address] Gw, Nurse Obgyn Injection [address] [place] [address] 12/18/2023 6:10 PM EDT Pharmacy Pharmacy, [facility] 132 [facility] [place] [address] [facility] 132 [facility] [place] [address] 12/20/2023 10:40 AM EDT Office Visit Family Practice [facility] [address] [facility] [place] [address] Ender Ponce MD 132 [facility] [place] [address] 01/17/2024 10:30 AM EDT Office Visit Gynecology/Obstetrics, [place] [address] [facility] [place] [address] Jessica eCe MD 400 [place] [address] 02/25/2024 8:20 AM EDT Office Visit Hepatology, [facility] [address] [facility] [place] [address] Mehnaz Delgado DO 132 [facility] [place] [address] 03/11/2024 7:00 AM EST Pharmacy Hepatology, [place] [address] [place] [address] [place], Pharmacist Hepatology [address] [place] [address] 06/24/2024 8:00 AM EST Office Visit [facility]necology[facility]st[facility]s, [place] [facility] [place] [address] Brielle Petty [facility] 400 [place] [address] Health Maintenance Due Date Last Done Comments DISCUSS TOBACCO CESSATION (REFER TO SMARTSET #5156) 1986 Pneumococcal Vaccine: Pediatrics (0 to 5 [...] Primary documented in this encounter Care Teams Solution Design Engineer Relationship Specialty Start Date End Date Ender Ponce MD [address] [place] [address] PCP - General Family Medicine 05/21/16 documented as of this encounter
[2024-01-30] MEDS: CEFEPIME 2000MG 2,000 MG/20 ML SYR IV SCH (11:33)
[2024-01-30] MEDS: METOCLOPRAMIDE HCL INJ 5 MG/ML 2 ML VIAL IV PRN (11:42)
[2024-01-30] MEDS: MoRPHine SULFATE 2 MG/ML CARP IV PRN (11:42)
[2024-01-30] MEDS ORDERED: PENDING D5 1/2NS+20mEq KCL IVF SCH (12:30)
[2024-01-30] MEDS: INSULIN ASPART PER UNIT CHARGE SC SCH (12:54)
[2024-01-30] MEDS ORDERED: ICU Protocol for HYPERglycemia SCH (13:19)
--- NOTE | 2024-01-30 13:40 | Billing Data ---
Date of Service January 30, 2024 Coding Level of Care Code 12784 CRITICAL CARE
[2024-01-30 14:32] LABS: Calcium 9.1 mg/dl (8.6-10.3); Magnesium 1.7 mg/dl (1.7-2.4); Potassium 4.8 mmol/L (3.5-5.1)
[2024-01-30 14:35] LABS: pH ABG < 7.00 (7.35-7.45)
[2024-01-30 14:37] LABS: BUN Creatinine Ratio 19.6 (10-20); Creatinine Clr Calc Pharmacy 70.7 ml/min
[2024-01-30] MEDS: POTASSIUM CHLORIDE 40 MEQ in SODIUM CHLORIDE 0.45 % 1,000 ML IV SCH (14:41)
[2024-01-30 14:45] LABS: Phosphorus 1.3 mg/dl (2.5-4.9)
[2024-01-30] MEDS: DKA GOAL RANGE 150-250 mg/dl ONE (14:47)
[2024-01-30 14:55] LABS: Urine Potassium 32.5 mmol/L
[2024-01-30] MEDS: POTASSIUM CHLORIDE 40 MEQ in D5W AND 1/2NSS 1,000 ML IV SCH (15:24)
[2024-01-30] MEDS ORDERED: POTASSIUM PHOS 3 MMOL/1 ML INFUSION IV STA (15:53)
--- NOTE | 2024-01-30 16:30 | Electrocardiogram Report ---
Test Reason : Blood Pressure : */* mmHG Vent. Rate : 135 BPM Atrial Rate : 135 BPM P-R Int : 180 ms QRS Dur : 96 ms QT Int : 290 ms P-R-T Axes : 88 88 -65 degrees QTcB Int : 435 ms Sinus tachycardia Right atrial enlargement Marked ST abnormality, possible inferior subendocardial injury Abnormal ECG When compared with ECG of 10-Nov-2023 13:22, Vent. rate has increased by [address] now depressed in Inferior leads Inverted T waves have replaced nonspecific T wave abnormality in Inferior leads Inverted T waves have replaced nonspecific T wave abnormality in Anterolateral leads Confirmed by Elias Haley ([id number]) on 01/30/2024 4:30:29 PM Referred By: REFERRED SELF Confirmed By: Elias Haley
[2024-01-30] MEDS: POTASSIUM PHOSPHATE 21 MMOL in SODIUM CHLORIDE 0.9% 500 ML IV ONE (16:33)
[2024-01-30] MEDS: HEPARIN SOD 5,000 UNIT/0.5 ML VIAL SQ SCH (16:38)
[2024-01-30 17:53] LABS: Anion Gap 11 (3-11); Calcium 9.1 mg/dl (8.6-10.3); Carbon Dioxide 10 mmol/L (21-32); Chloride 109 mmol/L (98-107); Magnesium 1.6 mg/dl (1.7-2.4); Sodium 130 mmol/L (136-145)
[2024-01-30 17:59] LABS: BUN Creatinine Ratio 19.1 (10-20); Blood Urea Nitrogen 17 mg/dl (6-23); Creatinine Clr Calc Pharmacy 82.1 ml/min; Glucose 250 mg/dl (70-99(Fasting))
[2024-01-30 18:08] LABS: Phosphorus < 1.0 mg/dl (2.5-4.9)
[2024-01-30] MEDS: MAGNESIUM SULFATE / D5W 1 GM/100 ML BAG IV SCH (19:52)
[2024-01-30] MEDS: DOXEPIN HCL 50 MG CAPSULE PO SCH (19:52)
[2024-01-30] MEDS: POT PHOSPHATE MONOBASIC W/ SOD TAB PO ONE (19:52)
[2024-01-30 20:14] LABS: A calco-baum cmplx NotReported Not Detected (NotDetected); Bact fragilis Not Reported Not Detected (NotDetected); Blood Culture Id Panel See PCR Comment (NotDetected); C auris Not Reported Not Detected (NotDetected); CTX-M Resistant Gene Not Detected (NotDetected); Calbicans Not Reported Not Detected (NotDetected); Candida glabrata Not Reported Not Detected (NotDetected); Candida krusei Not Reported Not Detected (NotDetected); Cneoformans/gatti Not Reported Not Detected (NotDetected); Cparapsilosis Not Reported Not Detected (NotDetected); E cloacae compx Not Reported Not Detected (NotDetected); Efaecalis Not Reported Not Detected (NotDetected); Efaecium Not Reported Not Detected (NotDetected); Enterobacterales Not Reported DETECTED (NotDetected); Escherichia coli Not Reported DETECTED (NotDetected); H influenzae Not Reported Not Detected (NotDetected); IMP Resistant Gene Not Detected (NotDetected); K aerogenes Not Reported Not Detected (NotDetected); KPC Resistant Gene Not Detected (NotDetected); Koxytoca Not Reported Not Detected (NotDetected); Kpneumoniae grp Not Reported Not Detected (NotDetected); Lmonocyt Not Reported Not Detected (NotDetected); N meningitidis Not Reported Not Detected (NotDetected); NDM Resistant Gene Not Detected (NotDetected); OXA 48 Like Resistant Gene Not Detected (NotDetected); P aeruginosa Not Reported Not Detected (NotDetected); Proteus spp Not Reported Not Detected (NotDetected); Salmonella spp Not Reported Not Detected (NotDetected); Staph lugdunensis Not Reported Not Detected (NotDetected); Staph spp. Not Reported Not Detected (NotDetected); Staphaureus Not Reported Not Detected (NotDetected); Staphepi Not Reported Not Detected (NotDetected); Stenmaltophilia Not Reported Not Detected (NotDetected); Strep agal(GrpB) Not Reported Not Detected (NotDetected); Strep pneum Not Reported Not Detected (NotDetected); Strep pyog (GrpA) Not Reported Not Detected (NotDetected); Strep spp Not Reported Not Detected (NotDetected); VIM Resistant Gene Not Detected (NotDetected); mcr-1 Colistin Resistant Gene Not Detected (NotDetected)
[2024-01-30 20:23] LABS: Enterobacterales DETECTED (NotDetected)
[2024-01-30] MEDS ORDERED: HEPARIN SOD 5,000 UNIT/0.5 ML VIAL SQ SCH (21:00)
[2024-01-30 21:07] LABS: BUN Creatinine Ratio 17.3 (10-20); Calcium 8.9 mg/dl (8.6-10.3); Creatinine Clr Calc Pharmacy 90.2 ml/min; Potassium 4.1 mmol/L (3.5-5.1)
[2024-01-30 21:19] LABS: Magnesium 1.8 mg/dl (1.7-2.4); Phosphorus 1.5 mg/dl (2.5-4.9)
[2024-01-31 01:47] LABS: Albumin Globulin Ratio 0.9 (0.9-2); Albumin Level 3.7 gm/dl (3.4-5.0); BUN Creatinine Ratio 14.5 (10-20); Bilirubin,Total 0.6 mg/dl (0.2-1.0); Calcium 8.9 mg/dl (8.6-10.3); Creatinine Clr Calc Pharmacy 96.1 ml/min; Magnesium 2.5 mg/dl (1.7-2.4); Potassium 3.5 mmol/L (3.5-5.1); Total Protein 7.7 gm/dl (6.0-8.3)
[2024-01-31] MEDS: POTASSIUM CHLORIDE / WTR 10 MEQ/100 ML PLCT IV SCH (03:24)
[2024-01-31 05:34] LABS: BUN Creatinine Ratio 13.8 (10-20); Calcium 8.5 mg/dl (8.6-10.3); Creatinine Clr Calc Pharmacy 112.4 ml/min; Magnesium 2.3 mg/dl (1.7-2.4); Phosphorus 1.7 mg/dl (2.5-4.9); Potassium 3.7 mmol/L (3.5-5.1)
[2024-01-31] MEDS: ACETAMINOPHEN 325 MG TAB PO PRN (05:39)
[2024-01-31] MEDS ORDERED: POTASSIUM PHOS 3 MMOL/1 ML INFUSION IV STA (05:59)
[2024-01-31 06:09] LABS: Hematocrit (blood only) 33.2 % (37.0-47.0); Hemoglobin 11.1 g/dl (12.0-16.0); Mean Corpuscular Hemoglobin 30.7 pg (25.0-34.0); Mean Corpuscular Hgb Conc 33.4 g/dL (32.0-36.0); Platelet Count 94 K/uL (130-400); RDW Coefficient of Variation 12.3 % (11.5-14.5); RDW Standard Deviation 41.5 fL (36.4-46.3); Red Blood Count 3.61 M/uL (4.20-5.40); White Blood Count 10.34 K/ul (4.8-10.8)
[2024-01-31 06:15] LABS: Basophils # (auto) 0.02 K/uL (0.00-0.20); Basophils % (auto) 0.2 %; Eosinophils # (auto) 0.01 K/uL (0.00-0.50); Eosinophils % (auto) 0.1 %; Immature Granulocytes # (auto) 0.22 K/uL (0.01-0.20); Immature Granulocytes % (auto) 2.1 %; Lymphocytes # (auto) 0.38 K/uL (1.20-3.40); Lymphocytes % (auto) 3.7 %; Monocytes # (auto) 1.31 K/uL (0.11-0.59); Monocytes % (auto) 12.7 %; Neutrophils % (auto) 81.2 %
[2024-01-31] MEDS: POTASSIUM PHOSPHATE 15 MMOL in SODIUM CHLORIDE 0.9% 250 ML IV ONE (06:28)
--- NOTE | 2024-01-31 06:38 | Critical Care Progress Note ---
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 Critical care indication:DKA Plan: Neurologic no acute needs at this time Cardiac BP; 100-120s/60s overnight asymptomatic HTN without prior HTN hx, improved Tachycardia EKG; sinus tachycardia, improving Respiratory No prior history of respiratory disease Maintaining adequate oxygen saturation on room air, CXR no acute processes no acute resp needs Gastrointestinal Diet: DMT2 diet Renal/electrolytes PALOMO no baseline kidney disease, Cr on admission 1.47 improved to 0.65 today Metabolic acidosis in the setting of DKA, improving VBG; pH <7, pCO2 26 on admission, pH improved to 7.32 Na 127 on admission, s/p 2 L NS, now 130 KPhosph repletion for low phosph Genitourinary Pyelonephritis, bilateral abd CT notes; cystitis with bilateral ascending urinary tract infection/pyelonephritis, liver is enlarged and steatotic UA; +protein, +blood (although pt is menstruating currently), +WBCs WBC count on admission 20, procal 2.7, WBC improved to 10 today was on cefepime, to transition to CTX, given 1 dose of zosyn on admission urine culture not obtained on admission to the hospital, deferred yesterday afternoon since pt already got antibiotics zosyn and cefepime Endocrine DKA, likely secondary to infectious etiology/pyelonephritis, resolved BSG 631 on admission, AG 27 HA1c 7.5% AG this morning 8 Hematologic Hgb stable at this time Infectious disease Afebrile since admission see pyelonephritis and antibiotics above blood cx; ecoli, will repeat blood cx tomorrow Lines/access; PIVs intact Prophylaxis DVT ppx: heparin Dispo: Pt stable for downgrade out of the ICU at this time. Please see attending documentation for further recommendations. Admission and Anticipated Discharge Date Admission Date: January 30, 2024 Supervising Physician Co-Signing Physician Notes Dr. Vaughn was resident physician during care of patient. I separately evaluated patient for curtis portions of the history and the exam. I was present during the critical portion of medical decision making, and I discussed the case with the resident. I generally agree with the findings and plan. Intermittent nausea managed with Reglan. Patient able to progress to ADA diet. Gram-negative bacteremia, able to de-escalate to Rocephin based off of resistance profile. Would repeat patient's blood cultures tomorrow morning secondary to historical risk factors of IVDA. Patient could certainly be bacteremic from a urological source. nurse informatics educator consulted. Stable for downgrade out of ICU. Subjective Today, pt states she is feeling maybe just a little bit better than yesterday. She states she did vomit around 3am last night, nonbloody. She states she is still having back pain and occasional abdominal pain. No chest pain or SOB. No fevers or chills overnight. Review of Systems 2 Review of Systems: All systems reviewed & are unremarkable except as noted in HPI & below Physical Exam Physical Exam: General: Alert and oriented, no acute distress, upset appearing HEENT: Normocephalic, atraumatic, Resp: Lungs clear to auscultation bilaterally, no increased work of breathing Cardio: Tachycardiac 100s, regular rate, no murmurs, no edema GI: Soft but tender in lower quadrants, bowel sounds quite faint again today Skin: Warm, dry, no rashes on visible skin but old scars noted on legs Results & Data Results & Data Vital Signs (Past 12 Hours) Vital Signs Temp Pulse Resp BP Pulse Ox 01/31/24 04:06 110 H 25 H 01/31/24 04:00 104/70 01/31/24 03:57 111 H 27 H 01/31/24 03:16 106/68 01/31/24 03:16 106/68 01/31/24 03:15 111 H 25 H 01/31/24 03:09 109 H 29 H 01/31/24 02:00 110 H 28 H 01/31/24 02:00 116/67 01/31/24 01:00 118 H 27 H 99 01/31/24 01:00 124/88 01/31/24 01:00 124/88 01/31/24 01:00 36.8 C 01/31/24 00:03 122 H 28 H 99 01/31/24 00:00 120 H 01/30/24 23:00 121/75 01/30/24 23:00 124 H 24 98 01/30/24 22:33 120 H 28 H 01/30/24 22:20 36.8 C 01/30/24 22:00 135/91 99 01/30/24 22:00 135/91 01/30/24 21:45 122 H 28 H 01/30/24 21:21 120 H 31 H 01/30/24 21:15 123 H 30 H 01/30/24 21:03 124 H 23 98 01/30/24 21:00 137/84 01/30/24 21:00 137/84 01/30/24 20:54 128 H 32 H 01/30/24 20:51 127 H 29 H 01/30/24 20:39 130 H 32 H 01/30/24 20:24 124 H 29 H 01/30/24 20:15 119 H 30 H 01/30/24 20:06 119 H 26 H 01/30/24 20:02 139/93 01/30/24 20:02 139/93 97 01/30/24 19:57 117 H 21 01/30/24 19:54 122 H 26 H 01/30/24 19:48 121 H 28 H 01/30/24 19:30 116 H 22 01/30/24 19:21 118 H 17 01/30/24 19:18 116 H 21 01/30/24 19:06 117 H 26 H 146/88 H 98 Resident Activity Tracking Resident Involvement: Resident Care Provided Care Provided: Adult Hospital Medicine
[2024-01-31] MEDS: PARoxetine HCL 20 MG TAB PO SCH (08:41)
[2024-01-31 09:05] LABS: BUN Creatinine Ratio 12.7 (10-20); Calcium 8.3 mg/dl (8.6-10.3); Creatinine Clr Calc Pharmacy 117.7 ml/min; Magnesium 2.1 mg/dl (1.7-2.4); Phosphorus 4.1 mg/dl (2.5-4.9); Potassium 4.4 mmol/L (3.5-5.1)
[2024-01-31] MEDS ORDERED: PHARMACY GLYCEMIC MGMT CONSULT PRN (10:23)
--- NOTE | 2024-01-31 10:34 | Electrocardiogram Report ---
Test Reason : Blood Pressure : */* mmHG Vent. Rate : 127 BPM Atrial Rate : 127 BPM P-R Int : 144 ms QRS Dur : 92 ms QT Int : 284 ms P-R-T Axes : 58 40 9 degrees QTcB Int : 412 ms Sinus tachycardia Nonspecific ST abnormality Abnormal ECG When compared with ECG of 30-Jan-2024 07:10, ST no longer depressed in Inferior leads ST no longer depressed in Lateral leads T wave inversion less evident in Inferior leads T wave inversion no longer evident in Anterior leads Confirmed by Elias Haley ([id number]) on 01/31/2024 10:34:17 AM Referred By: REFERRED SELF Confirmed By: Elias Haley
--- NOTE | 2024-01-31 10:40 | Electrocardiogram Report ---
Test Reason : Blood Pressure : */* mmHG Vent. Rate : 110 BPM Atrial Rate : 110 BPM P-R Int : 138 ms QRS Dur : 88 ms QT Int : 316 ms P-R-T Axes : 40 46 36 degrees QTcB Int : 427 ms Sinus tachycardia Otherwise normal ECG When compared with ECG of 30-Jan-2024 14:36, (unconfirmed) Nonspecific T wave abnormality no longer evident in Anterolateral leads Confirmed by Elias Haley ([id number]) on 01/31/2024 10:39:52 AM Referred By: REFERRED SELF Confirmed By: Elias Haley
[2024-01-31] MEDS: cefTRIAXone SODIUM 2,000 MG/50 ML BAG IV SCH (11:07)
--- NOTE | 2024-01-31 11:15 | Billing Data ---
Date of Service January 31, 2024 Coding Level of Care Code 21867 SUB INP/OBS CARE
--- NOTE | 2024-01-31 11:48 | Pharmacy Report ---
Pharmacy Glycemic Short Note 2 - Date of Service January 31, 2024 - Glycemic Short BSG Results (Last 24 hours): 01/30/24 01/30/24 01/30/24 11:35 12:40 14:01 Glucose 277 H POC Glucose 427 H* 327 H* 01/30/24 01/30/24 01/30/24 14:39 16:26 16:53 Glucose 250 H POC Glucose 247 H 245 H 01/30/24 01/30/24 01/30/24 18:00 19:16 20:03 Glucose POC Glucose 259 H 231 H 217 H 01/30/24 01/30/24 01/30/24 20:34 21:07 23:10 Glucose 233 H POC Glucose 234 H 212 H 01/31/24 01/31/24 01/31/24 00:35 01:08 03:11 Glucose 201 H POC Glucose 189 H 150 H 01/31/24 01/31/24 01/31/24 04:05 05:01 05:04 Glucose 146 H POC Glucose 141 H 141 H 01/31/24 01/31/24 01/31/24 06:15 07:57 08:29 Glucose 196 H POC Glucose 159 H 186 H 01/31/24 09:33 Glucose POC Glucose 205 H OUTPATIENT ANTIDIABETIC REGIMEN: * None * Taken off metformin and Ozempic on 11/09 due to HbA1c of 5.4% at that time. Also questionable tolerability of both per ICU rounds discussion 01/30 * Current HbA1c: 7.5% ASSESSMENT: * 38 yo F with hx of T2DM taken off all diabetes meds a few months ago now admitted with DKA and E. coli bacteremia. * Discussed on ICU rounds - diet to be ordered and OK to transition off insulin drip at this time. Insulin drip currently running at 5.4 units/hr * IVF containing dextrose has been stopped * Will initiate weight-based insulin, at 0.4 units/kg of Lantus * Will reduce drip rate to 2 units/hr at this time to help facilitate easier down titration. Will also change goal range to 140-180 mg/dL. Titrate per protocol after that, until transition criteria (below) met PLAN FOR INPATIENT GLYCEMIC CONTROL: * Continue insulin drip for now, until criteria met below. Change to 2 units/hr and adjust 140-180 mg/dL goal (to help w ease of hopeful drip transition). * Insulin drip transition criteria (both): * BSG less than 180 mg/dL x2 consecutive checks * Insulin drip rate less than 1 unit/hr * Basal insulin * Lantus 30 units SQ BID Once criteria above met, anticipate the following (with two overnight checks) * Bolus insulin * NovoLog per scale ACHS or Q6hrs while NPO * Goal Range: Low 110 mg/dL - High 140 mg/dL * Correction Factor: 30 mg/dL/unit * Nutritional / Prandial insulin per carb ratio of 1 unit per 11 grams CHO consumed
--- NOTE | 2024-01-31 12:16 | Hospitalist Progress Note ---
Date of Service January 31, 2024 Assessment & Plan (1) DKA (diabetic ketoacidosis): Plan: Presented with nausea, vomiting and lower abdominal pain of 3 days and noted to have pyelonephritis with DKA Recently taken off of Ozempic/metformin on 11/09 with A1c of 5.4 Presents today with blood sugar of 631, bicarb 8, anion gap 27 Was admitted in ICU with intravenous insulin drip and also bicarbonate drip to combat severe acidosis Has improved a lot and started with diet from this morning Appreciate glycemic pharmacist input and recommendation and appreciate collar worker input and recommendation Workup including GAD65, insulin autoantibody, IgA2 antibody and Zetia and T8 antibody to differentiate between type I and type 2 diabetes She has been feeling much better and insulin infusion will be discontinued soon Gram-negative bacilli bacteremia- awaiting further identification and sensitivity History of IVDA and also hep Saad Has been on intravenous ceftriaxone Will repeat blood culture tomorrow (2) Pyelonephritis: Plan: Complicated UTI: Bilateral pyelonephritis: UA +, await urine culture/blood cultures, continue IV cefepime Creatinine elevated at 1.47, likely prerenal from dehydration Received bicarbonate drip and has been receiving intravenous fluid Her creatinine has been normalized and electrolytes are unremarkable Will continue to monitor PRP and electrolytes PALOMO kidney function has not improved a lot (3) Acute hyperglycemia: Plan: as above (4) Anxiety: (5) Bipolar disorder: (6) Hepatitis C: (7) Diabetes mellitus, type II: (8) Asthma: (9) Tobacco use: Plan Other significant medical conditions remained stable as below: Hx asthma: Not in acute exacerbation, on albuterol as needed at home Hx heroin abuse Hx hepatitis C Sober x 11 years, reports following with GI outpatient for hep C, recently taking Mavyretcured Current tobacco use: Smoking cessation discussed, patient smokes about 10 cigarettes daily Hx depression: Continue Paxil/doxepin A total of 60 minutes was spent reviewing laboratory data/diagnostic testing/discussion with specialist/facilitating care Full code DVT prophylaxis: Heparin subcu Admission and Anticipated Discharge Date Admission Date: January 30, 2024 Subjective 01/31/2024 The patient was seen and examined in ICU She has been feeling much better and is going to have her first meal today Denies any fever and or chills but remains weak and lethargic Minimal nausea but no vomiting Review of Systems Review of Systems: all systems reviewed and are unremarkable except as noted below Physical Exam Physical Exam: lying in bed with some anxiety and weakness Constitutional: well developed, well nourished, + ill appearing and average body habitus Eyes: PERRL, conjunctivae normal, anicteric sclerae ENMT: external ear and nose normal, oropharynx normal Neck: trachea midline, no thyromegaly Respiratory: no respiratory distress Auscultation: lungs clear to auscultation bilaterally Cardiovascular: Rate/Rhythm: regular rate, regular rhythm and + tachycardic Heart Sounds: normal S1 and normal S2; no murmur Extremities: no edema Gastrointestinal (Abdomen): Inspection/Auscultation: normal bowel sounds; abdomen not distended Percussion/Palpation: abdomen soft; abdomen nontender Musculoskeletal: no acute arthritis involving any of the joint Neurologic: normal touch/pain/proprioception and moves all extremities; no focal motor deficits Psychiatric: A+Ox3, euthymic affect Lymphatic: no cervical or axillary lymphadenopathy Results & Data Results & Data Vital Signs (Past 12 Hours) Vital Signs Temp Pulse Resp BP Pulse Ox O2 Del Method 01/31/24 10:09 108 H 22 01/31/24 09:00 122/71 01/31/24 09:00 122/71 01/31/24 09:00 93 H 20 01/31/24 08:09 101 H 23 99 Room Air 01/31/24 07:30 37.2 C 01/31/24 07:00 114/75 01/31/24 07:00 114/75 01/31/24 07:00 107 H 28 H 01/31/24 06:12 130/78 01/31/24 06:12 130/78 01/31/24 06:09 109 H 28 H 99 01/31/24 06:00 110 H 29 H 01/31/24 05:03 113 H 24 99 01/31/24 05:00 121/78 01/31/24 04:51 113 H 27 H 01/31/24 04:06 110 H 25 H 01/31/24 04:00 104/70 01/31/24 03:57 111 H 27 H 01/31/24 03:16 106/68 01/31/24 03:16 106/68 01/31/24 03:15 111 H 25 H 01/31/24 03:09 109 H 29 H 01/31/24 02:00 110 H 28 H 01/31/24 02:00 116/67 01/31/24 01:00 118 H 27 H 99 01/31/24 01:00 124/88 01/31/24 01:00 124/88 01/31/24 01:00 36.8 C Laboratory Results Short CBC 01/31/24 Range/Units 05:01 WBC 10.34 (4.8-10.8) K/ul Hgb 11.1 L D (12.0-16.0) g/dl Hct 33.2 L (37.0-47.0) % Plt Count 94 L (130-400) K/uL BMP 01/30/24 01/30/24 01/30/24 14:01 16:53 20:34 Sodium 129 L 130 L 129 L Potassium 4.8 4.0 4.1 Chloride 105 109 H 108 H Carbon Dioxide 11 L 10 L 11 L BUN 21 17 14 Creatinine 1.07 D 0.89 0.81 Glucose 277 H 250 H 233 H Calcium 9.1 9.1 8.9 01/31/24 01/31/24 01/31/24 00:35 05:01 08:29 Sodium 132 L 130 L 132 L Potassium 3.5 3.7 4.4 Chloride 109 H 109 H 110 H Carbon Dioxide 11 L 13 L 14 L BUN 11 9 8 Creatinine 0.76 0.65 0.63 Glucose 201 H 146 H 196 H Calcium 8.9 8.5 L 8.3 L Liver Function 01/31/24 Range/Units 00:35 Total Bilirubin 0.6 (0.2-1.0) mg/dl AST 14 (13-39) U/L ALT 22 (7-52) U/L Alkaline Phosphatase 139 H (34-104) U/L Albumin 3.7 (3.4-5.0) gm/dl Medications Administered Current Inpatient Medications Acetaminophen (Acetaminophen 325 Mg Tab) 650 mg PO Q4H PRN PRN Reason: Pain Stop: 03/01/24 05:26 Last Admin: 01/31/24 05:39 Dose: 650 mg Dextrose (Dextrose 50% 50 Ml Syringe) 25 - 50 ml IV UD PRN; Protocol PRN Reason: Hypoglycemia Protocol Stop: 02/29/24 08:26 Doxepin HCl (Doxepin Hcl 50 Mg Capsule) 50 mg PO HS ROSA Stop: 02/29/24 20:59 Last Admin: 01/30/24 19:52 Dose: 50 mg Glucagon (Glucagon For Inj 1 Mg Vial) 1 mg SQ UD PRN; Protocol PRN Reason: Hypoglycemia Protocol Stop: 02/29/24 08:26 Glucose (Glucose 40% Gel 15 Gm Tube) 15 - 30 gm PO UD PRN; Protocol PRN Reason: Hypoglycemia Protocol Stop: 02/29/24 08:26 Glucose (Glucose 10 Tab/Tube) 4 - 8 tab PO UD PRN; Protocol PRN Reason: Hypoglycemia Treatment Stop: 02/29/24 08:26 Heparin Sodium (Porcine) (Heparin Sod 5,000 Unit/0.5 Ml Vial) 5,000 units SQ Q8H [facility] Stop: 02/29/24 15:29 Last Admin: 01/31/24 08:39 Dose: 5,000 units Insulin Human Regular 250 (units/ Sodium Chloride) 250 mls @ 5.7 mls/hr IV .Q24H [facility]; Protocol Stop: 02/29/24 08:29 Last Titration: 01/31/24 06:25 Dose: 5.7 units/hr, 5.7 mls/hr Ceftriaxone Sodium (Rocephin) 2,000 mg in 50 mls @ 100 mls/hr IV DAILY@0900 [facility] Stop: 02/14/24 10:59 Last Admin: 01/31/24 11:07 Dose: 100 mls/hr Insulin Aspart (Insulin Aspart Per Unit Charge) 0 units SC ACHS [facility] Stop: 02/29/24 11:29 Last Admin: 01/31/24 11:15 Dose: Not Given Metoclopramide HCl (Metoclopramide Hcl Inj 5 Mg/Ml 2 Ml Vial) 5 mg IV Q6H PRN PRN Reason: nausea Stop: 02/29/24 10:44 Last Admin: 01/31/24 09:11 Dose: 5 mg Miscellaneous (Carbohydrates For Hypoglycemia ) 15 - 30 gm PO UD PRN PRN Reason: Hypoglycemia Protocol Stop: 02/29/24 08:26 Miscellaneous Information (Pharmacy Glycemic Mgmt Consult) 1 each N/A UD PRN PRN Reason: Consult Stop: 03/01/24 10:22 Morphine Sulfate (Morphine Sulfate 2 Mg/Ml Carp) 2 mg IV Q3H PRN PRN Reason: severe pain Stop: 02/13/24 10:44 Last Admin: 01/31/24 02:41 Dose: 2 mg Paroxetine HCl (Paroxetine Hcl 20 Mg Tab) 60 mg PO QAM ROSA Stop: 03/01/24 08:59 Last Admin: 01/31/24 08:41 Dose: 60 mg Polyethylene Glycol (Polyethylene (Miralax) 17 Gm Pack) 34 gm PO DAILY [facility] Stop: 03/01/24 11:59
[2024-01-31] MEDS: LANTUS PER UNIT CHARGE SC ONE (12:28)
[2024-01-31] MEDS: POLYETHYLENE (MIRALAX) 17 GM PACK PO SCH (12:29)
[2024-01-31] MEDS: INSULIN ASPART PER UNIT CHARGE SC SCH (17:35)
[2024-01-31 17:53] LABS: Calcium 8.7 mg/dl (8.6-10.3); Potassium 4.3 mmol/L (3.5-5.1)
[2024-01-31 18:01] LABS: BUN Creatinine Ratio 12.7 (10-20); Creatinine Clr Calc Pharmacy 117.7 ml/min; Phosphorus 1.6 mg/dl (2.5-4.9)
[2024-01-31] MEDS: POT PHOSPHATE MONOBASIC W/ SOD TAB PO ONE (20:28)
[2024-01-31] MEDS: KETOROLAC TROMETHAMINE 15 MG/ML VIAL IV ONE (20:40)
--- NOTE | 2024-02-01 00:09 | CT Scan Report ---
Exam(s): CT HEAD Without Contrast EXAM: CT Head Without Intravenous Contrast CLINICAL HISTORY: Reason for exam: paz, thrombocytopenia. TECHNIQUE: Axial computed tomography images of the head/brain without intravenous contrast. CTDI is 37.32 mGy and DLP is 547.75 mGy-cm. Automated exposure control was utilized for the study. A dose lowering technique was utilized adhering to the principles of ALARA. COMPARISON: Prior brain MRI from the February 07, 2011. FINDINGS: Brain: Unremarkable. No hemorrhage. No significant white matter disease. No edema. Ventricles: Unremarkable. No ventriculomegaly. Bones/joints: Unremarkable. No acute fracture. Soft tissues: Unremarkable. Sinuses: Unremarkable as visualized. No acute sinusitis. Mastoid air cells: Unremarkable as visualized. No mastoid effusion. IMPRESSION: No evidence of acute intracranial pathology. Electronically signed by: Lillie Dowell MD 02/01/24 00:08 AM
[2024-02-01 07:57] LABS: Basophils # (auto) 0.06 K/uL (0.00-0.20); Basophils % (auto) 0.6 %; Eosinophils # (auto) 0.02 K/uL (0.00-0.50); Eosinophils % (auto) 0.2 %; Hematocrit (blood only) 38.4 % (37.0-47.0); Hemoglobin 12.5 g/dl (12.0-16.0); Immature Granulocytes # (auto) 0.15 K/uL (0.01-0.20); Immature Granulocytes % (auto) 1.6 %; Lymphocytes # (auto) 0.61 K/uL (1.20-3.40); Lymphocytes % (auto) 6.3 %; Mean Corpuscular Hemoglobin 30.3 pg (25.0-34.0); Mean Corpuscular Hgb Conc 32.6 g/dL (32.0-36.0); Mean Corpuscular Volume 93.2 fL (80.0-100.0); Mean Platelet Volume 11.1 fL (9.4-12.4); Monocytes # (auto) 0.92 K/uL (0.11-0.59); Monocytes % (auto) 9.6 %; Neutrophils # (auto) 7.87 K/uL (1.40-6.50); Neutrophils % (auto) 81.7 %; Platelet Count 116 K/uL (130-400); RDW Coefficient of Variation 12.8 % (11.5-14.5); RDW Standard Deviation 43.8 fL (36.4-46.3); Red Blood Count 4.12 M/uL (4.20-5.40); White Blood Count 9.63 K/ul (4.8-10.8)
[2024-02-01 08:06] LABS: Albumin Globulin Ratio 0.8 (0.9-2); Albumin Level 3.6 gm/dl (3.4-5.0); BUN Creatinine Ratio 13.9 (10-20); Bilirubin,Total 0.7 mg/dl (0.2-1.0); Calcium 9.1 mg/dl (8.6-10.3); Creatinine Clr Calc Pharmacy 94.6 ml/min; Globulin 4.4 gm/dl (2.5-4.0)
[2024-02-01] MEDS: LANTUS PER UNIT CHARGE SC SCH (08:24)
[2024-02-01] MEDS: POTASSIUM CHLORIDE / WTR 10 MEQ/100 ML PLCT IV SCH (09:02)
[2024-02-01] MEDS: POTASSIUM CHLORIDE CRTAB 20 MEQ TABCR PO STA (09:02)
[2024-02-01] MEDS: KETOROLAC TROMETHAMINE 15 MG/ML VIAL IV PRN (12:05)
[2024-02-01] MEDS: ONDANSETRON INJ 2 MG/ML 2 ML VIAL IV SCH (12:06)
--- NOTE | 2024-02-01 13:39 | Hospitalist Progress Note ---
Date of Service February 01, 2024 Assessment & Plan (1) DKA (diabetic ketoacidosis): Plan: Presented with nausea, vomiting and lower abdominal pain of 3 days and noted to have pyelonephritis with DKA Recently taken off of Ozempic/metformin on 11/09 with A1c of 5.4 Presents today with blood sugar of 631, bicarb 8, anion gap 27 Was admitted in ICU with intravenous insulin drip and also bicarbonate drip to combat severe acidosis Has improved a lot and started with diet from this morning Appreciate glycemic pharmacist input and recommendation and appreciate warehouse analyst input and recommendation Workup including GAD65, insulin autoantibody, IgA2 antibody and Zetia and T8 antibody to differentiate between type I and type 2 diabetes She has been feeling much better and insulin infusion will be discontinued soon her IV insulin drip will be discontinued and continue with subcu doses Will monitor electrolytes and kidney function Gram-negative bacilli bacteremia- awaiting further identification and sensitivity 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, and also hep C- Has been on intravenous ceftriaxone Will repeat blood culture tomorrow will get ID consult (2) Pyelonephritis: Plan: Complicated UTI: Bilateral pyelonephritis: UA +, await urine culture/blood cultures, continue IV cefepime Creatinine elevated at 1.47, likely prerenal from dehydration Received bicarbonate drip and has been receiving intravenous fluid Her creatinine has been normalized and electrolytes are unremarkable Will continue to monitor PRP and electrolytes PALOMO kidney function has not improved a lot kidney function is normalized (3) Acute hyperglycemia: Plan: as above (4) Anxiety: (5) Bipolar disorder: (6) Hepatitis C: (7) Diabetes mellitus, type II: (8) Asthma: (9) Tobacco use: Plan Other significant medical conditions remained stable as below: Hx asthma: Not in acute exacerbation, on albuterol as needed at home Hx heroin abuse Hx hepatitis C Sober x 11 years, reports following with GI outpatient for hep C, recently taking Mavyretcured Current tobacco use: Smoking cessation discussed, patient smokes about 10 cigarettes daily Hx depression: Continue Paxil/doxepin A total of 60 minutes was spent reviewing laboratory data/diagnostic testing/discussion with specialist/facilitating care Full code DVT prophylaxis: Heparin subcu Admission and Anticipated Discharge Date Admission Date: January 30, 2024 Subjective 01/31/2024 The patient was seen and examined in ICU She has been feeling much better and is going to have her first meal today Denies any fever and or chills but remains weak and lethargic Minimal nausea but no vomiting 02/01/2024 She has been feeling much better and tolerating regular diet Complains to have some nausea without vomiting and also ongoing headache Will discontinue IV insulin infusion and continue with subcu Review of Systems Review of Systems: all systems reviewed and are unremarkable except as noted below Physical Exam Physical Exam: lying in bed with some anxiety and weakness Constitutional: well developed, well nourished, + ill appearing and average body habitus Eyes: PERRL, conjunctivae normal, anicteric sclerae ENMT: external ear and nose normal, oropharynx normal Neck: trachea midline, no thyromegaly Respiratory: no respiratory distress Auscultation: lungs clear to auscultation bilaterally Cardiovascular: Rate/Rhythm: regular rate, regular rhythm and + tachycardic Heart Sounds: normal S1 and normal S2; no murmur Extremities: no edema Gastrointestinal (Abdomen): Inspection/Auscultation: normal bowel sounds; abdomen not distended Percussion/Palpation: abdomen soft; abdomen nontender Neurologic: normal touch/pain/proprioception and moves all extremities; no focal motor deficits Psychiatric: A+Ox3, euthymic affect Lymphatic: no cervical or axillary lymphadenopathy Results & Data Results & Data Vital Signs (Past 12 Hours) Vital Signs Temp Pulse Pulse Resp BP BP Pulse Ox 02/01/24 12:43 36.5 C 91 H 20 111/83 98 02/01/24 09:06 109 H 33 H 02/01/24 08:31 120/92 02/01/24 08:00 94 H 22 02/01/24 08:00 92 H 02/01/24 07:06 109 H 02/01/24 07:00 02/01/24 06:03 98 H 22 02/01/24 05:47 115/81 02/01/24 05:47 115/81 02/01/24 05:36 96 H 17 02/01/24 05:21 90 15 02/01/24 04:00 101 H 25 H 02/01/24 04:00 36.7 C 91 H 18 115/81 99 02/01/24 03:24 109 H 24 02/01/24 02:00 105 H 21 Pulse Ox O2 Del Method O2 Del Method 02/01/24 12:43 Room Air 02/01/24 09:06 02/01/24 08:31 02/01/24 08:00 02/01/24 08:00 02/01/24 07:06 02/01/24 07:00 94 Room Air 02/01/24 06:03 02/01/24 05:47 02/01/24 05:47 02/01/24 05:36 02/01/24 05:21 02/01/24 04:00 02/01/24 04:00 Room Air 02/01/24 03:24 02/01/24 02:00 Laboratory Results Short CBC 02/01/24 Range/Units 06:55 WBC 9.63 (4.8-10.8) K/ul Hgb 12.5 (12.0-16.0) g/dl Hct 38.4 (37.0-47.0) % Plt Count 116 L (130-400) K/uL BMP 01/31/24 01/31/24 01/31/24 14:10 15:50 17:19 Sodium Cancelled Cancelled 132 L Potassium Cancelled Cancelled 4.3 Chloride Cancelled Cancelled 110 H Carbon Dioxide Cancelled Cancelled 12 L BUN Cancelled Cancelled 8 Creatinine Cancelled Cancelled 0.63 Glucose Cancelled Cancelled 220 H Calcium Cancelled Cancelled 8.7 02/01/24 06:55 Sodium 135 L Potassium 3.0 L D Chloride 104 Carbon Dioxide 20 L BUN 11 Creatinine 0.79 Glucose 142 H Calcium 9.1 Liver Function 02/01/24 Range/Units 06:55 Total Bilirubin 0.7 (0.2-1.0) mg/dl AST 35 (13-39) U/L ALT 35 (7-52) U/L Alkaline Phosphatase 168 H (34-104) U/L Albumin 3.6 (3.4-5.0) gm/dl Medications Administered Current Inpatient Medications Acetaminophen (Acetaminophen 325 Mg Tab) 650 mg PO Q4H PRN PRN Reason: Pain Stop: 03/01/24 05:26 Last Admin: 02/01/24 07:41 Dose: 650 mg Dextrose (Dextrose 50% 50 Ml Syringe) 25 - 50 ml IV UD PRN; Protocol PRN Reason: Hypoglycemia Protocol Stop: 02/29/24 08:26 Doxepin HCl (Doxepin Hcl 50 Mg Capsule) 50 mg PO HS ROSA Stop: 02/29/24 20:59 Last Admin: 01/31/24 20:28 Dose: 50 mg Glucagon (Glucagon For Inj 1 Mg Vial) 1 mg SQ UD PRN; Protocol PRN Reason: Hypoglycemia Protocol Stop: 02/29/24 08:26 Glucose (Glucose 40% Gel 15 Gm Tube) 15 - 30 gm PO UD PRN; Protocol PRN Reason: Hypoglycemia Protocol Stop: 02/29/24 08:26 Glucose (Glucose 10 Tab/Tube) 4 - 8 tab PO UD PRN; Protocol PRN Reason: Hypoglycemia Treatment Stop: 02/29/24 08:26 Heparin Sodium (Porcine) (Heparin Sod 5,000 Unit/0.5 Ml Vial) 5,000 units SQ Q8H ROSA Stop: 02/29/24 15:29 Last Admin: 02/01/24 07:37 Dose: 5,000 units Ceftriaxone Sodium (Rocephin) 2,000 mg in 50 mls @ 100 mls/hr IV DAILY@0900 ROSA Stop: 02/14/24 10:59 Last Infusion: 02/01/24 12:11 Dose: Infused Insulin Aspart (Insulin Aspart Per Unit Charge) 0 units SC ACHS ROSA Stop: 03/01/24 16:29 Last Admin: 02/01/24 11:43 Dose: 3 units Insulin Glargine (Lantus Per Unit Charge) 35 units SC QAM [facility] Stop: 03/02/24 08:59 Last Admin: 02/01/24 08:24 Dose: 35 units Ketorolac Tromethamine (Ketorolac Tromethamine 15 Mg/Ml Vial) 15 mg IV Q6H PRN PRN Reason: Pain Stop: 02/06/24 11:26 Last Admin: 02/01/24 12:05 Dose: 15 mg Metoclopramide HCl (Metoclopramide Hcl Inj 5 Mg/Ml 2 Ml Vial) 5 mg IV Q6H PRN PRN Reason: nausea Stop: 02/29/24 10:44 Last Admin: 01/31/24 16:31 Dose: 5 mg Miscellaneous (Carbohydrates For Hypoglycemia ) 15 - 30 gm PO UD PRN PRN Reason: Hypoglycemia Protocol Stop: 02/29/24 08:26 Miscellaneous Information (Pharmacy Glycemic Mgmt Consult) 1 each N/A UD PRN PRN Reason: Consult Stop: 03/01/24 10:22 Morphine Sulfate (Morphine Sulfate 2 Mg/Ml Carp) 2 mg IV Q3H PRN PRN Reason: severe pain Stop: 02/13/24 10:44 Last Admin: 02/01/24 09:15 Dose: 2 mg Ondansetron HCl (Ondansetron Inj 2 Mg/Ml 2 Ml Vial) 4 mg IV Q6H ROSA Stop: 03/02/24 11:59 Last Admin: 02/01/24 12:06 Dose: 4 mg Paroxetine HCl (Paroxetine Hcl 20 Mg Tab) 60 mg PO QAM [facility] Stop: 03/01/24 08:59 Last Admin: 02/01/24 08:21 Dose: 60 mg Polyethylene Glycol (Polyethylene (Miralax) 17 Gm Pack) 34 gm PO DAILY ROSA Stop: 03/01/24 11:59 Last Admin: 02/01/24 08:48 Dose: Not Given
[2024-02-02 06:15] LABS: Basophils # (auto) 0.03 K/uL (0.00-0.20); Basophils % (auto) 0.4 %; Eosinophils # (auto) 0.02 K/uL (0.00-0.50); Eosinophils % (auto) 0.3 %; Hematocrit (blood only) 34.5 % (37.0-47.0); Hemoglobin 11.8 g/dl (12.0-16.0); Immature Granulocytes # (auto) 0.16 K/uL (0.01-0.20); Lymphocytes # (auto) 0.78 K/uL (1.20-3.40); Mean Corpuscular Hemoglobin 30.9 pg (25.0-34.0); Mean Corpuscular Hgb Conc 34.2 g/dL (32.0-36.0); Mean Corpuscular Volume 90.3 fL (80.0-100.0); Mean Platelet Volume 10.5 fL (9.4-12.4); Monocytes % (auto) 10.2 %; Neutrophils # (auto) 6.02 K/uL (1.40-6.50); Neutrophils % (auto) 77.1 %; Platelet Count 124 K/uL (130-400); RDW Coefficient of Variation 12.7 % (11.5-14.5); RDW Standard Deviation 42.1 fL (36.4-46.3); Red Blood Count 3.82 M/uL (4.20-5.40); White Blood Count 7.81 K/ul (4.8-10.8)
[2024-02-02 06:50] LABS: BUN Creatinine Ratio 15.9 (10-20); Calcium 8.7 mg/dl (8.6-10.3); Creatinine Clr Calc Pharmacy 108.5 ml/min; Magnesium 1.8 mg/dl (1.7-2.4); Phosphorus 3.1 mg/dl (2.5-4.9); Potassium 3.8 mmol/L (3.5-5.1)
[2024-02-02] MEDS: LANTUS PER UNIT CHARGE SC SCH (08:45)
--- NOTE | 2024-02-02 15:24 | Hospitalist Progress Note ---
Date of Service February 02, 2024 Assessment & Plan (1) DKA (diabetic ketoacidosis): Plan: Presented with nausea, vomiting and lower abdominal pain of 3 days and noted to have pyelonephritis with DKA Recently taken off of Ozempic/metformin on 11/09 with A1c of 5.4 Presents today with blood sugar of 631, bicarb 8, anion gap 27 Was admitted in ICU with intravenous insulin drip and also bicarbonate drip to combat severe acidosis Has improved a lot and started with diet from this morning Appreciate glycemic pharmacist input and recommendation and appreciate jig mill operator input and recommendation Workup including GAD65, insulin autoantibody, IgA2 antibody and Zetia and T8 antibody to differentiate between type I and type 2 diabetes She has been feeling much better and insulin infusion will be discontinued soon her IV insulin drip will be discontinued and continue with subcu doses Will monitor electrolytes and kidney function Appreciate glycemic pharmacist input and recommendation Has been on subcu insulin and the blood sugar has been running on the higher side around 180s to 200 Denies any nausea no vomiting or any other symptoms associated with hyperglycemia Gram-negative bacilli bacteremia- awaiting further identification and sensitivity 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, and also hep C- Has been on intravenous ceftriaxone Will repeat blood culture - negative will get ID consult- awaited (2) Pyelonephritis: Plan: Complicated UTI: Bilateral pyelonephritis: UA +, await urine culture/blood cultures, continue IV cefepime Creatinine elevated at 1.47, likely prerenal from dehydration Received bicarbonate drip and has been receiving intravenous fluid Her creatinine has been normalized and electrolytes are unremarkable Will continue to monitor PRP and electrolytes [place] kidney function has not improved a lot kidney function is normalized (3) Acute hyperglycemia: Plan: as above (4) Anxiety: (5) Bipolar disorder: (6) Hepatitis C: (7) Diabetes mellitus, type II: (8) Asthma: (9) Tobacco use: Plan Other significant medical conditions remained stable as below: Hx asthma: Not in acute exacerbation, on albuterol as needed at home Hx heroin abuse Hx hepatitis C Sober x 11 years, reports following with GI outpatient for hep C, recently taking Mavyretcured Current tobacco use: Smoking cessation discussed, patient smokes about 10 cigarettes daily Hx depression: Continue Paxil/doxepin Full code DVT prophylaxis: Heparin subcu Admission and Anticipated Discharge Date Admission Date: January 30, 2024 Subjective 01/31/2024 The patient was seen and examined in ICU She has been feeling much better and is going to have her first meal today Denies any fever and or chills but remains weak and lethargic Minimal nausea but no vomiting 02/01/2024 She has been feeling much better and tolerating regular diet Complains to have some nausea without vomiting and also ongoing headache Will discontinue IV insulin infusion and continue with subcu 02/02/2024 the patient was seen and examined in telemetry unit She has been feeling much better and complains to have some weakness Has been tolerating diet and blood sugar seems to be maintaining Awaiting ID evaluation likely discharge tomorrow Review of Systems Review of Systems: all systems reviewed and are unremarkable except as noted below Physical Exam Physical Exam: lying in bed with some anxiety and weakness Constitutional: well developed, well nourished, + ill appearing and average body habitus Eyes: PERRL, conjunctivae normal, anicteric sclerae ENMT: external ear and nose normal, oropharynx normal Neck: trachea midline, no thyromegaly Respiratory: no respiratory distress Auscultation: lungs clear to auscultation bilaterally Cardiovascular: Rate/Rhythm: regular rate, regular rhythm and + tachycardic Heart Sounds: normal S1 and normal S2; no murmur Extremities: no edema Gastrointestinal (Abdomen): Inspection/Auscultation: normal bowel sounds; abdomen not distended Percussion/Palpation: abdomen soft; abdomen nontender Neurologic: normal touch/pain/proprioception and moves all extremities; no focal motor deficits Psychiatric: A+Ox3, euthymic affect Lymphatic: no cervical or axillary lymphadenopathy Results & Data Results & Data Vital Signs (Past 12 Hours) Vital Signs Temp Pulse Pulse Resp BP Pulse Ox O2 Del Method 02/02/24 14:12 96 H 02/02/24 12:29 36.7 C 92 H 19 122/83 98 Room Air 02/02/24 08:23 36.4 C L 90 19 123/85 98 Room Air 02/02/24 08:00 97 H 02/02/24 03:39 36.8 C 101 H 16 142/93 H 100 Room Air Laboratory Results Short CBC 02/02/24 Range/Units 05:43 WBC 7.81 (4.8-10.8) K/ul Hgb 11.8 L (12.0-16.0) g/dl Hct 34.5 L (37.0-47.0) % Plt Count 124 L (130-400) K/uL BMP 02/02/24 05:43 Sodium 135 L Potassium 3.8 D Chloride 105 Carbon Dioxide 21 BUN 11 Creatinine 0.69 Glucose 227 H Calcium 8.7 Medications Administered Current Inpatient Medications Acetaminophen (Acetaminophen 325 Mg Tab) 650 mg PO Q4H PRN PRN Reason: Pain Stop: 03/01/24 05:26 Last Admin: 02/01/24 20:49 Dose: 650 mg Dextrose (Dextrose 50% 50 Ml Syringe) 25 - 50 ml IV UD PRN; Protocol PRN Reason: Hypoglycemia Protocol Stop: 02/29/24 08:26 Doxepin HCl (Doxepin Hcl 50 Mg Capsule) 50 mg PO HS [facility] Stop: 02/29/24 20:59 Last Admin: 02/01/24 20:49 Dose: 50 mg Glucagon (Glucagon For Inj 1 Mg Vial) 1 mg SQ UD PRN; Protocol PRN Reason: Hypoglycemia Protocol Stop: 02/29/24 08:26 Glucose (Glucose 40% Gel 15 Gm Tube) 15 - 30 gm PO UD PRN; Protocol PRN Reason: Hypoglycemia Protocol Stop: 02/29/24 08:26 Glucose (Glucose 10 Tab/Tube) 4 - 8 tab PO UD PRN; Protocol PRN Reason: Hypoglycemia Treatment Stop: 02/29/24 08:26 Heparin Sodium (Porcine) (Heparin Sod 5,000 Unit/0.5 Ml Vial) 5,000 units SQ Q8H ROSA Stop: 02/29/24 15:29 Last Admin: 02/02/24 08:15 Dose: 5,000 units Ceftriaxone Sodium (Rocephin) 2,000 mg in 50 mls @ 100 mls/hr IV DAILY@0900 [facility] Stop: 02/14/24 10:59 Last Infusion: 02/02/24 08:41 Dose: Infused Insulin Aspart (Insulin Aspart Per Unit Charge) 0 units SC ACHS [facility] Stop: 03/01/24 16:29 Last Admin: 02/02/24 13:26 Dose: 7 units Insulin Glargine (Lantus Per Unit Charge) 40 units SC QAM [facility] Stop: 03/03/24 08:59 Last Admin: 02/02/24 08:45 Dose: 40 units Ketorolac Tromethamine (Ketorolac Tromethamine 15 Mg/Ml Vial) 15 mg IV Q6H PRN PRN Reason: Pain Stop: 02/06/24 11:26 Last Admin: 02/02/24 13:27 Dose: 15 mg Metoclopramide HCl (Metoclopramide Hcl Inj 5 Mg/Ml 2 Ml Vial) 5 mg IV Q6H PRN PRN Reason: nausea Stop: 02/29/24 10:44 Last Admin: 01/31/24 16:31 Dose: 5 mg Miscellaneous (Carbohydrates For Hypoglycemia ) 15 - 30 gm PO UD PRN PRN Reason: Hypoglycemia Protocol Stop: 02/29/24 08:26 Miscellaneous Information (Pharmacy Glycemic Mgmt Consult) 1 each N/A UD PRN PRN Reason: Consult Stop: 03/01/24 10:22 Morphine Sulfate (Morphine Sulfate 2 Mg/Ml Carp) 2 mg IV Q3H PRN PRN Reason: severe pain Stop: 02/13/24 10:44 Last Admin: 02/01/24 09:15 Dose: 2 mg Ondansetron HCl (Ondansetron Inj 2 Mg/Ml 2 Ml Vial) 4 mg IV Q6H [facility] Stop: 03/02/24 11:59 Last Admin: 02/02/24 13:26 Dose: 4 mg Paroxetine HCl (Paroxetine Hcl 20 Mg Tab) 60 mg PO QAM [facility] Stop: 03/01/24 08:59 Last Admin: 02/02/24 08:05 Dose: 60 mg Polyethylene Glycol (Polyethylene (Miralax) 17 Gm Pack) 34 gm PO DAILY [facility] Stop: 03/01/24 11:59 Last Admin: 02/02/24 08:05 Dose: Not Given
--- NOTE | 2024-02-02 15:25 | Pharmacy Report ---
Pharmacy Glycemic Short Note 2 - Date of Service February 02, 2024 - Glycemic Short BSG Results (Last 24 hours): 02/01/24 02/01/24 02/02/24 16:07 20:03 05:43 Glucose 227 H POC Glucose 200 H 180 H 02/02/24 02/02/24 08:20 12:25 Glucose POC Glucose 181 H 207 H OUTPATIENT ANTIDIABETIC REGIMEN: * None * Taken off metformin and Ozempic on 11/09 due to HbA1c of 5.4% at that time. Also questionable tolerability of both per ICU rounds discussion 01/30 * Current HbA1c: 7.5% ASSESSMENT: 02/01: * After the insulin drip was discontinued yesterday morning, patient received total 45 units total of SC insulin; 35 units basal and 10 units bolus. * Blood sugars were elevated above goal thorough out yesterday. Fasting BSG today was 181 mg/dl. * Basal insulin dose increased to 40 units today AM and Novolog parameters tightened. 01/31/24 * 38 yo F with hx of T2DM taken off all diabetes meds a few months ago now admitted with DKA and E. coli bacteremia. * Discussed on ICU rounds - diet to be ordered and OK to transition off insulin drip at this time. Insulin drip currently running at 5.4 units/hr * IVF containing dextrose has been stopped * Will initiate weight-based insulin, at 0.4 units/kg of Lantus * Will reduce drip rate to 2 units/hr at this time to help facilitate easier down titration. Will also change goal range to 140-180 mg/dL. Titrate per protocol after that, until transition criteria (below) met PLAN FOR INPATIENT GLYCEMIC CONTROL: * Basal insulin * Lantus 40 units SQ QAM * Bolus insulin * NovoLog per scale ACHS or Q6hrs while NPO * Goal Range: Low 110 mg/dL - High 140 mg/dL * Correction Factor: 20 mg/dL/unit * Nutritional / Prandial insulin per carb ratio of 1 unit per 7 grams CHO consumed
--- NOTE | 2024-02-02 20:34 | Electrocardiogram Report ---
Test Reason : Blood Pressure : */* mmHG Vent. Rate : 90 BPM Atrial Rate : 90 BPM P-R Int : 142 ms QRS Dur : 94 ms QT Int : 340 ms P-R-T Axes : 19 22 26 degrees QTcB Int : 415 ms Normal sinus rhythm Normal ECG When compared with ECG of 31-Jan-2024 06:16, No significant change was found Confirmed by Miki Powell [id number]) on 02/02/2024 8:34:28 PM Referred By: REFERRED SELF Confirmed By: Miki Powell
[2024-02-03 06:37] LABS: Hematocrit (blood only) 32.3 % (37.0-47.0); Hemoglobin 11.4 g/dl (12.0-16.0); Mean Corpuscular Hemoglobin 31.5 pg (25.0-34.0); Mean Corpuscular Hgb Conc 35.3 g/dL (32.0-36.0); Mean Corpuscular Volume 89.2 fL (80.0-100.0); Mean Platelet Volume 10.6 fL (9.4-12.4); Platelet Count 157 K/uL (130-400); RDW Coefficient of Variation 12.6 % (11.5-14.5); RDW Standard Deviation 41.2 fL (36.4-46.3); Red Blood Count 3.62 M/uL (4.20-5.40); White Blood Count 7.34 K/ul (4.8-10.8)
[2024-02-03 07:06] LABS: BUN Creatinine Ratio 15.1 (10-20); Basophils # (auto) 0.06 K/uL (0.00-0.20); Basophils % (auto) 0.8 %; Calcium 8.8 mg/dl (8.6-10.3); Creatinine Clr Calc Pharmacy 102.6 ml/min; Eosinophils # (auto) 0.04 K/uL (0.00-0.50); Eosinophils % (auto) 0.5 %; Immature Granulocytes # (auto) 0.34 K/uL (0.01-0.20); Immature Granulocytes % (auto) 4.6 %; Lymphocytes # (auto) 1.95 K/uL (1.20-3.40); Lymphocytes % (auto) 26.6 %; Magnesium 1.8 mg/dl (1.7-2.4); Monocytes # (auto) 0.79 K/uL (0.11-0.59); Monocytes % (auto) 10.8 %; Neutrophils # (auto) 4.16 K/uL (1.40-6.50); Neutrophils % (auto) 56.7 %; Phosphorus 5.5 mg/dl (2.5-4.9); Potassium 3.7 mmol/L (3.5-5.1); Toxic Granulation 1+
[2024-02-03 11:27] VITALS: RESP 19
--- NOTE | 2024-02-03 11:38 | Discharge Summary ---
Discharge Summary Date of Service February 03, 2024 Principal Dx & Hospital Course #1 = Principal Diagnosis (1) DKA (diabetic ketoacidosis): (2) E. coli bacteremia: (3) Pyelonephritis: (4) Diabetes mellitus, type II: (5) Bipolar disorder: Plan Patient is 38-year-old female presented to the emergency room with nausea vomiting and back pain. The emergency room was noted to be in DKA with significant acidosis. Significantly abnormal urinalysis. The patient was admitted to the ICU. Given fluid resuscitation and placed on IV insulin. Her electrolytes were closely monitored. She rapidly improved from her DKA and was converted to subcutaneous insulin. Blood cultures grew out pansensitive E. coli with imaging consistent with a pyelonephritis. She was transferred out of the ICU. Pharmacy was managing her transition to subcutaneous insulin and certified diabetes educator saw her as well. Patient had been on metformin Ozempic and glipizide for treatment of her diabetes but had discontinued them recently. She felt as though she had made enough dietary and lifestyle changes that she did not need the medications anymore. She states she is familiar with insulin. Continue her on subcutaneous insulin for management of her diabetes. She was treated with cefepime for her E. coli bacteremia from her pyelonephritis. Blood culture grew out pansensitive E. coli. On the day of discharge she was afebrile. No flank pain. She can be converted to oral ciprofloxacin to complete a 14-day course of antibiotics. She will follow-up with her outpatient providers complete a course of antibiotics at home and continue insulin for management of her diabetes. Notes For Next Care Provider May need additional treatments for her diabetes Medication Changes From Visit Lantus and NovoLog started for management of her diabetes Admission HPI Per Admitting Provider The patient is a 38-year-old female with a past medical history of DM2, depression, heroin abusesober for 11 years, hep Crecently treated with Mavyret and cleared, asthma who presents to the ED on 01/30/2024 with complaints of nausea/vomiting/lower back pain x 3 days. Patient was recently taken off of all of her diabetic medications on 11/11/2023 after her A1c was 5.3. Follows with her primary doctor outpatient for this. Reported her highest A1c was 10 in the past. She was originally taking metformin twice a day 1000 mg and Ozempic weekly and this lowered her A1c pretty rapidly. The patient reports she has still been controlling her diet. She denies any diarrhea. Denies any chest pain/shortness of breath. Denies any recent travel. She is a current smoker she smokes marijuana and smokes about 10 cigarettes a day. Reports socially drinking. On arrival to the ED, labs are remarkable for WBC 20, sodium 127, corrected 133, chloride 92, bicarb 8, anion gap 27, BUN 26, creatinine 1.47, glucose 631now improved to 473, lactate 3.3, now improved to 2.2, hemoglobin A1c 7.5, alk phos 208, procalcitonin 2.74 UA + protein/glucose/ketones/blood/WBC A/P CT showed cystitis with bilateral ascending UTI/pyelonephritis Chest x-ray was negative EKG shows sinus tachycardia with a heart rate in the 130s, some ST depression noted in V4/V5, likely associated with multiple electrolyte abnormalities on presentation On exam, the patient is resting comfortably, still reports some intermittent back pain. Denies chest pain or shortness of breath The patient was given 2 L of normal saline and started on insulin drip in the ED. She was also given a dose of IV Zosyn. She will be admitted to the ICU for further monitoring/management of DKA Admission Exam Per Admitting Provider See H&P Discharge Exam Constitutional: Alert HEENT: Mucous membranes moist. Lungs: Clear to auscultation, decreased, no wheezes rales or rhonchi CV: S1-S2, regular Abdomen: Soft, nontender, nondistended, no CVA tenderness Extremities: No significant edema Neuro: No focal deficits Psych: Cooperative, normal mood Updated Medication List Medication Instructions Recorded Confirmed Type albuterol sulfate 90 mcg/actuation 2 puff inhalation QID 11/10/23 01/30/24 History aerosol inhaler doxepin 50 mg capsule 50 mg PO HS 11/10/23 01/30/24 History fluticasone propionate 110 0 puff inhalation BID 11/10/23 01/30/24 History mcg/actuation HFA aerosol inhaler medroxyprogesterone 150 mg/mL 0 mg IM DIRECTED 11/10/23 01/30/24 History intramuscular suspension paroxetine HCl 40 mg tablet 60 mg PO QAM 11/10/23 01/30/24 History ciprofloxacin HCl 500 mg tablet 500 mg PO BID 10 days #20 tabs 02/03/24 Rx insulin aspart U-100 100 unit/mL 4 unit (0.04 mL) subcut .qac #15 mL 02/03/24 Rx subcutaneous cartridge (Novolog PenFill U-100 Insulin aspart) insulin glargine 100 unit/mL (3 45 unit (0.45 mL) subcut DAILY #15 02/03/24 Rx mL) subcutaneous pen (Lantus mL Solostar U-100 Insulin) Hospital Stay Data Consultations 01/30/24 09:51 ED Decision to Admit Stat 01/30/24 10:18 Consult Disk Sander Routine 02/01/24 08:50 Consult Infectious Diseases Routine Diagnostic Imagining Performed 01/30/24 07:16 CT abd pelvis IV con only Stat 01/31/24 20:28 CT head/brain wo con Stat Reviewed imaging, laboratory and diagnostic studies. Pertinent findings as below. Blood cultures grew out pansensitive E. coli WBCs 7.3, hemoglobin 11.4 Sodium 135 Rest of her electrolytes within normal range Hemoglobin A1c 7.5 Pending Results Patient Have Any Pending Studies at Discharge: No Discharge Instructions Given to Patient (Per Discharging Provider) Continue to monitor glucose and work with your PCP for management of your diabetes Total Time Total Time Spent Total Time Spent (In Minutes): 36
--- NOTE | 2024-02-03 14:57 | Discharge Summary ---
Discharge Summary Date of Service February 03, 2024 Principal Dx & Hospital Course #1 = Principal Diagnosis (1) DKA (diabetic ketoacidosis): (2) E. coli bacteremia: (3) Pyelonephritis: (4) Diabetes mellitus, type II: (5) Bipolar disorder: Admission HPI Per Admitting Provider The patient is a 38-year-old female with a past medical history of DM2, depression, heroin abusesober for 11 years, hep Crecently treated with Mavyret and cleared, asthma who presents to the ED on 01/30/2024 with complaints of nausea/vomiting/lower back pain x 3 days. Patient was recently taken off of all of her diabetic medications on 11/11/2023 after her A1c was 5.3. Follows with her primary doctor outpatient for this. Reported her highest A1c was 10 in the past. She was originally taking metformin twice a day 1000 mg and Ozempic weekly and this lowered her A1c pretty rapidly. The patient reports she has still been controlling her diet. She denies any diarrhea. Denies any chest pain/shortness of breath. Denies any recent travel. She is a current smoker she smokes marijuana and smokes about 10 cigarettes a day. Reports socially drinking. On arrival to the ED, labs are remarkable for WBC 20, sodium 127, corrected 133, chloride 92, bicarb 8, anion gap 27, BUN 26, creatinine 1.47, glucose 631now improved to 473, lactate 3.3, now improved to 2.2, hemoglobin A1c 7.5, alk phos 208, procalcitonin 2.74 UA + protein/glucose/ketones/blood/WBC A/P CT showed cystitis with bilateral ascending UTI/pyelonephritis Chest x-ray was negative EKG shows sinus tachycardia with a heart rate in the 130s, some ST depression noted in V4/V5, likely associated with multiple electrolyte abnormalities on presentation On exam, the patient is resting comfortably, still reports some intermittent back pain. Denies chest pain or shortness of breath The patient was given 2 L of normal saline and started on insulin drip in the ED. She was also given a dose of IV Zosyn. She will be admitted to the ICU for further monitoring/management of DKA Updated Medication List Medication Instructions Recorded Confirmed Type albuterol sulfate 90 mcg/actuation 2 puff inhalation QID 11/10/23 01/30/24 History aerosol inhaler doxepin 50 mg capsule 50 mg PO HS 11/10/23 01/30/24 History fluticasone propionate 110 0 puff inhalation BID 11/10/23 01/30/24 History mcg/actuation HFA aerosol inhaler medroxyprogesterone 150 mg/mL 0 mg IM DIRECTED 11/10/23 01/30/24 History intramuscular suspension paroxetine HCl 40 mg tablet 60 mg PO QAM 11/10/23 01/30/24 History ciprofloxacin HCl 500 mg tablet 500 mg PO BID 10 days #20 tabs 02/03/24 Rx insulin aspart U-100 100 unit/mL 4 unit (0.04 mL) subcut .qac #15 mL 02/03/24 Rx subcutaneous cartridge (Novolog PenFill U-100 Insulin aspart) insulin glargine 100 unit/mL (3 45 unit (0.45 mL) subcut DAILY #15 02/03/24 Rx mL) subcutaneous pen (Lantus mL Solostar U-100 Insulin) Hospital Stay Data Consultations 01/30/24 09:51 ED Decision to Admit Stat 01/30/24 10:18 Consult [employer] Routine Diagnostic Imagining Performed 01/30/24 07:16 CT abd pelvis IV con only Stat 01/31/24 20:28 CT head/brain wo con Stat Pending Results Patient Have Any Pending Studies at Discharge: No Discharge Instructions Given to Patient (Per Discharging Provider) Continue to monitor glucose and work with your PCP for management of your diabetes
[2024-02-03 15:36] VITALS: BP 133/84; TEMP 98.2; O2SAT 99
[2024-02-03 16:12] VITALS: PULSE 90
== END 2024-02-03 16:12 | disposition home or self-care (01) | DRG 638 ==
LOC: ED 06:56 → SUATTDRO 10:24 → 1E 10:24 → 4W 02-01 23:08